=== PATIENT | male | born 1960 | race American Indian/Alaskan Native ===

== ENCOUNTER 2021-10-09 00:29 | Emergency (ER) | payer OTHER ==
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
--- NOTE | 2021-10-09 04:28 | XRay Report ---
C-Spine INDICATION / CLINICAL INFORMATION: TRECH PLACEMENT COMPARISON: None available. FINDINGS/IMPRESSION: Tracheostomy device tip projects over the trachea. Visualized lung apices are clear. Advanced multile florentin cervical spondylosis partially imaged. No acute osseous findings. Signer Name: Magdi Manning MD Signed: 10/09/2021 2:18 AM Workstation Name: [id number]
[2021-10-09 05:15] VITALS: BP 131/95
== END 2021-10-09 05:10 | disposition home or self-care (01) ==
LOC: ED 00:29
DX: Z43.0 Encounter for attention to tracheostomy (principal)
CPT/HCPCS: 72040; 99283

== ENCOUNTER 2021-10-31 01:56 | Inpatient (IN) | payer OTHER ==
[2021-10-31] MEDS ORDERED: SUCCINYLCHOLINE CHLORIDE 200 MG/10 ML INJ MDV ONE (02:22)
[2021-10-31] MEDS ORDERED: KETAMINE 500 MG/5 ML VIAL MDV ONE (02:23)
[2021-10-31] MEDS ORDERED: KETAMINE 500 MG/5 ML VIAL MDV IV ONE (02:30)
[2021-10-31] MEDS ORDERED: SODIUM CHLORIDE 0.9% 1000 ML 1,000 ML IV ONE ×3 (02:35→04:00)
[2021-10-31 03:00] LABS: Basophils % (Auto) 0.4 % (0.0-1.8); Eosinophils % (Auto) 0.1 % (0.0-4.3); Lymphocytes # (Auto) 1.9 K/mm3 (1.2-5.4); Lymphocytes % (Auto) 16.6 % (13.4-35.0); Mean Corpuscular HGB Conc 29 % (32-34); Mean Corpuscular Volume 90 fl (84-94); Monocytes # (Auto) 0.2 K/mm3 (0.0-0.8); Monocytes % (Auto) 1.4 % (0.0-7.3); Platelet Count 338 K/mm3 (140-440); Red Blood Count 4.71 M/mm3 (3.65-5.03); Red Cell Distribution Width 15.3 % (13.2-15.2)
--- NOTE | 2021-10-31 03:11 | XRay Report ---
CHEST 1 VIEW INDICATION / CLINICAL INFORMATION: SOB. COMPARISON: None available. FINDINGS: SUPPORT DEVICES: Tracheostomy tube is present and appears to be in satisfactory position. HEART / MEDIASTINUM: No significant abnormality. LUNGS / PLEURA: The lungs are hyperinflated suggesting COPD. The lungs are grossly clear. No definiti ve acute superimposed disease is noted. Central pulmonary artery appears prominent, probably indicati ve of pulmonary arterial hypertension. No pleural effusions. No pneumothorax. ADDITIONAL FINDINGS: No significant additional findings. IMPRESSION: 1. Hyperinflation of the lungs consistent with COPD. 2. No definite acute superimposed pulmonary disease noted. Signer Name: Jacquelin Mccord MD Signed: 10/31/2021 3:07 AM Workstation Name: [id number]
[2021-10-31 03:17] LABS: Hematocrit 42.2 % (35.5-45.6); Hemoglobin 12.4 gm/dl (11.8-15.2)
[2021-10-31 03:19] LABS: INR 1.12 (0.87-1.13)
[2021-10-31 03:20] LABS: Partial Thromboplastin Time 43.1 Sec. (24.2-36.6)
[2021-10-31 03:23] LABS: Calcium 9.1 mg/dL (8.4-10.2)
[2021-10-31 03:28] LABS: C-Reactive Protein 7.8 mg/dL (0.00-1.30)
[2021-10-31] MEDS ORDERED: dexAMETHasone 4 MG/ML VIAL IV ONE (03:41)
[2021-10-31] MEDS ORDERED: cefTRIAXone/NS 1 GM/50 ML 1 GM/50 ML BAG IV ONE (03:41)
[2021-10-31 04:12] LABS: ABG Base Excess -7.8 mmol/L (-2.0-3.0); ABG HCO3 17.4 mmol/L (20.0-26.0); ABG Methemoglobin 0.5 % (0.0-1.5); ABG Oxygen Saturation 99.3 % (95.0-99.0); ABG PCO2 34.8 mm Hg; ABG PH 7.318 pH Units (7.350-7.450); ABG PO2 229.1 mm Hg (80.0-90.0)
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
[2021-10-31] MEDS ORDERED: MORPHINE 4 MG/1 ML INJ IV PRN (11:10)
[2021-10-31] MEDS ORDERED: SIMPLE SYRUP 15 ML FEEDTUBE PRN ×2 (12:00)
[2021-10-31] MEDS ORDERED: ACETAMINOPHEN 325 MG/10.15 ML ORAL LIQD UNIT DOSE FEEDTUBE PRN (12:00)
[2021-10-31] MEDS ORDERED: metroNIDAZOLE/NS 500 MG/100 ML 500 MG/100 ML BAG IV SCH (12:00)
[2021-10-31] MEDS ORDERED: HYDROcodone/ACETAMINOPHEN 5-325 MG TAB PO PRN (12:00)
[2021-10-31] MEDS ORDERED: SODIUM BICARBONATE 325 MG TAB FEEDTUBE PRN (12:00)
[2021-10-31] MEDS ORDERED: LIPASE 10,500/PROTEASE 25,000/AMYLASE 43,750 (UNITS) DR CAP FEEDTUBE PRN (12:00)
[2021-10-31] MEDS ORDERED: ENOXAPARIN 30 MG/0.3 ML INJ SUB-Q SCH (13:00)
[2021-10-31] MEDS: AZITHROMYCIN/NS 500 MG/250 ML 500 MG/250 ML BAG IV SCH (13:26)
--- NOTE | 2021-10-31 14:02 | Consultation ---
History of Present Illness Consult date: 10/31/21 Requesting physician: CODI TURK Reason for consult: other (AHRF; Aspiration Pneumonia; Sepsis) History of present illness: PULMONARY/CCM CONSULT NOTE (Full dictation # [id number]) Please see dictated notes for full details Past History Past Medical History: stroke, other ( L TIBIA FRACTURE, RESP FAILURE) Past Surgical History: Other (Tracheostomy, gastrostomy tube placement) Social history: no significant social history Family history: no significant family history Medications and Allergies Allergies Allergy/AdvReac Type Severity Reaction Status Date / Time Unable to Assess Allergy Unverified 10/31/21 02:38 Active Meds: Active Medications Acetaminophen (Acetaminophen 325 Mg/10.15 Ml Oral Liqd Unit Dose) 650 mg FEEDTUBE Q6H PRN PRN Reason: Pain MILD(1-3)/Fever >100.5/MARIANO Hydrocodone Bitart/Acetaminophen (Hydrocodone/Acetaminophen 5-325 Mg Tab) 2 each PO Q6H PRN PRN Reason: Pain, Moderate (4-6) Lipase/Protease/Amylase (Lipase 10,500/Protease 25,000/Amylase 43,750 (Units) Dr Adames) 1 each FEEDTUBE PRN PRN PRN Reason: For Clogged Feeding Tube Enoxaparin Sodium (Enoxaparin 30 Mg/0.3 Ml Inj) 30 mg SUB-Q QDAY TRAVIS Last Admin: 10/31/21 13:26 Dose: 30 mg Ceftriaxone Sodium (Rocephin/Ns 2 Gm/100 Ml) 2 gm in 100 mls @ 200 mls/hr IV Q24H TRAVIS; Protocol Azithromycin (Zithromax/Ns) 500 mg in 250 mls @ 250 mls/hr IV Q24H TRAVIS; Protocol Last Admin: 10/31/21 13:26 Dose: 250 mls/hr Morphine Sulfate (Morphine 2 Mg/1 Ml Inj) 2 mg IV Q4H PRN PRN Reason: Pain , Severe (7-10) Simple Syrup (Simple Syrup 15 Ml) 15 ml FEEDTUBE PRN PRN PRN Reason: Hypoglycemia Simple Syrup (Simple Syrup 15 Ml) 30 ml FEEDTUBE PRN PRN PRN Reason: Hypoglycemia Sodium Bicarbonate (Sodium Bicarbonate 325 Mg Tab) 325 mg FEEDTUBE PRN PRN PRN Reason: For Clogged Feeding Tube Sodium Chloride (Sodium Chloride 0.9% 10 Ml Flush Syringe) 10 ml IV BID TRAVIS Last Admin: 10/31/21 13:26 Dose: Not Given Sodium Chloride (Sodium Chloride 0.9% 10 Ml Flush Syringe) 10 ml IV PRN PRN PRN Reason: LINE FLUSH Physical Examination Vital signs: Vital Signs Resp Pulse Ox 48 H 67 L 10/31/21 02:15 10/31/21 02:15 Results - Laboratory Findings CBC and BMP: 10/31/21 02:36 10/31/21 02:36 ABG ABG pH 7.318 pH Units (7.350-7.450) L 10/31/21 04:01 ABG pCO2 34.8 mm Hg 10/31/21 04:01 ABG pO2 229.1 mm Hg (80.0-90.0) H 10/31/21 04:01 ABG O2 Saturation 99.3 % (95.0-99.0) H 10/31/21 04:01 PT/INR, D-dimer PT 15.6 Sec. (12.2-14.9) H 10/31/21 02:36 INR 1.12 (0.87-1.13) 10/31/21 02:36 D-Dimer 1951.30 ng/mlDDU (0-234) H 10/31/21 02:36 Abnormal lab findings: Abnormal Labs 10/31/21 10/31/21 10/31/21 02:36 02:36 02:36 WBC 11.4 H MCH 26 L MCHC 29 L RDW 15.3 H Seg Neutrophils % 81.5 H Seg Neutrophils # 9.3 H PT 15.6 H APTT 43.1 H D-Dimer 1951.30 H ABG pH ABG pO2 ABG HCO3 ABG O2 Saturation ABG Base Excess ABG Hemoglobin Sodium 155 H Chloride 110.3 H Carbon Dioxide 15 L BUN 46 H Creatinine 2.7 H Glucose 120 H Lactic Acid Ferritin AST 492 H ALT 319 H Alkaline Phosphatase 153 H Ammonia Lactate Dehydrogenase Troponin T 0.065 H C-Reactive Protein NT-Pro-B Natriuret Pep 2381 H Albumin 3.0 L LDL Cholesterol Direct 20 L HDL Cholesterol 13 L 10/31/21 10/31/21 10/31/21 02:36 02:36 02:36 WBC MCH MCHC RDW Seg Neutrophils % Seg Neutrophils # PT APTT D-Dimer ABG pH ABG pO2 ABG HCO3 ABG O2 Saturation ABG Base Excess ABG Hemoglobin Sodium Chloride Carbon Dioxide BUN Creatinine Glucose Lactic Acid 11.80 H* Ferritin 74423.0 H AST ALT Alkaline Phosphatase Ammonia Lactate Dehydrogenase 923 H Troponin T C-Reactive Protein 7.80 H NT-Pro-B Natriuret Pep Albumin LDL Cholesterol Direct HDL Cholesterol 10/31/21 10/31/21 10/31/21 04:01 04:54 06:04 WBC MCH MCHC RDW Seg Neutrophils % Seg Neutrophils # PT APTT D-Dimer ABG pH 7.318 L ABG pO2 229.1 H ABG HCO3 17.4 L ABG O2 Saturation 99.3 H ABG Base Excess -7.8 L ABG Hemoglobin 13.2 L Sodium Chloride Carbon Dioxide BUN Creatinine Glucose Lactic Acid 5.50 H* Ferritin AST ALT Alkaline Phosphatase Ammonia 21.0 L Lactate Dehydrogenase Troponin T C-Reactive Protein NT-Pro-B Natriuret Pep Albumin LDL Cholesterol Direct HDL Cholesterol 10/31/21 10:44 WBC MCH MCHC RDW Seg Neutrophils % Seg Neutrophils # PT APTT D-Dimer ABG pH ABG pO2 ABG HCO3 ABG O2 Saturation ABG Base Excess ABG Hemoglobin Sodium Chloride Carbon Dioxide BUN Creatinine Glucose Lactic Acid 3.40 H* Ferritin AST ALT Alkaline Phosphatase Ammonia Lactate Dehydrogenase Troponin T C-Reactive Protein NT-Pro-B Natriuret Pep Albumin LDL Cholesterol Direct HDL Cholesterol
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
--- NOTE | 2021-10-31 15:13 | Consultation ---
History of Present Illness - Reason for Consult Consult date: 10/31/21 - History of Present Illness 61-year-old male with medical history of stroke, chronic tracheostomy, PEG tube. Transferred to the hospital from residential due to shortness of breath and respiratory distress. Unclear how long prior to admission these symptoms began. USP was concerned that patient may have aspirated. His tracheostomy tube was replaced on 10/09/2021. History obtained from the chart. Afebrile since admission with a white count 11.4. COVID PCR pending. Elevated lactic acid. Currently on ceftriaxone, azithromycin. Currently on the vent. Imaging personally reviewed: Chest x-ray: Hyperinflation of the lungs, no acute pneumonia. Review of systems: Deferred to reduce to the risk of transmission of COVID-19 Past History Past Medical History: stroke, other ( L TIBIA FRACTURE, RESP FAILURE) Past Surgical History: Other (Tracheostomy, gastrostomy tube placement) Social history: no significant social history Family history: no significant family history Medications and Allergies Allergies Allergy/AdvReac Type Severity Reaction Status Date / Time Unable to Assess Allergy Unverified 10/31/21 02:38 Active Meds: Active Medications Acetaminophen (Acetaminophen 325 Mg/10.15 Ml Oral Liqd Unit Dose) 650 mg FEEDTUBE Q6H PRN PRN Reason: Pain MILD(1-3)/Fever >100.5/MARIANO Hydrocodone Bitart/Acetaminophen (Hydrocodone/Acetaminophen 5-325 Mg Tab) 2 each PO Q6H PRN PRN Reason: Pain, Moderate (4-6) Lipase/Protease/Amylase (Lipase 10,500/Protease 25,000/Amylase 43,750 (Units) Dr Adames) 1 each FEEDTUBE PRN PRN PRN Reason: For Clogged Feeding Tube Enoxaparin Sodium (Enoxaparin 30 Mg/0.3 Ml Inj) 30 mg SUB-Q QDAY TRAVIS Last Admin: 10/31/21 13:26 Dose: 30 mg Ceftriaxone Sodium (Rocephin/Ns 2 Gm/100 Ml) 2 gm in 100 mls @ 200 mls/hr IV Q24H TRAVIS; Protocol Azithromycin (Zithromax/Ns) 500 mg in 250 mls @ 250 mls/hr IV Q24H TRAVIS; Protocol Last Admin: 10/31/21 13:26 Dose: 250 mls/hr Morphine Sulfate (Morphine 2 Mg/1 Ml Inj) 2 mg IV Q4H PRN PRN Reason: Pain , Severe (7-10) Simple Syrup (Simple Syrup 15 Ml) 15 ml FEEDTUBE PRN PRN PRN Reason: Hypoglycemia Simple Syrup (Simple Syrup 15 Ml) 30 ml FEEDTUBE PRN PRN PRN Reason: Hypoglycemia Sodium Bicarbonate (Sodium Bicarbonate 325 Mg Tab) 325 mg FEEDTUBE PRN PRN PRN Reason: For Clogged Feeding Tube Sodium Chloride (Sodium Chloride 0.9% 10 Ml Flush Syringe) 10 ml IV BID TRAVIS Last Admin: 10/31/21 13:26 Dose: Not Given Sodium Chloride (Sodium Chloride 0.9% 10 Ml Flush Syringe) 10 ml IV PRN PRN PRN Reason: LINE FLUSH Physical Examination - Physical Exam Narrative exam: Physical exam deferred to reduce risk of transmission of COVID-19. Please refer to primary team's note. - Constitutional Vitals: Vital Signs Temp Pulse Resp BP Pulse Ox 98.2 F 101 H 43 H 114/78 93 10/31/21 03:00 10/31/21 12:25 10/31/21 08:46 10/31/21 12:25 10/31/21 12:25 Temperature -Last 24 Hours Temperature 98.2 F Results - Labs CBC & Chem 7: 10/31/21 02:36 10/31/21 02:36 Labs: Abnormal lab results 10/31/21 10/31/21 10/31/21 Range/Units 02:36 02:36 02:36 WBC 11.4 H (4.5-11.0) K/mm3 MCH 26 L (28-32) pg MCHC 29 L (32-34) % RDW 15.3 H (13.2-15.2) % Seg Neutrophils % 81.5 H (40.0-70.0) % Seg Neutrophils # 9.3 H (1.8-7.7) K/mm3 PT 15.6 H (12.2-14.9) Sec. APTT 43.1 H (24.2-36.6) Sec. D-Dimer 1951.30 H (0-234) ng/mlDDU ABG pH (7.350-7.450) pH Units ABG pO2 (80.0-90.0) mm Hg ABG HCO3 (20.0-26.0) mmol/L ABG O2 Saturation (95.0-99.0) % ABG Base Excess (-2.0-3.0) mmol/L ABG Hemoglobin (14.0-18.0) gm/dl Sodium 155 H (137-145) mmol/L Chloride 110.3 H (98-107) mmol/L Carbon Dioxide 15 L (22-30) mmol/L BUN 46 H (9-20) mg/dL Creatinine 2.7 H (0.8-1.3) mg/dL Glucose 120 H (75-100) mg/dL Lactic Acid (0.7-2.0) mmol/L Ferritin (30.0-300.0) ng/mL AST 492 H (5-40) units/L ALT 319 H (7-56) units/L Alkaline Phosphatase 153 H (35-129) units/L Ammonia (25-60) umol/L Lactate Dehydrogenase (91-180) units/L Troponin T 0.065 H (0.00-0.029) ng/mL C-Reactive Protein (0.00-1.30) mg/dL NT-Pro-B Natriuret Pep 2381 H (0-900) pg/mL Albumin 3.0 L (3.9-5) g/dL LDL Cholesterol Direct 20 L (50-130) mg/dL HDL Cholesterol 13 L (40-59) mg/dL 10/31/21 10/31/21 10/31/21 Range/Units 02:36 02:36 02:36 WBC (4.5-11.0) K/mm3 MCH (28-32) pg MCHC (32-34) % RDW (13.2-15.2) % Seg Neutrophils % (40.0-70.0) % Seg Neutrophils # (1.8-7.7) K/mm3 PT (12.2-14.9) Sec. APTT (24.2-36.6) Sec. D-Dimer (0-234) ng/mlDDU ABG pH (7.350-7.450) pH Units ABG pO2 (80.0-90.0) mm Hg ABG HCO3 (20.0-26.0) mmol/L ABG O2 Saturation (95.0-99.0) % ABG Base Excess (-2.0-3.0) mmol/L ABG Hemoglobin (14.0-18.0) gm/dl Sodium (137-145) mmol/L Chloride (98-107) mmol/L Carbon Dioxide (22-30) mmol/L BUN (9-20) mg/dL Creatinine (0.8-1.3) mg/dL Glucose (75-100) mg/dL Lactic Acid 11.80 H* (0.7-2.0) mmol/L Ferritin 77125.0 H (30.0-300.0) ng/mL AST (5-40) units/L ALT (7-56) units/L Alkaline Phosphatase (35-129) units/L Ammonia (25-60) umol/L Lactate Dehydrogenase 923 H (91-180) units/L Troponin T (0.00-0.029) ng/mL C-Reactive Protein 7.80 H (0.00-1.30) mg/dL NT-Pro-B Natriuret Pep (0-900) pg/mL Albumin (3.9-5) g/dL LDL Cholesterol Direct (50-130) mg/dL HDL Cholesterol (40-59) mg/dL 10/31/21 10/31/21 10/31/21 Range/Units 04:01 04:54 06:04 WBC (4.5-11.0) K/mm3 MCH (28-32) pg MCHC (32-34) % RDW (13.2-15.2) % Seg Neutrophils % (40.0-70.0) % Seg Neutrophils # (1.8-7.7) K/mm3 PT (12.2-14.9) Sec. APTT (24.2-36.6) Sec. D-Dimer (0-234) ng/mlDDU ABG pH 7.318 L (7.350-7.450) pH Units ABG pO2 229.1 H (80.0-90.0) mm Hg ABG HCO3 17.4 L (20.0-26.0) mmol/L ABG O2 Saturation 99.3 H (95.0-99.0) % ABG Base Excess -7.8 L (-2.0-3.0) mmol/L ABG Hemoglobin 13.2 L (14.0-18.0) gm/dl Sodium (137-145) mmol/L Chloride (98-107) mmol/L Carbon Dioxide (22-30) mmol/L BUN (9-20) mg/dL Creatinine (0.8-1.3) mg/dL Glucose (75-100) mg/dL Lactic Acid 5.50 H* (0.7-2.0) mmol/L Ferritin (30.0-300.0) ng/mL AST (5-40) units/L ALT (7-56) units/L Alkaline Phosphatase (35-129) units/L Ammonia 21.0 L (25-60) umol/L Lactate Dehydrogenase (91-180) units/L Troponin T (0.00-0.029) ng/mL C-Reactive Protein (0.00-1.30) mg/dL NT-Pro-B Natriuret Pep (0-900) pg/mL Albumin (3.9-5) g/dL LDL Cholesterol Direct (50-130) mg/dL HDL Cholesterol (40-59) mg/dL 10/31/21 Range/Units 10:44 WBC (4.5-11.0) K/mm3 MCH (28-32) pg MCHC (32-34) % RDW (13.2-15.2) % Seg Neutrophils % (40.0-70.0) % Seg Neutrophils # (1.8-7.7) K/mm3 PT (12.2-14.9) Sec. APTT (24.2-36.6) Sec. D-Dimer (0-234) ng/mlDDU ABG pH (7.350-7.450) pH Units ABG pO2 (80.0-90.0) mm Hg ABG HCO3 (20.0-26.0) mmol/L ABG O2 Saturation (95.0-99.0) % ABG Base Excess (-2.0-3.0) mmol/L ABG Hemoglobin (14.0-18.0) gm/dl Sodium (137-145) mmol/L Chloride (98-107) mmol/L Carbon Dioxide (22-30) mmol/L BUN (9-20) mg/dL Creatinine (0.8-1.3) mg/dL Glucose (75-100) mg/dL Lactic Acid 3.40 H* (0.7-2.0) mmol/L Ferritin (30.0-300.0) ng/mL AST (5-40) units/L ALT (7-56) units/L Alkaline Phosphatase (35-129) units/L Ammonia (25-60) umol/L Lactate Dehydrogenase (91-180) units/L Troponin T (0.00-0.029) ng/mL C-Reactive Protein (0.00-1.30) mg/dL NT-Pro-B Natriuret Pep (0-900) pg/mL Albumin (3.9-5) g/dL LDL Cholesterol Direct (50-130) mg/dL HDL Cholesterol (40-59) mg/dL Assessment and Plan Cultures: Blood culture no growth so far COVID-19 PCR pending A/P: 61-year-old male with medical history of stroke, chronic tracheostomy, PEG tube now with: #COVID PUI: Pending PCR result. #Acute on chronic respiratory failure: Chronic trach in place, requiring ventilation on top of normal requirements #History of CVA #MARCELINO vs CKD Recs: -Pending COVID PCR -Continue empiric antibiotics for now to complete 5 days. -At present not a candidate for Remdesivir given renal function; will monitor for improvement. -Anticoagulation per hospital protocol. Thank you for the consult, we will continue to follow. MD Rudy [facility] O: [phone] F: [phone]
--- NOTE | 2021-10-31 15:23 | Consultation ---
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 History taken from chart due to patient being nonverbal. Per documentation patient was found by EMS to be hypoxic with an O2 sat in the 70s. Staff at [facility] was unable to provide any information to EMS about when patient symptoms started. EMS reported patient may have aspirated. Of note Hospital work-up showed patient to have MARCELINO, elevated LFTs, lactic acidosis, elevated BNP and minimally elevated troponins. Patient is previously known to our practice. Cardiology is consulted for elevated troponin Past History Past Medical History: stroke, other ( L TIBIA FRACTURE, RESP FAILURE) Past Surgical History: Other (Tracheostomy, gastrostomy tube placement) Social history: no significant social history Family history: no significant family history Medications and Allergies Allergies Allergy/AdvReac Type Severity Reaction Status Date / Time Unable to Assess Allergy Unverified 10/31/21 02:38 Active Meds: Active Medications Acetaminophen (Acetaminophen 325 Mg/10.15 Ml Oral Liqd Unit Dose) 650 mg FEEDTUBE Q6H PRN PRN Reason: Pain MILD(1-3)/Fever >100.5/MARIANO Hydrocodone Bitart/Acetaminophen (Hydrocodone/Acetaminophen 5-325 Mg Tab) 2 each PO Q6H PRN PRN Reason: Pain, Moderate (4-6) Lipase/Protease/Amylase (Lipase 10,500/Protease 25,000/Amylase 43,750 (Units) Dr Adames) 1 each FEEDTUBE PRN PRN PRN Reason: For Clogged Feeding Tube Enoxaparin Sodium (Enoxaparin 30 Mg/0.3 Ml Inj) 30 mg SUB-Q QDAY TRAVIS Last Admin: 10/31/21 13:26 Dose: 30 mg Ceftriaxone Sodium (Rocephin/Ns 2 Gm/100 Ml) 2 gm in 100 mls @ 200 mls/hr IV Q24H TRAVIS; Protocol Azithromycin (Zithromax/Ns) 500 mg in 250 mls @ 250 mls/hr IV Q24H TRAVIS; Protocol Last Admin: 10/31/21 13:26 Dose: 250 mls/hr Morphine Sulfate (Morphine 2 Mg/1 Ml Inj) 2 mg IV Q4H PRN PRN Reason: Pain , Severe (7-10) Simple Syrup (Simple Syrup 15 Ml) 15 ml FEEDTUBE PRN PRN PRN Reason: Hypoglycemia Simple Syrup (Simple Syrup 15 Ml) 30 ml FEEDTUBE PRN PRN PRN Reason: Hypoglycemia Sodium Bicarbonate (Sodium Bicarbonate 325 Mg Tab) 325 mg FEEDTUBE PRN PRN PRN Reason: For Clogged Feeding Tube Sodium Chloride (Sodium Chloride 0.9% 10 Ml Flush Syringe) 10 ml IV BID [facility] Last Admin: 10/31/21 13:26 Dose: Not Given Sodium Chloride (Sodium Chloride 0.9% 10 Ml Flush Syringe) 10 ml IV PRN PRN PRN Reason: LINE FLUSH Review of Systems ROS unobtainable: due to endotracheal tube, due to mental status Physical Examination Vital Signs Resp Pulse Ox 48 H 67 L 10/31/21 02:15 10/31/21 02:15 General appearance: no acute distress HEENT: Positive: Normocephaly, Mucus Membranes Dry Neck: Positive: trachea midline Cardiac: Positive: Regular Rhythm, Tachycardia Lungs: Positive: Rales Neuro: Positive: Grossly Intact Abdomen: Positive: Soft Skin: Negative: Rash, Suspicious Lesions, Ulceration Extremities: Present: upper extr. pulses, Cool. Absent: edema Results 10/31/21 02:36 10/31/21 02:36 Cardiac Enzymes 10/31/21 10/31/21 10/31/21 Range/Units 02:36 02:36 02:36 WBC 11.4 H (4.5-11.0) K/mm3 RBC 4.71 (3.65-5.03) M/mm3 Hgb 12.4 (11.8-15.2) gm/dl Hct 42.2 (35.5-45.6) % MCV 90 (84-94) fl MCH 26 L (28-32) pg MCHC 29 L (32-34) % RDW 15.3 H (13.2-15.2) % Plt Count 338 (140-440) K/mm3 Lymph % (Auto) 16.6 (13.4-35.0) % Stone % (Auto) 1.4 (0.0-7.3) % Eos % (Auto) 0.1 (0.0-4.3) % Baso % (Auto) 0.4 (0.0-1.8) % Lymph # (Auto) 1.9 (1.2-5.4) K/mm3 Stone # (Auto) 0.2 (0.0-0.8) K/mm3 Eos # (Auto) 0.0 (0.0-0.4) K/mm3 Baso # (Auto) 0.0 (0.0-0.1) K/mm3 Seg Neutrophils % 81.5 H (40.0-70.0) % Seg Neutrophils # 9.3 H (1.8-7.7) K/mm3 PT 15.6 H (12.2-14.9) Sec. INR 1.12 (0.87-1.13) APTT 43.1 H (24.2-36.6) Sec. D-Dimer 1951.30 H (0-234) ng/mlDDU ABG pH (7.350-7.450) pH Units ABG pCO2 mm Hg ABG pO2 (80.0-90.0) mm Hg ABG HCO3 (20.0-26.0) mmol/L ABG O2 Saturation (95.0-99.0) % ABG O2 Content (0.0-44) ABG Base Excess (-2.0-3.0) mmol/L ABG Hemoglobin (14.0-18.0) gm/dl ABG Carboxyhemoglobin (0.0-5.0) % ABG Methemoglobin (0.0-1.5) % Oxyhemoglobin (95.0-99.0) % FiO2 % Sodium 155 H (137-145) mmol/L Potassium 4.7 (3.6-5.0) mmol/L Chloride 110.3 H (98-107) mmol/L Carbon Dioxide 15 L (22-30) mmol/L Anion Gap 34 mmol/L BUN 46 H (9-20) mg/dL Creatinine 2.7 H (0.8-1.3) mg/dL Estimated GFR 29 ml/min BUN/Creatinine Ratio 17 % Glucose 120 H (75-100) mg/dL Lactic Acid (0.7-2.0) mmol/L Calcium 9.1 (8.4-10.2) mg/dL Ferritin (30.0-300.0) ng/mL Total Bilirubin 0.50 (0.1-1.2) mg/dL AST 492 H (5-40) units/L ALT 319 H (7-56) units/L Alkaline Phosphatase 153 H (35-129) units/L Ammonia (25-60) umol/L Lactate Dehydrogenase (91-180) units/L Troponin T 0.065 H (0.00-0.029) ng/mL C-Reactive Protein (0.00-1.30) mg/dL NT-Pro-B Natriuret Pep 2381 H (0-900) pg/mL Total Protein 8.2 (6.3-8.2) g/dL Albumin 3.0 L (3.9-5) g/dL Albumin/Globulin Ratio 0.6 % Triglycerides 116 (2-149) mg/dL Cholesterol 52 (50-199) mg/dL LDL Cholesterol Direct 20 L (50-130) mg/dL HDL Cholesterol 13 L (40-59) mg/dL Cholesterol/HDL Ratio 4.00 % 10/31/21 10/31/21 10/31/21 Range/Units 02:36 02:36 02:36 WBC (4.5-11.0) K/mm3 RBC (3.65-5.03) M/mm3 Hgb (11.8-15.2) gm/dl Hct (35.5-45.6) % MCV (84-94) fl MCH (28-32) pg MCHC (32-34) % RDW (13.2-15.2) % Plt Count (140-440) K/mm3 Lymph % (Auto) (13.4-35.0) % Stone % (Auto) (0.0-7.3) % Eos % (Auto) (0.0-4.3) % Baso % (Auto) (0.0-1.8) % Lymph # (Auto) (1.2-5.4) K/mm3 Stone # (Auto) (0.0-0.8) K/mm3 Eos # (Auto) (0.0-0.4) K/mm3 Baso # (Auto) (0.0-0.1) K/mm3 Seg Neutrophils % (40.0-70.0) % Seg Neutrophils # (1.8-7.7) K/mm3 PT (12.2-14.9) Sec. INR (0.87-1.13) APTT (24.2-36.6) Sec. D-Dimer (0-234) ng/mlDDU ABG pH (7.350-7.450) pH Units ABG pCO2 mm Hg ABG pO2 (80.0-90.0) mm Hg ABG HCO3 (20.0-26.0) mmol/L ABG O2 Saturation (95.0-99.0) % ABG O2 Content (0.0-44) ABG Base Excess (-2.0-3.0) mmol/L ABG Hemoglobin (14.0-18.0) gm/dl ABG Carboxyhemoglobin (0.0-5.0) % ABG Methemoglobin (0.0-1.5) % Oxyhemoglobin (95.0-99.0) % FiO2 % Sodium (137-145) mmol/L Potassium (3.6-5.0) mmol/L Chloride (98-107) mmol/L Carbon Dioxide (22-30) mmol/L Anion Gap mmol/L BUN (9-20) mg/dL Creatinine (0.8-1.3) mg/dL Estimated GFR ml/min BUN/Creatinine Ratio % Glucose (75-100) mg/dL Lactic Acid 11.80 H* (0.7-2.0) mmol/L Calcium (8.4-10.2) mg/dL Ferritin 16863.0 H (30.0-300.0) ng/mL Total Bilirubin (0.1-1.2) mg/dL AST (5-40) units/L ALT (7-56) units/L Alkaline Phosphatase (35-129) units/L Ammonia (25-60) umol/L Lactate Dehydrogenase 923 H (91-180) units/L Troponin T (0.00-0.029) ng/mL C-Reactive Protein 7.80 H (0.00-1.30) mg/dL NT-Pro-B Natriuret Pep (0-900) pg/mL Total Protein (6.3-8.2) g/dL Albumin (3.9-5) g/dL Albumin/Globulin Ratio % Triglycerides (2-149) mg/dL Cholesterol (50-199) mg/dL LDL Cholesterol Direct (50-130) mg/dL HDL Cholesterol (40-59) mg/dL Cholesterol/HDL Ratio % 10/31/21 10/31/21 10/31/21 Range/Units 04:01 04:54 06:04 WBC (4.5-11.0) K/mm3 RBC (3.65-5.03) M/mm3 Hgb (11.8-15.2) gm/dl Hct (35.5-45.6) % MCV (84-94) fl MCH (28-32) pg MCHC (32-34) % RDW (13.2-15.2) % Plt Count (140-440) K/mm3 Lymph % (Auto) (13.4-35.0) % Stone % (Auto) (0.0-7.3) % Eos % (Auto) (0.0-4.3) % Baso % (Auto) (0.0-1.8) % Lymph # (Auto) (1.2-5.4) K/mm3 Stone # (Auto) (0.0-0.8) K/mm3 Eos # (Auto) (0.0-0.4) K/mm3 Baso # (Auto) (0.0-0.1) K/mm3 Seg Neutrophils % (40.0-70.0) % Seg Neutrophils # (1.8-7.7) K/mm3 PT (12.2-14.9) Sec. INR (0.87-1.13) APTT (24.2-36.6) Sec. D-Dimer (0-234) ng/mlDDU ABG pH 7.318 L (7.350-7.450) pH Units ABG pCO2 34.8 mm Hg ABG pO2 229.1 H (80.0-90.0) mm Hg ABG HCO3 17.4 L (20.0-26.0) mmol/L ABG O2 Saturation 99.3 H (95.0-99.0) % ABG O2 Content 18.7 (0.0-44) ABG Base Excess -7.8 L (-2.0-3.0) mmol/L ABG Hemoglobin 13.2 L (14.0-18.0) gm/dl ABG Carboxyhemoglobin 1.0 (0.0-5.0) % ABG Methemoglobin 0.5 (0.0-1.5) % Oxyhemoglobin 97.9 (95.0-99.0) % FiO2 100 % Sodium (137-145) mmol/L Potassium (3.6-5.0) mmol/L Chloride (98-107) mmol/L Carbon Dioxide (22-30) mmol/L Anion Gap mmol/L BUN (9-20) mg/dL Creatinine (0.8-1.3) mg/dL Estimated GFR ml/min BUN/Creatinine Ratio % Glucose (75-100) mg/dL Lactic Acid 5.50 H* (0.7-2.0) mmol/L Calcium (8.4-10.2) mg/dL Ferritin (30.0-300.0) ng/mL Total Bilirubin (0.1-1.2) mg/dL AST (5-40) units/L ALT (7-56) units/L Alkaline Phosphatase (35-129) units/L Ammonia 21.0 L (25-60) umol/L Lactate Dehydrogenase (91-180) units/L Troponin T (0.00-0.029) ng/mL C-Reactive Protein (0.00-1.30) mg/dL NT-Pro-B Natriuret Pep (0-900) pg/mL Total Protein (6.3-8.2) g/dL Albumin (3.9-5) g/dL Albumin/Globulin Ratio % Triglycerides (2-149) mg/dL Cholesterol (50-199) mg/dL LDL Cholesterol Direct (50-130) mg/dL HDL Cholesterol (40-59) mg/dL Cholesterol/HDL Ratio % 10/31/21 Range/Units 10:44 WBC (4.5-11.0) K/mm3 RBC (3.65-5.03) M/mm3 Hgb (11.8-15.2) gm/dl Hct (35.5-45.6) % MCV (84-94) fl MCH (28-32) pg MCHC (32-34) % RDW (13.2-15.2) % Plt Count (140-440) K/mm3 Lymph % (Auto) (13.4-35.0) % Stone % (Auto) (0.0-7.3) % Eos % (Auto) (0.0-4.3) % Baso % (Auto) (0.0-1.8) % Lymph # (Auto) (1.2-5.4) K/mm3 Stone # (Auto) (0.0-0.8) K/mm3 Eos # (Auto) (0.0-0.4) K/mm3 Baso # (Auto) (0.0-0.1) K/mm3 Seg Neutrophils % (40.0-70.0) % Seg Neutrophils # (1.8-7.7) K/mm3 PT (12.2-14.9) Sec. INR (0.87-1.13) APTT (24.2-36.6) Sec. D-Dimer (0-234) ng/mlDDU ABG pH (7.350-7.450) pH Units ABG pCO2 mm Hg ABG pO2 (80.0-90.0) mm Hg ABG HCO3 (20.0-26.0) mmol/L ABG O2 Saturation (95.0-99.0) % ABG O2 Content (0.0-44) ABG Base Excess (-2.0-3.0) mmol/L ABG Hemoglobin (14.0-18.0) gm/dl ABG Carboxyhemoglobin (0.0-5.0) % ABG Methemoglobin (0.0-1.5) % Oxyhemoglobin (95.0-99.0) % FiO2 % Sodium (137-145) mmol/L Potassium (3.6-5.0) mmol/L Chloride (98-107) mmol/L Carbon Dioxide (22-30) mmol/L Anion Gap mmol/L BUN (9-20) mg/dL Creatinine (0.8-1.3) mg/dL Estimated GFR ml/min BUN/Creatinine Ratio % Glucose (75-100) mg/dL Lactic Acid 3.40 H* (0.7-2.0) mmol/L Calcium (8.4-10.2) mg/dL Ferritin (30.0-300.0) ng/mL Total Bilirubin (0.1-1.2) mg/dL AST (5-40) units/L ALT (7-56) units/L Alkaline Phosphatase (35-129) units/L Ammonia (25-60) umol/L Lactate Dehydrogenase (91-180) units/L Troponin T (0.00-0.029) ng/mL C-Reactive Protein (0.00-1.30) mg/dL NT-Pro-B Natriuret Pep (0-900) pg/mL Total Protein (6.3-8.2) g/dL Albumin (3.9-5) g/dL Albumin/Globulin Ratio % Triglycerides (2-149) mg/dL Cholesterol (50-199) mg/dL LDL Cholesterol Direct (50-130) mg/dL HDL Cholesterol (40-59) mg/dL Cholesterol/HDL Ratio % Coagulation 10/31/21 Range/Units 02:36 PT 15.6 H (12.2-14.9) Sec. INR 1.12 (0.87-1.13) APTT 43.1 H (24.2-36.6) Sec. Lipids 10/31/21 Range/Units 02:36 Triglycerides 116 (2-149) mg/dL Cholesterol 52 (50-199) mg/dL HDL Cholesterol 13 L (40-59) mg/dL Cholesterol/HDL Ratio 4.00 % CBC 10/31/21 Range/Units 02:36 WBC 11.4 H (4.5-11.0) K/mm3 RBC 4.71 (3.65-5.03) M/mm3 Hgb 12.4 (11.8-15.2) gm/dl Hct 42.2 (35.5-45.6) % Plt Count 338 (140-440) K/mm3 Lymph # (Auto) 1.9 (1.2-5.4) K/mm3 Stone # (Auto) 0.2 (0.0-0.8) K/mm3 Eos # (Auto) 0.0 (0.0-0.4) K/mm3 Baso # (Auto) 0.0 (0.0-0.1) K/mm3 Comprehensive Metabolic Panel 10/31/21 Range/Units 02:36 Sodium 155 H (137-145) mmol/L Potassium 4.7 (3.6-5.0) mmol/L Chloride 110.3 H (98-107) mmol/L Carbon Dioxide 15 L (22-30) mmol/L BUN 46 H (9-20) mg/dL Creatinine 2.7 H (0.8-1.3) mg/dL Glucose 120 H (75-100) mg/dL Calcium 9.1 (8.4-10.2) mg/dL AST 492 H (5-40) units/L ALT 319 H (7-56) units/L Alkaline Phosphatase 153 H (35-129) units/L Total Protein 8.2 (6.3-8.2) g/dL Albumin 3.0 L (3.9-5) g/dL - Imaging and Cardiology Echo: pending EKG interpretations - Telemetry EKG Rhythm: Sinus Tachycardia - EKG Sinus rhythms and dysrhythmias: sinus tachycardia Ventricular dysrhythmias: ventricular escape comple Assessment and Plan Patient is a 61-year-old male with a past medical history of a 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 Acute hypoxic respiratory failure-pulmonology consulted Lactic acidosis Aspiration PNA?-on ABXs MARCELINO Hypernatremia-nephrology consulted PUI Elevated troponins Elevated d-dimer Elevated LFTs Plan: EKG shows sinus tach 104 with PVCs and prolonged QT. No acute ischemic changes. Patient denies chest pain. Troponins minimally elevated 0.065. Repeat cardiac enzymes pending Troponin likely elevated due to pneumonia and renal insufficiency BNP noted to be elevated. Echo pending Due to soft blood pressures we will hold antihypertensive medications Due to elevated creatinine no KRISTIE/ARB and will hold diuretics COVID PCR pending Patient seen in conjunction with Dr. Katz who agrees with this plan of care - Patient Problems (1) Elevated d-dimer Current Visit: Yes Status: Acute (2) Elevated troponin Current Visit: Yes Status: Acute (3) MARCELINO (acute kidney injury) Current Visit: Yes Status: Acute (4) Acute respiratory failure Current Visit: Yes Status: Acute (5) Elevated liver enzymes Current Visit: Yes Status: Acute (6) Lactic acidosis Current Visit: Yes Status: Acute (7) Suspected 2019 novel coronavirus infection Current Visit: Yes Status: Acute
[2021-10-31] MEDS ORDERED: fentaNYL 100 MCG/2 ML INJ IV PRN (15:40)
[2021-10-31] MEDS ORDERED: MINERAL OIL/PETROLATUM, WHITE OPHTH OINT 3.5 GM OU PRN (15:40)
[2021-10-31] MEDS ORDERED: LIP THERAPY VASELINE TP PRN (15:40)
[2021-10-31] MEDS: FREE WATER PO SCH (17:57)
--- NOTE | 2021-10-31 21:22 | Consultation ---
DATE OF CONSULTATION: 10/31/2021 PULMONARY CRITICAL CARE CONSULTATION NOTE CONSULTING PHYSICIAN: Dr. Alexander Gilbert. REASON FOR CONSULTATION: Acute hypoxemic respiratory failure, now on mechanical ventilatory support. CHIEF COMPLAINT AND HISTORY OF PRESENT ILLNESS: The patient is a 61-year-old -[place] male brought into the Emergency Room from a half-way in the area with a complaint of shortness of breath and respiratory distress. He has an indwelling trach, so he probably has chronic respiratory failure, unclear if he was on oxygen. When EMS got to the half-way, he was hypoxemic, O2 sats in the 70s. There was concern that the patient could have aspirated at the half-way. The trach is secondary to a level 1 trauma that occurred on 10/04, I believe ____ and had been in the Emergency Room on 10/09 for replacement of his tracheostomy tube. He was placed on mechanical ventilator and we were asked to assist with management. When I stopped by to see him, he was resting in bed. A 2D echocardiogram was being done at that time. He nodded his head no when I asked about any pain. He was breathing over the set rate of 20 on the mechanical ventilator. He was breathing up to 40 times per minute. With regards to tobacco use or abuse history, he is not a smoker at this point in time. He is really unable to give me much more history. PAST MEDICAL HISTORY: History of cerebrovascular accident, traumatic; history of a left tibia fracture, history of chronic respiratory failure, status post tracheostomy and history of oropharyngeal dysphagia. PAST SURGICAL HISTORY: He is status post tracheostomy and status post gastrostomy tube placement. MEDICATIONS: He was on at the time I stopped by to see him, according to the medication administration record included the following: Tylenol 650 mg p.o. q. 6 hours p.r.n. mild pain or fevers, all p.o. medications via the feeding tube, hydrocodone 5/325 mg 2 tablets p.o. q. 6 hours p.r.n. moderate pain, azithromycin 500 mg IV daily, Rocephin 2 grams IV daily, Lovenox 30 mg subcutaneous daily, morphine sulfate 2 mg IV q. 4 hours p.r.n. severe pain. ALLERGIES: Unknown. DIET: Thin, chronically ill-looking gentleman, acute weight loss or gain history is unknown. SOCIAL HISTORY: Lives in a half-way. No current alcohol, tobacco or illicit drug use or abuse. Remote history is unknown. FAMILY HISTORY: Unknown. REVIEW OF SYSTEMS: Difficult to obtain secondary to the patient's medical and mental condition. Since he has been here, no gross hematochezia or melena, no gross hematuria, no hematemesis, no bloody tracheal secretions and no witnessed seizures have been reported. Review of systems otherwise unobtainable or as in body of the history above. PHYSICAL EXAMINATION: VITAL SIGNS: At presentation, initial temperature 98.2 degrees Fahrenheit, his pulse was 107, respiratory rate 48, blood pressure 138/116, O2 sats were 67%, inspired oxygen concentration at that time was not recorded. When I stopped by to see him, O2 sats were around 96%, that was on the assist control mode of ventilation, tidal volume 450, rate of 20 and PEEP of 8, 50% FiO2. GENERAL: Middle-aged, chronically ill-looking male. Normocephalic, atraumatic. Resting in bed with moderately to severely increased respiratory effort at rest. HEAD, EYES, EARS, NOSE AND THROAT: Anicteric. No conjunctival erythema. Oropharynx was moist. No gross jugular venous distention, no thyromegaly. Tracheostomy tube was in the midline of his neck. Grossly, there were no palpable lymph nodes in the supraclavicular or submandibular lymph node chains. LUNGS: Auscultation of lung hatch unremarkable. Lungs are clear bilaterally with good bilateral air movement. No wheezing. HEART: Sounds 1 and 2 are heard at the time of my evaluation, regular rate and rhythm without overt rubs or murmurs. He was tachycardic. ABDOMEN: Soft, flat, bowel sounds are positive, nontender. No palpable hepatosplenomegaly. He has a PEG tube in place. EXTREMITIES: Without overt digital clubbing or cyanosis. No pedal edema. Pedal pulses are 2+ bilaterally. NEUROLOGIC: Pupils were equal, round, about 4 mm, reactive to light. He had spontaneous movements to all his extremities except the left upper extremity. I could not get him to squeeze my hands. He was able to move his feet. Power was reduced in lower extremities. SKIN: Poor turgor in the areas I examined; however, without overt cellulitis or rash. Please see the wound care nurses' notes for full description of his skin. PSYCHIATRIC: Mood and affect appeared anxious. He did not seem to have intact judgment and insight. LABORATORY DATA: From my review are as follows: White cell count 11,400, hemoglobin 12.4, hematocrit 42.2, platelet count 338. No manual differential. INR was 1.12. D-dimer elevated at 1951. Arterial blood gas showed a pH of 7.32, pCO2 of 35, pO2 of 229, that was on 100% FiO2. Serum sodium 155, potassium 4.7, chloride 110, bicarbonate 15, BUN 46, creatinine 2.7, glucose was 120. Lactic acid level was 11.8, down to 3.4. Ferritin was elevated at 10,670. AST 492, ALT 319. Ammonia level was within normal limits. LDH was elevated at 923. Troponin elevated at 0.065. CRP 7.8. Albumin was low at 3.0. Two sets of blood cultures are no growth to date. Chest x-ray shows endotracheal tube in place. The film is poorly rotated. I do feel like soft tissue shadows accentuate the left mid lung field zones. I am not convinced that we have a pneumonia here, but with aspiration history that may be a possibility. No gross pneumothorax. No gross bony fracture that I can see. ASSESSMENT: 1. Acute on chronic hypoxemic respiratory failure. 2. Possible aspiration pneumonia. 3. Acute kidney injury. 4. Leukocytosis. 5. Mild metabolic acidosis. 6. Lactic acidosis. 7. Hyponatremia. 8. Adult failure to thrive. 9. Elevated serum transaminases. 10. Elevated serum inflammatory markers to include ferritin, LDH and D-dimers. 11. Patient under investigation for coronavirus-19 infection. 12. Oropharyngeal dysphagia. PLAN: I will keep him on full mechanical ventilatory support in the short time. I have increased the set rate of 30 per minute to try and reduce his work of breathing. Arterial blood gas will be repeated at about 9:00 p.m. jason. Otherwise, ventilator-associated pneumonia bundle has been introduced. Oxygen will be weaned to keep sats greater than or equal to about 90%. Enteral nutrition will be the feeding modality of choice. We will continue with empiric community-acquired pneumonia therapy. Free water supplementation will be ordered at 250 mL q. 4 hours via his feeding tube in light of the hypernatremia. I will send the coronavirus-19 test and Infectious Disease consultation will be at the behest of the attending physician. Procalcitonin level will also be ordered. I will continue to trend lactic acid level and repeat it in the morning. Volume resuscitation will be continued to see if this is an acute prerenal kidney injury. Nephrology evaluation will be of benefit. He is appropriately on DVT prophylaxis. He will be placed on GI prophylaxis. Flu and pneumonia vaccination will be addressed per protocol. Thank you very much for the consult. We will follow along and make further recommendations as picture progresses/becomes clearer. He is critically ill, on life-sustaining interventions including mechanical ventilatory support, at very high risk of from cardiopulmonary system and renal system decompensation at this time. I spent about 35-40 minutes of critical care time without overlap and excluding any procedural time that may be necessary. TID: [id number] RECEIPT: [id number] ARYAN/KALA
[2021-11-01] MEDS: SENNOSIDES/DOCUSATE SODIUM 8.6/50 MG TAB FEEDTUBE SCH ×2 (01:08→11:13)
[2021-11-01] MEDS: FREE WATER PO SCH ×6 (01:08→15:56)
[2021-11-01] MEDS: MORPHINE 2 MG/1 ML INJ IV PRN (01:11)
--- NOTE | 2021-11-01 03:45 | XRay Report ---
CHEST 1 VIEW INDICATION / CLINICAL INFORMATION: follow up respiratory failure. COMPARISON: 10/31/2021 FINDINGS: SUPPORT DEVICES: Tracheostomy tube is stable in position. HEART / MEDIASTINUM: No significant abnormality. LUNGS / PLEURA: Nodular interstitial opacities have developed in both mid and lower lung zones, sligh tly more prevalent on the left. No pneumothorax. ADDITIONAL FINDINGS: No significant additional findings. IMPRESSION: 1. Developing bilateral interstitial opacities. I would favor infection over pulmonary edema. Signer Name: Jacquelin Mccord MD Signed: 11/01/2021 3:41 AM Workstation Name: [id number]
[2021-11-01 04:04] LABS: Mean Corpuscular HGB Conc 31 % (32-34); Mean Corpuscular Volume 90 fl (84-94); Platelet Count 298 K/mm3 (140-440); Red Cell Distribution Width 15.3 % (13.2-15.2)
[2021-11-01 04:05] LABS: Hemoglobin 11.3 gm/dl (11.8-15.2)
[2021-11-01 04:10] LABS: ABG Base Excess -1.6 mmol/L (-2.0-3.0); ABG HCO3 21.2 mmol/L (20.0-26.0); ABG Methemoglobin 0.5 % (0.0-1.5); ABG Oxygen Saturation 97.1 % (95.0-99.0); ABG PCO2 29.9 mm Hg; ABG PH 7.468 pH Units (7.350-7.450); ABG PO2 82.5 mm Hg (80.0-90.0)
[2021-11-01 04:23] LABS: BUN/Creatinine Ratio 33; Blood Urea Nitrogen 40 mg/dL (9-20); Calcium 8.6 mg/dL (8.4-10.2); Hemolysis Index 5
[2021-11-01 04:51] LABS: Band Neutrophils # (Manual) 2.3 K/mm3; Basophils % (Manual) 0 % (0.0-1.8); Eosinophils % (Manual) 0 % (0.0-4.3); Total Cells Counted 100
[2021-11-01 04:52] LABS: Dohle Bodies Few; Platelet Estimate Consistent w Auto; RBC Morphology Normal
[2021-11-01] MEDS: cefTRIAXone/NS 2 GM/100 ML 2 GM/100 ML BAG IV SCH (06:38)
--- NOTE | 2021-11-01 08:14 | Progress Note ---
Assessment and Plan 1. Acute kidney injury: Vasomotor MARCELINO in the setting of hypotension / volume depletion. Renal US negative. Urine studies ordered. IV fluids, yet to be started. Monitor renal function. Creatinine level is better. Avoid nephrotoxic agents. Meds dosage based on GFR. 2. FEN: Hypernatremia, started on IV D5W, monitor. Metabolic acidosis, 2/2 Lactic acidosis, improved, monitor. Monitor lytes and volume status. 3. Acute on chronic hypoxic Resp failure, POA: Abx for CAP. Covid test positive. Followed by Pulmonary. 4. Sepsis, POA: Likely 2/2 PNA. Monitor. 5. Elevated D-dimer. 6. Elevated troponin. 7. Encephalopathy: Baseline MS? Subjective: Patient was seen and examined at the bedside. Examination: General appearance: well-developed, appears stated age, no distress, Trached on vent HEENT: atraumatic Neck: trached Respiratory: ctab, diminished breath sounds Heart: S1S2, regular, no murmur Abdomen: soft, bowel sounds heard, NT, PEG tube noted Integumentary: no obvious rash noted Neurologic: lethargic, not following any command Ext: no edema noted Subjective Date of service: 11/01/21 Objective - Vital Signs Vital signs: Vital Signs - 12hr 10/31/21 10/31/21 10/31/21 20:16 20:25 20:30 Pulse Rate 92 H 80 94 H Respiratory 30 H 8 L 39 H Rate Blood Pressure 128/92 128/21 128/85 O2 Sat by Pulse 97 94 97 Oximetry 10/31/21 10/31/21 10/31/21 20:46 21:00 21:16 Pulse Rate 95 H 107 H 90 Respiratory 38 H 31 H 28 H Rate Blood Pressure 119/86 124/91 126/90 O2 Sat by Pulse 100 98 99 Oximetry 10/31/21 10/31/21 10/31/21 21:30 21:46 22:00 Pulse Rate 94 H 93 H 93 H Respiratory 36 H 35 H 32 H Rate Blood Pressure 122/93 120/82 115/87 O2 Sat by Pulse 97 97 100 Oximetry 10/31/21 10/31/21 10/31/21 22:16 22:30 22:46 Pulse Rate 94 H 92 H 95 H Respiratory 26 H 33 H 26 H Rate Blood Pressure 128/101 124/87 113/92 O2 Sat by Pulse 99 98 100 Oximetry 10/31/21 10/31/21 10/31/21 23:00 23:16 23:30 Pulse Rate 86 85 91 H Respiratory 34 H 30 H 36 H Rate Blood Pressure 123/93 113/81 107/85 O2 Sat by Pulse 97 99 99 Oximetry 10/31/21 11/01/21 11/01/21 23:46 00:00 00:15 Pulse Rate 89 89 95 H Respiratory 34 H 32 H 35 H Rate Blood Pressure 108/77 108/77 122/89 O2 Sat by Pulse 99 98 98 Oximetry 11/01/21 11/01/21 11/01/21 00:31 00:45 01:01 Pulse Rate 90 99 H 102 H Respiratory 35 H 36 H 19 Rate Blood Pressure 121/81 130/97 110/80 O2 Sat by Pulse 100 100 97 Oximetry 11/01/21 11/01/21 11/01/21 01:15 01:31 01:45 Pulse Rate 96 H 94 H 89 Respiratory 31 H 32 H 31 H Rate Blood Pressure 114/81 111/80 110/87 O2 Sat by Pulse 97 97 97 Oximetry 11/01/21 11/01/21 11/01/21 02:01 02:15 02:31 Pulse Rate 86 99 H 89 Respiratory 29 H 36 H 29 H Rate Blood Pressure 112/88 128/75 122/87 O2 Sat by Pulse 100 98 98 Oximetry 11/01/21 11/01/21 11/01/21 02:45 03:01 03:15 Pulse Rate 89 83 85 Respiratory 30 H 24 22 Rate Blood Pressure 120/91 120/94 145/100 O2 Sat by Pulse 97 100 100 Oximetry 11/01/21 11/01/21 11/01/21 03:31 03:45 04:00 Pulse Rate 93 H 82 82 Respiratory 30 H 30 H 2 L Rate Blood Pressure 133/97 112/86 117/85 O2 Sat by Pulse 98 97 98 Oximetry 11/01/21 11/01/21 11/01/21 04:01 04:15 04:31 Pulse Rate 85 82 79 Respiratory 24 24 20 Rate Blood Pressure 119/92 117/85 124/97 O2 Sat by Pulse 97 100 100 Oximetry 11/01/21 11/01/21 11/01/21 04:45 05:01 05:15 Pulse Rate 86 85 87 Respiratory 20 21 29 H Rate Blood Pressure 135/102 128/99 120/96 O2 Sat by Pulse 100 100 98 Oximetry 11/01/21 11/01/21 11/01/21 05:31 05:45 06:01 Pulse Rate 86 86 96 H Respiratory 23 27 H 31 H Rate Blood Pressure 145/124 115/88 125/98 O2 Sat by Pulse 100 97 98 Oximetry 11/01/21 11/01/21 06:15 07:00 Pulse Rate 84 Respiratory 25 H Rate Blood Pressure 122/92 O2 Sat by Pulse 100 99 Oximetry - Lab 11/01/21 03:38 11/01/21 03:38 Most recent lab results ABG pH 7.468 pH Units (7.350-7.450) H 11/01/21 04:00 ABG pCO2 29.9 mm Hg 11/01/21 04:00 ABG pO2 82.5 mm Hg (80.0-90.0) 11/01/21 04:00 ABG HCO3 21.2 mmol/L (20.0-26.0) 11/01/21 04:00 ABG O2 Saturation 97.1 % (95.0-99.0) 11/01/21 04:00 Calcium 8.6 mg/dL (8.4-10.2) 11/01/21 03:38 Phosphorus 3.20 mg/dL (2.5-4.5) 10/31/21 16:42 Magnesium 2.40 mg/dL (1.7-2.3) H 10/31/21 16:42 Medications & Allergies - Medications Allergies/Adverse Reactions: Allergies Unable to Assess Allergy (Unverified 10/31/21 02:38) pt unable to answer Active Medications: Generic Name Dose Route Start Last Admin Trade Name Freq PRN Reason Stop Dose Admin Acetaminophen 650 mg 10/31/21 12:00 Acetaminophen 325 Mg/10.15 Ml Oral Liqd Unit Dose FEEDTUBE Q6H PRN Pain MILD(1-3)/Fever >100.5/MARIANO Hydrocodone Bitart/Acetaminophen 2 each 10/31/21 12:00 Hydrocodone/Acetaminophen 5-325 Mg Tab PO Q6H PRN Pain, Moderate (4-6) Lipase/Protease/Amylase 1 each 10/31/21 12:00 Lipase 10,500/Protease 25,000/Amylase 43,750 (Units) Dr Cap FEEDTUBE PRN PRN For Clogged Feeding Tube Dexamethasone 6 mg 11/01/21 10:00 Dexamethasone 4 Mg/Ml Vial IV 11/10/21 10:01 Q24HR [facility] Enoxaparin Sodium 40 mg 11/01/21 10:00 Enoxaparin 40 Mg/0.4 Ml Inj SUB-Q QDAY@1000 TRAVIS Famotidine 20 mg 11/01/21 10:00 Famotidine 20 Mg/2 Ml Inj IV BID TRAVIS Fentanyl 50 mcg 10/31/21 15:40 Fentanyl 100 Mcg/2 Ml Inj IV Q10MIN PRN ANALGESIA Hydrophilic Ointment 1 applic 10/31/21 15:40 Lip Therapy Vaseline TP Q2HR PRN Dry Lips Ceftriaxone Sodium 2 gm in 100 mls @ 200 mls/hr 11/01/21 06:00 11/01/21 06:38 Rocephin/Ns 2 Gm/100 Ml IV 11/05/21 06:29 200 mls/hr Q24H [facility] Administration Protocol Azithromycin 500 mg in 250 mls @ 250 mls/hr 10/31/21 13:00 10/31/21 13:26 Zithromax/Ns IV 11/04/21 13:59 250 mls/hr Q24H [facility] Administration Protocol Fentanyl Citrate 2,000 mcg in 100 mls @ 3.515 mls/hr 10/31/21 16:00 Fentanyl Drip Premix IV TITR TRAVIS Protocol 1 MCG/KG/HR Dextrose 1,000 mls @ 50 mls/hr 10/31/21 23:45 D5w IV DIRECT TRAVIS Morphine Sulfate 2 mg 10/31/21 12:00 11/01/21 01:11 Morphine 2 Mg/1 Ml Inj IV 2 mg Q4H PRN Administration Pain , Severe (7-10) Multi-Ingred Cream/Lotion/Oil/Oint 1 applic 10/31/21 15:40 Mineral Oil/Petrolatum, White Ophth Oint 3.5 Gm OU Q4HR PRN Dry Eye(s) Senna/Docusate Sodium 1 tab 10/31/21 22:00 11/01/21 01:08 Sennosides/Docusate Sodium 8.6/50 Mg Tab FEEDTUBE Not Given BID TRAVIS Simple Syrup 15 ml 10/31/21 12:00 Simple Syrup 15 Ml FEEDTUBE PRN PRN Hypoglycemia Simple Syrup 30 ml 10/31/21 12:00 Simple Syrup 15 Ml FEEDTUBE PRN PRN Hypoglycemia Sodium Bicarbonate 325 mg 10/31/21 12:00 Sodium Bicarbonate 325 Mg Tab FEEDTUBE PRN PRN For Clogged Feeding Tube Sodium Chloride 10 ml 10/31/21 12:00 11/01/21 01:08 Sodium Chloride 0.9% 10 Ml Flush Syringe IV 10 ml BID TRAVIS Administration Sodium Chloride 10 ml 10/31/21 12:00 Sodium Chloride 0.9% 10 Ml Flush Syringe IV PRN PRN LINE FLUSH
[2021-11-01] MEDS: dexAMETHasone 4 MG/ML VIAL IV SCH (10:00)
[2021-11-01] MEDS: FAMOTIDINE 20 MG/2 ML INJ IV SCH (10:00)
[2021-11-01] MEDS ORDERED: ENOXAPARIN 40 MG/0.4 ML INJ SUB-Q SCH (10:00)
[2021-11-01] MEDS: ENOXAPARIN 40 MG/0.4 ML INJ SUB-Q SCH (10:00)
--- NOTE | 2021-11-01 11:42 | Progress Note ---
Assessment and Plan Assessment and plan: Acute on chronic hypoxic respiratory failure Sepsis. Patient meets criteria given the tachycardia, tachypnea and diagnosis of pneumonia Aspiration pneumonia COVID-19 pneumonia Acute kidney injury. Acute COPD exacerbation Elevated D-dimer Elevated troponin Lactic acidosis. Hypernatremia 10/31/2021. Patient will be admitted to the ICU and continued on mechanical ventilation. We will consult critical care for further evaluation. I suspect patient may have aspiration pneumonia given the history outlined by EMS and chest x-ray may have some lag time with illustrating the pneumonia. We will start IV antibiotics. Patient may also have COVID 19 pneumonia given the elevated inflammatory markers of D-dimer, ferritin, LDH and CRP. Await COVID PCR testing. We will consult ID for further evaluation. Check CTA of chest to rule out PE. Patient also has elevated creatinine of 2.7 and we do not have a baseline creatinine to compare. Etiology likely secondary to sepsis/ATN. Check urinalysis and renal ultrasound. Patient also with hypernatremia. Nephrology consultation. Elevated troponin likely secondary to type II IA from sepsis and renal insufficiency. Check echocardiogram and consult cardiology for further evaluation. 11/01/2021. Patient's COVID PCR was noted to be positive on 10/31/2021. Continue empiric antibiotics per ID recommendations. Lactic acid levels have improved. Patient initially not a candidate for remdesivir given renal function. However, renal function has improved to 1.2. Await ID recommendations. Patient currently on AC mode ventilation rate of 24, tidal volume 450, PEEP of 8 and FiO2 50%. Await CTA of chest. Echocardiogram reveals left ventricular size and function normal with EF of 55-60%. Mild diastolic dysfunction. The high probability of a clinically significant, sudden or life threatening deterioration of the [cardiac, respiratory] system(s) required my full and direct attention, intervention and personal management. The aggregate critical care time was [78] minutes. This time is in addition to time spent performing reported procedures but includes the following: [x] Data Review and interpretation [x] Patient assessment and monitoring of vital signs [x] Documentation [x] Medication orders and management History Interval history: No new issues overnight Hospitalist Physical - Constitutional Vitals: Temp Pulse Resp BP Pulse Ox 98.2 F 91 H 25 H 126/90 97 10/31/21 03:00 11/01/21 08:55 11/01/21 06:15 11/01/21 08:55 11/01/21 08:55 General appearance: Present: no acute distress - EENT Eyes: Present: PERRL, EOM intact ENT: hearing intact, clear oral mucosa, dentition normal - Neck Neck: Present: supple, normal ROM - Respiratory Respiratory effort: normal Respiratory: bilateral: CTA - Cardiovascular Rhythm: regular Heart Sounds: Present: S1 & S2. Absent: gallop, rub - Extremities Extremities: no ischemia, No edema, Full ROM - Abdominal General gastrointestinal: soft, non-tender, non-distended, normal bowel sounds - Integumentary Integumentary: Present: clear, warm, dry - Neurologic Neurologic: CNII-XII intact, moves all extremities HEART Score - HEART Score Troponin: Troponin T < 0.010 ng/mL (0.00-0.029) 10/31/21 16:42 Results - Labs CBC & Chem 7: 11/01/21 03:38 11/01/21 03:38 Labs: Laboratory Last Values WBC 15.6 K/mm3 (4.5-11.0) H 11/01/21 03:38 RBC 4.10 M/mm3 (3.65-5.03) 11/01/21 03:38 Hgb 11.3 gm/dl (11.8-15.2) L 11/01/21 03:38 Hct 37.0 % (35.5-45.6) 11/01/21 03:38 MCV 90 fl (84-94) 11/01/21 03:38 MCH 28 pg (28-32) 11/01/21 03:38 MCHC 31 % (32-34) L 11/01/21 03:38 RDW 15.3 % (13.2-15.2) H 11/01/21 03:38 Plt Count 298 K/mm3 (140-440) 11/01/21 03:38 Lymph % (Auto) 16.6 % (13.4-35.0) 10/31/21 02:36 [place] % (Auto) 1.4 % (0.0-7.3) 10/31/21 02:36 Eos % (Auto) 0.1 % (0.0-4.3) 10/31/21 02:36 Baso % (Auto) 0.4 % (0.0-1.8) 10/31/21 02:36 Lymph # (Auto) 1.9 K/mm3 (1.2-5.4) 10/31/21 02:36 [place] # (Auto) 0.2 K/mm3 (0.0-0.8) 10/31/21 02:36 Eos # (Auto) 0.0 K/mm3 (0.0-0.4) 10/31/21 02:36 Baso # (Auto) 0.0 K/mm3 (0.0-0.1) 10/31/21 02:36 Add Manual Diff Complete 11/01/21 03:38 Total Counted 100 11/01/21 03:38 Seg Neutrophils % 81.5 % (40.0-70.0) H 10/31/21 02:36 Seg Neuts % (Manual) 73.0 % (40.0-70.0) H 11/01/21 03:38 Band Neutrophils % 15.0 % 11/01/21 03:38 Lymphocytes % (Manual) 9.0 % (13.4-35.0) L 11/01/21 03:38 Reactive Lymphs % (Man) 0 % 11/01/21 03:38 Monocytes % (Manual) 3.0 % (0.0-7.3) 11/01/21 03:38 Eosinophils % (Manual) 0 % (0.0-4.3) 11/01/21 03:38 Basophils % (Manual) 0 % (0.0-1.8) 11/01/21 03:38 Metamyelocytes % 0 % 11/01/21 03:38 Myelocytes % 0 % 11/01/21 03:38 Promyelocytes % 0 % 11/01/21 03:38 Blast Cells % 0 % 11/01/21 03:38 Nucleated RBC % 1.0 % (0.0-0.9) H 11/01/21 03:38 Seg Neutrophils # 9.3 K/mm3 (1.8-7.7) H 10/31/21 02:36 Seg Neutrophils # Man 11.4 K/mm3 (1.8-7.7) H 11/01/21 03:38 Band Neutrophils # 2.3 K/mm3 11/01/21 03:38 Lymphocytes # (Manual) 1.4 K/mm3 (1.2-5.4) 11/01/21 03:38 Abs React Lymphs (Man) 0.0 K/mm3 11/01/21 03:38 Monocytes # (Manual) 0.5 K/mm3 (0.0-0.8) 11/01/21 03:38 Eosinophils # (Manual) 0.0 K/mm3 (0.0-0.4) 11/01/21 03:38 Basophils # (Manual) 0.0 K/mm3 (0.0-0.1) 11/01/21 03:38 Metamyelocytes # 0.0 K/mm3 11/01/21 03:38 Myelocytes # 0.0 K/mm3 11/01/21 03:38 Promyelocytes # 0.0 K/mm3 11/01/21 03:38 Blast Cells # 0.0 K/mm3 11/01/21 03:38 WBC Morphology Not Reportable 11/01/21 03:38 Hypersegmented Neuts Not Reportable 11/01/21 03:38 Hyposegmented Neuts Not Reportable 11/01/21 03:38 Hypogranular Neuts Not Reportable 11/01/21 03:38 Smudge Cells Not Reportable 11/01/21 03:38 Toxic Granulation Not Reportable 11/01/21 03:38 Toxic Vacuolation Not Reportable 11/01/21 03:38 Dohle Bodies Few 11/01/21 03:38 Pelger-Huet Anomaly Not Reportable 11/01/21 03:38 Sisi Rods Not Reportable 11/01/21 03:38 Platelet Estimate Consistent w auto 11/01/21 03:38 Clumped Platelets Not Reportable 11/01/21 03:38 Plt Clumps, EDTA Not Reportable 11/01/21 03:38 Large Platelets Not Reportable 11/01/21 03:38 Giant Platelets Not Reportable 11/01/21 03:38 Platelet Satelliting Not Reportable 11/01/21 03:38 Plt Morphology Comment Not Reportable 11/01/21 03:38 RBC Morphology Normal 11/01/21 03:38 Dimorphic RBCs Not Reportable 11/01/21 03:38 Polychromasia Not Reportable 11/01/21 03:38 Hypochromasia Not Reportable 11/01/21 03:38 Poikilocytosis Not Reportable 11/01/21 03:38 Anisocytosis Not Reportable 11/01/21 03:38 Microcytosis Not Reportable 11/01/21 03:38 Macrocytosis Not Reportable 11/01/21 03:38 Spherocytes Not Reportable 11/01/21 03:38 Pappenheimer Bodies Not Reportable 11/01/21 03:38 Sickle Cells Not Reportable 11/01/21 03:38 Target Cells Not Reportable 11/01/21 03:38 Tear Drop Cells Not Reportable 11/01/21 03:38 Ovalocytes Not Reportable 11/01/21 03:38 Helmet Cells Not Reportable 11/01/21 03:38 [place] Bodies Not Reportable 11/01/21 03:38 Cooter Rings Not Reportable 11/01/21 03:38 Thanh Cells Not Reportable 11/01/21 03:38 Bite Cells Not Reportable 11/01/21 03:38 Crenated Cell Not Reportable 11/01/21 03:38 Elliptocytes Not Reportable 11/01/21 03:38 Acanthocytes (Spur) Not Reportable 11/01/21 03:38 Rouleaux Not Reportable 11/01/21 03:38 Hemoglobin C Crystals Not Reportable 11/01/21 03:38 Schistocytes Not Reportable 11/01/21 03:38 Malaria parasites Not Reportable 11/01/21 03:38 Hany Bodies Not Reportable 11/01/21 03:38 Hem Pathologist Commnt No 11/01/21 03:38 PT 15.6 Sec. (12.2-14.9) H 10/31/21 02:36 INR 1.12 (0.87-1.13) 10/31/21 02:36 APTT 43.1 Sec. (24.2-36.6) H 10/31/21 02:36 D-Dimer 1951.30 ng/mlDDU (0-234) H 10/31/21 02:36 ABG pH 7.468 pH Units (7.350-7.450) H 11/01/21 04:00 ABG pCO2 29.9 mm Hg 11/01/21 04:00 ABG pO2 82.5 mm Hg (80.0-90.0) 11/01/21 04:00 ABG HCO3 21.2 mmol/L (20.0-26.0) 11/01/21 04:00 ABG O2 Saturation 97.1 % (95.0-99.0) 11/01/21 04:00 ABG O2 Content 15.3 (0.0-44) 11/01/21 04:00 ABG Base Excess -1.6 mmol/L (-2.0-3.0) 11/01/21 04:00 ABG Hemoglobin 11.3 gm/dl (14.0-18.0) L 11/01/21 04:00 ABG Carboxyhemoglobin 1.1 % (0.0-5.0) 11/01/21 04:00 ABG Methemoglobin 0.5 % (0.0-1.5) 11/01/21 04:00 Oxyhemoglobin 95.6 % (95.0-99.0) 11/01/21 04:00 FiO2 50 % 11/01/21 04:00 Sodium 158 mmol/L (137-145) H 11/01/21 03:38 Potassium 4.7 mmol/L (3.6-5.0) 11/01/21 03:38 Chloride 122.1 mmol/L (98-107) H 11/01/21 03:38 Carbon Dioxide 23 mmol/L (22-30) D 11/01/21 03:38 Anion Gap 18 mmol/L 11/01/21 03:38 BUN 40 mg/dL (9-20) H 11/01/21 03:38 Creatinine 1.2 mg/dL (0.8-1.3) D 11/01/21 03:38 Estimated GFR > 60 ml/min 11/01/21 03:38 BUN/Creatinine Ratio 33 % 11/01/21 03:38 Glucose 101 mg/dL (75-100) H 11/01/21 03:38 Lactic Acid 1.80 mmol/L (0.7-2.0) 10/31/21 23:23 Calcium 8.6 mg/dL (8.4-10.2) 11/01/21 03:38 Phosphorus 3.20 mg/dL (2.5-4.5) 10/31/21 16:42 Magnesium 2.40 mg/dL (1.7-2.3) H 10/31/21 16:42 Ferritin 03954.0 ng/mL (30.0-300.0) H 10/31/21 02:36 Total Bilirubin 0.50 mg/dL (0.1-1.2) 10/31/21 02:36 AST 492 units/L (5-40) H 10/31/21 02:36 ALT 319 units/L (7-56) H 10/31/21 02:36 Alkaline Phosphatase 153 units/L (35-129) H 10/31/21 02:36 Ammonia 21.0 umol/L (25-60) L 10/31/21 06:04 Lactate Dehydrogenase 923 units/L (91-180) H 10/31/21 02:36 Troponin T < 0.010 ng/mL (0.00-0.029) 10/31/21 16:42 C-Reactive Protein 7.80 mg/dL (0.00-1.30) H 10/31/21 02:36 NT-Pro-B Natriuret Pep 2381 pg/mL (0-900) H 10/31/21 02:36 Total Protein 8.2 g/dL (6.3-8.2) 10/31/21 02:36 Albumin 3.0 g/dL (3.9-5) L 10/31/21 02:36 Albumin/Globulin Ratio 0.6 % 10/31/21 02:36 Triglycerides 116 mg/dL (2-149) 10/31/21 02:36 Cholesterol 52 mg/dL (50-199) 10/31/21 02:36 LDL Cholesterol Direct 20 mg/dL (50-130) L 10/31/21 02:36 HDL Cholesterol 13 mg/dL (40-59) L 10/31/21 02:36 Cholesterol/HDL Ratio 4.00 % 10/31/21 02:36 Coronavirus (PCR) Positive (Negative) A 10/31/21 09:30 Microbiology: Microbiology 10/31/21 04:54 Peripheral/Venous Blood Culture - Preliminary NO GROWTH AFTER 24 HOURS 10/31/21 04:46 Peripheral/Venous Blood Culture - Preliminary NO GROWTH AFTER 24 HOURS Active Medications - Current Medications Current Medications: Generic Name Dose Route Start Last Admin Trade Name Freq PRN Reason Stop Dose Admin Acetaminophen 650 mg 10/31/21 12:00 Acetaminophen 325 Mg/10.15 Ml Oral Liqd Unit Dose FEEDTUBE Q6H PRN Pain MILD(1-3)/Fever >100.5/MARIANO Hydrocodone Bitart/Acetaminophen 2 each 10/31/21 12:00 Hydrocodone/Acetaminophen 5-325 Mg Tab PO Q6H PRN Pain, Moderate (4-6) Lipase/Protease/Amylase 1 each 10/31/21 12:00 Lipase 10,500/Protease 25,000/Amylase 43,750 (Units) Dr Cap FEEDTUBE PRN PRN For Clogged Feeding Tube Dexamethasone 6 mg 11/01/21 10:00 11/01/21 10:00 Dexamethasone 4 Mg/Ml Vial IV 11/10/21 10:01 6 mg Q24HR TRAVIS Administration Enoxaparin Sodium 40 mg 11/01/21 10:00 11/01/21 10:00 Enoxaparin 40 Mg/0.4 Ml Inj SUB-Q 40 mg QDAY@1000 TRAVIS Administration Famotidine 20 mg 11/01/21 10:00 11/01/21 10:00 Famotidine 20 Mg/2 Ml Inj IV 20 mg BID TRAVIS Administration Fentanyl 50 mcg 10/31/21 15:40 Fentanyl 100 Mcg/2 Ml Inj IV Q10MIN PRN ANALGESIA Hydrophilic Ointment 1 applic 10/31/21 15:40 Lip Therapy Vaseline TP Q2HR PRN Dry Lips Ceftriaxone Sodium 2 gm in 100 mls @ 200 mls/hr 11/01/21 06:00 11/01/21 06:38 Rocephin/Ns 2 Gm/100 Ml IV 11/05/21 06:29 200 mls/hr Q24H TRAVIS Administration Protocol Azithromycin 500 mg in 250 mls @ 250 mls/hr 10/31/21 13:00 10/31/21 13:26 Zithromax/Ns IV 11/04/21 13:59 250 mls/hr Q24H TRAVIS Administration Protocol Fentanyl Citrate 2,000 mcg in 100 mls @ 3.515 mls/hr 10/31/21 16:00 Fentanyl Drip Premix IV TITR TRAVIS Protocol 1 MCG/KG/HR Dextrose 1,000 mls @ 50 mls/hr 10/31/21 23:45 D5w IV DIRECT TRAVIS Morphine Sulfate 2 mg 10/31/21 12:00 11/01/21 01:11 Morphine 2 Mg/1 Ml Inj IV 2 mg Q4H PRN Administration Pain , Severe (7-10) Multi-Ingred Cream/Lotion/Oil/Oint 1 applic 10/31/21 15:40 Mineral Oil/Petrolatum, White Ophth Oint 3.5 Gm OU Q4HR PRN Dry Eye(s) Senna/Docusate Sodium 1 tab 10/31/21 22:00 11/01/21 11:13 Sennosides/Docusate Sodium 8.6/50 Mg Tab FEEDTUBE Not Given BID TRAVIS Simple Syrup 15 ml 10/31/21 12:00 Simple Syrup 15 Ml FEEDTUBE PRN PRN Hypoglycemia Simple Syrup 30 ml 10/31/21 12:00 Simple Syrup 15 Ml FEEDTUBE PRN PRN Hypoglycemia Sodium Bicarbonate 325 mg 10/31/21 12:00 Sodium Bicarbonate 325 Mg Tab FEEDTUBE PRN PRN For Clogged Feeding Tube Sodium Chloride 10 ml 10/31/21 12:00 11/01/21 11:13 Sodium Chloride 0.9% 10 Ml Flush Syringe IV 10 ml BID TRAVIS Administration Sodium Chloride 10 ml 10/31/21 12:00 Sodium Chloride 0.9% 10 Ml Flush Syringe IV PRN PRN LINE FLUSH Nutrition/Malnutrition Assess - Dietary Evaluation Nutrition/Malnutrition Findings: Nutrition Notes Start: 10/31/21 12:11 Freq: Status: Active Protocol: Document 10/31/21 12:11 ARTURO (Rec: 10/31/21 13:05 ARTURO [id number]) Nutrition Notes Need for Assessment generated from: MD Order Initial or Follow up Assessment Current Diagnosis Acute Kidney Injury,COPD, Sepsis,Respiratory Failure, Stroke Other Pertinent Diagnosis Pneumonia, Elev D-dimers, Elev Troponin, COVID pui, Lac Acidosis, Hypernatr Current Diet NPO (until L 10/31). TF-Vital AF 1.2 Stan @ 46 ml/hr (since L 10/31). Labs/Tests 10/31: Na 155, Cl 110.3, CO2 15, BUN 46, Crea 2.7, Glu 170, Las ac 3.4, Ferritin 73617, AST 492, ALT 319, AlkPhos 153, Troponin 0.065, LacDH 923, NTproB Cook Fruit 2381, Alb 3.0, LDL 20, HDL 13. Pertinent Medications 10/31: Nutritionally unremarkable. Height 6 ft 1 in Weight 70.307 kg [place] Body Weight (kg) 83.63 BMI 20.4 Weight change and time frame None reported at admission. Weight Status Appropriate Subjective/Other Information RD consult for evaluate nutritional intake and request to write/manage TF. Pt is on Mechanical Ventilation. Pt lives on SNF. TF ordered. F/U to check for TF tolerance. Percent of energy/protein needs met: Pt currently on NPO. Prescribed Vital AF 1.2 Stan @ 46 ml/hr provides for energy/ protein needs (1,320 Kcal/83 g ) during LOS, 85% Kcal; 85% AA . Burn Absent Trauma Absent GI Symptoms None Skin Integrity/Comment Clear, warm, dry. Current % PO Other Minimum of two criteria No #1 Nutrition Diagnosis Inadequate oral intake Etiology Ongoing and concomitant chronic metabolic conditions. As Evidenced by Signs and Symptoms Pt sedated and on mechanical ventilation, MD request for write/manage TF. Is patient on ventilator? Yes Is Patient Ambulatory and/or Out of Bed No REE-([place]-confined to bed) 1891.152 Kcal/Kg value to use for calculation 22 Approximate Energy Requirements Using 1547 kcal/Kg Calculation Used for Recommendations Kcal/kg Additional Notes Protein: 1.2-2 g/Kg; 84-140 g/ day. Fluids: 1 ml/Kcal, or as per MD. Nutrition Intervention Nutrition Support: Start Vital AF 1.2 Stan @ 46 ml /hr. Flush: 110 ml water Q 4 hr. Kcal 1,320 Protein (gm) 83 Carbohydrates (gm) 122 Fat (gm) 59 Fluid (mL) 892 Fiber (gm) 6 % RDI: 85% Kcal; 85% AA. Goal #1 Provide at least 75% of energy /protein needs through Enteral Feeding during LOS. Follow-Up By: 11/01/21 Additional Comments Continue monitoring TF tolerance and BM.
[2021-11-01] MEDS: AZITHROMYCIN/NS 500 MG/250 ML 500 MG/250 ML BAG IV SCH (12:52)
--- NOTE | 2021-11-01 13:03 | Electrocardiograph Report ---
[facility] Test Date: 2021-10-31 Test Time: 03:13:06 Pat Name: JA PARTIDA Department: Room: [place] [address] Gender: M Newspaper Copy Editor: ELLIOT : 1960 Requested By: CODI TURK Order Number: [id number] Reading MD: Carleen Mason Measurements Intervals [place] Rate: 104 P: 94 AL: 137 QRS: -18 QRSD: 90 T: -18 QT: 416 QTc: 548 Interpretive Statements Very poor quality ECG SINUS TACHYCARDIA Probable anteroseptal infarct, old Prolonged QT interval No previous ECG available for comparison Electronically Signed On 11-01-2021 13:02:15 EST by Carleen Mason
--- NOTE | 2021-11-01 13:16 | Ultrasound Report ---
ULTRASOUND RENAL INDICATION / CLINICAL INFORMATION: Acute renal failure.. COMPARISON: None available. FINDINGS: RIGHT KIDNEY: Length = 13.7 cm. - Echogenicity: Normal. - Cortical Thickness: Normal. - Hydronephrosis: None. - Cyst / Mass: None. - Stones: None seen. LEFT KIDNEY: Length = 11.6 cm. - Echogenicity: Normal. - Cortical Thickness: Normal. - Hydronephrosis: None. - Cyst / Mass: None. - Stones: None seen. URINARY BLADDER: No significant abnormality. FREE FLUID: None. ADDITIONAL FINDINGS: None. IMPRESSION: 1. No acute sonographic abnormality. Scribed by: Leticia Winston RDMS, RVT Scribed: 11/01/2021 11:45 AM I have reviewed the images, agree with this report, and edited this report as needed. Signer Name: Gordon Porter MD Signed: 11/01/2021 1:11 PM Workstation Name: [id number]
--- NOTE | 2021-11-01 13:55 | Progress Note ---
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 Acute hypoxic respiratory failure-pulmonology consulted COVID-19 Lactic acidosis Aspiration PNA?-on ABXs MARCELINO Hypernatremia-nephrology following Elevated troponins Elevated d-dimer Elevated LFTs Echo 10/31/2021-EF 55 to 60%. Right ventricle systolic function is normal. Aortic valve leaflets are mildly thickened no aortic regurgitation. Mild tricuspid regurgitation Plan: EKG shows sinus tach 104 with PVCs and prolonged QT. No acute ischemic changes. Patient denies chest pain. Troponins minimally elevated 0.065. Repeat cardiac enzymes negative. AMI rule out Troponin likely elevated due to COVID pneumonia and renal insufficiency Due to elevated creatinine no KRISTIE/ARB and will hold diuretics COVID PCR positive Patient had normal echo Cardiac status is stable. Will sign off Patient should follow-up with her primary care provider 1 to 2 weeks after discharge Patient seen in conjunction with Dr. Katz who agrees with this plan of care - Patient Problems (1) Elevated d-dimer Current Visit: Yes Status: Acute (2) Elevated troponin Current Visit: Yes Status: Acute (3) MARCELINO (acute kidney injury) Current Visit: Yes Status: Acute (4) Acute respiratory failure Current Visit: Yes Status: Acute (5) Elevated liver enzymes Current Visit: Yes Status: Acute (6) Lactic acidosis Current Visit: Yes Status: Acute (7) Suspected 2019 novel coronavirus infection Current Visit: Yes Status: Acute Subjective Date of service: 11/01/21 Principal diagnosis: Sepsis, Covid-19 PNA Interval history: Patient in bed in no acute distress Not on monitor Objective Vital Signs Pulse Resp BP Pulse Ox Pulse Ox 11/01/21 08:55 91 H 126/90 97 97 11/01/21 07:00 99 11/01/21 06:15 84 25 H 122/92 100 11/01/21 06:01 96 H 31 H 125/98 98 11/01/21 05:45 86 27 H 115/88 97 11/01/21 05:31 86 23 145/124 100 11/01/21 05:15 87 29 H 120/96 98 11/01/21 05:01 85 21 128/99 100 11/01/21 04:45 86 20 135/102 100 11/01/21 04:31 79 20 124/97 100 11/01/21 04:15 82 24 117/85 100 11/01/21 04:01 85 24 119/92 97 11/01/21 04:00 82 2 L 117/85 98 11/01/21 03:45 82 30 H 112/86 97 11/01/21 03:31 93 H 30 H 133/97 98 11/01/21 03:15 85 22 145/100 100 11/01/21 03:01 83 24 120/94 100 11/01/21 02:45 89 30 H 120/91 97 11/01/21 02:31 89 29 H 122/87 98 11/01/21 02:15 99 H 36 H 128/75 98 11/01/21 02:01 86 29 H 112/88 100 11/01/21 01:45 89 31 H 110/87 97 11/01/21 01:31 94 H 32 H 111/80 97 11/01/21 01:15 96 H 31 H 114/81 97 11/01/21 01:01 102 H 19 110/80 97 11/01/21 00:45 99 H 36 H 130/97 100 11/01/21 00:31 90 35 H 121/81 100 11/01/21 00:15 95 H 35 H 122/89 98 11/01/21 00:00 89 32 H 108/77 98 10/31/21 23:46 89 34 H 108/77 99 10/31/21 23:30 91 H 36 H 107/85 99 10/31/21 23:16 85 30 H 113/81 99 10/31/21 23:00 86 34 H 123/93 97 10/31/21 22:46 95 H 26 H 113/92 100 10/31/21 22:30 92 H 33 H 124/87 98 10/31/21 22:16 94 H 26 H 128/101 99 10/31/21 22:00 93 H 32 H 115/87 100 10/31/21 21:46 93 H 35 H 120/82 97 10/31/21 21:30 94 H 36 H 122/93 97 10/31/21 21:16 90 28 H 126/90 99 10/31/21 21:00 107 H 31 H 124/91 98 10/31/21 20:46 95 H 38 H 119/86 100 10/31/21 20:30 94 H 39 H 128/85 97 10/31/21 20:25 80 8 L 128/21 94 10/31/21 20:16 92 H 30 H 128/92 97 10/31/21 20:02 95 H 39 H 96 10/31/21 20:00 95 H 40 H 124/82 95 10/31/21 19:46 96 H 41 H 124/82 97 10/31/21 19:30 96 H 39 H 123/88 88 10/31/21 19:16 96 H 39 H 128/91 55 L 10/31/21 19:00 96 H 40 H 128/82 88 10/31/21 18:46 96 H 41 H 118/88 61 L 10/31/21 18:30 91 H 22 123/91 68 L 10/31/21 18:16 132 H 40 H 115/82 10/31/21 18:00 93 H 37 H 113/79 10/31/21 17:46 94 H 37 H 112/82 79 L 10/31/21 17:30 95 H 37 H 111/82 43 L 10/31/21 17:16 96 H 38 H 119/85 10/31/21 17:00 99 H 44 H 120/86 10/31/21 16:46 96 H 40 H 120/82 14 L 10/31/21 16:30 96 H 41 H 116/80 71 L 10/31/21 16:16 95 H 40 H 114/80 32 L 10/31/21 16:00 88 38 H 92/60 94 10/31/21 15:46 96 H 41 H 101/75 16 L 10/31/21 15:30 99 H 42 H 109/63 52 L 10/31/21 15:16 95 H 43 H 104/72 64 L 10/31/21 15:00 97 H 33 H 114/68 69 L 10/31/21 14:46 97 H 49 H 109/77 67 L 10/31/21 14:30 98 H 43 H 94/61 75 L 10/31/21 14:16 99 H 29 H 111/78 75 L 10/31/21 14:00 100 H 41 H 128/88 68 L - Physical Examination General: No Apparent Distress HEENT: Positive: Normocephaly, Mucus Membranes Dry Neck: Positive: trachea midline Cardiac: Positive: Reg Rate and Rhythm Lungs: Positive: Ventilated Respirations Neuro: Positive: Grossly Intact Abdomen: Positive: Soft Skin: Negative: Rash, Suspicious Lesions, Ulceration Extremities: Present: upper extr. pulses, Cool. Absent: edema - Labs and Meds CBC 11/01/21 Range/Units 03:38 WBC 15.6 H (4.5-11.0) K/mm3 RBC 4.10 (3.65-5.03) M/mm3 Hgb 11.3 L (11.8-15.2) gm/dl Hct 37.0 (35.5-45.6) % Plt Count 298 (140-440) K/mm3 Comprehensive Metabolic Panel 11/01/21 Range/Units 03:38 Sodium 158 H (137-145) mmol/L Potassium 4.7 (3.6-5.0) mmol/L Chloride 122.1 H (98-107) mmol/L Carbon Dioxide 23 D (22-30) mmol/L BUN 40 H (9-20) mg/dL Creatinine 1.2 D (0.8-1.3) mg/dL Glucose 101 H (75-100) mg/dL Calcium 8.6 (8.4-10.2) mg/dL - Imaging and Cardiology Echo: report reviewed - Telemetry EKG Rhythm: Sinus Tachycardia - EKG Sinus rhythms and dysrhythmias: sinus tachycardia Ventricular dysrhythmias: ventricular escape comple
--- NOTE | 2021-11-01 14:02 | Progress Note ---
Assessment and Plan Acute on chronic hypoxemic respiratory failure Possible aspiration pneumonia COVID-19 infection Acute kidney injury Leukocytosis Mild metabolic acidosis Lactic acidosis Hypernatremia Adult FTT Elevated serum transaminases Elevated serum inflammatory markers to include ferritin, LDH and D-dimers Oropharyngeal dysphagia - daily SAT and SBT assessment as tolerated - continue accuchecks with glycemic control per SSI (While critically ill target blood glucose of 140-180 mg/dL; avoid hypoglycemia) - sedation prn for target RASS 0 to -1 - continue to wean supplemental oxygen for target O2 sat's > 90% acutely - VAP bundle addressed - continue lung protective strategies - continue bronchodilators with pulmonary hygiene per RT - wean per pulmonary driven protocols otherwise - avoid nephrotoxins, renally dose all medications - continue to avoid benzodiazepine's, reduce the possibility of delirium - continue Rocephin and Zithromax, de-escalate per ID rec's - prn analgesia per CPOT score - Maintenance of sleep-wake cycle, avoid delirium - enteral nutritional support at goal rate as tolerated - G.I. & VTE prophylaxis - PT/OT/ROM exercises - mobility protocols for pressure ulcer prophylaxis - Monitor hemodynamics closely - continue other care per attending / other consultants - discharge planning ongoing concurrently COVID SPECIFIC INTERVENTIONS - Remdesivir as per ID/Pulmonary developed protocols (Receiving) - continue systemic steroids for severe COVID-19 infection empirically (Decad yousif) - follow repeat COVID tests results - zinc and vitamin C supplementation - Monitor inflammatory markers per facility protocol - ferritin, Ddimer, CRP - therapeutic anticoagulation per system Protocol based on d-dimer and clinical considerations (VTE prophylaxis) - Continue contact and airborne isolation .... Re-evaluate in am & prn CONDITION: CRITICAL PROGNOSIS: GUARDED CODE STATUS: FULL CODE The high probability of a clinically significant, sudden or life-threatening deterioration of the [respiratory, cardiovascular & neurologic] system(s) required my full and direct attention, intervention and personal management. The aggregate critical care time was [34] minutes without overlap. Time includes spent on; [x] Data Review and interpretation [x] Patient assessment and monitoring of vital signs [x] Documentation [x] Medication orders and management Subjective Date of service: 11/01/21 Principal diagnosis: Sepsis, Covid-19 PNA Interval history: Patient is seen today for: AHRF; Aspiration Pneumonia; COVID-19; MARCELINO; Leukocytosis; Lactic acidosis; Elevated serum LFT's Seen and examined at bedside; 24hour events reviewed; nursing and respiratory care staff consulted; no adverse overnight events reported to me; resting in bed; remains on MVS; no emesis or overt aspiration; appears to nod head "no" to pain question; afebrtile Objective Vital Signs - 12hr 11/01/21 11/01/21 11/01/21 02:01 02:15 02:31 Pulse Rate 86 99 H 89 Respiratory 29 H 36 H 29 H Rate Blood Pressure 112/88 128/75 122/87 O2 Sat by Pulse 100 98 98 Oximetry O2 Sat by Pulse Oximetry [ Assessment] 11/01/21 11/01/21 11/01/21 02:45 03:01 03:15 Pulse Rate 89 83 85 Respiratory 30 H 24 22 Rate Blood Pressure 120/91 120/94 145/100 O2 Sat by Pulse 97 100 100 Oximetry O2 Sat by Pulse Oximetry [ Assessment] 11/01/21 11/01/21 11/01/21 03:31 03:45 04:00 Pulse Rate 93 H 82 82 Respiratory 30 H 30 H 2 L Rate Blood Pressure 133/97 112/86 117/85 O2 Sat by Pulse 98 97 98 Oximetry O2 Sat by Pulse Oximetry [ Assessment] 11/01/21 11/01/21 11/01/21 04:01 04:15 04:31 Pulse Rate 85 82 79 Respiratory 24 24 20 Rate Blood Pressure 119/92 117/85 124/97 O2 Sat by Pulse 97 100 100 Oximetry O2 Sat by Pulse Oximetry [ Assessment] 11/01/21 11/01/21 11/01/21 04:45 05:01 05:15 Pulse Rate 86 85 87 Respiratory 20 21 29 H Rate Blood Pressure 135/102 128/99 120/96 O2 Sat by Pulse 100 100 98 Oximetry O2 Sat by Pulse Oximetry [ Assessment] 11/01/21 11/01/21 11/01/21 05:31 05:45 06:01 Pulse Rate 86 86 96 H Respiratory 23 27 H 31 H Rate Blood Pressure 145/124 115/88 125/98 O2 Sat by Pulse 100 97 98 Oximetry O2 Sat by Pulse Oximetry [ Assessment] 11/01/21 11/01/21 11/01/21 06:15 07:00 08:55 Pulse Rate 84 91 H Respiratory 25 H Rate Blood Pressure 122/92 126/90 O2 Sat by Pulse 100 99 97 Oximetry O2 Sat by Pulse 97 Oximetry [ Assessment] Constitutional: appears uncomfortable, other (middle aged male with mildly increased respiratory effort at rest) Eyes: non-icteric ENT: oropharynx moist, other (midline tracheostomy) Neck: supple, no lymphadenopathy, no JVD Effort: mildly labored Ascultation: Bilateral: rhonchi Percussion: Bilateral: not dull Cardiovascular: regular rate and rhythm Gastrointestinal: normoactive bowel sounds, soft, non-tender, non-distended Integumentary: rash Extremities: no cyanosis, no ischemia or petechiae Neurologic: pupils equal and round, unable to assess Psychiatric: other (unable to assess re: AMS) CBC and BMP: 11/02/21 03:22 11/02/21 03:22 ABG, PT/INR, D-dimer: ABG ABG pH 7.468 pH Units (7.350-7.450) H 11/01/21 04:00 ABG pCO2 29.9 mm Hg 11/01/21 04:00 ABG pO2 82.5 mm Hg (80.0-90.0) 11/01/21 04:00 ABG O2 Saturation 97.1 % (95.0-99.0) 11/01/21 04:00 PT/INR, D-dimer PT 15.6 Sec. (12.2-14.9) H 10/31/21 02:36 INR 1.12 (0.87-1.13) 10/31/21 02:36 D-Dimer 1951.30 ng/mlDDU (0-234) H 10/31/21 02:36 Abnormal lab findings: Abnormal Labs 10/31/21 10/31/21 10/31/21 02:36 02:36 02:36 WBC 11.4 H Hgb MCH 26 L MCHC 29 L RDW 15.3 H Seg Neutrophils % 81.5 H Seg Neuts % (Manual) Lymphocytes % (Manual) Nucleated RBC % Seg Neutrophils # 9.3 H Seg Neutrophils # Man PT 15.6 H APTT 43.1 H D-Dimer 1951.30 H ABG pH ABG pO2 ABG HCO3 ABG O2 Saturation ABG Base Excess ABG Hemoglobin Sodium 155 H Chloride 110.3 H Carbon Dioxide 15 L BUN 46 H Creatinine 2.7 H Glucose 120 H Lactic Acid Magnesium Ferritin AST 492 H ALT 319 H Alkaline Phosphatase 153 H Ammonia Lactate Dehydrogenase Troponin T 0.065 H C-Reactive Protein NT-Pro-B Natriuret Pep 2381 H Albumin 3.0 L LDL Cholesterol Direct 20 L HDL Cholesterol 13 L Coronavirus (PCR) 10/31/21 10/31/21 10/31/21 02:36 02:36 02:36 WBC Hgb MCH MCHC RDW Seg Neutrophils % Seg Neuts % (Manual) Lymphocytes % (Manual) Nucleated RBC % Seg Neutrophils # Seg Neutrophils # Man PT APTT D-Dimer ABG pH ABG pO2 ABG HCO3 ABG O2 Saturation ABG Base Excess ABG Hemoglobin Sodium Chloride Carbon Dioxide BUN Creatinine Glucose Lactic Acid 11.80 H* Magnesium Ferritin 43180.0 H AST ALT Alkaline Phosphatase Ammonia Lactate Dehydrogenase 923 H Troponin T C-Reactive Protein 7.80 H NT-Pro-B Natriuret Pep Albumin LDL Cholesterol Direct HDL Cholesterol Coronavirus (PCR) 10/31/21 10/31/21 10/31/21 04:01 04:54 06:04 WBC Hgb MCH MCHC RDW Seg Neutrophils % Seg Neuts % (Manual) Lymphocytes % (Manual) Nucleated RBC % Seg Neutrophils # Seg Neutrophils # Man PT APTT D-Dimer ABG pH 7.318 L ABG pO2 229.1 H ABG HCO3 17.4 L ABG O2 Saturation 99.3 H ABG Base Excess -7.8 L ABG Hemoglobin 13.2 L Sodium Chloride Carbon Dioxide BUN Creatinine Glucose Lactic Acid 5.50 H* Magnesium Ferritin AST ALT Alkaline Phosphatase Ammonia 21.0 L Lactate Dehydrogenase Troponin T C-Reactive Protein NT-Pro-B Natriuret Pep Albumin LDL Cholesterol Direct HDL Cholesterol Coronavirus (PCR) 10/31/21 10/31/21 10/31/21 09:30 10:44 16:42 WBC Hgb MCH MCHC RDW Seg Neutrophils % Seg Neuts % (Manual) Lymphocytes % (Manual) Nucleated RBC % Seg Neutrophils # Seg Neutrophils # Man PT APTT D-Dimer ABG pH ABG pO2 ABG HCO3 ABG O2 Saturation ABG Base Excess ABG Hemoglobin Sodium Chloride Carbon Dioxide BUN Creatinine Glucose Lactic Acid 3.40 H* 2.80 H* Magnesium Ferritin AST ALT Alkaline Phosphatase Ammonia Lactate Dehydrogenase Troponin T C-Reactive Protein NT-Pro-B Natriuret Pep Albumin LDL Cholesterol Direct HDL Cholesterol Coronavirus (PCR) Positive A 10/31/21 11/01/21 11/01/21 16:42 03:38 03:38 WBC 15.6 H Hgb 11.3 L MCH MCHC 31 L RDW 15.3 H Seg Neutrophils % Seg Neuts % (Manual) 73.0 H Lymphocytes % (Manual) 9.0 L Nucleated RBC % 1.0 H Seg Neutrophils # Seg Neutrophils # Man 11.4 H PT APTT D-Dimer ABG pH ABG pO2 ABG HCO3 ABG O2 Saturation ABG Base Excess ABG Hemoglobin Sodium 158 H Chloride 122.1 H Carbon Dioxide BUN 40 H Creatinine Glucose 101 H Lactic Acid Magnesium 2.40 H Ferritin AST ALT Alkaline Phosphatase Ammonia Lactate Dehydrogenase Troponin T C-Reactive Protein NT-Pro-B Natriuret Pep Albumin LDL Cholesterol Direct HDL Cholesterol Coronavirus (PCR) 11/01/21 04:00 WBC Hgb MCH MCHC RDW Seg Neutrophils % Seg Neuts % (Manual) Lymphocytes % (Manual) Nucleated RBC % Seg Neutrophils # Seg Neutrophils # Man PT APTT D-Dimer ABG pH 7.468 H ABG pO2 ABG HCO3 ABG O2 Saturation ABG Base Excess ABG Hemoglobin 11.3 L Sodium Chloride Carbon Dioxide BUN Creatinine Glucose Lactic Acid Magnesium Ferritin AST ALT Alkaline Phosphatase Ammonia Lactate Dehydrogenase Troponin T C-Reactive Protein NT-Pro-B Natriuret Pep Albumin LDL Cholesterol Direct HDL Cholesterol Coronavirus (PCR) Chest x-ray: image reviewed (LLL > RLL infiltarte) Allied health notes reviewed: nursing
--- NOTE | 2021-11-01 16:14 | Progress Note ---
Assessment and Plan Cultures: Blood culture no growth so far COVID-19 PCR positive Sputum culture 10/31/2021 GNR A/P: 61-year-old male with medical history of stroke, chronic tracheostomy, PEG tube now with: #COVID pneumonia: with possible superimposed bacterial PNA #Acute on chronic respiratory failure: Chronic trach in place, requiring ventilation on top of normal requirements #History of CVA #MARCELINO: improving. Recs: -Continue empiric antibiotics for now to complete 5 days. -Follow up sputum cultures, adjust antibiotics based on results. -Renal function significantly improved, started remdesivir. -Anticoagulation per hospital protocol. Thank you for the consult, we will continue to follow. Christina Xiong MD [facility] O: [phone] F: [phone] Subjective Date of service: 11/01/21 Principal diagnosis: Sepsis, Covid-19 PNA Interval history: No new temperatures available for review. White count 15.6. Sputum culture with gram-negative rods. Imaging perspective: Chest x-ray: Developing bilateral interstitial opacities. Objective - Exam Narrative Exam: Physical exam deferred to reduce risk of transmission of COVID-19. Please refer to primary team's note. - Constitutional Vitals: Vital Signs Temp Pulse Resp BP Pulse Ox 98.2 F 89 30 H 140/99 98 10/31/21 03:00 11/01/21 14:01 11/01/21 14:01 11/01/21 14:01 11/01/21 14:01 - Labs CBC & Chem 7: 11/01/21 03:38 11/01/21 03:38 Labs: Abnormal lab results 10/31/21 10/31/21 10/31/21 Range/Units 09:30 16:42 16:42 WBC (4.5-11.0) K/mm3 Hgb (11.8-15.2) gm/dl MCHC (32-34) % RDW (13.2-15.2) % Seg Neuts % (Manual) (40.0-70.0) % Lymphocytes % (Manual) (13.4-35.0) % Nucleated RBC % (0.0-0.9) % Seg Neutrophils # Man (1.8-7.7) K/mm3 ABG pH (7.350-7.450) pH Units ABG Hemoglobin (14.0-18.0) gm/dl Sodium (137-145) mmol/L Chloride (98-107) mmol/L BUN (9-20) mg/dL Glucose (75-100) mg/dL Lactic Acid 2.80 H* (0.7-2.0) mmol/L Magnesium 2.40 H (1.7-2.3) mg/dL Coronavirus (PCR) Positive A (Negative) 11/01/21 11/01/21 11/01/21 Range/Units 03:38 03:38 04:00 WBC 15.6 H (4.5-11.0) K/mm3 Hgb 11.3 L (11.8-15.2) gm/dl MCHC 31 L (32-34) % RDW 15.3 H (13.2-15.2) % Seg Neuts % (Manual) 73.0 H (40.0-70.0) % Lymphocytes % (Manual) 9.0 L (13.4-35.0) % Nucleated RBC % 1.0 H (0.0-0.9) % Seg Neutrophils # Man 11.4 H (1.8-7.7) K/mm3 ABG pH 7.468 H (7.350-7.450) pH Units ABG Hemoglobin 11.3 L (14.0-18.0) gm/dl Sodium 158 H (137-145) mmol/L Chloride 122.1 H (98-107) mmol/L BUN 40 H (9-20) mg/dL Glucose 101 H (75-100) mg/dL Lactic Acid (0.7-2.0) mmol/L Magnesium (1.7-2.3) mg/dL Coronavirus (PCR) (Negative)
[2021-11-01] MEDS: REMDESIVIR 200 MG in SODIUM CHLORIDE 0.9% 250ML 250 ML IV ONE ×2 (17:04→17:08)
--- NOTE | 2021-11-01 18:51 | Event Note ---
Date: 11/01/21 Spoke to the nurse to start IV D5W.
[2021-11-02 04:39] LABS: Hematocrit 37.6 % (35.5-45.6); Hemoglobin 11.6 gm/dl (11.8-15.2); Mean Corpuscular HGB Conc 31 % (32-34); Mean Corpuscular Volume 89 fl (84-94); Platelet Count 302 K/mm3 (140-440); Red Blood Count 4.24 M/mm3 (3.65-5.03); Red Cell Distribution Width 15.3 % (13.2-15.2)
[2021-11-02 04:58] LABS: Alanine Aminotransferase 282 units/L (7-56); Albumin 2.9 g/dL (3.9-5); BUN/Creatinine Ratio 39; Blood Urea Nitrogen 35 mg/dL (9-20); Calcium 8.8 mg/dL (8.4-10.2); Hemolysis Index 1
[2021-11-02 05:01] LABS: BUN/Creatinine Ratio 40; Blood Urea Nitrogen 36 mg/dL (9-20); Calcium 8.5 mg/dL (8.4-10.2); Hemolysis Index 0
[2021-11-02] MEDS: FREE WATER PO SCH ×4 (08:19→20:39)
[2021-11-02] MEDS: SODIUM CHLORIDE 0.9% 50 ML IVPB IV SCH (08:20)
[2021-11-02] MEDS: SENNOSIDES/DOCUSATE SODIUM 8.6/50 MG TAB FEEDTUBE SCH ×2 (08:20→11:14)
[2021-11-02] MEDS: FAMOTIDINE 20 MG/2 ML INJ IV SCH ×3 (08:20→22:58)
[2021-11-02] MEDS: cefTRIAXone/NS 2 GM/100 ML 2 GM/100 ML BAG IV SCH (08:21)
--- NOTE | 2021-11-02 08:38 | XRay Report ---
CHEST 1 VIEW 11/02/2021 7:21 AM INDICATION / CLINICAL INFORMATION: follow up respiratory failure. COMPARISON: 11/01/2021 FINDINGS: SUPPORT DEVICES: Tracheostomy tube again noted HEART / MEDIASTINUM: No significant abnormality. LUNGS / PLEURA: Bilateral pulmonary opacities, left greater than right have improved slightly. No pne umothorax. ADDITIONAL FINDINGS: No significant additional findings. IMPRESSION: 1. Resolving bilateral pneumonia Signer Name: Carlos Jones MD Signed: 11/02/2021 8:33 AM Workstation Name: [id number]
--- NOTE | 2021-11-02 11:08 | Progress Note ---
Assessment and Plan MARCELINO - IVF & f/u Prerenal Azotemia HyperNa - Hypotonic IVF, Free water flushes, D/c NaHCO3 tabs. F/u labs HTN - Review meds & adjust for better BP control Covid-19 Pneumonia/Resp Failure - F/u Mx per Pulm/ID Subjective Date of service: 11/02/21 Principal diagnosis: Sepsis, Covid-19 PNA Interval history: No new complaint Objective - Vital Signs Vital signs: Vital Signs - 12hr 11/02/21 11/02/21 11/02/21 00:25 04:33 08:00 Pulse Rate 95 H 89 161 H Blood Pressure 146/101 146/101 O2 Sat by Pulse 96 97 94 Oximetry - General Appearance General appearance: other (On vent via trach) EENT: PERRL Neck: no JVD Respiratory: Present: Other (Good air entry per vent) Cardiology: regular, S1S2 Gastrointestinal: other (Soft) Integumentary: warm and dry Neurologic: other (Sedated, on vent) - Lab 11/02/21 03:22 11/02/21 03:22 Most recent lab results ABG pH 7.523 (7.320-7.450) H 11/02/21 03:58 ABG pCO2 29.9 mm Hg 11/01/21 04:00 ABG pO2 82.5 mm Hg (80.0-90.0) 11/01/21 04:00 ABG HCO3 21.2 mmol/L (20.0-26.0) 11/01/21 04:00 ABG O2 Saturation 94.1 (0-100) 11/02/21 03:58 Calcium 8.5 mg/dL (8.4-10.2) 11/02/21 03:22 Calcium 8.8 mg/dL (8.4-10.2) 11/02/21 03:22 Phosphorus 2.50 mg/dL (2.5-4.5) D 11/02/21 03:22 Magnesium 3.00 mg/dL (1.7-2.3) H 11/02/21 03:22 Medications & Allergies - Medications Allergies/Adverse Reactions: Allergies Unable to Assess Allergy (Unverified 10/31/21 02:38) pt unable to answer Active Medications: Generic Name Dose Route Start Last Admin Trade Name Freq PRN Reason Stop Dose Admin Acetaminophen 650 mg 10/31/21 12:00 Acetaminophen 325 Mg/10.15 Ml Oral Liqd Unit Dose FEEDTUBE Q6H PRN Pain MILD(1-3)/Fever >100.5/MARIANO Hydrocodone Bitart/Acetaminophen 2 each 10/31/21 12:00 Hydrocodone/Acetaminophen 5-325 Mg Tab PO Q6H PRN Pain, Moderate (4-6) Lipase/Protease/Amylase 1 each 10/31/21 12:00 Lipase 10,500/Protease 25,000/Amylase 43,750 (Units) Dr Cap FEEDTUBE PRN PRN For Clogged Feeding Tube Dexamethasone 6 mg 11/01/21 10:00 11/01/21 10:00 Dexamethasone 4 Mg/Ml Vial IV 11/10/21 10:01 6 mg Q24HR TRAVIS Administration Enoxaparin Sodium 40 mg 11/01/21 10:00 11/01/21 10:00 Enoxaparin 40 Mg/0.4 Ml Inj SUB-Q 40 mg QDAY@1000 TRAVIS Administration Famotidine 20 mg 11/01/21 10:00 11/02/21 08:20 Famotidine 20 Mg/2 Ml Inj IV Not Given BID TRAVIS Fentanyl 50 mcg 10/31/21 15:40 Fentanyl 100 Mcg/2 Ml Inj IV Q10MIN PRN ANALGESIA Hydrophilic Ointment 1 applic 10/31/21 15:40 Lip Therapy Vaseline TP Q2HR PRN Dry Lips Ceftriaxone Sodium 2 gm in 100 mls @ 200 mls/hr 11/01/21 06:00 11/02/21 08:21 Rocephin/Ns 2 Gm/100 Ml IV 11/05/21 06:29 200 mls/hr Q24H TRAVIS Administration Protocol Azithromycin 500 mg in 250 mls @ 250 mls/hr 10/31/21 13:00 11/01/21 12:52 Zithromax/Ns IV 11/04/21 13:59 250 mls/hr Q24H TRAVIS Administration Protocol Fentanyl Citrate 2,000 mcg in 100 mls @ 3.515 mls/hr 10/31/21 16:00 Fentanyl Drip Premix IV TITR TRAVIS Protocol 1 MCG/KG/HR Dextrose 1,000 mls @ 50 mls/hr 10/31/21 23:45 D5w IV DIRECT TRAVIS REMDESIVIR 100 mg/ Sodium 250 mls @ 500 mls/hr 11/02/21 21:00 Chloride IV 11/05/21 21:29 Q24HR@2100 [facility] Morphine Sulfate 2 mg 10/31/21 12:00 11/01/21 01:11 Morphine 2 Mg/1 Ml Inj IV 2 mg Q4H PRN Administration Pain , Severe (7-10) Multi-Ingred Cream/Lotion/Oil/Oint 1 applic 10/31/21 15:40 Mineral Oil/Petrolatum, White Ophth Oint 3.5 Gm OU Q4HR PRN Dry Eye(s) Senna/Docusate Sodium 1 tab 10/31/21 22:00 11/02/21 08:20 Sennosides/Docusate Sodium 8.6/50 Mg Tab FEEDTUBE Not Given BID TRAVIS Simple Syrup 15 ml 10/31/21 12:00 Simple Syrup 15 Ml FEEDTUBE PRN PRN Hypoglycemia Simple Syrup 30 ml 10/31/21 12:00 Simple Syrup 15 Ml FEEDTUBE PRN PRN Hypoglycemia Sodium Bicarbonate 325 mg 10/31/21 12:00 Sodium Bicarbonate 325 Mg Tab FEEDTUBE PRN PRN For Clogged Feeding Tube Sodium Chloride 10 ml 10/31/21 12:00 11/02/21 08:20 Sodium Chloride 0.9% 10 Ml Flush Syringe IV Not Given BID TRAVIS Sodium Chloride 10 ml 10/31/21 12:00 Sodium Chloride 0.9% 10 Ml Flush Syringe IV PRN PRN LINE FLUSH Sodium Chloride 50 ml 11/01/21 21:00 11/02/21 08:20 Sodium Chloride 0.9% 50 Ml Ivpb IV 11/05/21 21:01 Not Given Q24HR@2100 [facility]
[2021-11-02] MEDS: ENOXAPARIN 40 MG/0.4 ML INJ SUB-Q SCH (11:14)
[2021-11-02] MEDS: dexAMETHasone 4 MG/ML VIAL IV SCH (11:14)
[2021-11-02] MEDS: MORPHINE 2 MG/1 ML INJ IV PRN (11:48)
[2021-11-02] MEDS ORDERED: FREE WATER PO SCH (12:00)
--- NOTE | 2021-11-02 12:03 | Progress Note ---
Assessment and Plan Assessment and plan: Acute on chronic hypoxic respiratory failure Sepsis. Patient meets criteria given the tachycardia, tachypnea and diagnosis of pneumonia Aspiration pneumonia COVID-19 pneumonia Acute kidney injury. Acute COPD exacerbation Elevated D-dimer Elevated troponin Lactic acidosis. Hypernatremia 10/31/2021. Patient will be admitted to the ICU and continued on mechanical ventilation. We will consult critical care for further evaluation. I suspect patient may have aspiration pneumonia given the history outlined by EMS and chest x-ray may have some lag time with illustrating the pneumonia. We will start IV antibiotics. Patient may also have COVID 19 pneumonia given the elevated inflammatory markers of D-dimer, ferritin, LDH and CRP. Await COVID PCR testing. We will consult ID for further evaluation. Check CTA of chest to rule out PE. Patient also has elevated creatinine of 2.7 and we do not have a baseline creatinine to compare. Etiology likely secondary to sepsis/ATN. Check urinalysis and renal ultrasound. Patient also with hypernatremia. Nephrology consultation. Elevated troponin likely secondary to type II DC from sepsis and renal insufficiency. Check echocardiogram and consult cardiology for further evaluation. 11/01/2021. Patient's COVID PCR was noted to be positive on 10/31/2021. Continue empiric antibiotics per ID recommendations. Lactic acid levels have improved. Patient initially not a candidate for remdesivir given renal function. However, renal function has improved to 1.2. Await ID recommendations. Patient currently on AC mode ventilation rate of 24, tidal volume 450, PEEP of 8 and FiO2 50%. Await CTA of chest. Echocardiogram reveals left ventricular size and function normal with EF of 55-60%. Mild diastolic dysfunction. 11/02/2021. Patient with COVID-19 pneumonia with possible superimposed bacterial pneumonia. Continue empiric antibiotics per ID recommendations. We will follow-up sputum cultures. Renal function has improved significantly. Therefore, we will start remdesivir per ID recommendations. Continue anticoagulation. Patient remains on mechanical ventilation with AC mode ventilation rate of 20, tidal volume 450, FiO2 45% and PEEP of 8 The high probability of a clinically significant, sudden or life threatening deterioration of the [cardiac, respiratory] system(s) required my full and direct attention, intervention and personal management. The aggregate critical care time was [33] minutes. This time is in addition to time spent performing reported procedures but includes the following: [x] Data Review and interpretation [x] Patient assessment and monitoring of vital signs [x] Documentation [x] Medication orders and management History Interval history: No new issues overnight Hospitalist Physical - Constitutional Vitals: Temp Pulse Resp BP Pulse Ox 98.2 F 161 H 22 146/101 94 10/31/21 03:00 11/02/21 08:00 11/02/21 11:48 11/02/21 08:00 11/02/21 08:00 General appearance: Present: severe distress, other (On mechanical ventilation via tracheostomy) - EENT Eyes: Present: PERRL, EOM intact ENT: hearing intact, clear oral mucosa, dentition normal - Neck Neck: Present: supple, normal ROM - Respiratory Respiratory effort: normal Respiratory: bilateral: CTA - Cardiovascular Rhythm: regular Heart Sounds: Present: S1 & S2. Absent: gallop, rub - Extremities Extremities: no ischemia, No edema, Full ROM - Abdominal General gastrointestinal: soft, non-tender, non-distended, normal bowel sounds - Integumentary Integumentary: Present: clear, warm, dry - Neurologic Neurologic: CNII-XII intact, moves all extremities HEART Score - HEART Score Troponin: Troponin T < 0.010 ng/mL (0.00-0.029) 10/31/21 16:42 Results - Labs CBC & Chem 7: 11/02/21 03:22 11/02/21 03:22 Labs: Laboratory Last Values WBC 11.9 K/mm3 (4.5-11.0) H 11/02/21 03:22 RBC 4.24 M/mm3 (3.65-5.03) 11/02/21 03:22 Hgb 11.6 gm/dl (11.8-15.2) L 11/02/21 03:22 Hct 37.6 % (35.5-45.6) 11/02/21 03:22 MCV 89 fl (84-94) 11/02/21 03:22 MCH 27 pg (28-32) L 11/02/21 03:22 MCHC 31 % (32-34) L 11/02/21 03:22 RDW 15.3 % (13.2-15.2) H 11/02/21 03:22 Plt Count 302 K/mm3 (140-440) 11/02/21 03:22 Lymph % (Auto) 16.6 % (13.4-35.0) 10/31/21 02:36 [place] % (Auto) 1.4 % (0.0-7.3) 10/31/21 02:36 Eos % (Auto) 0.1 % (0.0-4.3) 10/31/21 02:36 Baso % (Auto) 0.4 % (0.0-1.8) 10/31/21 02:36 Lymph # (Auto) 1.9 K/mm3 (1.2-5.4) 10/31/21 02:36 [place] # (Auto) 0.2 K/mm3 (0.0-0.8) 10/31/21 02:36 Eos # (Auto) 0.0 K/mm3 (0.0-0.4) 10/31/21 02:36 Baso # (Auto) 0.0 K/mm3 (0.0-0.1) 10/31/21 02:36 Add Manual Diff Complete 11/01/21 03:38 Total Counted 100 11/01/21 03:38 Seg Neutrophils % 81.5 % (40.0-70.0) H 10/31/21 02:36 Seg Neuts % (Manual) 73.0 % (40.0-70.0) H 11/01/21 03:38 Band Neutrophils % 15.0 % 11/01/21 03:38 Lymphocytes % (Manual) 9.0 % (13.4-35.0) L 11/01/21 03:38 Reactive Lymphs % (Man) 0 % 11/01/21 03:38 Monocytes % (Manual) 3.0 % (0.0-7.3) 11/01/21 03:38 Eosinophils % (Manual) 0 % (0.0-4.3) 11/01/21 03:38 Basophils % (Manual) 0 % (0.0-1.8) 11/01/21 03:38 Metamyelocytes % 0 % 11/01/21 03:38 Myelocytes % 0 % 11/01/21 03:38 Promyelocytes % 0 % 11/01/21 03:38 Blast Cells % 0 % 11/01/21 03:38 Nucleated RBC % 1.0 % (0.0-0.9) H 11/01/21 03:38 Seg Neutrophils # 9.3 K/mm3 (1.8-7.7) H 10/31/21 02:36 Seg Neutrophils # Man 11.4 K/mm3 (1.8-7.7) H 11/01/21 03:38 Band Neutrophils # 2.3 K/mm3 11/01/21 03:38 Lymphocytes # (Manual) 1.4 K/mm3 (1.2-5.4) 11/01/21 03:38 Abs React Lymphs (Man) 0.0 K/mm3 11/01/21 03:38 Monocytes # (Manual) 0.5 K/mm3 (0.0-0.8) 11/01/21 03:38 Eosinophils # (Manual) 0.0 K/mm3 (0.0-0.4) 11/01/21 03:38 Basophils # (Manual) 0.0 K/mm3 (0.0-0.1) 11/01/21 03:38 Metamyelocytes # 0.0 K/mm3 11/01/21 03:38 Myelocytes # 0.0 K/mm3 11/01/21 03:38 Promyelocytes # 0.0 K/mm3 11/01/21 03:38 Blast Cells # 0.0 K/mm3 11/01/21 03:38 WBC Morphology Not Reportable 11/01/21 03:38 Hypersegmented Neuts Not Reportable 11/01/21 03:38 Hyposegmented Neuts Not Reportable 11/01/21 03:38 Hypogranular Neuts Not Reportable 11/01/21 03:38 Smudge Cells Not Reportable 11/01/21 03:38 Toxic Granulation Not Reportable 11/01/21 03:38 Toxic Vacuolation Not Reportable 11/01/21 03:38 Dohle Bodies Few 11/01/21 03:38 Pelger-Huet Anomaly Not Reportable 11/01/21 03:38 Sisi Rods Not Reportable 11/01/21 03:38 Platelet Estimate Consistent w auto 11/01/21 03:38 Clumped Platelets Not Reportable 11/01/21 03:38 Plt Clumps, EDTA Not Reportable 11/01/21 03:38 Large Platelets Not Reportable 11/01/21 03:38 Giant Platelets Not Reportable 11/01/21 03:38 Platelet Satelliting Not Reportable 11/01/21 03:38 Plt Morphology Comment Not Reportable 11/01/21 03:38 RBC Morphology Normal 11/01/21 03:38 Dimorphic RBCs Not Reportable 11/01/21 03:38 Polychromasia Not Reportable 11/01/21 03:38 Hypochromasia Not Reportable 11/01/21 03:38 Poikilocytosis Not Reportable 11/01/21 03:38 Anisocytosis Not Reportable 11/01/21 03:38 Microcytosis Not Reportable 11/01/21 03:38 Macrocytosis Not Reportable 11/01/21 03:38 Spherocytes Not Reportable 11/01/21 03:38 Pappenheimer Bodies Not Reportable 11/01/21 03:38 Sickle Cells Not Reportable 11/01/21 03:38 Target Cells Not Reportable 11/01/21 03:38 Tear Drop Cells Not Reportable 11/01/21 03:38 Ovalocytes Not Reportable 11/01/21 03:38 Helmet Cells Not Reportable 11/01/21 03:38 [place] Bodies Not Reportable 11/01/21 03:38 [place] Rings Not Reportable 11/01/21 03:38 [place] Cells Not Reportable 11/01/21 03:38 Bite Cells Not Reportable 11/01/21 03:38 Crenated Cell Not Reportable 11/01/21 03:38 Elliptocytes Not Reportable 11/01/21 03:38 Acanthocytes (Spur) Not Reportable 11/01/21 03:38 Rouleaux Not Reportable 11/01/21 03:38 Hemoglobin C Crystals Not Reportable 11/01/21 03:38 Schistocytes Not Reportable 11/01/21 03:38 Malaria parasites Not Reportable 11/01/21 03:38 Hany Bodies Not Reportable 11/01/21 03:38 Hem Pathologist Commnt No 11/01/21 03:38 PT 15.6 Sec. (12.2-14.9) H 10/31/21 02:36 INR 1.12 (0.87-1.13) 10/31/21 02:36 APTT 43.1 Sec. (24.2-36.6) H 10/31/21 02:36 D-Dimer 1951.30 ng/mlDDU (0-234) H 10/31/21 02:36 ABG pH 7.523 (7.320-7.450) H 11/02/21 03:58 POC ABG pCO2 26.0 mmHg (32.0-48.0) L 11/02/21 03:58 ABG pCO2 29.9 mm Hg 11/01/21 04:00 POC ABG pO2 69.3 mmHg (83-108) L 11/02/21 03:58 ABG pO2 82.5 mm Hg (80.0-90.0) 11/01/21 04:00 POC ABG HCO3 20.9 11/02/21 03:58 ABG HCO3 21.2 mmol/L (20.0-26.0) 11/01/21 04:00 ABG O2 Saturation 94.1 (0-100) 11/02/21 03:58 ABG O2 Content 15.3 (0.0-44) 11/01/21 04:00 POC ABG Base Excess -0.7 11/02/21 03:58 ABG Base Excess -1.6 mmol/L (-2.0-3.0) 11/01/21 04:00 ABG Hemoglobin 11.7 (12.0-17.5) L 11/02/21 03:58 ABG Oxyhemoglobin 93.5 (94-98) L 11/02/21 03:58 ABG Carboxyhemoglobin 1.1 % (0.0-5.0) 11/01/21 04:00 ABG Methemoglobin 0.3 (0.0-1.5) 11/02/21 03:58 ABG Sodium 161.6 mmol/L (136.0-145.0) H 11/02/21 03:58 ABG Potassium 4.1 mmol/L (3.40-4.50) 11/02/21 03:58 ABG Chloride 123.0 mmol/L (98-107) H 11/02/21 03:58 ABG Glucose 100 mg/dL (65-95) H 11/02/21 03:58 Oxyhemoglobin 95.6 % (95.0-99.0) 11/01/21 04:00 Carboxyhemoglobin 0.3 (0.5-1.5) L 01/08/22 03:58 FiO2 50 % 11/01/21 04:00 FiO2 % 45.0 11/02/21 03:58 Sodium 159 mmol/L (137-145) H 11/02/21 03:22 Sodium 160 mmol/L (137-145) H 11/02/21 03:22 Potassium 4.4 mmol/L (3.6-5.0) 11/02/21 03:22 Potassium 4.7 mmol/L (3.6-5.0) 11/02/21 03:22 Chloride 123.3 mmol/L (98-107) H 11/02/21 03:22 Chloride 126.4 mmol/L (98-107) H 11/02/21 03:22 Carbon Dioxide 22 mmol/L (22-30) 11/02/21 03:22 Carbon Dioxide 22 mmol/L (22-30) 11/02/21 03:22 Anion Gap 16 mmol/L 11/02/21 03:22 Anion Gap 18 mmol/L 11/02/21 03:22 BUN 35 mg/dL (9-20) H 11/02/21 03:22 BUN 36 mg/dL (9-20) H 11/02/21 03:22 Creatinine 0.9 mg/dL (0.8-1.3) 11/02/21 03:22 Creatinine 0.9 mg/dL (0.8-1.3) 11/02/21 03:22 Estimated GFR > 60 ml/min 11/02/21 03:22 Estimated GFR > 60 ml/min 11/02/21 03:22 BUN/Creatinine Ratio 39 % 11/02/21 03:22 BUN/Creatinine Ratio 40 % 11/02/21 03:22 Glucose 89 mg/dL (75-100) 11/02/21 03:22 Glucose 91 mg/dL (75-100) 11/02/21 03:22 Lactic Acid 1.80 mmol/L (0.7-2.0) 10/31/21 23:23 Calcium 8.5 mg/dL (8.4-10.2) 11/02/21 03:22 Calcium 8.8 mg/dL (8.4-10.2) 11/02/21 03:22 Phosphorus 2.50 mg/dL (2.5-4.5) D 11/02/21 03:22 Magnesium 3.00 mg/dL (1.7-2.3) H 11/02/21 03:22 Ferritin 41712.0 ng/mL (30.0-300.0) H 10/31/21 02:36 Total Bilirubin 0.40 mg/dL (0.1-1.2) 11/02/21 03:22 AST 394 units/L (5-40) H 11/02/21 03:22 ALT 282 units/L (7-56) H 11/02/21 03:22 Alkaline Phosphatase 173 units/L (35-129) H 11/02/21 03:22 Ammonia 21.0 umol/L (25-60) L 10/31/21 06:04 Lactate Dehydrogenase 923 units/L (91-180) H 10/31/21 02:36 Troponin T < 0.010 ng/mL (0.00-0.029) 10/31/21 16:42 C-Reactive Protein 7.80 mg/dL (0.00-1.30) H 10/31/21 02:36 NT-Pro-B Natriuret Pep 2381 pg/mL (0-900) H 10/31/21 02:36 Total Protein 7.9 g/dL (6.3-8.2) 11/02/21 03:22 Albumin 2.9 g/dL (3.9-5) L 11/02/21 03:22 Albumin/Globulin Ratio 0.6 % 11/02/21 03:22 Triglycerides 116 mg/dL (2-149) 10/31/21 02:36 Cholesterol 52 mg/dL (50-199) 10/31/21 02:36 LDL Cholesterol Direct 20 mg/dL (50-130) L 10/31/21 02:36 HDL Cholesterol 13 mg/dL (40-59) L 10/31/21 02:36 Cholesterol/HDL Ratio 4.00 % 10/31/21 02:36 Arterial Blood Glucose 100 mg/dL (65-95) H 11/02/21 03:58 Coronavirus (PCR) Positive (Negative) A 10/31/21 09:30 Microbiology: Microbiology 10/31/21 04:54 Peripheral/Venous Blood Culture - Preliminary NO GROWTH AFTER 48 HOURS 10/31/21 04:46 Peripheral/Venous Blood Culture - Preliminary NO GROWTH AFTER 48 HOURS 10/31/21 18:30 Tracheal Aspirate Sputum Culture - Preliminary Gram Negative Jose De Jesus Active Medications - Current Medications Current Medications: Generic Name Dose Route Start Last Admin Trade Name Freq PRN Reason Stop Dose Admin Acetaminophen 650 mg 10/31/21 12:00 Acetaminophen 325 Mg/10.15 Ml Oral Liqd Unit Dose FEEDTUBE Q6H PRN Pain MILD(1-3)/Fever >100.5/MARIANO Hydrocodone Bitart/Acetaminophen 2 each 10/31/21 12:00 Hydrocodone/Acetaminophen 5-325 Mg Tab PO Q6H PRN Pain, Moderate (4-6) Lipase/Protease/Amylase 1 each 10/31/21 12:00 Lipase 10,500/Protease 25,000/Amylase 43,750 (Units) Dr Cap FEEDTUBE PRN PRN For Clogged Feeding Tube Dexamethasone 6 mg 11/01/21 10:00 11/02/21 11:14 Dexamethasone 4 Mg/Ml Vial IV 11/10/21 10:01 6 mg Q24HR TRAVIS Administration Enoxaparin Sodium 40 mg 11/01/21 10:00 11/02/21 11:14 Enoxaparin 40 Mg/0.4 Ml Inj SUB-Q 40 mg QDAY@1000 TRAVIS Administration Famotidine 20 mg 11/01/21 10:00 11/02/21 11:14 Famotidine 20 Mg/2 Ml Inj IV 20 mg BID TRAVIS Administration Fentanyl 50 mcg 10/31/21 15:40 Fentanyl 100 Mcg/2 Ml Inj IV Q10MIN PRN ANALGESIA Hydrophilic Ointment 1 applic 10/31/21 15:40 Lip Therapy Vaseline TP Q2HR PRN Dry Lips Ceftriaxone Sodium 2 gm in 100 mls @ 200 mls/hr 11/01/21 06:00 11/02/21 08:21 Rocephin/Ns 2 Gm/100 Ml IV 11/05/21 06:29 200 mls/hr Q24H TRAVIS Administration Protocol Azithromycin 500 mg in 250 mls @ 250 mls/hr 10/31/21 13:00 11/01/21 12:52 Zithromax/Ns IV 11/04/21 13:59 250 mls/hr Q24H TRAVIS Administration Protocol Fentanyl Citrate 2,000 mcg in 100 mls @ 3.515 mls/hr 10/31/21 16:00 Fentanyl Drip Premix IV TITR TRAVIS Protocol 1 MCG/KG/HR Dextrose 1,000 mls @ 100 mls/hr 10/31/21 23:45 D5w IV DIRECT TRAVIS REMDESIVIR 100 mg/ Sodium 250 mls @ 500 mls/hr 11/02/21 21:00 Chloride IV 11/05/21 21:29 Q24HR@2100 [facility] Morphine Sulfate 2 mg 10/31/21 12:00 11/02/21 11:48 Morphine 2 Mg/1 Ml Inj IV 2 mg Q4H PRN Administration Pain , Severe (7-10) Multi-Ingred Cream/Lotion/Oil/Oint 1 applic 10/31/21 15:40 Mineral Oil/Petrolatum, White Ophth Oint 3.5 Gm OU Q4HR PRN Dry Eye(s) Senna/Docusate Sodium 1 tab 10/31/21 22:00 11/02/21 11:14 Sennosides/Docusate Sodium 8.6/50 Mg Tab FEEDTUBE 1 tab BID TRAVIS Administration Simple Syrup 15 ml 10/31/21 12:00 Simple Syrup 15 Ml FEEDTUBE PRN PRN Hypoglycemia Simple Syrup 30 ml 10/31/21 12:00 Simple Syrup 15 Ml FEEDTUBE PRN PRN Hypoglycemia Sodium Chloride 10 ml 10/31/21 12:00 11/02/21 11:14 Sodium Chloride 0.9% 10 Ml Flush Syringe IV 10 ml BID TRAVIS Administration Sodium Chloride 10 ml 10/31/21 12:00 Sodium Chloride 0.9% 10 Ml Flush Syringe IV PRN PRN LINE FLUSH Sodium Chloride 50 ml 11/01/21 21:00 11/02/21 08:20 Sodium Chloride 0.9% 50 Ml Ivpb IV 11/05/21 21:01 Not Given Q24HR@2100 [facility] Nutrition/Malnutrition Assess - Dietary Evaluation Nutrition/Malnutrition Findings: Nutrition Notes Start: 10/31/21 12:11 Freq: Status: Active Protocol: Document 11/01/21 14:55 CELIA (Rec: 11/01/21 15:05 CELIA [id number]) Nutrition Notes Initial or Follow up Reassessment Current Diagnosis Respiratory Failure,Stroke Other Pertinent Diagnosis COVID-19 pneu, ARF Current Diet TF - Vital AF 1.2 at 46ml/hr Labs/Tests Na 158 BUN 40 Pertinent Medications Decadron, D5W at 50ml/hr Height 6 ft 1 in Weight 70.307 kg [place] Body Weight (kg) 83.63 BMI 20.4 Weight Status Appropriate Subjective/Other Information Pt remains in ED and on vent support. Burn Absent Trauma Absent #1 Nutrition Diagnosis Inadequate oral intake Diagnosis Progress(for reassessment Continues documentation) Is patient on ventilator? Yes Is Patient Ambulatory and/or Out of Bed No REE-([facility]-confined to bed) 1891.152 Calculation Used for Recommendations [facility] Additional Notes Pro needs 1.2-2g/k-141g/ day Fluid needs 1ml/kcal Nutrition Intervention Nutrition Support: Change TF formula to Promote at 75ml/hr with 300ml water flush q4h until hypernatremia resolved. Once hyponatremia resolved, provide 50ml water flush q4h. Kcal 1,800 Protein (gm) 113 Carbohydrates (gm) 234 Fat (gm) 47 Fluid (mL) 1,510 Fiber (gm) 0 Goal #1 TF tolerance Goal #2 TF to meet at least 75% energy and pro needs Follow-Up By: 11/05/21 Additional Comments F/U: TF formula change/ tolerance, vent status, transfer to medical floor, Na lab/water flushes
--- NOTE | 2021-11-02 13:01 | Progress Note ---
Assessment and Plan Acute on chronic hypoxemic respiratory failure Possible aspiration pneumonia COVID-19 infection Acute kidney injury Sepsis Leukocytosis Mild metabolic acidosis Lactic acidosis Hypernatremia Adult FTT Elevated serum transaminases Elevated serum inflammatory markers to include ferritin, LDH and D-dimers Oropharyngeal dysphagia - free water 250 mls q4h X 3 days - RN asked to begin D5W drip as prior ordered - RN asked to hang fentanyl drip as prior ordered - keep peep at 8 - repeat ABG in am - continue care as below otherwise; - daily SAT and SBT assessment as tolerated - continue to wean supplemental oxygen for target O2 sat's > 90% acutely - VAP bundle addressed - continue lung protective strategies - continue bronchodilators with pulmonary hygiene per RT - wean per pulmonary driven protocols otherwise - avoid nephrotoxins, renally dose all medications - continue accuchecks with glycemic control per SSI (While critically ill target blood glucose of 140-180 mg/dL; avoid hypoglycemia) - sedation prn for target RASS 0 to -1 - continue Rocephin and Zithromax, de-escalate per ID rec's - prn analgesia per CPOT score - Maintenance of sleep-wake cycle, avoid delirium - enteral nutritional support at goal rate as tolerated - G.I. & VTE prophylaxis - PT/OT/ROM exercises - mobility protocols for pressure ulcer prophylaxis - Monitor hemodynamics closely - continue other care per attending / other consultants - discharge planning ongoing concurrently COVID SPECIFIC INTERVENTIONS - Remdesivir as per ID/Pulmonary developed protocols (Receiving) - continue systemic steroids for severe COVID-19 infection empirically (Decadron) - follow repeat COVID tests results - zinc and vitamin C supplementation - Monitor inflammatory markers per facility protocol - ferritin, Ddimer, CRP - therapeutic anticoagulation per system Protocol based on d-dimer and clinical considerations (VTE prophylaxis) - Continue contact and airborne isolation .... Re-evaluate in am & prn CONDITION: CRITICAL PROGNOSIS: GUARDED CODE STATUS: FULL CODE The high probability of a clinically significant, sudden or life-threatening deterioration of the [respiratory, renal, cardiovascular & neurologic] system(s) required my full and direct attention, intervention and personal management. The aggregate critical care time was [34] minutes without overlap. Time includes spent on; [x] Data Review and interpretation [x] Patient assessment and monitoring of vital signs [x] Documentation [x] Medication orders and management Subjective Date of service: 11/02/21 Principal diagnosis: AHRF; Pneumonia; COVID-19; MARCELINO; Leukocytosis; Lactic acidosis; Sepsis Interval history: Patient is seen today for: AHRF; Aspiration Pneumonia; COVID-19; MARCELINO; Leukocytosis; Lactic acidosis; Elevated serum LFT's; Sepsis Seen and examined at bedside; 24hour events reviewed; nursing and respiratory care staff consulted; no adverse overnight events reported to me; resting in bed; remains on MVS; work of breathing is increased; no emesis or overt aspiration; oxygenation is improved Objective Vital Signs - 12hr 11/02/21 11/02/21 11/02/21 04:33 08:00 11:48 Pulse Rate 89 161 H Respiratory 22 Rate Blood Pressure 146/101 146/101 O2 Sat by Pulse 97 94 Oximetry 11/02/21 12:00 Pulse Rate 103 H Respiratory 22 Rate Blood Pressure 159/109 O2 Sat by Pulse 93 Oximetry Constitutional: appears uncomfortable, other (middle aged male with moderately increased respiratory effort at rest) Eyes: non-icteric ENT: oropharynx moist, other (midline tracheostomy) Neck: supple, no lymphadenopathy, no JVD Effort: mildly labored Ascultation: Bilateral: rhonchi Percussion: Bilateral: not dull Cardiovascular: regular rate and rhythm Gastrointestinal: normoactive bowel sounds, soft, non-tender, non-distended Integumentary: rash Extremities: no cyanosis, no ischemia or petechiae Neurologic: pupils equal and round, CN II-XII normal, unable to assess Psychiatric: other (unable to assess re: AMS / delirium) CBC and BMP: 11/02/21 03:22 11/02/21 03:22 ABG, PT/INR, D-dimer: ABG ABG pH 7.523 (7.320-7.450) H 11/02/21 03:58 POC ABG pCO2 26.0 mmHg (32.0-48.0) L 11/02/21 03:58 ABG pCO2 29.9 mm Hg 11/01/21 04:00 POC ABG pO2 69.3 mmHg (83-108) L 11/02/21 03:58 ABG pO2 82.5 mm Hg (80.0-90.0) 11/01/21 04:00 POC ABG HCO3 20.9 11/02/21 03:58 ABG O2 Saturation 94.1 (0-100) 11/02/21 03:58 PT/INR, D-dimer PT 15.6 Sec. (12.2-14.9) H 10/31/21 02:36 INR 1.12 (0.87-1.13) 10/31/21 02:36 D-Dimer 1951.30 ng/mlDDU (0-234) H 10/31/21 02:36 Abnormal lab findings: Abnormal Labs 10/31/21 10/31/21 10/31/21 02:36 02:36 02:36 WBC 11.4 H Hgb MCH 26 L MCHC 29 L RDW 15.3 H Seg Neutrophils % 81.5 H Seg Neuts % (Manual) Lymphocytes % (Manual) Nucleated RBC % Seg Neutrophils # 9.3 H Seg Neutrophils # Man PT 15.6 H APTT 43.1 H D-Dimer 1951.30 H ABG pH POC ABG pCO2 POC ABG pO2 ABG pO2 ABG HCO3 ABG O2 Saturation ABG Base Excess ABG Hemoglobin ABG Oxyhemoglobin ABG Sodium ABG Chloride ABG Glucose Carboxyhemoglobin Sodium 155 H Chloride 110.3 H Carbon Dioxide 15 L BUN 46 H Creatinine 2.7 H Glucose 120 H Lactic Acid Magnesium Ferritin AST 492 H ALT 319 H Alkaline Phosphatase 153 H Ammonia Lactate Dehydrogenase Troponin T 0.065 H C-Reactive Protein NT-Pro-B Natriuret Pep 2381 H Albumin 3.0 L LDL Cholesterol Direct 20 L HDL Cholesterol 13 L Arterial Blood Glucose Coronavirus (PCR) 10/31/21 10/31/21 10/31/21 02:36 02:36 02:36 WBC Hgb MCH MCHC RDW Seg Neutrophils % Seg Neuts % (Manual) Lymphocytes % (Manual) Nucleated RBC % Seg Neutrophils # Seg Neutrophils # Man PT APTT D-Dimer ABG pH POC ABG pCO2 POC ABG pO2 ABG pO2 ABG HCO3 ABG O2 Saturation ABG Base Excess ABG Hemoglobin ABG Oxyhemoglobin ABG Sodium ABG Chloride ABG Glucose Carboxyhemoglobin Sodium Chloride Carbon Dioxide BUN Creatinine Glucose Lactic Acid 11.80 H* Magnesium Ferritin 19177.0 H AST ALT Alkaline Phosphatase Ammonia Lactate Dehydrogenase 923 H Troponin T C-Reactive Protein 7.80 H NT-Pro-B Natriuret Pep Albumin LDL Cholesterol Direct HDL Cholesterol Arterial Blood Glucose Coronavirus (PCR) 10/31/21 10/31/21 10/31/21 04:01 04:54 06:04 WBC Hgb MCH MCHC RDW Seg Neutrophils % Seg Neuts % (Manual) Lymphocytes % (Manual) Nucleated RBC % Seg Neutrophils # Seg Neutrophils # Man PT APTT D-Dimer ABG pH 7.318 L POC ABG pCO2 POC ABG pO2 ABG pO2 229.1 H ABG HCO3 17.4 L ABG O2 Saturation 99.3 H ABG Base Excess -7.8 L ABG Hemoglobin 13.2 L ABG Oxyhemoglobin ABG Sodium ABG Chloride ABG Glucose Carboxyhemoglobin Sodium Chloride Carbon Dioxide BUN Creatinine Glucose Lactic Acid 5.50 H* Magnesium Ferritin AST ALT Alkaline Phosphatase Ammonia 21.0 L Lactate Dehydrogenase Troponin T C-Reactive Protein NT-Pro-B Natriuret Pep Albumin LDL Cholesterol Direct HDL Cholesterol Arterial Blood Glucose Coronavirus (PCR) 10/31/21 10/31/21 10/31/21 09:30 10:44 16:42 WBC Hgb MCH MCHC RDW Seg Neutrophils % Seg Neuts % (Manual) Lymphocytes % (Manual) Nucleated RBC % Seg Neutrophils # Seg Neutrophils # Man PT APTT D-Dimer ABG pH POC ABG pCO2 POC ABG pO2 ABG pO2 ABG HCO3 ABG O2 Saturation ABG Base Excess ABG Hemoglobin ABG Oxyhemoglobin ABG Sodium ABG Chloride ABG Glucose Carboxyhemoglobin Sodium Chloride Carbon Dioxide BUN Creatinine Glucose Lactic Acid 3.40 H* 2.80 H* Magnesium Ferritin AST ALT Alkaline Phosphatase Ammonia Lactate Dehydrogenase Troponin T C-Reactive Protein NT-Pro-B Natriuret Pep Albumin LDL Cholesterol Direct HDL Cholesterol Arterial Blood Glucose Coronavirus (PCR) Positive A 10/31/21 11/01/21 11/01/21 16:42 03:38 03:38 WBC 15.6 H Hgb 11.3 L MCH MCHC 31 L RDW 15.3 H Seg Neutrophils % Seg Neuts % (Manual) 73.0 H Lymphocytes % (Manual) 9.0 L Nucleated RBC % 1.0 H Seg Neutrophils # Seg Neutrophils # Man 11.4 H PT APTT D-Dimer ABG pH POC ABG pCO2 POC ABG pO2 ABG pO2 ABG HCO3 ABG O2 Saturation ABG Base Excess ABG Hemoglobin ABG Oxyhemoglobin ABG Sodium ABG Chloride ABG Glucose Carboxyhemoglobin Sodium 158 H Chloride 122.1 H Carbon Dioxide BUN 40 H Creatinine Glucose 101 H Lactic Acid Magnesium 2.40 H Ferritin AST ALT Alkaline Phosphatase Ammonia Lactate Dehydrogenase Troponin T C-Reactive Protein NT-Pro-B Natriuret Pep Albumin LDL Cholesterol Direct HDL Cholesterol Arterial Blood Glucose Coronavirus (PCR) 11/01/21 11/02/21 11/02/21 04:00 03:22 03:22 WBC 11.9 H Hgb 11.6 L MCH 27 L MCHC 31 L RDW 15.3 H Seg Neutrophils % Seg Neuts % (Manual) Lymphocytes % (Manual) Nucleated RBC % Seg Neutrophils # Seg Neutrophils # Man PT APTT D-Dimer ABG pH 7.468 H POC ABG pCO2 POC ABG pO2 ABG pO2 ABG HCO3 ABG O2 Saturation ABG Base Excess ABG Hemoglobin 11.3 L ABG Oxyhemoglobin ABG Sodium ABG Chloride ABG Glucose Carboxyhemoglobin Sodium 159 H Chloride 123.3 H Carbon Dioxide BUN 35 H Creatinine Glucose Lactic Acid Magnesium Ferritin AST 394 H ALT 282 H Alkaline Phosphatase 173 H Ammonia Lactate Dehydrogenase Troponin T C-Reactive Protein NT-Pro-B Natriuret Pep Albumin 2.9 L LDL Cholesterol Direct HDL Cholesterol Arterial Blood Glucose Coronavirus (PCR) 11/02/21 11/02/21 03:22 03:58 WBC Hgb MCH MCHC RDW Seg Neutrophils % Seg Neuts % (Manual) Lymphocytes % (Manual) Nucleated RBC % Seg Neutrophils # Seg Neutrophils # Man PT APTT D-Dimer ABG pH 7.523 H POC ABG pCO2 26.0 L POC ABG pO2 69.3 L ABG pO2 ABG HCO3 ABG O2 Saturation ABG Base Excess ABG Hemoglobin 11.7 L ABG Oxyhemoglobin 93.5 L ABG Sodium 161.6 H ABG Chloride 123.0 H ABG Glucose 100 H Carboxyhemoglobin 0.3 L Sodium 160 H Chloride 126.4 H Carbon Dioxide BUN 36 H Creatinine Glucose Lactic Acid Magnesium 3.00 H Ferritin AST ALT Alkaline Phosphatase Ammonia Lactate Dehydrogenase Troponin T C-Reactive Protein NT-Pro-B Natriuret Pep Albumin LDL Cholesterol Direct HDL Cholesterol Arterial Blood Glucose 100 H Coronavirus (PCR) Chest x-ray: image reviewed (faint LLL infiltrate) Allied health notes reviewed: nursing
[2021-11-02] MEDS: fentaNYL DRIP Premix 2,000 MCG/100 ML BAG IV SCH (13:05)
[2021-11-02] MEDS: DEXTROSE 5% IN WATER 1,000 ML IV SCH ×2 (13:05→22:57)
[2021-11-02] MEDS: AZITHROMYCIN/NS 500 MG/250 ML 500 MG/250 ML BAG IV SCH (13:23)
[2021-11-02] MEDS: REMDESIVIR 100 MG in SODIUM CHLORIDE 0.9% 250ML 250 ML IV SCH (22:57)
[2021-11-03] MEDS: REMDESIVIR 100 MG in SODIUM CHLORIDE 0.9% 250ML 250 ML IV SCH ×2 (01:00→22:07)
[2021-11-03] MEDS: SENNOSIDES/DOCUSATE SODIUM 8.6/50 MG TAB FEEDTUBE SCH ×3 (02:00→22:10)
[2021-11-03] MEDS: fentaNYL DRIP Premix 2,000 MCG/100 ML BAG IV SCH (03:09)
[2021-11-03] MEDS: DEXTROSE 5% IN WATER 1,000 ML IV SCH ×2 (03:10→15:34)
[2021-11-03] MEDS: FREE WATER PO SCH ×3 (03:13→22:18)
[2021-11-03] MEDS: SODIUM CHLORIDE 0.9% 50 ML IVPB IV SCH ×2 (03:14→22:10)
[2021-11-03] MEDS: cefTRIAXone/NS 2 GM/100 ML 2 GM/100 ML BAG IV SCH (05:39)
[2021-11-03 05:44] LABS: Hematocrit 36.2 % (35.5-45.6); Hemoglobin 11.2 gm/dl (11.8-15.2); Mean Corpuscular HGB Conc 31 % (32-34); Mean Corpuscular Volume 90 fl (84-94); Platelet Count 314 K/mm3 (140-440); Red Blood Count 4.04 M/mm3 (3.65-5.03); Red Cell Distribution Width 15.4 % (13.2-15.2)
[2021-11-03 06:09] LABS: Alanine Aminotransferase 241 units/L (7-56); Albumin 2.7 g/dL (3.9-5); BUN/Creatinine Ratio 38; Blood Urea Nitrogen 30 mg/dL (9-20); Calcium 8.5 mg/dL (8.4-10.2); Hemolysis Index 3
[2021-11-03 06:40] LABS: Basophils % (Manual) 0 % (0.0-1.8); Monocytes % (Manual) 0 % (0.0-7.3); Total Cells Counted 100
[2021-11-03 06:41] LABS: Eosinophils % (Manual) 0 % (0.0-4.3)
[2021-11-03 06:42] LABS: Platelet Estimate Consistent w Auto; RBC Morphology Normal
--- NOTE | 2021-11-03 10:14 | Progress Note ---
Assessment and Plan Assessment and plan: Acute on chronic hypoxic respiratory failure Sepsis. Patient meets criteria given the tachycardia, tachypnea and diagnosis of pneumonia Aspiration pneumonia COVID-19 pneumonia Acute kidney injury. Acute COPD exacerbation Elevated D-dimer Elevated troponin Lactic acidosis. Hypernatremia Transaminitis Oropharyngeal dysphagia 10/31/2021. Patient will be admitted to the ICU and continued on mechanical ventilation. We will consult critical care for further evaluation. I suspect patient may have aspiration pneumonia given the history outlined by EMS and chest x-ray may have some lag time with illustrating the pneumonia. We will start IV antibiotics. Patient may also have COVID 19 pneumonia given the elevated inflammatory markers of D-dimer, ferritin, LDH and CRP. Await COVID PCR testing. We will consult ID for further evaluation. Check CTA of chest to rule out PE. Patient also has elevated creatinine of 2.7 and we do not have a baseline creatinine to compare. Etiology likely secondary to sepsis/ATN. Check urinalysis and renal ultrasound. Patient also with hypernatremia. Nephrology consultation. Elevated troponin likely secondary to type II [place] from sepsis and renal insufficiency. Check echocardiogram and consult cardiology for further evaluation. 11/01/2021. Patient's COVID PCR was noted to be positive on 10/31/2021. Continue empiric antibiotics per ID recommendations. Lactic acid levels have improved. Patient initially not a candidate for remdesivir given renal function. However, renal function has improved to 1.2. Await ID recommendations. Patient curre ntly on AC mode ventilation rate of 24, tidal volume 450, PEEP of 8 and FiO2 50%. Await CTA of chest. Echocardiogram reveals left ventricular size and function normal with EF of 55-60%. Mild diastolic dysfunction. 11/02/2021. Patient with COVID-19 pneumonia with possible superimposed bacterial pneumonia. Continue empiric antibiotics per ID recommendations. We will follow-up sputum cultures. Renal function has improved significantly. Therefore, we will start remdesivir per ID recommendations. Continue anticoagulation. Patient remains on mechanical ventilation with AC mode ventilation rate of 20, tidal volume 450, FiO2 45% and PEEP of 8 11/03/2021. Patient with COVID-19 pneumonia with possible superimposed bacterial pneumonia. Continue empiric antibiotics per ID recommendations. We will follow-up sputum cultures. Continue dexamethasone and remdesivir. Continue to trend inflammatory markers. Continue mechanical ventilation with AC mode rate of 14, tidal volume 450, FiO2 45% and PEEP of 8. Continue tracheostomy care, secretion control and airway management. Continue TF per dietitian recommendations. Aspiration precautions. Mobility protocols. Continue free water and D5W for hypernatremia which is improving. Follow-up BMP in a.m. The high probability of a clinically significant, sudden or life threatening deterioration of the [cardiac, respiratory] system(s) required my full and direct attention, intervention and personal management. The aggregate critical care time was [32] minutes. This time is in addition to time spent performing reported procedures but includes the following: [x] Data Review and interpretation [x] Patient assessment and monitoring of vital signs [x] Documentation [x] Medication orders and management History Interval history: No new issues overnight Hospitalist Physical - Constitutional Vitals: Temp Pulse Resp BP Pulse Ox 98.2 F 98 H 19 161/120 99 10/31/21 03:00 11/03/21 08:06 11/03/21 04:00 11/03/21 08:06 11/03/21 08:06 General appearance: Present: severe distress, other (On mechanical ventilation via tracheostomy) - EENT Eyes: Present: PERRL, EOM intact ENT: hearing intact, clear oral mucosa, dentition normal - Neck Neck: Present: supple, normal ROM - Respiratory Respiratory effort: normal Respiratory: bilateral: CTA - Cardiovascular Rhythm: regular Heart Sounds: Present: S1 & S2. Absent: gallop, rub - Extremities Extremities: no ischemia, No edema, Full ROM - Abdominal General gastrointestinal: soft, non-tender, non-distended, normal bowel sounds - Integumentary Integumentary: Present: clear, warm, dry - Neurologic Neurologic: CNII-XII intact, moves all extremities HEART Score - HEART Score Troponin: Troponin T < 0.010 ng/mL (0.00-0.029) 10/31/21 16:42 Results - Labs CBC & Chem 7: 11/03/21 04:32 11/03/21 04:32 Labs: Laboratory Last Values WBC 13.6 K/mm3 (4.5-11.0) H 11/03/21 04:32 RBC 4.04 M/mm3 (3.65-5.03) 11/03/21 04:32 Hgb 11.2 gm/dl (11.8-15.2) L 11/03/21 04:32 Hct 36.2 % (35.5-45.6) 11/03/21 04:32 MCV 90 fl (84-94) 11/03/21 04:32 MCH 28 pg (28-32) 11/03/21 04:32 MCHC 31 % (32-34) L 11/03/21 04:32 RDW 15.4 % (13.2-15.2) H 11/03/21 04:32 Plt Count 314 K/mm3 (140-440) 11/03/21 04:32 Lymph % (Auto) 16.6 % (13.4-35.0) 10/31/21 02:36 Carter % (Auto) 1.4 % (0.0-7.3) 10/31/21 02:36 Eos % (Auto) 0.1 % (0.0-4.3) 10/31/21 02:36 Baso % (Auto) 0.4 % (0.0-1.8) 10/31/21 02:36 Lymph # (Auto) 1.9 K/mm3 (1.2-5.4) 10/31/21 02:36 Carter # (Auto) 0.2 K/mm3 (0.0-0.8) 10/31/21 02:36 Eos # (Auto) 0.0 K/mm3 (0.0-0.4) 10/31/21 02:36 Baso # (Auto) 0.0 K/mm3 (0.0-0.1) 10/31/21 02:36 Add Manual Diff Complete 11/03/21 04:32 Total Counted 100 11/03/21 04:32 Seg Neutrophils % Process Inspector 11/03/21 04:32 Seg Neuts % (Manual) 96.0 % (40.0-70.0) H 11/03/21 04:32 Band Neutrophils % 0 % 11/03/21 04:32 Lymphocytes % (Manual) 4.0 % (13.4-35.0) L 11/03/21 04:32 Reactive Lymphs % (Man) 0 % 11/03/21 04:32 Monocytes % (Manual) 0 % (0.0-7.3) 11/03/21 04:32 Eosinophils % (Manual) 0 % (0.0-4.3) 11/03/21 04:32 Basophils % (Manual) 0 % (0.0-1.8) 11/03/21 04:32 Metamyelocytes % 0 % 11/03/21 04:32 Myelocytes % 0 % 11/03/21 04:32 Promyelocytes % 0 % 11/03/21 04:32 Blast Cells % 0 % 11/03/21 04:32 Nucleated RBC % Not Reportable 11/03/21 04:32 Seg Neutrophils # 9.3 K/mm3 (1.8-7.7) H 10/31/21 02:36 Seg Neutrophils # Man 13.1 K/mm3 (1.8-7.7) H 11/03/21 04:32 Band Neutrophils # 0.0 K/mm3 11/03/21 04:32 Lymphocytes # (Manual) 0.5 K/mm3 (1.2-5.4) L 11/03/21 04:32 Abs React Lymphs (Man) 0.0 K/mm3 11/03/21 04:32 Monocytes # (Manual) 0.0 K/mm3 (0.0-0.8) 11/03/21 04:32 Eosinophils # (Manual) 0.0 K/mm3 (0.0-0.4) 11/03/21 04:32 Basophils # (Manual) 0.0 K/mm3 (0.0-0.1) 11/03/21 04:32 Metamyelocytes # 0.0 K/mm3 11/03/21 04:32 Myelocytes # 0.0 K/mm3 11/03/21 04:32 Promyelocytes # 0.0 K/mm3 11/03/21 04:32 Blast Cells # 0.0 K/mm3 11/03/21 04:32 WBC Morphology Not Reportable 11/03/21 04:32 Hypersegmented Neuts Not Reportable 11/03/21 04:32 Hyposegmented Neuts Not Reportable 11/03/21 04:32 Hypogranular Neuts Not Reportable 11/03/21 04:32 Smudge Cells Not Reportable 11/03/21 04:32 Toxic Granulation Not Reportable 11/03/21 04:32 Toxic Vacuolation Not Reportable 11/03/21 04:32 Dohle Bodies Not Reportable 11/03/21 04:32 Pelger-Huet Anomaly Not Reportable 11/03/21 04:32 Sisi Rods Not Reportable 11/03/21 04:32 Platelet Estimate Consistent w auto 11/03/21 04:32 Clumped Platelets Not Reportable 11/03/21 04:32 Plt Clumps, EDTA Not Reportable 11/03/21 04:32 Large Platelets Not Reportable 11/03/21 04:32 Giant Platelets Not Reportable 11/03/21 04:32 Platelet Satelliting Not Reportable 11/03/21 04:32 Plt Morphology Comment Not Reportable 11/03/21 04:32 RBC Morphology Normal 11/03/21 04:32 Dimorphic RBCs Not Reportable 11/03/21 04:32 Polychromasia Not Reportable 11/03/21 04:32 Hypochromasia Not Reportable 11/03/21 04:32 Poikilocytosis Not Reportable 11/03/21 04:32 Anisocytosis Not Reportable 11/03/21 04:32 Microcytosis Not Reportable 11/03/21 04:32 Macrocytosis Not Reportable 11/03/21 04:32 Spherocytes Not Reportable 11/03/21 04:32 Pappenheimer Bodies Not Reportable 11/03/21 04:32 Sickle Cells Not Reportable 11/03/21 04:32 Target Cells Not Reportable 11/03/21 04:32 Tear Drop Cells Not Reportable 11/03/21 04:32 Ovalocytes Not Reportable 11/03/21 04:32 Helmet Cells Not Reportable 11/03/21 04:32 Chicas-Cutler Bodies Not Reportable 11/03/21 04:32 Mckinnon Rings Not Reportable 11/03/21 04:32 Thanh Cells Not Reportable 11/03/21 04:32 Bite Cells Not Reportable 11/03/21 04:32 Crenated Cell Not Reportable 11/03/21 04:32 Elliptocytes Not Reportable 11/03/21 04:32 Acanthocytes (Spur) Not Reportable 11/03/21 04:32 Rouleaux Not Reportable 11/03/21 04:32 Hemoglobin C Crystals Not Reportable 11/03/21 04:32 Schistocytes Not Reportable 11/03/21 04:32 Malaria parasites Not Reportable 11/03/21 04:32 Hany Bodies Not Reportable 11/03/21 04:32 Hem Pathologist Commnt No 11/03/21 04:32 PT 15.6 Sec. (12.2-14.9) H 10/31/21 02:36 INR 1.12 (0.87-1.13) 10/31/21 02:36 APTT 43.1 Sec. (24.2-36.6) H 10/31/21 02:36 D-Dimer 1951.30 ng/mlDDU (0-234) H 10/31/21 02:36 ABG pH 7.467 (7.320-7.450) H 11/03/21 03:47 POC ABG pCO2 29.8 mmHg (32.0-48.0) L 11/03/21 03:47 ABG pCO2 29.9 mm Hg 11/01/21 04:00 POC ABG pO2 77.2 mmHg (83-108) L 11/03/21 03:47 ABG pO2 82.5 mm Hg (80.0-90.0) 11/01/21 04:00 POC ABG HCO3 21.1 11/03/21 03:47 ABG HCO3 21.2 mmol/L (20.0-26.0) 11/01/21 04:00 ABG O2 Saturation 95.5 (0-100) 11/03/21 03:47 ABG O2 Content 15.3 (0.0-44) 11/01/21 04:00 POC ABG Base Excess -1.8 11/03/21 03:47 ABG Base Excess -1.6 mmol/L (-2.0-3.0) 11/01/21 04:00 ABG Hemoglobin 11.4 (12.0-17.5) L 11/03/21 03:47 ABG Oxyhemoglobin 95.0 (94-98) 11/03/21 03:47 ABG Carboxyhemoglobin 1.1 % (0.0-5.0) 11/01/21 04:00 ABG Methemoglobin 0.3 (0.0-1.5) 11/03/21 03:47 ABG Sodium 158.6 mmol/L (136.0-145.0) H 11/03/21 03:47 ABG Potassium 4.0 mmol/L (3.40-4.50) 11/03/21 03:47 ABG Chloride 122.0 mmol/L (98-107) H 11/03/21 03:47 ABG Glucose 226 mg/dL (65-95) H 11/03/21 03:47 Oxyhemoglobin 95.6 % (95.0-99.0) 11/01/21 04:00 Carboxyhemoglobin 0.2 (0.5-1.5) L 11/03/21 03:47 FiO2 50 % 11/01/21 04:00 FiO2 % 45.0 11/03/21 03:47 Sodium 154 mmol/L (137-145) H 11/03/21 04:32 Potassium 4.3 mmol/L (3.6-5.0) 11/03/21 04:32 Chloride 120.7 mmol/L (98-107) H 11/03/21 04:32 Carbon Dioxide 21 mmol/L (22-30) L 11/03/21 04:32 Anion Gap 17 mmol/L 11/03/21 04:32 BUN 30 mg/dL (9-20) H 11/03/21 04:32 Creatinine 0.8 mg/dL (0.8-1.3) 11/03/21 04:32 Estimated GFR > 60 ml/min 11/03/21 04:32 BUN/Creatinine Ratio 38 % 11/03/21 04:32 Glucose 216 mg/dL (75-100) H 11/03/21 04:32 Lactic Acid 1.80 mmol/L (0.7-2.0) 10/31/21 23:23 Calcium 8.5 mg/dL (8.4-10.2) 11/03/21 04:32 Phosphorus 2.90 mg/dL (2.5-4.5) 11/03/21 04:32 Magnesium 2.70 mg/dL (1.7-2.3) H 11/03/21 04:32 Ferritin 63441.0 ng/mL (30.0-300.0) H 10/31/21 02:36 Total Bilirubin 0.40 mg/dL (0.1-1.2) 11/03/21 04:32 AST 258 units/L (5-40) H 11/03/21 04:32 ALT 241 units/L (7-56) H 11/03/21 04:32 Alkaline Phosphatase 178 units/L (35-129) H 11/03/21 04:32 Ammonia 21.0 umol/L (25-60) L 10/31/21 06:04 Lactate Dehydrogenase 923 units/L (91-180) H 10/31/21 02:36 Troponin T < 0.010 ng/mL (0.00-0.029) 10/31/21 16:42 C-Reactive Protein 7.80 mg/dL (0.00-1.30) H 10/31/21 02:36 NT-Pro-B Natriuret Pep 2381 pg/mL (0-900) H 10/31/21 02:36 Total Protein 7.8 g/dL (6.3-8.2) 11/03/21 04:32 Albumin 2.7 g/dL (3.9-5) L 11/03/21 04:32 Albumin/Globulin Ratio 0.5 % 11/03/21 04:32 Triglycerides 116 mg/dL (2-149) 10/31/21 02:36 Cholesterol 52 mg/dL (50-199) 10/31/21 02:36 LDL Cholesterol Direct 20 mg/dL (50-130) L 10/31/21 02:36 HDL Cholesterol 13 mg/dL (40-59) L 10/31/21 02:36 Cholesterol/HDL Ratio 4.00 % 10/31/21 02:36 Arterial Blood Glucose 226 mg/dL (65-95) H 11/03/21 03:47 Coronavirus (PCR) Positive (Negative) A 10/31/21 09:30 Microbiology: Microbiology 10/31/21 18:30 Tracheal Aspirate Sputum Culture - Final Klebsiella Pneumoniae 10/31/21 04:54 Peripheral/Venous Blood Culture - Preliminary NO GROWTH AFTER 48 HOURS 10/31/21 04:46 Peripheral/Venous Blood Culture - Preliminary NO GROWTH AFTER 48 HOURS Active Medications - Current Medications Current Medications: Generic Name Dose Route Start Last Admin Trade Name Freq PRN Reason Stop Dose Admin Acetaminophen 650 mg 10/31/21 12:00 Acetaminophen 325 Mg/10.15 Ml Oral Liqd Unit Dose FEEDTUBE Q6H PRN Pain MILD(1-3)/Fever >100.5/MARIANO Hydrocodone Bitart/Acetaminophen 2 each 10/31/21 12:00 Hydrocodone/Acetaminophen 5-325 Mg Tab PO Q6H PRN Pain, Moderate (4-6) Lipase/Protease/Amylase 1 each 10/31/21 12:00 Lipase 10,500/Protease 25,000/Amylase 43,750 (Units) Dr Cap FEEDTUBE PRN PRN For Clogged Feeding Tube Dexamethasone 6 mg 11/01/21 10:00 11/02/21 11:14 Dexamethasone 4 Mg/Ml Vial IV 11/10/21 10:01 6 mg Q24HR TRAVIS Administration Enoxaparin Sodium 40 mg 11/01/21 10:00 11/02/21 11:14 Enoxaparin 40 Mg/0.4 Ml Inj SUB-Q 40 mg QDAY@1000 TRAVIS Administration Famotidine 20 mg 11/01/21 10:00 11/02/21 22:58 Famotidine 20 Mg/2 Ml Inj IV 20 mg BID TRAVIS Administration Fentanyl 50 mcg 10/31/21 15:40 Fentanyl 100 Mcg/2 Ml Inj IV Q10MIN PRN ANALGESIA Hydrophilic Ointment 1 applic 10/31/21 15:40 Lip Therapy Vaseline TP Q2HR PRN Dry Lips Ceftriaxone Sodium 2 gm in 100 mls @ 200 mls/hr 11/01/21 06:00 11/03/21 05:39 Rocephin/Ns 2 Gm/100 Ml IV 11/05/21 06:29 200 mls/hr Q24H TRAVIS Administration Protocol Azithromycin 500 mg in 250 mls @ 250 mls/hr 10/31/21 13:00 11/02/21 13:23 Zithromax/Ns IV 11/04/21 13:59 250 mls/hr Q24H TRAVIS Administration Protocol Fentanyl Citrate 2,000 mcg in 100 mls @ 3.515 mls/hr 10/31/21 16:00 11/03/21 03:09 Fentanyl Drip Premix IV 1 mcg/kg/hr TITR TRAVIS 3.515 mls/hr Administration Protocol 1 MCG/KG/HR Dextrose 1,000 mls @ 100 mls/hr 10/31/21 23:45 11/03/21 03:10 D5w IV 11/04/21 09:44 100 mls/hr DIRECT TRAVIS Administration REMDESIVIR 100 mg/ Sodium 250 mls @ 500 mls/hr 11/02/21 21:00 11/03/21 01:00 Chloride IV 11/05/21 21:29 500 mls/hr Q24HR@2100 TRAVIS Administration Morphine Sulfate 2 mg 10/31/21 12:00 11/02/21 11:48 Morphine 2 Mg/1 Ml Inj IV 2 mg Q4H PRN Administration Pain , Severe (7-10) Multi-Ingred Cream/Lotion/Oil/Oint 1 applic 10/31/21 15:40 Mineral Oil/Petrolatum, White Ophth Oint 3.5 Gm OU Q4HR PRN Dry Eye(s) Senna/Docusate Sodium 1 tab 10/31/21 22:00 11/03/21 02:00 Sennosides/Docusate Sodium 8.6/50 Mg Tab FEEDTUBE 1 tab BID TRAVIS Administration Simple Syrup 15 ml 10/31/21 12:00 Simple Syrup 15 Ml FEEDTUBE PRN PRN Hypoglycemia Simple Syrup 30 ml 10/31/21 12:00 Simple Syrup 15 Ml FEEDTUBE PRN PRN Hypoglycemia Sodium Chloride 10 ml 10/31/21 12:00 11/02/21 22:58 Sodium Chloride 0.9% 10 Ml Flush Syringe IV 10 ml BID TRAVIS Administration Sodium Chloride 10 ml 10/31/21 12:00 Sodium Chloride 0.9% 10 Ml Flush Syringe IV PRN PRN LINE FLUSH Sodium Chloride 50 ml 11/01/21 21:00 11/03/21 03:14 Sodium Chloride 0.9% 50 Ml Ivpb IV 11/05/21 21:01 50 ml Q24HR@2100 TRAVIS Administration Nutrition/Malnutrition Assess - Dietary Evaluation Nutrition/Malnutrition Findings: Nutrition Notes Start: 10/31/21 12:11 Freq: Status: Active Protocol: Document 11/01/21 14:55 CELIA (Rec: 11/01/21 15:05 CELIA [id number]) Nutrition Notes Initial or Follow up Reassessment Current Diagnosis Respiratory Failure,Stroke Other Pertinent Diagnosis COVID-19 pneu, ARF Current Diet TF - Vital AF 1.2 at 46ml/hr Labs/Tests Na 158 BUN 40 Pertinent Medications Decadron, D5W at 50ml/hr Height 6 ft 1 in Weight 70.307 kg [place] Body Weight (kg) 83.63 BMI 20.4 Weight Status Appropriate Subjective/Other Information Pt remains in ED and on vent support. Burn Absent Trauma Absent #1 Nutrition Diagnosis Inadequate oral intake Diagnosis Progress(for reassessment Continues documentation) Is patient on ventilator? Yes Is Patient Ambulatory and/or Out of Bed No REE-([facility]-confined to bed) 1891.152 Calculation Used for Recommendations [facility] Additional Notes Pro needs 1.2-2g/k-141g/ day Fluid needs 1ml/kcal Nutrition Intervention Nutrition Support: Change TF formula to Promote at 75ml/hr with 300ml water flush q4h until hypernatremia resolved. Once hyponatremia resolved, provide 50ml water flush q4h. Kcal 1,800 Protein (gm) 113 Carbohydrates (gm) 234 Fat (gm) 47 Fluid (mL) 1,510 Fiber (gm) 0 Goal #1 TF tolerance Goal #2 TF to meet at least 75% energy and pro needs Follow-Up By: 11/05/21 Additional Comments F/U: TF formula change/ tolerance, vent status, transfer to medical floor, Na lab/water flushes
--- NOTE | 2021-11-03 10:22 | Progress Note ---
Assessment and Plan MARCELINO - Continue IVF & f/u resolving Prerenal Azotemia HyperNa - Resolving HyperNa on Hypotonic IVF, F/u labs HTN - F/u off BP meds Covid-19 Pneumonia/Resp Failure - F/u Mx per Pulm/ID Subjective Principal diagnosis: AHRF; Pneumonia; COVID-19; MARCELINO; Leukocytosis; Lactic acidosis; Sepsis Interval history: No new complaint Objective - Vital Signs Vital signs: Vital Signs - 12hr 11/02/21 11/02/21 11/02/21 22:30 22:46 23:00 Pulse Rate 71 72 72 Respiratory 10 L 10 L 9 L Rate Blood Pressure 146/97 149/110 148/106 O2 Sat by Pulse 96 95 95 Oximetry O2 Sat by Pulse Oximetry [ Assessment] 11/02/21 11/02/21 11/02/21 23:16 23:30 23:46 Pulse Rate 72 65 72 Respiratory 11 L 11 L 10 L Rate Blood Pressure 155/102 147/108 155/109 O2 Sat by Pulse 94 95 Oximetry O2 Sat by Pulse Oximetry [ Assessment] 11/03/21 11/03/21 11/03/21 00:00 00:16 00:30 Pulse Rate 81 71 71 Respiratory 9 L 12 13 Rate Blood Pressure 145/109 156/107 153/115 O2 Sat by Pulse 49 L 86 95 Oximetry O2 Sat by Pulse Oximetry [ Assessment] 11/03/21 11/03/21 11/03/21 00:46 01:00 01:16 Pulse Rate 64 64 77 Respiratory 11 L 12 13 Rate Blood Pressure 149/98 148/103 161/120 O2 Sat by Pulse 97 97 99 Oximetry O2 Sat by Pulse Oximetry [ Assessment] 11/03/21 11/03/21 11/03/21 01:30 01:46 02:00 Pulse Rate 75 76 80 Respiratory 13 11 L 12 Rate Blood Pressure 131/101 144/105 144/99 O2 Sat by Pulse 97 99 97 Oximetry O2 Sat by Pulse Oximetry [ Assessment] 11/03/21 11/03/21 11/03/21 02:16 02:30 02:46 Pulse Rate 78 76 81 Respiratory 11 L 12 11 L Rate Blood Pressure 128/82 122/89 124/90 O2 Sat by Pulse 96 95 96 Oximetry O2 Sat by Pulse Oximetry [ Assessment] 11/03/21 11/03/21 11/03/21 02:50 03:00 04:00 Pulse Rate 75 78 Respiratory 11 L 19 Rate Blood Pressure 124/90 132/96 O2 Sat by Pulse 96 94 96 Oximetry O2 Sat by Pulse Oximetry [ Assessment] 11/03/21 11/03/21 11/03/21 04:50 06:48 08:06 Pulse Rate 92 H 98 H Respiratory Rate Blood Pressure 161/120 O2 Sat by Pulse 99 Oximetry O2 Sat by Pulse 96 Oximetry [ Assessment] - General Appearance General appearance: cachectic, other EENT: PERRL Neck: no JVD Respiratory: Present: Other (On vent via trach) Cardiology: regular, S1S2 Gastrointestinal: other (Soft) Integumentary: warm and dry - Lab 11/03/21 04:32 11/03/21 04:32 Most recent lab results ABG pH 7.467 (7.320-7.450) H 11/03/21 03:47 ABG pCO2 29.9 mm Hg 11/01/21 04:00 ABG pO2 82.5 mm Hg (80.0-90.0) 11/01/21 04:00 ABG HCO3 21.2 mmol/L (20.0-26.0) 11/01/21 04:00 ABG O2 Saturation 95.5 (0-100) 11/03/21 03:47 Calcium 8.5 mg/dL (8.4-10.2) 11/03/21 04:32 Phosphorus 2.90 mg/dL (2.5-4.5) 11/03/21 04:32 Magnesium 2.70 mg/dL (1.7-2.3) H 11/03/21 04:32 Medications & Allergies - Medications Allergies/Adverse Reactions: Allergies Unable to Assess Allergy (Unverified 10/31/21 02:38) pt unable to answer Active Medications: Generic Name Dose Route Start Last Admin Trade Name Freq PRN Reason Stop Dose Admin Acetaminophen 650 mg 10/31/21 12:00 Acetaminophen 325 Mg/10.15 Ml Oral Liqd Unit Dose FEEDTUBE Q6H PRN Pain MILD(1-3)/Fever >100.5/MARIANO Hydrocodone Bitart/Acetaminophen 2 each 10/31/21 12:00 Hydrocodone/Acetaminophen 5-325 Mg Tab PO Q6H PRN Pain, Moderate (4-6) Lipase/Protease/Amylase 1 each 10/31/21 12:00 Lipase 10,500/Protease 25,000/Amylase 43,750 (Units) Dr Cap FEEDTUBE PRN PRN For Clogged Feeding Tube Dexamethasone 6 mg 11/01/21 10:00 11/02/21 11:14 Dexamethasone 4 Mg/Ml Vial IV 11/10/21 10:01 6 mg Q24HR TRAVIS Administration Enoxaparin Sodium 40 mg 11/01/21 10:00 11/02/21 11:14 Enoxaparin 40 Mg/0.4 Ml Inj SUB-Q 40 mg QDAY@1000 TRAVIS Administration Famotidine 20 mg 11/01/21 10:00 11/02/21 22:58 Famotidine 20 Mg/2 Ml Inj IV 20 mg BID TRAVIS Administration Fentanyl 50 mcg 10/31/21 15:40 Fentanyl 100 Mcg/2 Ml Inj IV Q10MIN PRN ANALGESIA Hydrophilic Ointment 1 applic 10/31/21 15:40 Lip Therapy Vaseline TP Q2HR PRN Dry Lips Ceftriaxone Sodium 2 gm in 100 mls @ 200 mls/hr 11/01/21 06:00 11/03/21 05:39 Rocephin/Ns 2 Gm/100 Ml IV 11/05/21 06:29 200 mls/hr Q24H TRAVIS Administration Protocol Azithromycin 500 mg in 250 mls @ 250 mls/hr 10/31/21 13:00 11/02/21 13:23 Zithromax/Ns IV 11/04/21 13:59 250 mls/hr Q24H TRAVIS Administration Protocol Fentanyl Citrate 2,000 mcg in 100 mls @ 3.515 mls/hr 10/31/21 16:00 11/03/21 03:09 Fentanyl Drip Premix IV 1 mcg/kg/hr TITR TRAVIS 3.515 mls/hr Administration Protocol 1 MCG/KG/HR Dextrose 1,000 mls @ 100 mls/hr 10/31/21 23:45 11/03/21 03:10 D5w IV 11/04/21 09:44 100 mls/hr DIRECT TRAVIS Administration REMDESIVIR 100 mg/ Sodium 250 mls @ 500 mls/hr 11/02/21 21:00 11/03/21 01:00 Chloride IV 11/05/21 21:29 500 mls/hr Q24HR@2100 TRAVIS Administration Morphine Sulfate 2 mg 10/31/21 12:00 11/02/21 11:48 Morphine 2 Mg/1 Ml Inj IV 2 mg Q4H PRN Administration Pain , Severe (7-10) Multi-Ingred Cream/Lotion/Oil/Oint 1 applic 10/31/21 15:40 Mineral Oil/Petrolatum, White Ophth Oint 3.5 Gm OU Q4HR PRN Dry Eye(s) Senna/Docusate Sodium 1 tab 10/31/21 22:00 11/03/21 02:00 Sennosides/Docusate Sodium 8.6/50 Mg Tab FEEDTUBE 1 tab BID TRAVIS Administration Simple Syrup 15 ml 10/31/21 12:00 Simple Syrup 15 Ml FEEDTUBE PRN PRN Hypoglycemia Simple Syrup 30 ml 10/31/21 12:00 Simple Syrup 15 Ml FEEDTUBE PRN PRN Hypoglycemia Sodium Chloride 10 ml 10/31/21 12:00 11/02/21 22:58 Sodium Chloride 0.9% 10 Ml Flush Syringe IV 10 ml BID TRAVIS Administration Sodium Chloride 10 ml 10/31/21 12:00 Sodium Chloride 0.9% 10 Ml Flush Syringe IV PRN PRN LINE FLUSH Sodium Chloride 50 ml 11/01/21 21:00 11/03/21 03:14 Sodium Chloride 0.9% 50 Ml Ivpb IV 11/05/21 21:01 50 ml Q24HR@2100 TRAVIS Administration
--- NOTE | 2021-11-03 10:34 | XRay Report ---
CHEST 1 VIEW 11/03/2021 9:25 AM INDICATION / CLINICAL INFORMATION: Follow-up respiratory failure. COMPARISON: Yesterday. FINDINGS: SUPPORT DEVICES: The position of the tracheostomy tube has not changed. HEART / MEDIASTINUM: Unchanged. LUNGS / PLEURA: There are mild patchy parenchymal opacities in both mid to lower lung zones, left gre ater than right, probably unchanged. No new abnormality. No pleural effusion. No pneumothorax. ADDITIONAL FINDINGS: No significant additional findings. IMPRESSION: No significant change since yesterday. Signer Name: Juanito Price MD Signed: 11/03/2021 10:29 AM Workstation Name: [id number]
[2021-11-03] MEDS: dexAMETHasone 4 MG/ML VIAL IV SCH (11:08)
[2021-11-03] MEDS: ENOXAPARIN 40 MG/0.4 ML INJ SUB-Q SCH (11:09)
[2021-11-03] MEDS: FAMOTIDINE 20 MG/2 ML INJ IV SCH ×2 (11:09→22:10)
--- NOTE | 2021-11-03 14:59 | Progress Note ---
Assessment and Plan Acute on chronic hypoxemic respiratory failure Possible aspiration pneumonia COVID-19 infection Acute kidney injury Sepsis Leukocytosis Mild metabolic acidosis Lactic acidosis Hypernatremia Adult FTT Elevated serum transaminases Elevated serum inflammatory markers to include ferritin, LDH and D-dimers Oropharyngeal dysphagia - continue free water 250 mls q4h X 3 days - complete D5W drip as prior ordered - keep peep at 8 - repeat ABG in am - continue care as below otherwise; - daily SAT and SBT assessment as tolerated - continue to wean supplemental oxygen for target O2 sat's > 90% acutely - VAP bundle addressed - continue lung protective strategies - continue bronchodilators with pulmonary hygiene per RT - wean per pulmonary driven protocols otherwise - avoid nephrotoxins, renally dose all medications - continue accuchecks with glycemic control per SSI (While critically ill target blood glucose of 140-180 mg/dL; avoid hypoglycemia) - sedation prn for target RASS 0 to -1 - continue Rocephin and Zithromax, de-escalate per ID rec's - prn analgesia per CPOT score - Maintenance of sleep-wake cycle, avoid delirium - enteral nutritional support at goal rate as tolerated - G.I. & VTE prophylaxis - PT/OT/ROM exercises - mobility protocols for pressure ulcer prophylaxis - Monitor hemodynamics closely - continue other care per attending / other consultants - discharge planning ongoing concurrently COVID SPECIFIC INTERVENTIONS - Remdesivir as per ID/Pulmonary developed protocols (Receiving) - continue systemic steroids for severe COVID-19 infection empirically ([place]adr on) - follow repeat COVID tests results - zinc and vitamin C supplementation - Monitor inflammatory markers per facility protocol - ferritin, Ddimer, CRP - therapeutic anticoagulation per system Protocol based on d-dimer and clinical considerations (VTE prophylaxis) - Continue contact and airborne isolation .... Re-evaluate in am & prn CONDITION: CRITICAL PROGNOSIS: GUARDED CODE STATUS: FULL CODE The high probability of a clinically significant, sudden or life-threatening deterioration of the [respiratory, renal, cardiovascular & neurologic] system(s) required my full and direct attention, intervention and personal management. The aggregate critical care time was [32] minutes without overlap. Time includes spent on; [x] Data Review and interpretation [x] Patient assessment and monitoring of vital signs [x] Documentation [x] Medication orders and management Subjective Date of service: 11/03/21 Principal diagnosis: AHRF; Pneumonia; COVID-19; MARCELINO; Leukocytosis; Lactic acidosis; Sepsis Interval history: Patient is seen today for: AHRF; Aspiration Pneumonia; COVID-19; MARCELINO; Leukocytosis; Lactic acidosis; Elevated serum LFT's; Sepsis Seen and examined at bedside; 24hour events reviewed; nursing and respiratory care staff consulted; no adverse overnight events reported to me; resting in bed; remains on MVS; AMS is persistent; work of breathing a little better; No N/V/F/C Objective Vital Signs - 12hr 11/03/21 11/03/21 11/03/21 03:00 04:00 04:50 Pulse Rate 78 Respiratory 11 L 19 Rate Blood Pressure 132/96 O2 Sat by Pulse 94 96 Oximetry O2 Sat by Pulse 96 Oximetry [ Assessment] 11/03/21 11/03/21 11/03/21 06:48 08:06 09:38 Pulse Rate 92 H 98 H 95 H Respiratory Rate Blood Pressure 161/120 161/117 O2 Sat by Pulse 99 100 Oximetry O2 Sat by Pulse Oximetry [ Assessment] 11/03/21 12:05 Pulse Rate 66 Respiratory Rate Blood Pressure 142/103 O2 Sat by Pulse 97 Oximetry O2 Sat by Pulse Oximetry [ Assessment] Constitutional: appears uncomfortable, other (middle aged male with moderately increased respiratory effort at rest) Eyes: non-icteric ENT: oropharynx moist, other (midline tracheostomy) Neck: supple, no lymphadenopathy, no JVD Effort: mildly labored Ascultation: Bilateral: rhonchi Percussion: Bilateral: not dull Cardiovascular: regular rate and rhythm Gastrointestinal: normoactive bowel sounds, soft, non-tender, non-distended Integumentary: rash Extremities: no cyanosis, no ischemia or petechiae Neurologic: pupils equal and round, CN II-XII normal, unable to assess Psychiatric: other (unable to assess re: AMS / delirium) CBC and BMP: 11/04/21 04:48 11/04/21 04:48 ABG, PT/INR, D-dimer: ABG ABG pH 7.467 (7.320-7.450) H 11/03/21 03:47 POC ABG pCO2 29.8 mmHg (32.0-48.0) L 11/03/21 03:47 ABG pCO2 29.9 mm Hg 11/01/21 04:00 POC ABG pO2 77.2 mmHg (83-108) L 11/03/21 03:47 ABG pO2 82.5 mm Hg (80.0-90.0) 11/01/21 04:00 POC ABG HCO3 21.1 11/03/21 03:47 ABG O2 Saturation 95.5 (0-100) 11/03/21 03:47 PT/INR, D-dimer PT 15.6 Sec. (12.2-14.9) H 10/31/21 02:36 INR 1.12 (0.87-1.13) 10/31/21 02:36 D-Dimer 1951.30 ng/mlDDU (0-234) H 10/31/21 02:36 Abnormal lab findings: Abnormal Labs 10/31/21 10/31/21 10/31/21 02:36 02:36 02:36 WBC 11.4 H Hgb MCH 26 L MCHC 29 L RDW 15.3 H Seg Neutrophils % 81.5 H Seg Neuts % (Manual) Lymphocytes % (Manual) Nucleated RBC % Seg Neutrophils # 9.3 H Seg Neutrophils # Man Lymphocytes # (Manual) PT 15.6 H APTT 43.1 H D-Dimer 1951.30 H ABG pH POC ABG pCO2 POC ABG pO2 ABG pO2 ABG HCO3 ABG O2 Saturation ABG Base Excess ABG Hemoglobin ABG Oxyhemoglobin ABG Sodium ABG Chloride ABG Glucose Carboxyhemoglobin Sodium 155 H Chloride 110.3 H Carbon Dioxide 15 L BUN 46 H Creatinine 2.7 H Glucose 120 H Lactic Acid Magnesium Ferritin AST 492 H ALT 319 H Alkaline Phosphatase 153 H Ammonia Lactate Dehydrogenase Troponin T 0.065 H C-Reactive Protein NT-Pro-B Natriuret Pep 2381 H Albumin 3.0 L LDL Cholesterol Direct 20 L HDL Cholesterol 13 L Arterial Blood Glucose Coronavirus (PCR) 10/31/21 10/31/21 10/31/21 02:36 02:36 02:36 WBC Hgb MCH MCHC RDW Seg Neutrophils % Seg Neuts % (Manual) Lymphocytes % (Manual) Nucleated RBC % Seg Neutrophils # Seg Neutrophils # Man Lymphocytes # (Manual) PT APTT D-Dimer ABG pH POC ABG pCO2 POC ABG pO2 ABG pO2 ABG HCO3 ABG O2 Saturation ABG Base Excess ABG Hemoglobin ABG Oxyhemoglobin ABG Sodium ABG Chloride ABG Glucose Carboxyhemoglobin Sodium Chloride Carbon Dioxide BUN Creatinine Glucose Lactic Acid 11.80 H* Magnesium Ferritin 51177.0 H AST ALT Alkaline Phosphatase Ammonia Lactate Dehydrogenase 923 H Troponin T C-Reactive Protein 7.80 H NT-Pro-B Natriuret Pep Albumin LDL Cholesterol Direct HDL Cholesterol Arterial Blood Glucose Coronavirus (PCR) 10/31/21 10/31/21 10/31/21 04:01 04:54 06:04 WBC Hgb MCH MCHC RDW Seg Neutrophils % Seg Neuts % (Manual) Lymphocytes % (Manual) Nucleated RBC % Seg Neutrophils # Seg Neutrophils # Man Lymphocytes # (Manual) PT APTT D-Dimer ABG pH 7.318 L POC ABG pCO2 POC ABG pO2 ABG pO2 229.1 H ABG HCO3 17.4 L ABG O2 Saturation 99.3 H ABG Base Excess -7.8 L ABG Hemoglobin 13.2 L ABG Oxyhemoglobin ABG Sodium ABG Chloride ABG Glucose Carboxyhemoglobin Sodium Chloride Carbon Dioxide BUN Creatinine Glucose Lactic Acid 5.50 H* Magnesium Ferritin AST ALT Alkaline Phosphatase Ammonia 21.0 L Lactate Dehydrogenase Troponin T C-Reactive Protein NT-Pro-B Natriuret Pep Albumin LDL Cholesterol Direct HDL Cholesterol Arterial Blood Glucose Coronavirus (PCR) 10/31/21 10/31/21 10/31/21 09:30 10:44 16:42 WBC Hgb MCH MCHC RDW Seg Neutrophils % Seg Neuts % (Manual) Lymphocytes % (Manual) Nucleated RBC % Seg Neutrophils # Seg Neutrophils # Man Lymphocytes # (Manual) PT APTT D-Dimer ABG pH POC ABG pCO2 POC ABG pO2 ABG pO2 ABG HCO3 ABG O2 Saturation ABG Base Excess ABG Hemoglobin ABG Oxyhemoglobin ABG Sodium ABG Chloride ABG Glucose Carboxyhemoglobin Sodium Chloride Carbon Dioxide BUN Creatinine Glucose Lactic Acid 3.40 H* 2.80 H* Magnesium Ferritin AST ALT Alkaline Phosphatase Ammonia Lactate Dehydrogenase Troponin T C-Reactive Protein NT-Pro-B Natriuret Pep Albumin LDL Cholesterol Direct HDL Cholesterol Arterial Blood Glucose Coronavirus (PCR) Positive A 10/31/21 11/01/21 11/01/21 16:42 03:38 03:38 WBC 15.6 H Hgb 11.3 L MCH MCHC 31 L RDW 15.3 H Seg Neutrophils % Seg Neuts % (Manual) 73.0 H Lymphocytes % (Manual) 9.0 L Nucleated RBC % 1.0 H Seg Neutrophils # Seg Neutrophils # Man 11.4 H Lymphocytes # (Manual) PT APTT D-Dimer ABG pH POC ABG pCO2 POC ABG pO2 ABG pO2 ABG HCO3 ABG O2 Saturation ABG Base Excess ABG Hemoglobin ABG Oxyhemoglobin ABG Sodium ABG Chloride ABG Glucose Carboxyhemoglobin Sodium 158 H Chloride 122.1 H Carbon Dioxide BUN 40 H Creatinine Glucose 101 H Lactic Acid Magnesium 2.40 H Ferritin AST ALT Alkaline Phosphatase Ammonia Lactate Dehydrogenase Troponin T C-Reactive Protein NT-Pro-B Natriuret Pep Albumin LDL Cholesterol Direct HDL Cholesterol Arterial Blood Glucose Coronavirus (PCR) 11/01/21 11/02/21 11/02/21 04:00 03:22 03:22 WBC 11.9 H Hgb 11.6 L MCH 27 L MCHC 31 L RDW 15.3 H Seg Neutrophils % Seg Neuts % (Manual) Lymphocytes % (Manual) Nucleated RBC % Seg Neutrophils # Seg Neutrophils # Man Lymphocytes # (Manual) PT APTT D-Dimer ABG pH 7.468 H POC ABG pCO2 POC ABG pO2 ABG pO2 ABG HCO3 ABG O2 Saturation ABG Base Excess ABG Hemoglobin 11.3 L ABG Oxyhemoglobin ABG Sodium ABG Chloride ABG Glucose Carboxyhemoglobin Sodium 159 H Chloride 123.3 H Carbon Dioxide BUN 35 H Creatinine Glucose Lactic Acid Magnesium Ferritin AST 394 H ALT 282 H Alkaline Phosphatase 173 H Ammonia Lactate Dehydrogenase Troponin T C-Reactive Protein NT-Pro-B Natriuret Pep Albumin 2.9 L LDL Cholesterol Direct HDL Cholesterol Arterial Blood Glucose Coronavirus (PCR) 11/02/21 11/02/21 11/03/21 03:22 03:58 03:47 WBC Hgb MCH MCHC RDW Seg Neutrophils % Seg Neuts % (Manual) Lymphocytes % (Manual) Nucleated RBC % Seg Neutrophils # Seg Neutrophils # Man Lymphocytes # (Manual) PT APTT D-Dimer ABG pH 7.523 H 7.467 H POC ABG pCO2 26.0 L 29.8 L POC ABG pO2 69.3 L 77.2 L ABG pO2 ABG HCO3 ABG O2 Saturation ABG Base Excess ABG Hemoglobin 11.7 L 11.4 L ABG Oxyhemoglobin 93.5 L ABG Sodium 161.6 H 158.6 H ABG Chloride 123.0 H 122.0 H ABG Glucose 100 H 226 H Carboxyhemoglobin 0.3 L 0.2 L Sodium 160 H Chloride 126.4 H Carbon Dioxide BUN 36 H Creatinine Glucose Lactic Acid Magnesium 3.00 H Ferritin AST ALT Alkaline Phosphatase Ammonia Lactate Dehydrogenase Troponin T C-Reactive Protein NT-Pro-B Natriuret Pep Albumin LDL Cholesterol Direct HDL Cholesterol Arterial Blood Glucose 100 H 226 H Coronavirus (PCR) 11/03/21 11/03/21 11/03/21 04:32 04:32 04:32 WBC 13.6 H Hgb 11.2 L MCH MCHC 31 L RDW 15.4 H Seg Neutrophils % Seg Neuts % (Manual) 96.0 H Lymphocytes % (Manual) 4.0 L Nucleated RBC % Seg Neutrophils # Seg Neutrophils # Man 13.1 H Lymphocytes # (Manual) 0.5 L PT APTT D-Dimer ABG pH POC ABG pCO2 POC ABG pO2 ABG pO2 ABG HCO3 ABG O2 Saturation ABG Base Excess ABG Hemoglobin ABG Oxyhemoglobin ABG Sodium ABG Chloride ABG Glucose Carboxyhemoglobin Sodium 154 H Chloride 120.7 H Carbon Dioxide 21 L BUN 30 H Creatinine Glucose 216 H Lactic Acid Magnesium 2.70 H Ferritin AST 258 H ALT 241 H Alkaline Phosphatase 178 H Ammonia Lactate Dehydrogenase Troponin T C-Reactive Protein NT-Pro-B Natriuret Pep Albumin 2.7 L LDL Cholesterol Direct HDL Cholesterol Arterial Blood Glucose Coronavirus (PCR) Chest x-ray: image reviewed (no new infiltrate) Allied health notes reviewed: nursing
[2021-11-04] MEDS: cefTRIAXone/NS 2 GM/100 ML 2 GM/100 ML BAG IV SCH (05:03)
[2021-11-04 05:41] LABS: Basophils % (Auto) 0.1 % (0.0-1.8); Hematocrit 33.1 % (35.5-45.6); Hemoglobin 10.5 gm/dl (11.8-15.2); Lymphocytes % (Auto) 9.7 % (13.4-35.0); Mean Corpuscular HGB Conc 32 % (32-34); Mean Corpuscular Volume 88 fl (84-94); Monocytes # (Auto) 0.3 K/mm3 (0.0-0.8); Monocytes % (Auto) 3.1 % (0.0-7.3); Platelet Count 341 K/mm3 (140-440); Red Blood Count 3.77 M/mm3 (3.65-5.03); Red Cell Distribution Width 15.2 % (13.2-15.2)
[2021-11-04 06:00] LABS: Alanine Aminotransferase 268 units/L (7-56); Albumin 2.7 g/dL (3.9-5); Blood Urea Nitrogen 21 mg/dL (9-20); Calcium 8.5 mg/dL (8.4-10.2); Hemolysis Index 0
[2021-11-04 06:08] LABS: BUN/Creatinine Ratio 30
--- NOTE | 2021-11-04 09:11 | Progress Note ---
Assessment and Plan 1. Acute kidney injury: Vasomotor MARCELINO in the setting of hypotension / volume depletion. Renal US negative. IV fluids. Monitor renal function. Creatinine level is better. Avoid nephrotoxic agents. Meds dosage based on GFR. 2. FEN: Hypernatremia, continue IV D5W, monitor. Hyperchloremic Metabolic acidosis, IV D5W, monitor. Monitor lytes and volume status. 3. Acute on chronic hypoxic Resp failure, POA: Abx for CAP. Covid test positive. Followed by Pulmonary. 4. Sepsis, POA: Likely 2/2 PNA. Monitor. 5. Elevated D-dimer. 6. Elevated troponin. 7. Encephalopathy: Baseline MS? Subjective: Patient was seen and examined at the bedside. Examination: General appearance: well-developed, appears stated age, no distress, Trached on vent HEENT: atraumatic Neck: trached Respiratory: ctab, diminished breath sounds Heart: S1S2, regular, no murmur Abdomen: soft, bowel sounds heard, NT, PEG tube noted Integumentary: no obvious rash noted Neurologic: lethargic, not following any command Ext: no edema noted Subjective Date of service: 11/04/21 Principal diagnosis: AHRF; Pneumonia; COVID-19; MARCELINO; Leukocytosis; Lactic acidosis; Sepsis Objective - Vital Signs Vital signs: Vital Signs - 12hr 11/03/21 11/03/21 11/03/21 21:21 21:31 21:39 Temperature Pulse Rate 125 H 86 Pulse Rate [ From Monitor] Respiratory 32 H 24 Rate Blood Pressure 123/98 123/98 132/96 O2 Sat by Pulse 98 97 94 Oximetry 11/03/21 11/03/21 11/03/21 21:41 21:51 22:00 Temperature Pulse Rate 116 H 97 H Pulse Rate [ From Monitor] Respiratory 11 L Rate Blood Pressure 148/98 148/98 O2 Sat by Pulse 95 93 Oximetry 11/03/21 11/03/21 11/03/21 22:01 22:11 22:21 Temperature Pulse Rate 111 H 115 H 117 H Pulse Rate [ From Monitor] Respiratory 30 H 21 43 H Rate Blood Pressure 148/98 148/98 148/98 O2 Sat by Pulse 100 100 99 Oximetry 11/03/21 11/03/21 11/03/21 22:31 22:41 22:51 Temperature Pulse Rate 106 H 89 107 H Pulse Rate [ From Monitor] Respiratory 33 H 28 H 28 H Rate Blood Pressure 148/98 99/80 99/80 O2 Sat by Pulse 99 99 89 Oximetry 11/03/21 11/03/21 11/03/21 23:01 23:11 23:21 Temperature Pulse Rate 105 H 114 H 102 H Pulse Rate [ From Monitor] Respiratory 41 H 34 H 38 H Rate Blood Pressure 99/80 99/80 99/80 O2 Sat by Pulse 99 97 99 Oximetry 11/03/21 11/03/21 11/03/21 23:31 23:41 23:51 Temperature Pulse Rate Pulse Rate [ From Monitor] Respiratory 38 H 24 39 H Rate Blood Pressure 99/80 102/79 102/79 O2 Sat by Pulse 94 96 97 Oximetry 11/04/21 11/04/21 11/04/21 00:00 00:01 00:11 Temperature 98.2 F Pulse Rate Pulse Rate [ 78 From Monitor] Respiratory 18 25 H 29 H Rate Blood Pressure 102/79 102/79 O2 Sat by Pulse 96 98 98 Oximetry 11/04/21 11/04/21 11/04/21 00:21 00:31 00:41 Temperature Pulse Rate Pulse Rate [ From Monitor] Respiratory 28 H 34 H 31 H Rate Blood Pressure 102/79 102/79 112/85 O2 Sat by Pulse 94 98 97 Oximetry 11/04/21 11/04/21 11/04/21 00:46 00:51 01:01 Temperature Pulse Rate 87 Pulse Rate [ From Monitor] Respiratory 35 H 21 Rate Blood Pressure 131/89 112/85 112/85 O2 Sat by Pulse 98 96 95 Oximetry 11/04/21 11/04/21 11/04/21 01:11 01:21 01:31 Temperature Pulse Rate Pulse Rate [ From Monitor] Respiratory 26 H 20 34 H Rate Blood Pressure 112/85 112/85 112/85 O2 Sat by Pulse 94 98 Oximetry 11/04/21 11/04/21 11/04/21 01:41 01:51 02:01 Temperature Pulse Rate Pulse Rate [ From Monitor] Respiratory 28 H 13 10 L Rate Blood Pressure 117/82 117/82 117/82 O2 Sat by Pulse 98 94 90 Oximetry 11/04/21 11/04/21 11/04/21 02:11 02:21 02:31 Temperature Pulse Rate Pulse Rate [ From Monitor] Respiratory 32 H 38 H 29 H Rate Blood Pressure 117/82 117/82 117/82 O2 Sat by Pulse 100 Oximetry 11/04/21 11/04/21 11/04/21 02:41 02:51 03:01 Temperature Pulse Rate 92 H Pulse Rate [ From Monitor] Respiratory 24 34 H 9 L Rate Blood Pressure 121/81 121/81 121/81 O2 Sat by Pulse 98 Oximetry 11/04/21 11/04/21 11/04/21 03:11 03:21 03:31 Temperature Pulse Rate 106 H 103 H 111 H Pulse Rate [ From Monitor] Respiratory 32 H 34 H 24 Rate Blood Pressure 121/81 121/81 121/81 O2 Sat by Pulse 98 98 95 Oximetry 11/04/21 11/04/21 11/04/21 03:41 03:51 04:00 Temperature 97.8 F Pulse Rate 116 H 115 H Pulse Rate [ 78 From Monitor] Respiratory 29 H 32 H 18 Rate Blood Pressure 121/81 121/81 O2 Sat by Pulse 100 97 96 Oximetry 11/04/21 11/04/21 11/04/21 04:01 04:11 04:21 Temperature Pulse Rate 117 H 114 H 118 H Pulse Rate [ From Monitor] Respiratory 33 H 27 H 38 H Rate Blood Pressure 128/95 128/95 128/95 O2 Sat by Pulse 97 97 100 Oximetry 11/04/21 11/04/21 11/04/21 04:31 04:41 04:51 Temperature Pulse Rate 116 H Pulse Rate [ From Monitor] Respiratory 22 25 H 19 Rate Blood Pressure 128/95 127/89 127/89 O2 Sat by Pulse 100 99 100 Oximetry 11/04/21 11/04/21 11/04/21 04:59 05:01 05:11 Temperature Pulse Rate 91 H 108 H 102 H Pulse Rate [ From Monitor] Respiratory 17 26 H Rate Blood Pressure 127/89 127/89 O2 Sat by Pulse 97 91 99 Oximetry 11/04/21 11/04/21 11/04/21 05:21 05:31 05:41 Temperature Pulse Rate 108 H 107 H Pulse Rate [ From Monitor] Respiratory 15 17 22 Rate Blood Pressure 127/89 127/89 127/89 O2 Sat by Pulse 99 100 79 L Oximetry 11/04/21 11/04/21 11/04/21 05:51 06:01 06:11 Temperature Pulse Rate 106 H 112 H 105 H Pulse Rate [ From Monitor] Respiratory 27 H 41 H 22 Rate Blood Pressure 123/80 123/80 123/80 O2 Sat by Pulse 94 100 100 Oximetry 11/04/21 11/04/21 11/04/21 06:21 06:31 06:41 Temperature Pulse Rate 109 H 106 H 105 H Pulse Rate [ From Monitor] Respiratory 25 H 17 27 H Rate Blood Pressure 123/80 123/80 123/93 O2 Sat by Pulse 100 100 100 Oximetry 11/04/21 11/04/21 11/04/21 06:51 07:01 07:11 Temperature Pulse Rate 92 H 104 H 107 H Pulse Rate [ From Monitor] Respiratory 30 H 24 18 Rate Blood Pressure 123/93 123/93 123/93 O2 Sat by Pulse 100 100 100 Oximetry 11/04/21 11/04/21 11/04/21 07:21 07:31 07:41 Temperature Pulse Rate 113 H Pulse Rate [ From Monitor] Respiratory 25 H 29 H 24 Rate Blood Pressure 123/93 123/93 64/12 O2 Sat by Pulse 100 100 100 Oximetry 11/04/21 11/04/21 11/04/21 07:51 08:01 08:11 Temperature Pulse Rate 106 H 100 H Pulse Rate [ From Monitor] Respiratory 26 H 26 H 29 H Rate Blood Pressure 64/12 124/100 124/100 O2 Sat by Pulse 100 100 100 Oximetry 11/04/21 11/04/21 11/04/21 08:21 08:31 08:41 Temperature Pulse Rate 83 83 76 Pulse Rate [ From Monitor] Respiratory 17 20 24 Rate Blood Pressure 124/100 O2 Sat by Pulse 100 97 97 Oximetry - Lab 11/04/21 04:48 11/04/21 04:48 Most recent lab results ABG pH 7.531 (7.320-7.450) H 11/04/21 05:04 ABG pCO2 29.9 mm Hg 11/01/21 04:00 ABG pO2 82.5 mm Hg (80.0-90.0) 11/01/21 04:00 ABG HCO3 21.2 mmol/L (20.0-26.0) 11/01/21 04:00 ABG O2 Saturation 91.9 (0-100) 11/04/21 05:04 Calcium 8.5 mg/dL (8.4-10.2) 11/04/21 04:48 Phosphorus 2.90 mg/dL (2.5-4.5) 11/03/21 04:32 Magnesium 2.70 mg/dL (1.7-2.3) H 11/03/21 04:32 Medications & Allergies - Medications Allergies/Adverse Reactions: Allergies No Known Allergies Allergy (Verified 11/04/21 09:47) Home Medications: Home Medications Medication Instructions Recorded Confirmed Last Taken Type Unobtainable 11/04/21 11/04/21 Unknown History Active Medications: Generic Name Dose Route Start Last Admin Trade Name Freq PRN Reason Stop Dose Admin Acetaminophen 650 mg 10/31/21 12:00 Acetaminophen 325 Mg/10.15 Ml Oral Liqd Unit Dose FEEDTUBE Q6H PRN Pain MILD(1-3)/Fever >100.5/MARIANO Hydrocodone Bitart/Acetaminophen 2 each 10/31/21 12:00 Hydrocodone/Acetaminophen 5-325 Mg Tab PO Q6H PRN Pain, Moderate (4-6) Lipase/Protease/Amylase 1 each 10/31/21 12:00 Lipase 10,500/Protease 25,000/Amylase 43,750 (Units) Dr Adames FEEDTUBE PRN PRN For Clogged Feeding Tube Dexamethasone 6 mg 11/01/21 10:00 11/03/21 11:08 Dexamethasone 4 Mg/Ml Vial IV 11/10/21 10:01 6 mg Q24HR TRAVIS Administration Enoxaparin Sodium 40 mg 11/01/21 10:00 11/03/21 11:09 Enoxaparin 40 Mg/0.4 Ml Inj SUB-Q 40 mg QDAY@1000 TRAVIS Administration Famotidine 20 mg 11/04/21 10:00 Famotidine 20 Mg Tab FEEDTUBE BID TRAVIS Fentanyl 50 mcg 10/31/21 15:40 Fentanyl 100 Mcg/2 Ml Inj IV Q10MIN PRN ANALGESIA Hydrophilic Ointment 1 applic 10/31/21 15:40 Lip Therapy Vaseline TP Q2HR PRN Dry Lips Ceftriaxone Sodium 2 gm in 100 mls @ 200 mls/hr 11/01/21 06:00 11/04/21 05:03 Rocephin/Ns 2 Gm/100 Ml IV 11/05/21 06:29 200 mls/hr Q24H TRAVIS Administration Protocol Azithromycin 500 mg in 250 mls @ 250 mls/hr 10/31/21 13:00 11/02/21 13:23 Zithromax/Ns IV 11/04/21 13:59 250 mls/hr Q24H TRAVIS Administration Protocol Fentanyl Citrate 2,000 mcg in 100 mls @ 3.515 mls/hr 10/31/21 16:00 11/03/21 03:09 Fentanyl Drip Premix IV 1 mcg/kg/hr TITR TRAVIS 3.515 mls/hr Administration Protocol 1 MCG/KG/HR Dextrose 1,000 mls @ 100 mls/hr 10/31/21 23:45 11/03/21 22:01 D5w IV 11/04/21 09:44 0 mls/hr DIRECT TRAVIS Infusion REMDESIVIR 100 mg/ Sodium 250 mls @ 500 mls/hr 11/02/21 21:00 11/03/21 22:07 Chloride IV 11/05/21 21:29 500 mls/hr Q24HR@2100 TRAVIS Administration Morphine Sulfate 2 mg 10/31/21 12:00 11/02/21 11:48 Morphine 2 Mg/1 Ml Inj IV 2 mg Q4H PRN Administration Pain , Severe (7-10) Multi-Ingred Cream/Lotion/Oil/Oint 1 applic 10/31/21 15:40 Mineral Oil/Petrolatum, White Ophth Oint 3.5 Gm OU Q4HR PRN Dry Eye(s) Senna/Docusate Sodium 1 tab 10/31/21 22:00 11/03/21 22:10 Sennosides/Docusate Sodium 8.6/50 Mg Tab FEEDTUBE 1 tab BID TRAVIS Administration Simple Syrup 15 ml 10/31/21 12:00 Simple Syrup 15 Ml FEEDTUBE PRN PRN Hypoglycemia Simple Syrup 30 ml 10/31/21 12:00 Simple Syrup 15 Ml FEEDTUBE PRN PRN Hypoglycemia Sodium Chloride 10 ml 10/31/21 12:00 11/03/21 22:11 Sodium Chloride 0.9% 10 Ml Flush Syringe IV 10 ml BID TRAVIS Administration Sodium Chloride 10 ml 10/31/21 12:00 Sodium Chloride 0.9% 10 Ml Flush Syringe IV PRN PRN LINE FLUSH Sodium Chloride 50 ml 11/01/21 21:00 11/03/21 22:10 Sodium Chloride 0.9% 50 Ml Ivpb IV 11/05/21 21:01 50 ml Q24HR@2100 TRAVIS Administration
[2021-11-04] MEDS: FAMOTIDINE 20 MG TAB FEEDTUBE SCH ×2 (09:43→21:18)
[2021-11-04] MEDS: dexAMETHasone 4 MG/ML VIAL IV SCH (09:43)
[2021-11-04] MEDS: SENNOSIDES/DOCUSATE SODIUM 8.6/50 MG TAB FEEDTUBE SCH ×2 (09:43→21:19)
[2021-11-04] MEDS ORDERED: metOLazone 5 MG TAB FEEDTUBE ONE (10:00)
[2021-11-04] MEDS: ENOXAPARIN 40 MG/0.4 ML INJ SUB-Q SCH (10:14)
--- NOTE | 2021-11-04 12:06 | Progress Note ---
Assessment and Plan Cultures: Blood culture no growth so far COVID-19 PCR positive Sputum culture 10/31/2021 Klebsiella pneumoniae A/P: 61-year-old male with medical history of stroke, chronic tracheostomy, PEG tube now with: #COVID pneumonia: with possible superimposed bacterial PNA #Acute on chronic respiratory failure: Chronic trach in place, required ventilation on top of normal requirements #History of CVA #MARCELINO: Resolved. #Elevated LFTs: unknown etiology. Recs: -Azithromycin discontinued -Complete 5 days of ceftriaxone -Complete 5 days of Remdesivir -Continue Decadron, complete 10 days -Anticoagulation per hospital protocol -RUQ US ordered due to elevated LFTs Adela Siddiqi MD, FACAngela, KARTHIK [facility] ([facility] O: [phone] F: [phone] Subjective Date of service: 11/04/21 Principal diagnosis: AHRF; Pneumonia; COVID-19; MARCELINO; Leukocytosis; Lactic acidosis; Sepsis Interval history: Afebrile. Remains on the vent, via trach. Objective - Exam Narrative Exam: Physical Exam: Constitutional: Awake, on the vent Head, Ears, Nose: Normocephalic, atraumatic. External ears, nose normal Eyes: Conjunctivae/corneas clear. No icterus. No ptosis. Neck: Trach + Cardiovascular: S1, S2 + Respiratory: Good air entry, clear to auscultation bilaterally GI: Soft, non-tender; bowel sounds normal. No peritoneal signs Musculoskeletal: No pedal edema, no cyanosis. Skin: No rash or abscess Hem/Lymphatic: No palpable cervical or supraclavicular nodes. No lymphangitis Psych: No agitation Neurological: Awake, on the ventilator - Constitutional Vitals: Vital Signs Temp Pulse Resp BP Pulse Ox 98.1 F 76 24 124/100 99 11/04/21 08:00 11/04/21 09:35 11/04/21 08:41 11/04/21 09:35 11/04/21 11:26 Temperature -Last 24 Hours Temperature 98.1 F Temperature 97.8 F Temperature 98.2 F Temperature 97.4 F - Labs CBC & Chem 7: 11/04/21 04:48 11/04/21 04:48 Labs: Abnormal lab results 01/10/22 01/10/22 01/10/22 Range/Units 04:48 04:48 05:04 Hgb 10.5 L (11.8-15.2) gm/dl Hct 33.1 L (35.5-45.6) % Lymph % (Auto) 9.7 L (13.4-35.0) % Lymph # (Auto) 1.0 L (1.2-5.4) K/mm3 Seg Neutrophils % 87.1 H (40.0-70.0) % Seg Neutrophils # 9.1 H (1.8-7.7) K/mm3 ABG pH 7.531 H (7.320-7.450) POC ABG pCO2 24.8 L (32.0-48.0) mmHg POC ABG pO2 60.5 L (83-108) mmHg ABG Hemoglobin 11.5 L (12.0-17.5) ABG Oxyhemoglobin 91.3 L (94-98) ABG Sodium 154.1 H (136.0-145.0) mmol/L ABG Chloride 118.0 H (98-107) mmol/L ABG Glucose 117 H (65-95) mg/dL Carboxyhemoglobin 0.3 L (0.5-1.5) Sodium 157 H (137-145) mmol/L Chloride 122.0 H (98-107) mmol/L Carbon Dioxide 19 L (22-30) mmol/L BUN 21 H (9-20) mg/dL Creatinine 0.7 L (0.8-1.3) mg/dL Glucose 114 H (75-100) mg/dL AST 366 H (5-40) units/L ALT 268 H (7-56) units/L Alkaline Phosphatase 177 H (35-129) units/L Albumin 2.7 L (3.9-5) g/dL Arterial Blood Glucose 117 H (65-95) mg/dL
[2021-11-04] MEDS: DEXTROSE 5% IN WATER 1,000 ML IV SCH (12:20)
[2021-11-04] MEDS: AZITHROMYCIN/NS 500 MG/250 ML 500 MG/250 ML BAG IV SCH (13:37)
--- NOTE | 2021-11-04 14:41 | Progress Note ---
Assessment and Plan Acute on chronic hypoxemic respiratory failure Possible aspiration pneumonia COVID-19 infection Acute kidney injury Sepsis Leukocytosis Mild metabolic acidosis Lactic acidosis Hypernatremia Adult FTT Elevated serum transaminases Elevated serum inflammatory markers to include ferritin, LDH and D-dimers Oropharyngeal dysphagia - begin mucomyst for thick secretions - reduced TV to 400 ml's - placed on SBT via PSV with p-supp at 10 cm H2O - ABG in 2 hours - complete Rocephin and Zithromax empirically; de-escalate per ID recommendations - complete free water 250 mls q4h X 3 days - RN again asked to resume Fentanyl drip - continue care as below otherwise; - daily SAT and SBT assessment as tolerated - continue to wean supplemental oxygen for target O2 sat's > 90% acutely - VAP bundle addressed - continue lung protective strategies - continue bronchodilators with pulmonary hygiene per RT - wean per pulmonary driven protocols otherwise - avoid nephrotoxins, renally dose all medications - continue accuchecks with glycemic control per SSI (While critically ill target blood glucose of 140-180 mg/dL; avoid hypoglycemia) - sedation prn for target RASS 0 to -1 - continue Rocephin and Zithromax, de-escalate per ID rec's - prn analgesia per CPOT score - Maintenance of sleep-wake cycle, avoid delirium - enteral nutritional support at goal rate as tolerated - G.I. & VTE prophylaxis - PT/OT/ROM exercises - mobility protocols for pressure ulcer prophylaxis - Monitor hemodynamics closely - continue other care per attending / other consultants - discharge planning ongoing concurrently COVID SPECIFIC INTERVENTIONS - Remdesivir as per ID/Pulmonary developed protocols (Receiving) - continue systemic steroids for severe COVID-19 infection empirically (Decadron) - follow repeat COVID tests results - zinc and vitamin C supplementation - Monitor inflammatory markers per facility protocol - ferritin, Ddimer, CRP - therapeutic anticoagulation per system Protocol based on d-dimer and clinical considerations (VTE prophylaxis) - Continue contact and airborne isolation .... Re-evaluate in am & prn CONDITION: CRITICAL PROGNOSIS: GUARDED CODE STATUS: FULL CODE The high probability of a clinically significant, sudden or life-threatening deterioration of the [respiratory, renal, cardiovascular & neurologic] system(s) required my full and direct attention, intervention and personal management. The aggregate critical care time was [33] minutes without overlap. Time includes s pent on; [x] Data Review and interpretation [x] Patient assessment and monitoring of vital signs [x] Documentation [x] Medication orders and management Subjective Date of service: 11/04/21 Principal diagnosis: AHRF; Pneumonia; COVID-19; MARCELINO; Leukocytosis; Lactic acidosis; Sepsis Interval history: Patient is seen today for: AHRF; Aspiration Pneumonia; COVID-19; MARCELINO; Leukocytosis; Lactic acidosis; Elevated serum LFT's; Sepsis Seen and examined at bedside; 24hour events reviewed; nursing and respiratory care staff consulted; no adverse overnight events reported to me; resting in bed; remains on MVS; alert and responds appropriately; complains of pain; No N/V/F/C Objective Vital Signs - 12hr 11/04/21 11/04/21 11/04/21 02:51 03:01 03:11 Temperature Pulse Rate 92 H 106 H Pulse Rate [ From Monitor] Respiratory 34 H 9 L 32 H Rate Blood Pressure 121/81 121/81 121/81 O2 Sat by Pulse 98 Oximetry O2 Sat by Pulse Oximetry [ Assessment] 11/04/21 11/04/21 11/04/21 03:21 03:31 03:41 Temperature Pulse Rate 103 H 111 H 116 H Pulse Rate [ From Monitor] Respiratory 34 H 24 29 H Rate Blood Pressure 121/81 121/81 121/81 O2 Sat by Pulse 98 95 100 Oximetry O2 Sat by Pulse Oximetry [ Assessment] 11/04/21 11/04/21 11/04/21 03:51 04:00 04:01 Temperature 97.8 F Pulse Rate 115 H 117 H Pulse Rate [ 78 From Monitor] Respiratory 32 H 18 33 H Rate Blood Pressure 121/81 128/95 O2 Sat by Pulse 97 96 97 Oximetry O2 Sat by Pulse Oximetry [ Assessment] 11/04/21 11/04/21 11/04/21 04:11 04:21 04:31 Temperature Pulse Rate 114 H 118 H Pulse Rate [ From Monitor] Respiratory 27 H 38 H 22 Rate Blood Pressure 128/95 128/95 128/95 O2 Sat by Pulse 97 100 100 Oximetry O2 Sat by Pulse Oximetry [ Assessment] 11/04/21 11/04/21 11/04/21 04:41 04:51 04:59 Temperature Pulse Rate 116 H 91 H Pulse Rate [ From Monitor] Respiratory 25 H 19 Rate Blood Pressure 127/89 127/89 O2 Sat by Pulse 99 100 97 Oximetry O2 Sat by Pulse Oximetry [ Assessment] 11/04/21 11/04/21 11/04/21 05:01 05:11 05:21 Temperature Pulse Rate 108 H 102 H 108 H Pulse Rate [ From Monitor] Respiratory 17 26 H 15 Rate Blood Pressure 127/89 127/89 127/89 O2 Sat by Pulse 91 99 99 Oximetry O2 Sat by Pulse Oximetry [ Assessment] 11/04/21 11/04/21 11/04/21 05:31 05:41 05:51 Temperature Pulse Rate 107 H 106 H Pulse Rate [ From Monitor] Respiratory 17 22 27 H Rate Blood Pressure 127/89 127/89 123/80 O2 Sat by Pulse 100 79 L 94 Oximetry O2 Sat by Pulse Oximetry [ Assessment] 11/04/21 11/04/21 11/04/21 06:01 06:11 06:21 Temperature Pulse Rate 112 H 105 H 109 H Pulse Rate [ From Monitor] Respiratory 41 H 22 25 H Rate Blood Pressure 123/80 123/80 123/80 O2 Sat by Pulse 100 100 100 Oximetry O2 Sat by Pulse Oximetry [ Assessment] 11/04/21 11/04/21 11/04/21 06:31 06:41 06:51 Temperature Pulse Rate 106 H 105 H 92 H Pulse Rate [ From Monitor] Respiratory 17 27 H 30 H Rate Blood Pressure 123/80 123/93 123/93 O2 Sat by Pulse 100 100 100 Oximetry O2 Sat by Pulse Oximetry [ Assessment] 11/04/21 11/04/21 11/04/21 07:01 07:11 07:21 Temperature Pulse Rate 104 H 107 H 113 H Pulse Rate [ From Monitor] Respiratory 24 18 25 H Rate Blood Pressure 123/93 123/93 123/93 O2 Sat by Pulse 100 100 100 Oximetry O2 Sat by Pulse Oximetry [ Assessment] 11/04/21 11/04/21 11/04/21 07:31 07:41 07:51 Temperature Pulse Rate Pulse Rate [ From Monitor] Respiratory 29 H 24 26 H Rate Blood Pressure 123/93 64/12 64/12 O2 Sat by Pulse 100 100 100 Oximetry O2 Sat by Pulse Oximetry [ Assessment] 11/04/21 11/04/21 11/04/21 08:00 08:01 08:11 Temperature 98.1 F Pulse Rate 106 H 100 H Pulse Rate [ From Monitor] Respiratory 26 H 29 H Rate Blood Pressure 124/100 124/100 O2 Sat by Pulse 100 100 Oximetry O2 Sat by Pulse Oximetry [ Assessment] 11/04/21 11/04/21 11/04/21 08:21 08:31 08:41 Temperature Pulse Rate 83 83 76 Pulse Rate [ From Monitor] Respiratory 17 20 24 Rate Blood Pressure 124/100 O2 Sat by Pulse 100 97 97 Oximetry O2 Sat by Pulse Oximetry [ Assessment] 11/04/21 11/04/21 11/04/21 08:51 09:00 09:11 Temperature Pulse Rate 79 72 73 Pulse Rate [ From Monitor] Respiratory 15 21 19 Rate Blood Pressure 161/92 161/92 O2 Sat by Pulse 95 98 99 Oximetry O2 Sat by Pulse Oximetry [ Assessment] 11/04/21 11/04/21 11/04/21 09:21 09:31 09:35 Temperature Pulse Rate 72 76 76 Pulse Rate [ From Monitor] Respiratory 18 21 Rate Blood Pressure 161/92 161/92 124/100 O2 Sat by Pulse 98 100 99 Oximetry O2 Sat by Pulse Oximetry [ Assessment] 11/04/21 11/04/21 11/04/21 09:41 09:51 10:00 Temperature Pulse Rate 82 87 84 Pulse Rate [ From Monitor] Respiratory 19 18 18 Rate Blood Pressure 161/92 161/92 149/110 O2 Sat by Pulse 100 93 99 Oximetry O2 Sat by Pulse Oximetry [ Assessment] 11/04/21 11/04/21 11/04/21 10:11 10:21 10:31 Temperature Pulse Rate 95 H 98 H 97 H Pulse Rate [ From Monitor] Respiratory 14 18 18 Rate Blood Pressure 149/110 149/110 149/110 O2 Sat by Pulse 93 97 97 Oximetry O2 Sat by Pulse Oximetry [ Assessment] 11/04/21 11/04/21 11/04/21 10:41 10:51 11:00 Temperature Pulse Rate 100 H 99 H 93 H Pulse Rate [ From Monitor] Respiratory 14 18 16 Rate Blood Pressure 149/110 149/110 142/104 O2 Sat by Pulse 96 94 96 Oximetry O2 Sat by Pulse Oximetry [ Assessment] 11/04/21 11/04/21 11/04/21 11:11 11:21 11:26 Temperature Pulse Rate 93 H 96 H Pulse Rate [ From Monitor] Respiratory 12 18 Rate Blood Pressure 142/104 142/104 O2 Sat by Pulse 95 100 Oximetry O2 Sat by Pulse 99 Oximetry [ Assessment] 11/04/21 11/04/21 11/04/21 11:31 11:41 11:51 Temperature Pulse Rate 101 H 94 H 90 Pulse Rate [ From Monitor] Respiratory 20 13 17 Rate Blood Pressure 142/104 142/104 142/104 O2 Sat by Pulse 97 100 97 Oximetry O2 Sat by Pulse Oximetry [ Assessment] 11/04/21 11/04/21 11/04/21 12:00 12:11 12:21 Temperature Pulse Rate 89 94 H 82 Pulse Rate [ From Monitor] Respiratory 12 14 22 Rate Blood Pressure 136/98 136/98 136/98 O2 Sat by Pulse 96 96 97 Oximetry O2 Sat by Pulse Oximetry [ Assessment] 11/04/21 11/04/21 11/04/21 12:31 12:41 12:51 Temperature Pulse Rate 85 92 H 83 Pulse Rate [ From Monitor] Respiratory 20 16 21 Rate Blood Pressure 136/98 136/98 136/98 O2 Sat by Pulse 97 92 97 Oximetry O2 Sat by Pulse Oximetry [ Assessment] 11/04/21 11/04/21 11/04/21 13:01 13:11 13:21 Temperature Pulse Rate 88 95 H 95 H Pulse Rate [ From Monitor] Respiratory 22 18 19 Rate Blood Pressure 155/101 155/101 155/101 O2 Sat by Pulse 100 87 Oximetry O2 Sat by Pulse Oximetry [ Assessment] 11/04/21 13:50 Temperature Pulse Rate Pulse Rate [ From Monitor] Respiratory Rate Blood Pressure 155/101 O2 Sat by Pulse 97 Oximetry O2 Sat by Pulse Oximetry [ Assessment] Constitutional: appears uncomfortable, other (middle aged male with mildly increased respiratory effort at rest) Eyes: non-icteric ENT: oropharynx moist, other (midline tracheostomy) Neck: supple, no lymphadenopathy, no JVD Effort: mildly labored Ascultation: Bilateral: rhonchi Percussion: Bilateral: not dull Cardiovascular: regular rate and rhythm Gastrointestinal: normoactive bowel sounds, soft, non-tender, non-distended Integumentary: rash Extremities: no cyanosis, no ischemia or petechiae Neurologic: pupils equal and round, CN II-XII normal, other (weak lower extremities) Psychiatric: mood appropriate, anxious, other (mild cognitive impairment) CBC and BMP: 11/04/21 04:48 11/04/21 04:48 ABG, PT/INR, D-dimer: ABG ABG pH 7.531 (7.320-7.450) H 11/04/21 05:04 POC ABG pCO2 24.8 mmHg (32.0-48.0) L 11/04/21 05:04 ABG pCO2 29.9 mm Hg 11/01/21 04:00 POC ABG pO2 60.5 mmHg (83-108) L 11/04/21 05:04 ABG pO2 82.5 mm Hg (80.0-90.0) 11/01/21 04:00 POC ABG HCO3 20.3 11/04/21 05:04 ABG O2 Saturation 91.9 (0-100) 11/04/21 05:04 PT/INR, D-dimer PT 15.6 Sec. (12.2-14.9) H 10/31/21 02:36 INR 1.12 (0.87-1.13) 10/31/21 02:36 D-Dimer 1951.30 ng/mlDDU (0-234) H 10/31/21 02:36 Abnormal lab findings: Abnormal Labs 10/31/21 10/31/21 10/31/21 02:36 02:36 02:36 WBC 11.4 H Hgb Hct MCH 26 L MCHC 29 L RDW 15.3 H Lymph % (Auto) Lymph # (Auto) Seg Neutrophils % 81.5 H Seg Neuts % (Manual) Lymphocytes % (Manual) Nucleated RBC % Seg Neutrophils # 9.3 H Seg Neutrophils # Man Lymphocytes # (Manual) PT 15.6 H APTT 43.1 H D-Dimer 1951.30 H ABG pH POC ABG pCO2 POC ABG pO2 ABG pO2 ABG HCO3 ABG O2 Saturation ABG Base Excess ABG Hemoglobin ABG Oxyhemoglobin ABG Sodium ABG Chloride ABG Glucose Carboxyhemoglobin Sodium 155 H Chloride 110.3 H Carbon Dioxide 15 L BUN 46 H Creatinine 2.7 H Glucose 120 H POC Glucose Lactic Acid Magnesium Ferritin AST 492 H ALT 319 H Alkaline Phosphatase 153 H Ammonia Lactate Dehydrogenase Troponin T 0.065 H C-Reactive Protein NT-Pro-B Natriuret Pep 2381 H Albumin 3.0 L LDL Cholesterol Direct 20 L HDL Cholesterol 13 L Arterial Blood Glucose Coronavirus (PCR) 10/31/21 10/31/2122 02:36 02:36 02:36 WBC Hgb Hct MCH MCHC RDW Lymph % (Auto) Lymph # (Auto) Seg Neutrophils % Seg Neuts % (Manual) Lymphocytes % (Manual) Nucleated RBC % Seg Neutrophils # Seg Neutrophils # Man Lymphocytes # (Manual) PT APTT D-Dimer ABG pH POC ABG pCO2 POC ABG pO2 ABG pO2 ABG HCO3 ABG O2 Saturation ABG Base Excess ABG Hemoglobin ABG Oxyhemoglobin ABG Sodium ABG Chloride ABG Glucose Carboxyhemoglobin Sodium Chloride Carbon Dioxide BUN Creatinine Glucose POC Glucose Lactic Acid 11.80 H* Magnesium Ferritin 78089.0 H AST ALT Alkaline Phosphatase Ammonia Lactate Dehydrogenase 923 H Troponin T C-Reactive Protein 7.80 H NT-Pro-B Natriuret Pep Albumin LDL Cholesterol Direct HDL Cholesterol Arterial Blood Glucose Coronavirus (PCR) 10/31/21 10/31/21 10/31/21 04:01 04:54 06:04 WBC Hgb Hct MCH MCHC RDW Lymph % (Auto) Lymph # (Auto) Seg Neutrophils % Seg Neuts % (Manual) Lymphocytes % (Manual) Nucleated RBC % Seg Neutrophils # Seg Neutrophils # Man Lymphocytes # (Manual) PT APTT D-Dimer ABG pH 7.318 L POC ABG pCO2 POC ABG pO2 ABG pO2 229.1 H ABG HCO3 17.4 L ABG O2 Saturation 99.3 H ABG Base Excess -7.8 L ABG Hemoglobin 13.2 L ABG Oxyhemoglobin ABG Sodium ABG Chloride ABG Glucose Carboxyhemoglobin Sodium Chloride Carbon Dioxide BUN Creatinine Glucose POC Glucose Lactic Acid 5.50 H* Magnesium Ferritin AST ALT Alkaline Phosphatase Ammonia 21.0 L Lactate Dehydrogenase Troponin T C-Reactive Protein NT-Pro-B Natriuret Pep Albumin LDL Cholesterol Direct HDL Cholesterol Arterial Blood Glucose Coronavirus (PCR) 10/31/21 10/31/21 10/31/21 09:30 10:44 16:42 WBC Hgb Hct MCH MCHC RDW Lymph % (Auto) Lymph # (Auto) Seg Neutrophils % Seg Neuts % (Manual) Lymphocytes % (Manual) Nucleated RBC % Seg Neutrophils # Seg Neutrophils # Man Lymphocytes # (Manual) PT APTT D-Dimer ABG pH POC ABG pCO2 POC ABG pO2 ABG pO2 ABG HCO3 ABG O2 Saturation ABG Base Excess ABG Hemoglobin ABG Oxyhemoglobin ABG Sodium ABG Chloride ABG Glucose Carboxyhemoglobin Sodium Chloride Carbon Dioxide BUN Creatinine Glucose POC Glucose Lactic Acid 3.40 H* 2.80 H* Magnesium Ferritin AST ALT Alkaline Phosphatase Ammonia Lactate Dehydrogenase Troponin T C-Reactive Protein NT-Pro-B Natriuret Pep Albumin LDL Cholesterol Direct HDL Cholesterol Arterial Blood Glucose Coronavirus (PCR) Positive A 10/31/21 11/01/21 11/01/21 16:42 03:38 03:38 WBC 15.6 H Hgb 11.3 L Hct MCH MCHC 31 L RDW 15.3 H Lymph % (Auto) Lymph # (Auto) Seg Neutrophils % Seg Neuts % (Manual) 73.0 H Lymphocytes % (Manual) 9.0 L Nucleated RBC % 1.0 H Seg Neutrophils # Seg Neutrophils # Man 11.4 H Lymphocytes # (Manual) PT APTT D-Dimer ABG pH POC ABG pCO2 POC ABG pO2 ABG pO2 ABG HCO3 ABG O2 Saturation ABG Base Excess ABG Hemoglobin ABG Oxyhemoglobin ABG Sodium ABG Chloride ABG Glucose Carboxyhemoglobin Sodium 158 H Chloride 122.1 H Carbon Dioxide BUN 40 H Creatinine Glucose 101 H POC Glucose Lactic Acid Magnesium 2.40 H Ferritin AST ALT Alkaline Phosphatase Ammonia Lactate Dehydrogenase Troponin T C-Reactive Protein NT-Pro-B Natriuret Pep Albumin LDL Cholesterol Direct HDL Cholesterol Arterial Blood Glucose Coronavirus (PCR) 11/01/21 11/02/21 11/02/21 04:00 03:22 03:22 WBC 11.9 H Hgb 11.6 L Hct MCH 27 L MCHC 31 L RDW 15.3 H Lymph % (Auto) Lymph # (Auto) Seg Neutrophils % Seg Neuts % (Manual) Lymphocytes % (Manual) Nucleated RBC % Seg Neutrophils # Seg Neutrophils # Man Lymphocytes # (Manual) PT APTT D-Dimer ABG pH 7.468 H POC ABG pCO2 POC ABG pO2 ABG pO2 ABG HCO3 ABG O2 Saturation ABG Base Excess ABG Hemoglobin 11.3 L ABG Oxyhemoglobin ABG Sodium ABG Chloride ABG Glucose Carboxyhemoglobin Sodium 159 H Chloride 123.3 H Carbon Dioxide BUN 35 H Creatinine Glucose POC Glucose Lactic Acid Magnesium Ferritin AST 394 H ALT 282 H Alkaline Phosphatase 173 H Ammonia Lactate Dehydrogenase Troponin T C-Reactive Protein NT-Pro-B Natriuret Pep Albumin 2.9 L LDL Cholesterol Direct HDL Cholesterol Arterial Blood Glucose Coronavirus (PCR) 11/02/21 11/02/21 11/03/21 03:22 03:58 03:47 WBC Hgb Hct MCH MCHC RDW Lymph % (Auto) Lymph # (Auto) Seg Neutrophils % Seg Neuts % (Manual) Lymphocytes % (Manual) Nucleated RBC % Seg Neutrophils # Seg Neutrophils # Man Lymphocytes # (Manual) PT APTT D-Dimer ABG pH 7.523 H 7.467 H POC ABG pCO2 26.0 L 29.8 L POC ABG pO2 69.3 L 77.2 L ABG pO2 ABG HCO3 ABG O2 Saturation ABG Base Excess ABG Hemoglobin 11.7 L 11.4 L ABG Oxyhemoglobin 93.5 L ABG Sodium 161.6 H 158.6 H ABG Chloride 123.0 H 122.0 H ABG Glucose 100 H 226 H Carboxyhemoglobin 0.3 L 0.2 L Sodium 160 H Chloride 126.4 H Carbon Dioxide BUN 36 H Creatinine Glucose POC Glucose Lactic Acid Magnesium 3.00 H Ferritin AST ALT Alkaline Phosphatase Ammonia Lactate Dehydrogenase Troponin T C-Reactive Protein NT-Pro-B Natriuret Pep Albumin LDL Cholesterol Direct HDL Cholesterol Arterial Blood Glucose 100 H 226 H Coronavirus (PCR) 11/03/21 11/03/21 11/03/21 04:32 04:32 04:32 WBC 13.6 H Hgb 11.2 L Hct MCH MCHC 31 L RDW 15.4 H Lymph % (Auto) Lymph # (Auto) Seg Neutrophils % Seg Neuts % (Manual) 96.0 H Lymphocytes % (Manual) 4.0 L Nucleated RBC % Seg Neutrophils # Seg Neutrophils # Man 13.1 H Lymphocytes # (Manual) 0.5 L PT APTT D-Dimer ABG pH POC ABG pCO2 POC ABG pO2 ABG pO2 ABG HCO3 ABG O2 Saturation ABG Base Excess ABG Hemoglobin ABG Oxyhemoglobin ABG Sodium ABG Chloride ABG Glucose Carboxyhemoglobin Sodium 154 H Chloride 120.7 H Carbon Dioxide 21 L BUN 30 H Creatinine Glucose 216 H POC Glucose Lactic Acid Magnesium 2.70 H Ferritin AST 258 H ALT 241 H Alkaline Phosphatase 178 H Ammonia Lactate Dehydrogenase Troponin T C-Reactive Protein NT-Pro-B Natriuret Pep Albumin 2.7 L LDL Cholesterol Direct HDL Cholesterol Arterial Blood Glucose Coronavirus (PCR) 11/04/21 11/04/21 11/04/21 04:48 04:48 05:04 WBC Hgb 10.5 L Hct 33.1 L MCH MCHC RDW Lymph % (Auto) 9.7 L Lymph # (Auto) 1.0 L Seg Neutrophils % 87.1 H Seg Neuts % (Manual) Lymphocytes % (Manual) Nucleated RBC % Seg Neutrophils # 9.1 H Seg Neutrophils # Man Lymphocytes # (Manual) PT APTT D-Dimer ABG pH 7.531 H POC ABG pCO2 24.8 L POC ABG pO2 60.5 L ABG pO2 ABG HCO3 ABG O2 Saturation ABG Base Excess ABG Hemoglobin 11.5 L ABG Oxyhemoglobin 91.3 L ABG Sodium 154.1 H ABG Chloride 118.0 H ABG Glucose 117 H Carboxyhemoglobin 0.3 L Sodium 157 H Chloride 122.0 H Carbon Dioxide 19 L BUN 21 H Creatinine 0.7 L Glucose 114 H POC Glucose Lactic Acid Magnesium Ferritin AST 366 H ALT 268 H Alkaline Phosphatase 177 H Ammonia Lactate Dehydrogenase Troponin T C-Reactive Protein NT-Pro-B Natriuret Pep Albumin 2.7 L LDL Cholesterol Direct HDL Cholesterol Arterial Blood Glucose 117 H Coronavirus (PCR) 11/04/21 11:59 WBC Hgb Hct MCH MCHC RDW Lymph % (Auto) Lymph # (Auto) Seg Neutrophils % Seg Neuts % (Manual) Lymphocytes % (Manual) Nucleated RBC % Seg Neutrophils # Seg Neutrophils # Man Lymphocytes # (Manual) PT APTT D-Dimer ABG pH POC ABG pCO2 POC ABG pO2 ABG pO2 ABG HCO3 ABG O2 Saturation ABG Base Excess ABG Hemoglobin ABG Oxyhemoglobin ABG Sodium ABG Chloride ABG Glucose Carboxyhemoglobin Sodium Chloride Carbon Dioxide BUN Creatinine Glucose POC Glucose 108 H Lactic Acid Magnesium Ferritin AST ALT Alkaline Phosphatase Ammonia Lactate Dehydrogenase Troponin T C-Reactive Protein NT-Pro-B Natriuret Pep Albumin LDL Cholesterol Direct HDL Cholesterol Arterial Blood Glucose Coronavirus (PCR) Chest x-ray: other (none today) Allied health notes reviewed: nursing
[2021-11-04] MEDS: fentaNYL DRIP Premix 2,000 MCG/100 ML BAG IV SCH (15:02)
[2021-11-04] MEDS: FREE WATER PO SCH ×3 (16:04→21:16)
--- NOTE | 2021-11-04 18:02 | Vascular Lab Report ---
DUPLEX DOPPLER LOWER EXTREMITY VEINS, BILATERAL INDICATION / CLINICAL INFORMATION: r/o dvt. Bilateral leg swelling, sepsis TECHNIQUE: Duplex doppler imaging was performed through the veins of both lower extremities using venous laura ben and other maneuvers. COMPARISON: None available. FINDINGS: RIGHT COMMON FEMORAL VEIN: Negative. RIGHT FEMORAL VEIN: Negative. RIGHT POPLITEAL VEIN: Negative. RIGHT CALF VEINS: Negative. LEFT COMMON FEMORAL VEIN: Negative. LEFT FEMORAL VEIN: Negative. LEFT POPLITEAL VEIN: Negative. LEFT CALF VEINS: Negative. ADDITIONAL FINDINGS: None. IMPRESSION: 1. No sonographic evidence for DVT in either lower extremity. Signer Name: Carlso Jones MD Signed: 11/04/2021 5:57 PM Workstation Name: [id number]
[2021-11-04] MEDS: ACETYLCYSTEINE 20% 200 MG/1 ML *FOR INHALATION USE INHALATION SCH ×2 (18:40→22:25)
[2021-11-04] MEDS: ALBUTEROL 2.5 MG/3 ML NEBU IH PRN ×2 (18:41→22:24)
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
[2021-11-04] MEDS: REMDESIVIR 100 MG in SODIUM CHLORIDE 0.9% 250ML 250 ML IV SCH (21:35)
[2021-11-04] MEDS: SODIUM CHLORIDE 0.9% 50 ML IVPB IV SCH (21:35)
[2021-11-05] MEDS: FREE WATER PO SCH ×3 (02:46→10:33)
[2021-11-05] MEDS: ACETYLCYSTEINE 20% 200 MG/1 ML *FOR INHALATION USE INHALATION SCH ×3 (03:20→13:47)
[2021-11-05] MEDS: fentaNYL DRIP Premix 2,000 MCG/100 ML BAG IV SCH ×2 (03:28→18:13)
[2021-11-05] MEDS: cefTRIAXone/NS 2 GM/100 ML 2 GM/100 ML BAG IV SCH (05:15)
[2021-11-05 06:29] LABS: Hematocrit 35.9 % (35.5-45.6); Hemoglobin 11.2 gm/dl (11.8-15.2); Mean Corpuscular HGB Conc 31 % (32-34); Mean Corpuscular Volume 89 fl (84-94); Platelet Count 362 K/mm3 (140-440); Red Blood Count 4.05 M/mm3 (3.65-5.03); Red Cell Distribution Width 15.4 % (13.2-15.2)
[2021-11-05 06:52] LABS: Alanine Aminotransferase 233 units/L (7-56); Albumin 2.7 g/dL (3.9-5); BUN/Creatinine Ratio 30; Blood Urea Nitrogen 18 mg/dL (9-20); Calcium 9.2 mg/dL (8.4-10.2); Hemolysis Index 7
--- NOTE | 2021-11-05 08:15 | Progress Note ---
Assessment and Plan 1. Acute kidney injury: Vasomotor MARCELINO in the setting of hypotension / volume depletion. Renal US negative. IV fluids. Monitor renal function. Creatinine level is better. Avoid nephrotoxic agents. Meds dosage based on GFR. 2. FEN: Hypernatremia, improving on IV D5W, monitor. Hyperchloremic Metabolic acidosis, IV D5W, monitor. Monitor lytes and volume status. 3. Acute on chronic hypoxic Resp failure, POA: s/p Abx. Covid test positive. Followed by Pulmonary. 4. Sepsis, POA: Likely 2/2 PNA. Monitor. 5. Elevated D-dimer. 6. Elevated troponin. 7. Encephalopathy: Baseline MS?. D/w ICU YE[employer]. Subjective: Patient was seen and examined at the bedside. Examination: General appearance: well-developed, appears stated age, no distress, Trached on T-piece HEENT: atraumatic Neck: trached Respiratory: ctab, diminished breath sounds Heart: S1S2, regular, no murmur Abdomen: soft, bowel sounds heard, NT, PEG tube noted Integumentary: no obvious rash noted Neurologic: stuporous, not following any command Ext: no edema noted Subjective Date of service: 11/05/21 Principal diagnosis: AHRF; Pneumonia; COVID-19; MARCELINO; Leukocytosis; Lactic acidosis; Sepsis Objective - Vital Signs Vital signs: Vital Signs - 12hr 11/04/21 11/04/21 11/04/21 20:21 20:31 20:41 Temperature Pulse Rate 75 78 94 H Pulse Rate [ Anterior Bilateral Throughout] Pulse Rate [ From Monitor] Respiratory 13 15 15 Rate Respiratory Rate [Anterior Bilateral Throughout] Blood Pressure 122/89 122/89 122/89 O2 Sat by Pulse 99 100 99 Oximetry O2 Sat by Pulse Oximetry [ Assessment] 11/04/21 11/04/21 11/04/21 20:51 21:01 21:11 Temperature Pulse Rate 76 84 78 Pulse Rate [ Anterior Bilateral Throughout] Pulse Rate [ From Monitor] Respiratory 11 L 13 10 L Rate Respiratory Rate [Anterior Bilateral Throughout] Blood Pressure 122/89 132/93 132/93 O2 Sat by Pulse 98 96 100 Oximetry O2 Sat by Pulse Oximetry [ Assessment] 11/04/21 11/04/21 11/04/21 21:21 21:31 21:41 Temperature Pulse Rate 75 76 77 Pulse Rate [ Anterior Bilateral Throughout] Pulse Rate [ From Monitor] Respiratory 12 13 12 Rate Respiratory Rate [Anterior Bilateral Throughout] Blood Pressure 132/93 132/93 132/93 O2 Sat by Pulse 99 97 96 Oximetry O2 Sat by Pulse Oximetry [ Assessment] 11/04/21 11/04/21 11/04/21 21:51 22:00 22:11 Temperature Pulse Rate 75 74 74 Pulse Rate [ Anterior Bilateral Throughout] Pulse Rate [ From Monitor] Respiratory 12 8 L 10 L Rate Respiratory Rate [Anterior Bilateral Throughout] Blood Pressure 132/93 127/92 127/92 O2 Sat by Pulse 96 98 99 Oximetry O2 Sat by Pulse Oximetry [ Assessment] 11/04/21 11/04/21 11/04/21 22:21 22:26 22:31 Temperature Pulse Rate 75 75 74 Pulse Rate [ Anterior Bilateral Throughout] Pulse Rate [ From Monitor] Respiratory 11 L 13 Rate Respiratory Rate [Anterior Bilateral Throughout] Blood Pressure 127/92 127/92 127/92 O2 Sat by Pulse 97 97 96 Oximetry O2 Sat by Pulse Oximetry [ Assessment] 11/04/21 11/04/21 11/04/21 22:33 22:41 22:51 Temperature Pulse Rate 76 72 Pulse Rate [ 73 Anterior Bilateral Throughout] Pulse Rate [ From Monitor] Respiratory 11 L 11 L Rate Respiratory 16 Rate [Anterior Bilateral Throughout] Blood Pressure 127/92 127/92 O2 Sat by Pulse 97 97 Oximetry O2 Sat by Pulse Oximetry [ Assessment] 11/04/21 11/04/21 11/04/21 23:00 23:11 23:21 Temperature Pulse Rate 75 74 76 Pulse Rate [ Anterior Bilateral Throughout] Pulse Rate [ From Monitor] Respiratory 13 10 L 12 Rate Respiratory Rate [Anterior Bilateral Throughout] Blood Pressure 107/85 107/85 107/85 O2 Sat by Pulse 96 96 97 Oximetry O2 Sat by Pulse Oximetry [ Assessment] 11/04/21 11/04/21 11/04/21 23:31 23:37 23:41 Temperature Pulse Rate 77 78 78 Pulse Rate [ Anterior Bilateral Throughout] Pulse Rate [ From Monitor] Respiratory 10 L 9 L 11 L Rate Respiratory Rate [Anterior Bilateral Throughout] Blood Pressure 107/85 107/85 107/85 O2 Sat by Pulse 99 98 97 Oximetry O2 Sat by Pulse Oximetry [ Assessment] 11/04/21 11/05/21 11/05/21 23:51 00:00 00:11 Temperature 97.2 F L Pulse Rate 77 68 73 Pulse Rate [ Anterior Bilateral Throughout] Pulse Rate [ 71 From Monitor] Respiratory 17 10 L 8 L Rate Respiratory Rate [Anterior Bilateral Throughout] Blood Pressure 107/85 109/84 109/84 O2 Sat by Pulse 95 97 96 Oximetry O2 Sat by Pulse Oximetry [ Assessment] 11/05/21 11/05/21 11/05/21 00:21 00:31 00:41 Temperature Pulse Rate 69 75 77 Pulse Rate [ Anterior Bilateral Throughout] Pulse Rate [ From Monitor] Respiratory 7 L 8 L 8 L Rate Respiratory Rate [Anterior Bilateral Throughout] Blood Pressure 109/84 109/84 109/84 O2 Sat by Pulse 97 96 99 Oximetry O2 Sat by Pulse Oximetry [ Assessment] 11/05/21 11/05/21 11/05/21 00:51 01:00 01:11 Temperature Pulse Rate 75 76 78 Pulse Rate [ Anterior Bilateral Throughout] Pulse Rate [ From Monitor] Respiratory 13 10 L 12 Rate Respiratory Rate [Anterior Bilateral Throughout] Blood Pressure 109/84 107/74 107/74 O2 Sat by Pulse 97 95 95 Oximetry O2 Sat by Pulse Oximetry [ Assessment] 11/05/21 11/05/21 11/05/21 01:21 01:31 01:41 Temperature Pulse Rate 74 73 67 Pulse Rate [ Anterior Bilateral Throughout] Pulse Rate [ From Monitor] Respiratory 12 7 L 8 L Rate Respiratory Rate [Anterior Bilateral Throughout] Blood Pressure 107/74 107/74 107/74 O2 Sat by Pulse 95 97 98 Oximetry O2 Sat by Pulse Oximetry [ Assessment] 11/05/21 11/05/21 11/05/21 01:51 02:00 02:11 Temperature Pulse Rate 78 75 78 Pulse Rate [ Anterior Bilateral Throughout] Pulse Rate [ From Monitor] Respiratory 12 12 12 Rate Respiratory Rate [Anterior Bilateral Throughout] Blood Pressure 107/74 126/86 126/86 O2 Sat by Pulse 98 97 94 Oximetry O2 Sat by Pulse Oximetry [ Assessment] 11/05/21 11/05/21 11/05/21 02:20 02:21 02:31 Temperature Pulse Rate 79 79 Pulse Rate [ Anterior Bilateral Throughout] Pulse Rate [ From Monitor] Respiratory 12 12 Rate Respiratory Rate [Anterior Bilateral Throughout] Blood Pressure 126/86 126/86 O2 Sat by Pulse 95 96 Oximetry O2 Sat by Pulse 99 Oximetry [ Assessment] 11/05/21 11/05/21 11/05/21 02:41 02:51 03:00 Temperature Pulse Rate 77 74 72 Pulse Rate [ Anterior Bilateral Throughout] Pulse Rate [ From Monitor] Respiratory 9 L 9 L 8 L Rate Respiratory Rate [Anterior Bilateral Throughout] Blood Pressure 126/86 126/86 112/88 O2 Sat by Pulse 95 96 96 Oximetry O2 Sat by Pulse Oximetry [ Assessment] 11/05/21 11/05/21 11/05/21 03:11 03:20 03:21 Temperature Pulse Rate 73 77 Pulse Rate [ 82 Anterior Bilateral Throughout] Pulse Rate [ From Monitor] Respiratory 10 L 9 L Rate Respiratory 22 Rate [Anterior Bilateral Throughout] Blood Pressure 112/88 112/88 O2 Sat by Pulse 95 96 Oximetry O2 Sat by Pulse Oximetry [ Assessment] 11/05/21 11/05/21 11/05/21 03:31 03:41 03:51 Temperature Pulse Rate 80 76 78 Pulse Rate [ Anterior Bilateral Throughout] Pulse Rate [ From Monitor] Respiratory 12 12 12 Rate Respiratory Rate [Anterior Bilateral Throughout] Blood Pressure 112/88 112/88 112/88 O2 Sat by Pulse 95 94 97 Oximetry O2 Sat by Pulse Oximetry [ Assessment] 11/05/21 11/05/21 11/05/21 03:54 04:00 04:02 Temperature 97.6 F Pulse Rate 78 78 Pulse Rate [ Anterior Bilateral Throughout] Pulse Rate [ 71 From Monitor] Respiratory 11 L Rate Respiratory Rate [Anterior Bilateral Throughout] Blood Pressure 112/88 115/85 O2 Sat by Pulse 95 97 Oximetry O2 Sat by Pulse Oximetry [ Assessment] 11/05/21 11/05/21 11/05/21 04:11 04:21 04:31 Temperature Pulse Rate 80 78 78 Pulse Rate [ Anterior Bilateral Throughout] Pulse Rate [ From Monitor] Respiratory 12 12 16 Rate Respiratory Rate [Anterior Bilateral Throughout] Blood Pressure 115/85 115/85 115/85 O2 Sat by Pulse 94 95 95 Oximetry O2 Sat by Pulse Oximetry [ Assessment] 11/05/21 11/05/21 11/05/21 04:41 04:51 05:00 Temperature Pulse Rate 79 80 80 Pulse Rate [ Anterior Bilateral Throughout] Pulse Rate [ From Monitor] Respiratory 12 11 L 12 Rate Respiratory Rate [Anterior Bilateral Throughout] Blood Pressure 115/85 115/85 110/75 O2 Sat by Pulse 95 96 96 Oximetry O2 Sat by Pulse Oximetry [ Assessment] 11/05/21 11/05/21 11/05/21 05:11 05:21 05:31 Temperature Pulse Rate 81 78 71 Pulse Rate [ Anterior Bilateral Throughout] Pulse Rate [ From Monitor] Respiratory 11 L 8 L 8 L Rate Respiratory Rate [Anterior Bilateral Throughout] Blood Pressure 110/75 110/75 110/75 O2 Sat by Pulse 96 96 98 Oximetry O2 Sat by Pulse Oximetry [ Assessment] 11/05/21 11/05/21 11/05/21 05:41 05:51 06:00 Temperature Pulse Rate 75 71 83 Pulse Rate [ Anterior Bilateral Throughout] Pulse Rate [ From Monitor] Respiratory 11 L 11 L 11 L Rate Respiratory Rate [Anterior Bilateral Throughout] Blood Pressure 110/75 110/75 111/88 O2 Sat by Pulse 100 98 98 Oximetry O2 Sat by Pulse Oximetry [ Assessment] 11/05/21 11/05/21 11/05/21 06:11 06:21 06:31 Temperature Pulse Rate 74 76 74 Pulse Rate [ Anterior Bilateral Throughout] Pulse Rate [ From Monitor] Respiratory 10 L 15 14 Rate Respiratory Rate [Anterior Bilateral Throughout] Blood Pressure 111/88 111/88 111/88 O2 Sat by Pulse 96 95 95 Oximetry O2 Sat by Pulse Oximetry [ Assessment] 11/05/21 11/05/21 11/05/21 06:41 06:51 07:00 Temperature Pulse Rate 71 72 74 Pulse Rate [ Anterior Bilateral Throughout] Pulse Rate [ From Monitor] Respiratory 10 L 8 L 9 L Rate Respiratory Rate [Anterior Bilateral Throughout] Blood Pressure 111/88 111/88 121/86 O2 Sat by Pulse 95 96 97 Oximetry O2 Sat by Pulse Oximetry [ Assessment] 11/05/21 11/05/21 11/05/21 07:11 07:21 07:31 Temperature Pulse Rate 76 71 70 Pulse Rate [ Anterior Bilateral Throughout] Pulse Rate [ From Monitor] Respiratory 7 L 9 L 10 L Rate Respiratory Rate [Anterior Bilateral Throughout] Blood Pressure 121/86 121/86 121/86 O2 Sat by Pulse 96 98 96 Oximetry O2 Sat by Pulse Oximetry [ Assessment] 11/05/21 11/05/21 07:41 07:51 Temperature Pulse Rate 67 95 H Pulse Rate [ Anterior Bilateral Throughout] Pulse Rate [ From Monitor] Respiratory 7 L 16 Rate Respiratory Rate [Anterior Bilateral Throughout] Blood Pressure 121/86 121/86 O2 Sat by Pulse 98 98 Oximetry O2 Sat by Pulse Oximetry [ Assessment] - Lab 11/05/21 06:03 11/05/21 06:03 Most recent lab results ABG pH 7.508 (7.320-7.450) H 11/04/21 18:30 ABG pCO2 29.9 mm Hg 11/01/21 04:00 ABG pO2 82.5 mm Hg (80.0-90.0) 11/01/21 04:00 ABG HCO3 21.2 mmol/L (20.0-26.0) 11/01/21 04:00 ABG O2 Saturation 93.8 (0-100) 11/04/21 18:30 Calcium 9.2 mg/dL (8.4-10.2) 11/05/21 06:03 Phosphorus 2.90 mg/dL (2.5-4.5) 11/03/21 04:32 Magnesium 2.70 mg/dL (1.7-2.3) H 11/03/21 04:32 Medications & Allergies - Medications Allergies/Adverse Reactions: Allergies No Known Allergies Allergy (Verified 11/04/21 09:47) Home Medications: Home Medications Medication Instructions Recorded Confirmed Last Taken Type Unobtainable 11/04/21 11/04/21 Unknown History Active Medications: Generic Name Dose Route Start Last Admin Trade Name Freq PRN Reason Stop Dose Admin Acetaminophen 650 mg 10/31/21 12:00 Acetaminophen 325 Mg/10.15 Ml Oral Liqd Unit Dose FEEDTUBE Q6H PRN Pain MILD(1-3)/Fever >100.5/MARIANO Hydrocodone Bitart/Acetaminophen 2 each 10/31/21 12:00 Hydrocodone/Acetaminophen 5-325 Mg Tab PO Q6H PRN Pain, Moderate (4-6) Acetylcysteine 200 mg 11/04/21 14:00 11/05/21 03:20 Acetylcysteine 20% 200 Mg/1 Ml *For Inhalation Use* INHALATION 200 mg Q6HRT TRAVIS Administration Albuterol 2.5 mg 11/04/21 12:52 11/04/21 22:24 Albuterol 2.5 Mg/3 Ml Nebu IH 2.5 mg Q6HRT PRN Administration Shortness Of Breath Lipase/Protease/Amylase 1 each 10/31/21 12:00 Lipase 10,500/Protease 25,000/Amylase 43,750 (Units) Dr Cap FEEDTUBE PRN PRN For Clogged Feeding Tube Dexamethasone 6 mg 11/01/21 10:00 11/04/21 09:43 Dexamethasone 4 Mg/Ml Vial IV 11/10/21 10:01 6 mg Q24HR TRAVIS Administration Enoxaparin Sodium 40 mg 11/01/21 10:00 11/04/21 10:14 Enoxaparin 40 Mg/0.4 Ml Inj SUB-Q 40 mg QDAY@1000 TRAVIS Administration Famotidine 20 mg 11/04/21 10:00 11/04/21 21:18 Famotidine 20 Mg Tab FEEDTUBE 20 mg BID TRAVIS Administration Fentanyl 50 mcg 10/31/21 15:40 Fentanyl 100 Mcg/2 Ml Inj IV Q10MIN PRN ANALGESIA Hydrophilic Ointment 1 applic 10/31/21 15:40 Lip Therapy Vaseline TP Q2HR PRN Dry Lips Fentanyl Citrate 2,000 mcg in 100 mls @ 3.515 mls/hr 10/31/21 16:00 11/05/21 03:28 Fentanyl Drip Premix IV 2 mcg/kg/hr TITR TRAVIS 7.031 mls/hr Administration Protocol 1 MCG/KG/HR REMDESIVIR 100 mg/ Sodium 250 mls @ 500 mls/hr 11/02/21 21:00 11/04/21 21:35 Chloride IV 11/05/21 21:29 500 mls/hr Q24HR@2100 TRAVIS Administration Dextrose 1,000 mls @ 75 mls/hr 11/04/21 10:00 11/04/21 12:20 D5w IV 75 mls/hr DIRECT TRAVIS Administration Morphine Sulfate 2 mg 10/31/21 12:00 11/02/21 11:48 Morphine 2 Mg/1 Ml Inj IV 2 mg Q4H PRN Administration Pain , Severe (7-10) Multi-Ingred Cream/Lotion/Oil/Oint 1 applic 10/31/21 15:40 Mineral Oil/Petrolatum, White Ophth Oint 3.5 Gm OU Q4HR PRN Dry Eye(s) Senna/Docusate Sodium 1 tab 10/31/21 22:00 11/04/21 21:19 Sennosides/Docusate Sodium 8.6/50 Mg Tab FEEDTUBE 1 tab BID TRAVIS Administration Simple Syrup 15 ml 10/31/21 12:00 Simple Syrup 15 Ml FEEDTUBE PRN PRN Hypoglycemia Simple Syrup 30 ml 10/31/21 12:00 Simple Syrup 15 Ml FEEDTUBE PRN PRN Hypoglycemia Sodium Chloride 10 ml 10/31/21 12:00 11/04/21 21:16 Sodium Chloride 0.9% 10 Ml Flush Syringe IV 10 ml BID TRAVIS Administration Sodium Chloride 10 ml 10/31/21 12:00 Sodium Chloride 0.9% 10 Ml Flush Syringe IV PRN PRN LINE FLUSH Sodium Chloride 50 ml 11/01/21 21:00 11/04/21 21:35 Sodium Chloride 0.9% 50 Ml Ivpb IV 11/05/21 21:01 50 ml Q24HR@2100 TRAVIS Administration
[2021-11-05] MEDS: ALBUTEROL 2.5 MG/3 ML NEBU IH PRN ×2 (08:52→13:47)
[2021-11-05] MEDS: FAMOTIDINE 20 MG TAB FEEDTUBE SCH ×2 (10:31→22:02)
[2021-11-05] MEDS: dexAMETHasone 4 MG/ML VIAL IV SCH (10:31)
[2021-11-05] MEDS: SENNOSIDES/DOCUSATE SODIUM 8.6/50 MG TAB FEEDTUBE SCH ×2 (10:31→22:03)
[2021-11-05] MEDS: ENOXAPARIN 40 MG/0.4 ML INJ SUB-Q SCH (10:32)
[2021-11-05] MEDS: DEXTROSE 5% IN WATER 1,000 ML IV SCH (10:43)
--- NOTE | 2021-11-05 13:25 | Progress Note ---
Assessment and Plan Cultures: Blood culture no growth so far COVID-19 PCR positive Sputum culture 10/31/2021 Klebsiella pneumoniae A/P: 61-year-old male with medical history of stroke, chronic tracheostomy, PEG tube now with: #COVID pneumonia: with possible superimposed bacterial PNA #Acute on chronic respiratory failure: Chronic trach in place, required ventilation on top of normal requirements #History of CVA #MARCELINO: Resolved. #Elevated LFTs: unknown etiology. ?COVID related. Downtrending, while on remdesivir, so OK to continue remdesivir. Recs: -Completed 5 days of ceftriaxone -Complete 5 days of Remdesivir, LFTs downtrending, while on remdesivir, so OK to continue -Continue Decadron, complete 10 days -Anticoagulation per hospital protocol -RUQ US pending, ordered due to elevated LFTs Adela Siddiqi MD, FACP, [facility] ([facility] O: [phone] F: [phone] Subjective Date of service: 11/05/21 Principal diagnosis: AHRF; Pneumonia; COVID-19; MARCELINO; Leukocytosis; Lactic acidosis; Sepsis Interval history: Afebrile. On the vent via trach. Objective - Exam Narrative Exam: Physical Exam: Constitutional: Awake, on the vent Head, Ears, Nose: Normocephalic, atraumatic. External ears, nose normal Eyes: Conjunctivae/corneas clear. No icterus. No ptosis. Neck: Trach + Cardiovascular: S1, S2 + Respiratory: Good air entry, clear to auscultation bilaterally GI: Soft, non-tender; bowel sounds normal. No peritoneal signs Musculoskeletal: No pedal edema, no cyanosis. Skin: No rash or abscess Hem/Lymphatic: No palpable cervical or supraclavicular nodes. No lymphangitis Psych: No agitation Neurological: Awake, on the ventilator - Constitutional Vitals: Vital Signs Temp Pulse Resp BP Pulse Ox 97.6 F 65 9 L 109/80 98 11/05/21 04:02 11/05/21 13:00 11/05/21 13:00 11/05/21 13:00 11/05/21 13:00 Temperature -Last 24 Hours Temperature 97.6 F Temperature 97.2 F Temperature 97.7 F - Labs CBC & Chem 7: 11/05/21 06:03 11/05/21 06:03 Labs: Abnormal lab results 11/04/21 11/04/21 11/04/21 Range/Units 17:53 18:30 21:24 WBC (4.5-11.0) K/mm3 Hgb (11.8-15.2) gm/dl MCHC (32-34) % RDW (13.2-15.2) % D-Dimer (0-234) ng/mlDDU ABG pH 7.508 H (7.320-7.450) POC ABG pCO2 27.1 L (32.0-48.0) mmHg POC ABG pO2 67.1 L (83-108) mmHg ABG Hemoglobin 11.9 L (12.0-17.5) ABG Oxyhemoglobin 93.3 L (94-98) ABG Sodium 147.4 H (136.0-145.0) mmol/L ABG Chloride 113.0 H (98-107) mmol/L ABG Glucose 183 H (65-95) mg/dL Carboxyhemoglobin 0.2 L (0.5-1.5) Chloride (98-107) mmol/L Creatinine (0.8-1.3) mg/dL Glucose (75-100) mg/dL POC Glucose 123 H 190 H (70-105) mg/dL Ferritin (30.0-300.0) ng/mL AST (5-40) units/L ALT (7-56) units/L Alkaline Phosphatase (35-129) units/L Lactate Dehydrogenase (91-180) units/L C-Reactive Protein (0.00-1.30) mg/dL Albumin (3.9-5) g/dL Arterial Blood Glucose 183 H (65-95) mg/dL 11/05/21 11/05/21 11/05/21 Range/Units 06:03 06:03 06:03 WBC (4.5-11.0) K/mm3 Hgb (11.8-15.2) gm/dl MCHC (32-34) % RDW (13.2-15.2) % D-Dimer 824.75 H (0-234) ng/mlDDU ABG pH (7.320-7.450) POC ABG pCO2 (32.0-48.0) mmHg POC ABG pO2 (83-108) mmHg ABG Hemoglobin (12.0-17.5) ABG Oxyhemoglobin (94-98) ABG Sodium (136.0-145.0) mmol/L ABG Chloride (98-107) mmol/L ABG Glucose (65-95) mg/dL Carboxyhemoglobin (0.5-1.5) Chloride 107.3 H (98-107) mmol/L Creatinine 0.6 L (0.8-1.3) mg/dL Glucose 192 H (75-100) mg/dL POC Glucose (70-105) mg/dL Ferritin 2000.0 H (30.0-300.0) ng/mL AST 158 H (5-40) units/L ALT 233 H (7-56) units/L Alkaline Phosphatase 179 H (35-129) units/L Lactate Dehydrogenase 401 H (91-180) units/L C-Reactive Protein 6.50 H (0.00-1.30) mg/dL Albumin 2.7 L (3.9-5) g/dL Arterial Blood Glucose (65-95) mg/dL 11/05/21 11/05/21 11/05/21 Range/Units 06:03 08:15 11:36 WBC 11.3 H (4.5-11.0) K/mm3 Hgb 11.2 L (11.8-15.2) gm/dl MCHC 31 L (32-34) % RDW 15.4 H (13.2-15.2) % D-Dimer (0-234) ng/mlDDU ABG pH (7.320-7.450) POC ABG pCO2 (32.0-48.0) mmHg POC ABG pO2 80.4 L (83-108) mmHg ABG Hemoglobin 11.0 L (12.0-17.5) ABG Oxyhemoglobin (94-98) ABG Sodium (136.0-145.0) mmol/L ABG Chloride (98-107) mmol/L ABG Glucose 165 H (65-95) mg/dL Carboxyhemoglobin 0.3 L (0.5-1.5) Chloride (98-107) mmol/L Creatinine (0.8-1.3) mg/dL Glucose (75-100) mg/dL POC Glucose 171 H (70-105) mg/dL Ferritin (30.0-300.0) ng/mL AST (5-40) units/L ALT (7-56) units/L Alkaline Phosphatase (35-129) units/L Lactate Dehydrogenase (91-180) units/L C-Reactive Protein (0.00-1.30) mg/dL Albumin (3.9-5) g/dL Arterial Blood Glucose 165 H (65-95) mg/dL 11/05/21 Range/Units 12:10 WBC (4.5-11.0) K/mm3 Hgb (11.8-15.2) gm/dl MCHC (32-34) % RDW (13.2-15.2) % D-Dimer (0-234) ng/mlDDU ABG pH (7.320-7.450) POC ABG pCO2 (32.0-48.0) mmHg POC ABG pO2 (83-108) mmHg ABG Hemoglobin (12.0-17.5) ABG Oxyhemoglobin (94-98) ABG Sodium (136.0-145.0) mmol/L ABG Chloride (98-107) mmol/L ABG Glucose (65-95) mg/dL Carboxyhemoglobin (0.5-1.5) Chloride (98-107) mmol/L Creatinine (0.8-1.3) mg/dL Glucose (75-100) mg/dL POC Glucose 162 H (70-105) mg/dL Ferritin (30.0-300.0) ng/mL AST (5-40) units/L ALT (7-56) units/L Alkaline Phosphatase (35-129) units/L Lactate Dehydrogenase (91-180) units/L C-Reactive Protein (0.00-1.30) mg/dL Albumin (3.9-5) g/dL Arterial Blood Glucose (65-95) mg/dL
--- NOTE | 2021-11-05 14:41 | Progress Note ---
Assessment and Plan Acute on chronic hypoxemic respiratory failure Possible aspiration pneumonia COVID-19 infection Acute kidney injury Sepsis Leukocytosis Mild metabolic acidosis Lactic acidosis Hypernatremia Adult FTT Elevated serum transaminases Elevated serum inflammatory markers to include ferritin, LDH and D-dimers Oropharyngeal dysphagia - add Scopolamine and Robinul - continue mucomyst for thick secretions - RT to place on AT-piece as tolerated - ABG after 2 hours - continue care as below otherwise; - on Rocephin and Zithromax; de-escalate per ID recommendations - daily SAT and SBT assessment as tolerated - continue to wean supplemental oxygen for target O2 sat's > 90% acutely - VAP bundle addressed - continue lung protective strategies - continue bronchodilators with pulmonary hygiene per RT - wean per pulmonary driven protocols otherwise - avoid nephrotoxins, renally dose all medications - continue accuchecks with glycemic control per SSI (While critically ill target blood glucose of 140-180 mg/dL; avoid hypoglycemia) - sedation prn for target RASS 0 to -1 - continue Rocephin and Zithromax, de-escalate per ID rec's - prn analgesia per CPOT score - Maintenance of sleep-wake cycle, avoid delirium - enteral nutritional support at goal rate as tolerated - G.I. & VTE prophylaxis - PT/OT/ROM exercises - mobility protocols for pressure ulcer prophylaxis - Monitor hemodynamics closely - continue other care per attending / other consultants - discharge planning ongoing concurrently COVID SPECIFIC INTERVENTIONS - Remdesivir as per ID/Pulmonary developed protocols (Receiving) - continue systemic steroids for severe COVID-19 infection empirically (Decadron) - follow repeat COVID tests results - zinc and vitamin C supplementation - Monitor inflammatory markers per facility protocol - ferritin, Ddimer, CRP - therapeutic anticoagulation per system Protocol based on d-dimer and clinical considerations (VTE prophylaxis) - Continue contact and airborne isolation .... Re-evaluate in am & prn CONDITION: CRITICAL PROGNOSIS: GUARDED CODE STATUS: FULL CODE The high probability of a clinically significant, sudden or life-threatening deterioration of the [respiratory, renal, cardiovascular & neurologic] system(s) required my full and direct attention, intervention and personal management. The aggregate critical care time was [35] minutes without overlap. Time includes sp ent on; [x] Data Review and interpretation [x] Patient assessment and monitoring of vital signs [x] Documentation [x] Medication orders and management Subjective Date of service: 11/05/21 Principal diagnosis: AHRF; Pneumonia; COVID-19; MARCELINO; Leukocytosis; Lactic acidosis; Sepsis Interval history: Patient is seen today for: AHRF; Aspiration Pneumonia; COVID-19; MARCELINO; Leukocytosis; Lactic acidosis; Elevated serum LFT's; Sepsis Seen and examined at bedside; 24hour events reviewed; nursing and respiratory care staff consulted; no adverse overnight events reported to me; resting in bed; remains on MVS; tolerated SBT very well yesterday; secretions copious; No N/V/F/C Objective Vital Signs - 12hr 11/05/21 11/05/21 11/05/21 02:41 02:51 03:00 Temperature Pulse Rate 77 74 72 Pulse Rate [ Anterior Bilateral Throughout] Pulse Rate [ From Monitor] Respiratory 9 L 9 L 8 L Rate Respiratory Rate [Anterior Bilateral Throughout] Blood Pressure 126/86 126/86 112/88 O2 Sat by Pulse 95 96 96 Oximetry O2 Sat by Pulse Oximetry [ Assessment] 11/05/21 11/05/21 11/05/21 03:11 03:20 03:21 Temperature Pulse Rate 73 77 Pulse Rate [ 82 Anterior Bilateral Throughout] Pulse Rate [ From Monitor] Respiratory 10 L 9 L Rate Respiratory 22 Rate [Anterior Bilateral Throughout] Blood Pressure 112/88 112/88 O2 Sat by Pulse 95 96 Oximetry O2 Sat by Pulse Oximetry [ Assessment] 11/05/21 11/05/21 11/05/21 03:31 03:41 03:51 Temperature Pulse Rate 80 76 78 Pulse Rate [ Anterior Bilateral Throughout] Pulse Rate [ From Monitor] Respiratory 12 12 12 Rate Respiratory Rate [Anterior Bilateral Throughout] Blood Pressure 112/88 112/88 112/88 O2 Sat by Pulse 95 94 97 Oximetry O2 Sat by Pulse Oximetry [ Assessment] 11/05/21 11/05/21 11/05/21 03:54 04:00 04:02 Temperature 97.6 F Pulse Rate 78 78 Pulse Rate [ Anterior Bilateral Throughout] Pulse Rate [ 71 From Monitor] Respiratory 11 L Rate Respiratory Rate [Anterior Bilateral Throughout] Blood Pressure 112/88 115/85 O2 Sat by Pulse 95 97 Oximetry O2 Sat by Pulse Oximetry [ Assessment] 11/05/21 11/05/21 11/05/21 04:11 04:21 04:31 Temperature Pulse Rate 80 78 78 Pulse Rate [ Anterior Bilateral Throughout] Pulse Rate [ From Monitor] Respiratory 12 12 16 Rate Respiratory Rate [Anterior Bilateral Throughout] Blood Pressure 115/85 115/85 115/85 O2 Sat by Pulse 94 95 95 Oximetry O2 Sat by Pulse Oximetry [ Assessment] 11/05/21 11/05/21 11/05/21 04:41 04:51 05:00 Temperature Pulse Rate 79 80 80 Pulse Rate [ Anterior Bilateral Throughout] Pulse Rate [ From Monitor] Respiratory 12 11 L 12 Rate Respiratory Rate [Anterior Bilateral Throughout] Blood Pressure 115/85 115/85 110/75 O2 Sat by Pulse 95 96 96 Oximetry O2 Sat by Pulse Oximetry [ Assessment] 11/05/21 11/05/21 11/05/21 05:11 05:21 05:31 Temperature Pulse Rate 81 78 71 Pulse Rate [ Anterior Bilateral Throughout] Pulse Rate [ From Monitor] Respiratory 11 L 8 L 8 L Rate Respiratory Rate [Anterior Bilateral Throughout] Blood Pressure 110/75 110/75 110/75 O2 Sat by Pulse 96 96 98 Oximetry O2 Sat by Pulse Oximetry [ Assessment] 11/05/21 11/05/21 11/05/21 05:41 05:51 06:00 Temperature Pulse Rate 75 71 83 Pulse Rate [ Anterior Bilateral Throughout] Pulse Rate [ From Monitor] Respiratory 11 L 11 L 11 L Rate Respiratory Rate [Anterior Bilateral Throughout] Blood Pressure 110/75 110/75 111/88 O2 Sat by Pulse 100 98 98 Oximetry O2 Sat by Pulse Oximetry [ Assessment] 11/05/21 11/05/21 11/05/21 06:11 06:21 06:31 Temperature Pulse Rate 74 76 74 Pulse Rate [ Anterior Bilateral Throughout] Pulse Rate [ From Monitor] Respiratory 10 L 15 14 Rate Respiratory Rate [Anterior Bilateral Throughout] Blood Pressure 111/88 111/88 111/88 O2 Sat by Pulse 96 95 95 Oximetry O2 Sat by Pulse Oximetry [ Assessment] 11/05/21 11/05/21 11/05/21 06:41 06:51 07:00 Temperature Pulse Rate 71 72 74 Pulse Rate [ Anterior Bilateral Throughout] Pulse Rate [ From Monitor] Respiratory 10 L 8 L 9 L Rate Respiratory Rate [Anterior Bilateral Throughout] Blood Pressure 111/88 111/88 121/86 O2 Sat by Pulse 95 96 97 Oximetry O2 Sat by Pulse Oximetry [ Assessment] 11/05/21 11/05/21 11/05/21 07:11 07:21 07:31 Temperature Pulse Rate 76 71 70 Pulse Rate [ Anterior Bilateral Throughout] Pulse Rate [ From Monitor] Respiratory 7 L 9 L 10 L Rate Respiratory Rate [Anterior Bilateral Throughout] Blood Pressure 121/86 121/86 121/86 O2 Sat by Pulse 96 98 96 Oximetry O2 Sat by Pulse Oximetry [ Assessment] 11/05/21 11/05/21 11/05/21 07:41 07:51 08:00 Temperature Pulse Rate 67 95 H Pulse Rate [ Anterior Bilateral Throughout] Pulse Rate [ 71 From Monitor] Respiratory 7 L 16 16 Rate Respiratory Rate [Anterior Bilateral Throughout] Blood Pressure 121/86 121/86 O2 Sat by Pulse 98 98 99 Oximetry O2 Sat by Pulse Oximetry [ Assessment] 11/05/21 11/05/21 11/05/21 08:01 08:11 08:19 Temperature Pulse Rate 79 77 84 Pulse Rate [ Anterior Bilateral Throughout] Pulse Rate [ From Monitor] Respiratory 11 L 12 Rate Respiratory Rate [Anterior Bilateral Throughout] Blood Pressure 122/92 122/92 122/92 O2 Sat by Pulse 98 98 98 Oximetry O2 Sat by Pulse Oximetry [ Assessment] 11/05/21 11/05/21 11/05/21 08:21 08:31 08:41 Temperature Pulse Rate 82 80 83 Pulse Rate [ Anterior Bilateral Throughout] Pulse Rate [ From Monitor] Respiratory 9 L 11 L 12 Rate Respiratory Rate [Anterior Bilateral Throughout] Blood Pressure 122/92 122/92 122/92 O2 Sat by Pulse 98 100 97 Oximetry O2 Sat by Pulse Oximetry [ Assessment] 11/05/21 11/05/21 11/05/21 08:51 08:52 09:00 Temperature Pulse Rate 77 87 Pulse Rate [ 81 Anterior Bilateral Throughout] Pulse Rate [ From Monitor] Respiratory 8 L 14 Rate Respiratory 15 Rate [Anterior Bilateral Throughout] Blood Pressure 122/92 123/93 O2 Sat by Pulse 96 98 Oximetry O2 Sat by Pulse Oximetry [ Assessment] 11/05/21 11/05/21 11/05/21 09:11 09:21 09:31 Temperature Pulse Rate 74 74 68 Pulse Rate [ Anterior Bilateral Throughout] Pulse Rate [ From Monitor] Respiratory 12 12 8 L Rate Respiratory Rate [Anterior Bilateral Throughout] Blood Pressure 123/93 123/93 123/93 O2 Sat by Pulse 98 99 97 Oximetry O2 Sat by Pulse Oximetry [ Assessment] 11/05/21 11/05/21 11/05/21 09:41 09:51 10:00 Temperature Pulse Rate 69 84 68 Pulse Rate [ Anterior Bilateral Throughout] Pulse Rate [ From Monitor] Respiratory 7 L 13 8 L Rate Respiratory Rate [Anterior Bilateral Throughout] Blood Pressure 123/93 123/93 120/90 O2 Sat by Pulse 96 97 97 Oximetry O2 Sat by Pulse Oximetry [ Assessment] 11/05/21 11/05/21 11/05/21 10:11 10:21 10:31 Temperature Pulse Rate 75 75 75 Pulse Rate [ Anterior Bilateral Throughout] Pulse Rate [ From Monitor] Respiratory 8 L 12 7 L Rate Respiratory Rate [Anterior Bilateral Throughout] Blood Pressure 120/90 120/90 120/90 O2 Sat by Pulse 97 98 98 Oximetry O2 Sat by Pulse Oximetry [ Assessment] 11/05/21 11/05/21 11/05/21 10:41 10:51 11:02 Temperature Pulse Rate 70 70 70 Pulse Rate [ Anterior Bilateral Throughout] Pulse Rate [ From Monitor] Respiratory 11 L 9 L 8 L Rate Respiratory Rate [Anterior Bilateral Throughout] Blood Pressure 120/90 120/90 121/86 O2 Sat by Pulse 100 100 98 Oximetry O2 Sat by Pulse Oximetry [ Assessment] 11/05/21 11/05/21 11/05/21 11:11 11:21 11:31 Temperature Pulse Rate 73 77 71 Pulse Rate [ Anterior Bilateral Throughout] Pulse Rate [ From Monitor] Respiratory 13 10 L 14 Rate Respiratory Rate [Anterior Bilateral Throughout] Blood Pressure 120/90 110/79 110/79 O2 Sat by Pulse 98 98 100 Oximetry O2 Sat by Pulse Oximetry [ Assessment] 11/05/21 11/05/21 11/05/21 11:33 11:41 11:51 Temperature Pulse Rate 69 76 70 Pulse Rate [ Anterior Bilateral Throughout] Pulse Rate [ From Monitor] Respiratory 10 L 10 L Rate Respiratory Rate [Anterior Bilateral Throughout] Blood Pressure 110/79 110/79 110/79 O2 Sat by Pulse 98 100 100 Oximetry O2 Sat by Pulse Oximetry [ Assessment] 11/05/21 11/05/21 11/05/21 12:00 12:11 12:21 Temperature Pulse Rate 68 66 64 Pulse Rate [ Anterior Bilateral Throughout] Pulse Rate [ 71 From Monitor] Respiratory 12 13 9 L Rate Respiratory Rate [Anterior Bilateral Throughout] Blood Pressure 122/94 122/94 122/94 O2 Sat by Pulse 100 99 98 Oximetry O2 Sat by Pulse Oximetry [ Assessment] 11/05/21 11/05/21 11/05/21 12:31 12:41 12:51 Temperature Pulse Rate 73 65 68 Pulse Rate [ Anterior Bilateral Throughout] Pulse Rate [ From Monitor] Respiratory 9 L 8 L 11 L Rate Respiratory Rate [Anterior Bilateral Throughout] Blood Pressure 122/94 122/94 122/94 O2 Sat by Pulse 98 97 100 Oximetry O2 Sat by Pulse Oximetry [ Assessment] 11/05/21 11/05/21 11/05/21 13:00 13:11 13:21 Temperature Pulse Rate 65 72 66 Pulse Rate [ Anterior Bilateral Throughout] Pulse Rate [ From Monitor] Respiratory 9 L 12 11 L Rate Respiratory Rate [Anterior Bilateral Throughout] Blood Pressure 109/80 109/80 109/80 O2 Sat by Pulse 98 98 100 Oximetry O2 Sat by Pulse Oximetry [ Assessment] 11/05/21 11/05/21 11/05/21 13:31 13:41 13:48 Temperature Pulse Rate 62 83 Pulse Rate [ 61 Anterior Bilateral Throughout] Pulse Rate [ From Monitor] Respiratory 12 13 Rate Respiratory 19 Rate [Anterior Bilateral Throughout] Blood Pressure 109/80 109/80 O2 Sat by Pulse 99 99 Oximetry O2 Sat by Pulse Oximetry [ Assessment] 11/05/21 11/05/21 11/05/21 13:51 14:00 14:02 Temperature Pulse Rate 60 65 Pulse Rate [ Anterior Bilateral Throughout] Pulse Rate [ From Monitor] Respiratory 13 13 Rate Respiratory Rate [Anterior Bilateral Throughout] Blood Pressure 109/80 125/82 O2 Sat by Pulse 100 97 97 Oximetry O2 Sat by Pulse 97 Oximetry [ Assessment] 11/05/21 11/05/21 11/05/21 14:03 14:11 14:21 Temperature Pulse Rate 61 62 62 Pulse Rate [ Anterior Bilateral Throughout] Pulse Rate [ From Monitor] Respiratory 12 7 L 10 L Rate Respiratory Rate [Anterior Bilateral Throughout] Blood Pressure 125/82 125/82 125/82 O2 Sat by Pulse 96 93 92 Oximetry O2 Sat by Pulse Oximetry [ Assessment] 11/05/21 14:31 Temperature Pulse Rate 61 Pulse Rate [ Anterior Bilateral Throughout] Pulse Rate [ From Monitor] Respiratory 9 L Rate Respiratory Rate [Anterior Bilateral Throughout] Blood Pressure 125/82 O2 Sat by Pulse 93 Oximetry O2 Sat by Pulse Oximetry [ Assessment] Constitutional: no acute distress, other (middle aged male with mildly increased respiratory effort at rest) Eyes: non-icteric ENT: oropharynx moist, other (midline tracheostomy) Neck: supple, no lymphadenopathy, no JVD Effort: mildly labored Ascultation: Bilateral: rhonchi (and referred upper airway sounds) Percussion: Bilateral: not dull Cardiovascular: regular rate and rhythm Gastrointestinal: normoactive bowel sounds, soft, non-tender, non-distended Integumentary: rash Extremities: no cyanosis, no ischemia or petechiae Neurologic: pupils equal and round, CN II-XII normal, other (weak lower extremities) Psychiatric: mood appropriate, affect normal, other (mild cognitive impairment) CBC and BMP: 11/05/21 06:03 11/05/21 06:03 ABG, PT/INR, D-dimer: ABG ABG pH 7.410 (7.320-7.450) 11/05/21 11:36 POC ABG pCO2 40.6 mmHg (32.0-48.0) 11/05/21 11:36 ABG pCO2 29.9 mm Hg 11/01/21 04:00 POC ABG pO2 80.4 mmHg (83-108) L 11/05/21 11:36 ABG pO2 82.5 mm Hg (80.0-90.0) 11/01/21 04:00 POC ABG HCO3 25.2 11/05/21 11:36 ABG O2 Saturation 95.1 (0-100) 11/05/21 11:36 PT/INR, D-dimer PT 15.6 Sec. (12.2-14.9) H 10/31/21 02:36 INR 1.12 (0.87-1.13) 10/31/21 02:36 D-Dimer 824.75 ng/mlDDU (0-234) H 11/05/21 06:03 Abnormal lab findings: Abnormal Labs 10/31/21 10/31/21 10/31/21 02:36 02:36 02:36 WBC 11.4 H Hgb Hct MCH 26 L MCHC 29 L RDW 15.3 H Lymph % (Auto) Lymph # (Auto) Seg Neutrophils % 81.5 H Seg Neuts % (Manual) Lymphocytes % (Manual) Nucleated RBC % Seg Neutrophils # 9.3 H Seg Neutrophils # Man Lymphocytes # (Manual) PT 15.6 H APTT 43.1 H D-Dimer 1951.30 H ABG pH POC ABG pCO2 POC ABG pO2 ABG pO2 ABG HCO3 ABG O2 Saturation ABG Base Excess ABG Hemoglobin ABG Oxyhemoglobin ABG Sodium ABG Chloride ABG Glucose Carboxyhemoglobin Sodium 155 H Chloride 110.3 H Carbon Dioxide 15 L BUN 46 H Creatinine 2.7 H Glucose 120 H POC Glucose Lactic Acid Magnesium Ferritin AST 492 H ALT 319 H Alkaline Phosphatase 153 H Ammonia Lactate Dehydrogenase Troponin T 0.065 H C-Reactive Protein NT-Pro-B Natriuret Pep 2381 H Albumin 3.0 L LDL Cholesterol Direct 20 L HDL Cholesterol 13 L Arterial Blood Glucose Coronavirus (PCR) 10/31/21 10/31/21 10/31/21 02:36 02:36 02:36 WBC Hgb Hct MCH MCHC RDW Lymph % (Auto) Lymph # (Auto) Seg Neutrophils % Seg Neuts % (Manual) Lymphocytes % (Manual) Nucleated RBC % Seg Neutrophils # Seg Neutrophils # Man Lymphocytes # (Manual) PT APTT D-Dimer ABG pH POC ABG pCO2 POC ABG pO2 ABG pO2 ABG HCO3 ABG O2 Saturation ABG Base Excess ABG Hemoglobin ABG Oxyhemoglobin ABG Sodium ABG Chloride ABG Glucose Carboxyhemoglobin Sodium Chloride Carbon Dioxide BUN Creatinine Glucose POC Glucose Lactic Acid 11.80 H* Magnesium Ferritin 10070.0 H AST ALT Alkaline Phosphatase Ammonia Lactate Dehydrogenase 923 H Troponin T C-Reactive Protein 7.80 H NT-Pro-B Natriuret Pep Albumin LDL Cholesterol Direct HDL Cholesterol Arterial Blood Glucose Coronavirus (PCR) 10/31/21 10/31/21 10/31/21 04:01 04:54 06:04 WBC Hgb Hct MCH MCHC RDW Lymph % (Auto) Lymph # (Auto) Seg Neutrophils % Seg Neuts % (Manual) Lymphocytes % (Manual) Nucleated RBC % Seg Neutrophils # Seg Neutrophils # Man Lymphocytes # (Manual) PT APTT D-Dimer ABG pH 7.318 L POC ABG pCO2 POC ABG pO2 ABG pO2 229.1 H ABG HCO3 17.4 L ABG O2 Saturation 99.3 H ABG Base Excess -7.8 L ABG Hemoglobin 13.2 L ABG Oxyhemoglobin ABG Sodium ABG Chloride ABG Glucose Carboxyhemoglobin Sodium Chloride Carbon Dioxide BUN Creatinine Glucose POC Glucose Lactic Acid 5.50 H* Magnesium Ferritin AST ALT Alkaline Phosphatase Ammonia 21.0 L Lactate Dehydrogenase Troponin T C-Reactive Protein NT-Pro-B Natriuret Pep Albumin LDL Cholesterol Direct HDL Cholesterol Arterial Blood Glucose Coronavirus (PCR) 10/31/21 10/31/21 10/31/21 09:30 10:44 16:42 WBC Hgb Hct MCH MCHC RDW Lymph % (Auto) Lymph # (Auto) Seg Neutrophils % Seg Neuts % (Manual) Lymphocytes % (Manual) Nucleated RBC % Seg Neutrophils # Seg Neutrophils # Man Lymphocytes # (Manual) PT APTT D-Dimer ABG pH POC ABG pCO2 POC ABG pO2 ABG pO2 ABG HCO3 ABG O2 Saturation ABG Base Excess ABG Hemoglobin ABG Oxyhemoglobin ABG Sodium ABG Chloride ABG Glucose Carboxyhemoglobin Sodium Chloride Carbon Dioxide BUN Creatinine Glucose POC Glucose Lactic Acid 3.40 H* 2.80 H* Magnesium Ferritin AST ALT Alkaline Phosphatase Ammonia Lactate Dehydrogenase Troponin T C-Reactive Protein NT-Pro-B Natriuret Pep Albumin LDL Cholesterol Direct HDL Cholesterol Arterial Blood Glucose Coronavirus (PCR) Positive A 10/31/21 11/01/21 11/01/21 16:42 03:38 03:38 WBC 15.6 H Hgb 11.3 L Hct MCH MCHC 31 L RDW 15.3 H Lymph % (Auto) Lymph # (Auto) Seg Neutrophils % Seg Neuts % (Manual) 73.0 H Lymphocytes % (Manual) 9.0 L Nucleated RBC % 1.0 H Seg Neutrophils # Seg Neutrophils # Man 11.4 H Lymphocytes # (Manual) PT APTT D-Dimer ABG pH POC ABG pCO2 POC ABG pO2 ABG pO2 ABG HCO3 ABG O2 Saturation ABG Base Excess ABG Hemoglobin ABG Oxyhemoglobin ABG Sodium ABG Chloride ABG Glucose Carboxyhemoglobin Sodium 158 H Chloride 122.1 H Carbon Dioxide BUN 40 H Creatinine Glucose 101 H POC Glucose Lactic Acid Magnesium 2.40 H Ferritin AST ALT Alkaline Phosphatase Ammonia Lactate Dehydrogenase Troponin T C-Reactive Protein NT-Pro-B Natriuret Pep Albumin LDL Cholesterol Direct HDL Cholesterol Arterial Blood Glucose Coronavirus (PCR) 11/01/21 11/02/21 11/02/21 04:00 03:22 03:22 WBC 11.9 H Hgb 11.6 L Hct MCH 27 L MCHC 31 L RDW 15.3 H Lymph % (Auto) Lymph # (Auto) Seg Neutrophils % Seg Neuts % (Manual) Lymphocytes % (Manual) Nucleated RBC % Seg Neutrophils # Seg Neutrophils # Man Lymphocytes # (Manual) PT APTT D-Dimer ABG pH 7.468 H POC ABG pCO2 POC ABG pO2 ABG pO2 ABG HCO3 ABG O2 Saturation ABG Base Excess ABG Hemoglobin 11.3 L ABG Oxyhemoglobin ABG Sodium ABG Chloride ABG Glucose Carboxyhemoglobin Sodium 159 H Chloride 123.3 H Carbon Dioxide BUN 35 H Creatinine Glucose POC Glucose Lactic Acid Magnesium Ferritin AST 394 H ALT 282 H Alkaline Phosphatase 173 H Ammonia Lactate Dehydrogenase Troponin T C-Reactive Protein NT-Pro-B Natriuret Pep Albumin 2.9 L LDL Cholesterol Direct HDL Cholesterol Arterial Blood Glucose Coronavirus (PCR) 11/02/21 11/02/21 11/03/21 03:22 03:58 03:47 WBC Hgb Hct MCH MCHC RDW Lymph % (Auto) Lymph # (Auto) Seg Neutrophils % Seg Neuts % (Manual) Lymphocytes % (Manual) Nucleated RBC % Seg Neutrophils # Seg Neutrophils # Man Lymphocytes # (Manual) PT APTT D-Dimer ABG pH 7.523 H 7.467 H POC ABG pCO2 26.0 L 29.8 L POC ABG pO2 69.3 L 77.2 L ABG pO2 ABG HCO3 ABG O2 Saturation ABG Base Excess ABG Hemoglobin 11.7 L 11.4 L ABG Oxyhemoglobin 93.5 L ABG Sodium 161.6 H 158.6 H ABG Chloride 123.0 H 122.0 H ABG Glucose 100 H 226 H Carboxyhemoglobin 0.3 L 0.2 L Sodium 160 H Chloride 126.4 H Carbon Dioxide BUN 36 H Creatinine Glucose POC Glucose Lactic Acid Magnesium 3.00 H Ferritin AST ALT Alkaline Phosphatase Ammonia Lactate Dehydrogenase Troponin T C-Reactive Protein NT-Pro-B Natriuret Pep Albumin LDL Cholesterol Direct HDL Cholesterol Arterial Blood Glucose 100 H 226 H Coronavirus (PCR) 11/03/21 11/03/21 11/03/21 04:32 04:32 04:32 WBC 13.6 H Hgb 11.2 L Hct MCH MCHC 31 L RDW 15.4 H Lymph % (Auto) Lymph # (Auto) Seg Neutrophils % Seg Neuts % (Manual) 96.0 H Lymphocytes % (Manual) 4.0 L Nucleated RBC % Seg Neutrophils # Seg Neutrophils # Man 13.1 H Lymphocytes # (Manual) 0.5 L PT APTT D-Dimer ABG pH POC ABG pCO2 POC ABG pO2 ABG pO2 ABG HCO3 ABG O2 Saturation ABG Base Excess ABG Hemoglobin ABG Oxyhemoglobin ABG Sodium ABG Chloride ABG Glucose Carboxyhemoglobin Sodium 154 H Chloride 120.7 H Carbon Dioxide 21 L BUN 30 H Creatinine Glucose 216 H POC Glucose Lactic Acid Magnesium 2.70 H Ferritin AST 258 H ALT 241 H Alkaline Phosphatase 178 H Ammonia Lactate Dehydrogenase Troponin T C-Reactive Protein NT-Pro-B Natriuret Pep Albumin 2.7 L LDL Cholesterol Direct HDL Cholesterol Arterial Blood Glucose Coronavirus (PCR) 11/04/21 11/04/21 11/04/21 04:48 04:48 05:04 WBC Hgb 10.5 L Hct 33.1 L MCH MCHC RDW Lymph % (Auto) 9.7 L Lymph # (Auto) 1.0 L Seg Neutrophils % 87.1 H Seg Neuts % (Manual) Lymphocytes % (Manual) Nucleated RBC % Seg Neutrophils # 9.1 H Seg Neutrophils # Man Lymphocytes # (Manual) PT APTT D-Dimer ABG pH 7.531 H POC ABG pCO2 24.8 L POC ABG pO2 60.5 L ABG pO2 ABG HCO3 ABG O2 Saturation ABG Base Excess ABG Hemoglobin 11.5 L ABG Oxyhemoglobin 91.3 L ABG Sodium 154.1 H ABG Chloride 118.0 H ABG Glucose 117 H Carboxyhemoglobin 0.3 L Sodium 157 H Chloride 122.0 H Carbon Dioxide 19 L BUN 21 H Creatinine 0.7 L Glucose 114 H POC Glucose Lactic Acid Magnesium Ferritin AST 366 H ALT 268 H Alkaline Phosphatase 177 H Ammonia Lactate Dehydrogenase Troponin T C-Reactive Protein NT-Pro-B Natriuret Pep Albumin 2.7 L LDL Cholesterol Direct HDL Cholesterol Arterial Blood Glucose 117 H Coronavirus (PCR) 11/04/21 11/04/21 11/04/21 11:59 17:53 18:30 WBC Hgb Hct MCH MCHC RDW Lymph % (Auto) Lymph # (Auto) Seg Neutrophils % Seg Neuts % (Manual) Lymphocytes % (Manual) Nucleated RBC % Seg Neutrophils # Seg Neutrophils # Man Lymphocytes # (Manual) PT APTT D-Dimer ABG pH 7.508 H POC ABG pCO2 27.1 L POC ABG pO2 67.1 L ABG pO2 ABG HCO3 ABG O2 Saturation ABG Base Excess ABG Hemoglobin 11.9 L ABG Oxyhemoglobin 93.3 L ABG Sodium 147.4 H ABG Chloride 113.0 H ABG Glucose 183 H Carboxyhemoglobin 0.2 L Sodium Chloride Carbon Dioxide BUN Creatinine Glucose POC Glucose 108 H 123 H Lactic Acid Magnesium Ferritin AST ALT Alkaline Phosphatase Ammonia Lactate Dehydrogenase Troponin T C-Reactive Protein NT-Pro-B Natriuret Pep Albumin LDL Cholesterol Direct HDL Cholesterol Arterial Blood Glucose 183 H Coronavirus (PCR) 11/04/21 11/05/21 11/05/21 21:24 06:03 06:03 WBC Hgb Hct MCH MCHC RDW Lymph % (Auto) Lymph # (Auto) Seg Neutrophils % Seg Neuts % (Manual) Lymphocytes % (Manual) Nucleated RBC % Seg Neutrophils # Seg Neutrophils # Man Lymphocytes # (Manual) PT APTT D-Dimer 824.75 H ABG pH POC ABG pCO2 POC ABG pO2 ABG pO2 ABG HCO3 ABG O2 Saturation ABG Base Excess ABG Hemoglobin ABG Oxyhemoglobin ABG Sodium ABG Chloride ABG Glucose Carboxyhemoglobin Sodium Chloride Carbon Dioxide BUN Creatinine Glucose POC Glucose 190 H Lactic Acid Magnesium Ferritin 2000.0 H AST ALT Alkaline Phosphatase Ammonia Lactate Dehydrogenase Troponin T C-Reactive Protein NT-Pro-B Natriuret Pep Albumin LDL Cholesterol Direct HDL Cholesterol Arterial Blood Glucose Coronavirus (PCR) 11/05/21 11/05/21 11/05/21 06:03 06:03 08:15 WBC 11.3 H Hgb 11.2 L Hct MCH MCHC 31 L RDW 15.4 H Lymph % (Auto) Lymph # (Auto) Seg Neutrophils % Seg Neuts % (Manual) Lymphocytes % (Manual) Nucleated RBC % Seg Neutrophils # Seg Neutrophils # Man Lymphocytes # (Manual) PT APTT D-Dimer ABG pH POC ABG pCO2 POC ABG pO2 ABG pO2 ABG HCO3 ABG O2 Saturation ABG Base Excess ABG Hemoglobin ABG Oxyhemoglobin ABG Sodium ABG Chloride ABG Glucose Carboxyhemoglobin Sodium Chloride 107.3 H Carbon Dioxide BUN Creatinine 0.6 L Glucose 192 H POC Glucose 171 H Lactic Acid Magnesium Ferritin AST 158 H ALT 233 H Alkaline Phosphatase 179 H Ammonia Lactate Dehydrogenase 401 H Troponin T C-Reactive Protein 6.50 H NT-Pro-B Natriuret Pep Albumin 2.7 L LDL Cholesterol Direct HDL Cholesterol Arterial Blood Glucose Coronavirus (PCR) 11/05/21 11/05/21 11:36 12:10 WBC Hgb Hct MCH MCHC RDW Lymph % (Auto) Lymph # (Auto) Seg Neutrophils % Seg Neuts % (Manual) Lymphocytes % (Manual) Nucleated RBC % Seg Neutrophils # Seg Neutrophils # Man Lymphocytes # (Manual) PT APTT D-Dimer ABG pH POC ABG pCO2 POC ABG pO2 80.4 L ABG pO2 ABG HCO3 ABG O2 Saturation ABG Base Excess ABG Hemoglobin 11.0 L ABG Oxyhemoglobin ABG Sodium ABG Chloride ABG Glucose 165 H Carboxyhemoglobin 0.3 L Sodium Chloride Carbon Dioxide BUN Creatinine Glucose POC Glucose 162 H Lactic Acid Magnesium Ferritin AST ALT Alkaline Phosphatase Ammonia Lactate Dehydrogenase Troponin T C-Reactive Protein NT-Pro-B Natriuret Pep Albumin LDL Cholesterol Direct HDL Cholesterol Arterial Blood Glucose 165 H Coronavirus (PCR) Prior PFT's, U/S of legs: report reviewed (negtive DVT evaluation) Allied health notes reviewed: nursing
[2021-11-05] MEDS: GLYCOPYRROLATE 1 MG TAB PO SCH (15:12)
[2021-11-05] MEDS: SCOPOLAMINE TRANSDERMAL PATCH 72 HR TD SCH (15:13)
--- NOTE | 2021-11-05 17:14 | Progress Note ---
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 Not Reportable 11/03/21 04:32 Sisi Rods Not Reportable 11/03/21 04:32 Platelet Estimate Consistent w auto 11/03/21 04:32 Clumped Platelets Not Reportable 11/03/21 04:32 Plt Clumps, EDTA Not Reportable 11/03/21 04:32 Large Platelets Not Reportable 11/03/21 04:32 Giant Platelets Not Reportable 11/03/21 04:32 Platelet Satelliting Not Reportable 11/03/21 04:32 Plt Morphology Comment Not Reportable 11/03/21 04:32 RBC Morphology Normal 11/03/21 04:32 Dimorphic RBCs Not Reportable 11/03/21 04:32 Polychromasia Not Reportable 11/03/21 04:32 Hypochromasia Not Reportable 11/03/21 04:32 Poikilocytosis Not Reportable 11/03/21 04:32 Anisocytosis Not Reportable 11/03/21 04:32 Microcytosis Not Reportable 11/03/21 04:32 Macrocytosis Not Reportable 11/03/21 04:32 Spherocytes Not Reportable 11/03/21 04:32 Pappenheimer Bodies Not Reportable 11/03/21 04:32 Sickle Cells Not Reportable 11/03/21 04:32 Target Cells Not Reportable 11/03/21 04:32 Tear Drop Cells Not Reportable 11/03/21 04:32 Ovalocytes Not Reportable 11/03/21 04:32 Helmet Cells Not Reportable 11/03/21 04:32 [place] Bodies Not Reportable 11/03/21 04:32 [place] Rings Not Reportable 11/03/21 04:32 Thanh Cells Not Reportable 11/03/21 04:32 Bite Cells Not Reportable 11/03/21 04:32 Crenated Cell Not Reportable 11/03/21 04:32 Elliptocytes Not Reportable 11/03/21 04:32 Acanthocytes (Spur) Not Reportable 11/03/21 04:32 Rouleaux Not Reportable 11/03/21 04:32 Hemoglobin C Crystals Not Reportable 11/03/21 04:32 Schistocytes Not Reportable 11/03/21 04:32 Malaria parasites Not Reportable 11/03/21 04:32 Hany Bodies Not Reportable 11/03/21 04:32 Hem Pathologist Commnt No 11/03/21 04:32 PT 15.6 Sec. (12.2-14.9) H 10/31/21 02:36 INR 1.12 (0.87-1.13) 10/31/21 02:36 APTT 43.1 Sec. (24.2-36.6) H 10/31/21 02:36 D-Dimer 867.25 ng/mlDDU (0-234) H 11/07/21 04:57 ABG pH 7.572 (7.320-7.450) H 11/06/21 13:27 POC ABG pCO2 28.9 mmHg (32.0-48.0) L 11/06/21 13:27 ABG pCO2 29.9 mm Hg 11/01/21 04:00 POC ABG pO2 80.4 mmHg (83-108) L 11/06/21 13:27 ABG pO2 82.5 mm Hg (80.0-90.0) 11/01/21 04:00 POC ABG HCO3 26.0 11/06/21 13:27 ABG HCO3 21.2 mmol/L (20.0-26.0) 11/01/21 04:00 ABG O2 Saturation 96.8 (0-100) 11/06/21 13:27 ABG O2 Content 15.3 (0.0-44) 11/01/21 04:00 POC ABG Base Excess 4.6 11/06/21 13:27 ABG Base Excess -1.6 mmol/L (-2.0-3.0) 11/01/21 04:00 ABG Hemoglobin 12.3 (12.0-17.5) 11/06/21 13:27 ABG Oxyhemoglobin 96.4 (94-98) 11/06/21 13:27 ABG Carboxyhemoglobin 1.1 % (0.0-5.0) 11/01/21 04:00 ABG Methemoglobin 0.3 (0.0-1.5) 11/06/21 13:27 ABG Sodium 139.2 mmol/L (136.0-145.0) 11/06/21 13:27 ABG Potassium 3.1 mmol/L (3.40-4.50) L 11/06/21 13:27 ABG Chloride 102.0 mmol/L (98-107) 11/06/21 13:27 ABG Glucose 181 mg/dL (65-95) H 11/06/21 13:27 Oxyhemoglobin 95.6 % (95.0-99.0) 11/01/21 04:00 Carboxyhemoglobin 0.1 (0.5-1.5) L 11/06/21 13:27 FiO2 50 % 11/01/21 04:00 FiO2 % 40 11/06/21 13:27 Sodium 139 mmol/L (137-145) 11/12/21 09:37 Potassium 3.4 mmol/L (3.6-5.0) L 11/12/21 09:37 Chloride 102.2 mmol/L (98-107) 11/12/21 09:37 Carbon Dioxide 24 mmol/L (22-30) 11/12/21 09:37 Anion Gap 16 mmol/L 11/12/21 09:37 BUN 19 mg/dL (9-20) 11/12/21 09:37 Creatinine 0.5 mg/dL (0.8-1.3) L 11/12/21 09:37 Estimated GFR > 60 ml/min 11/12/21 09:37 BUN/Creatinine Ratio 38 % 11/12/21 09:37 Glucose 127 mg/dL (75-100) H 11/12/21 09:37 POC Glucose 75 mg/dL (70-105) 11/14/21 23:34 Lactic Acid 1.80 mmol/L (0.7-2.0) 10/31/21 23:23 Calcium 9.0 mg/dL (8.4-10.2) 11/12/21 09:37 Phosphorus 3.00 mg/dL (2.5-4.5) 11/07/21 04:57 Magnesium 2.10 mg/dL (1.7-2.3) 11/12/21 09:37 Ferritin > 2000.0 ng/mL (30.0-300.0) H 11/07/21 04:57 Total Bilirubin 0.30 mg/dL (0.1-1.2) 11/12/21 09:37 AST 58 units/L (5-40) H 11/12/21 09:37 ALT 119 units/L (7-56) H 11/12/21 09:37 Alkaline Phosphatase 168 units/L (35-129) H 11/12/21 09:37 Ammonia 21.0 umol/L (25-60) L 10/31/21 06:04 Lactate Dehydrogenase 370 units/L (91-180) H 11/07/21 04:57 Troponin T < 0.010 ng/mL (0.00-0.029) 10/31/21 16:42 C-Reactive Protein 9.10 mg/dL (0.00-1.30) H 11/07/21 04:57 NT-Pro-B Natriuret Pep 2381 pg/mL (0-900) H 10/31/21 02:36 Total Protein 7.3 g/dL (6.3-8.2) 11/12/21 09:37 Albumin 2.5 g/dL (3.9-5) L 11/12/21 09:37 Albumin/Globulin Ratio 0.5 % 11/12/21 09:37 Triglycerides 116 mg/dL (2-149) 10/31/21 02:36 Cholesterol 52 mg/dL (50-199) 10/31/21 02:36 LDL Cholesterol Direct 20 mg/dL (50-130) L 10/31/21 02:36 HDL Cholesterol 13 mg/dL (40-59) L 10/31/21 02:36 Cholesterol/HDL Ratio 4.00 % 10/31/21 02:36 Procalcitonin 3.44 ng/mL (<0.15) 10/31/21 02:36 Arterial Blood Glucose 181 mg/dL (65-95) H 11/06/21 13:27 Arterial Blood Ionized Calcium 5.0 mg/dL (4.6-5.3) 11/06/21 13:27 Coronavirus (PCR) Positive (Negative) A 10/31/21 09:30 SARS-CoV-2 (PCR) Positive (Negative) A 11/14/21 13:57 [place]/IV: Voiding Method Condom Catheter Nutrition/Malnutrition Assess - Dietary Evaluation Nutrition/Malnutrition Findings: Nutrition Notes Start: 10/31/21 12:11 Freq: Status: Discharge Protocol: Document 11/14/21 09:46 ARTURO (Rec: 11/14/21 10:04 ARTURO [id number]) Nutrition Notes Initial or Follow up Reassessment Current Diagnosis Acute Kidney Injury,Sepsis, Respiratory Failure,Stroke Other Pertinent Diagnosis COVID-19, Pneumonia, Elevated D-dimer, Elevated Liver Enzimes. Current Diet TF-Nepro w/CARBSTEADY @ 45 ml/ hr (since D 11/06). Labs/Tests 11/14 N/A. Pertinent Medications 11/14: Nutritionally unremarkable. Height 6 ft 1 in Weight 70.3 kg [place] Body Weight (kg) 83.63 BMI 20.4 Weight change and time frame No body weight change reported . Weight Status Appropriate Subjective/Other Information RD consult for routine F/U on TF tolerance. TF well tolerated as per RN notes. Pt ready to be discharged. Percent of energy/protein needs met: Prescribed Nepro w/CARBSTEADY @ 45 ml/hr provides for energy /protein needs (1,891 Kcal/85 g) during LOS, 100% Kcal; 100% AA. Burn Absent Trauma Absent GI Symptoms None Food Allergy No Skin Integrity/Comment Clear, warm, dry. Current % PO Other Minimum of two criteria No #1 Nutrition Diagnosis Inadequate oral intake Diagnosis Progress(for reassessment Continues documentation) Is patient on ventilator? Yes Is Patient Ambulatory and/or Out of Bed No REE-([place]-St. Jeor-confined to bed) 1891.068 Calculation Used for Recommendations [facility] Additional Notes Protein: 1.2-2 g/kg; 84-141 g/ day. Fluids: 1 ml/kcal, or as per MD. Nutrition Intervention Nutrition Support: Continue Nepro w/CARBSTEADY @ 45 ml/hr. Flush: 230 ml water Q 4 hr, as per MD Kcal 1,891 Protein (gm) 85 Carbohydrates (gm) 169 Fat (gm) 101 Fluid (mL) 764 Fiber (gm) 13 % RDI: 100% Kcal; 100% AA. Goal #1 Provide at least 75% of energy /protein needs through Enteral Feeding during LOS. Follow-Up By: 11/21/21 Additional Comments Continue monitoring TF tolerance and BM.
--- NOTE | 2021-11-05 18:58 | Ultrasound Report ---
ULTRASOUND ABDOMEN, LIMITED (RIGHT UPPER QUADRANT) INDICATION: elevated LFTs. COMPARISON: None available. FINDINGS: Pancreas: Visualized portion shows no significant abnormality. Liver: Normal. Gallbladder: Partially contracted. No gallstones identified. Bile ducts: Normal. Common Bile Duct measures 4.5 mm. Free fluid: None. Additional Findings: Mild cortical scarring upper pole right kidney. IMPRESSION: Partially contracted gallbladder. No biliary dilatation. Signer Name: Otis Duff MD Signed: 11/05/2021 6:53 PM Workstation Name: [id number]
[2021-11-05] MEDS: SODIUM CHLORIDE 0.9% 50 ML IVPB IV SCH (22:19)
[2021-11-05] MEDS: REMDESIVIR 100 MG in SODIUM CHLORIDE 0.9% 250ML 250 ML IV SCH (22:19)
[2021-11-06] MEDS: ACETYLCYSTEINE 20% 200 MG/1 ML *FOR INHALATION USE INHALATION SCH ×4 (04:07→19:41)
[2021-11-06] MEDS: GLYCOPYRROLATE 1 MG TAB PO SCH ×4 (04:14→20:37)
[2021-11-06 05:42] LABS: Hematocrit 35.3 % (35.5-45.6); Hemoglobin 11.1 gm/dl (11.8-15.2); Mean Corpuscular HGB Conc 32 % (32-34); Mean Corpuscular Volume 88 fl (84-94); Platelet Count 416 K/mm3 (140-440); Red Blood Count 4.02 M/mm3 (3.65-5.03); Red Cell Distribution Width 15.2 % (13.2-15.2)
[2021-11-06 06:01] LABS: Blood Urea Nitrogen 14 mg/dL (9-20); Calcium 9.2 mg/dL (8.4-10.2); Hemolysis Index 9
[2021-11-06 06:07] LABS: BUN/Creatinine Ratio 28
[2021-11-06] MEDS: ALBUTEROL 2.5 MG/3 ML NEBU IH PRN ×2 (07:33→14:26)
[2021-11-06] MEDS ORDERED: POTASSIUM CHLORIDE 20 MEQ PACKET FEEDTUBE SCH (09:45)
[2021-11-06] MEDS: ENOXAPARIN 40 MG/0.4 ML INJ SUB-Q SCH (10:25)
[2021-11-06] MEDS: SENNOSIDES/DOCUSATE SODIUM 8.6/50 MG TAB FEEDTUBE SCH ×2 (10:25→21:12)
[2021-11-06] MEDS: FAMOTIDINE 20 MG TAB FEEDTUBE SCH ×2 (10:25→21:12)
[2021-11-06] MEDS: dexAMETHasone 4 MG/ML VIAL IV SCH (10:26)
--- NOTE | 2021-11-06 11:26 | Progress Note ---
Assessment and Plan 1. Acute kidney injury: Vasomotor MARCELINO in the setting of hypotension / volume depletion. Renal US negative. IV fluids. Monitor renal function. Creatinine level is better. Avoid nephrotoxic agents. Meds dosage based on GFR. 2. FEN: Hypernatremia, improved, monitor. Hyperchloremic Metabolic acidosis, improved, monitor. Replete K. Monitor lytes and volume status. 3. Acute on chronic hypoxic Resp failure, POA: S/p Abx. Covid test positive. T-collar. Followed by Pulmonary. 4. Sepsis, POA: Likely 2/2 PNA. Monitor. 5. Elevated D-dimer. 6. Elevated troponin. 7. Encephalopathy: Baseline MS? Will sign off. Subjective: Patient was seen and examined at the bedside. Examination: General appearance: well-developed, appears stated age, no distress, Trached on TC HEENT: atraumatic Neck: trached Respiratory: ctab, diminished breath sounds Heart: S1S2, regular, no murmur Abdomen: soft, bowel sounds heard, NT, PEG tube noted Integumentary: no obvious rash noted Neurologic: stuporous, not following any command Ext: no edema noted Subjective Date of service: 11/06/21 Principal diagnosis: AHRF; Pneumonia; COVID-19; MARCELINO; Leukocytosis; Lactic acidosis; Sepsis Objective - Vital Signs Vital signs: Vital Signs - 12hr 11/05/21 11/05/21 11/05/21 23:31 23:36 23:41 Temperature 99.9 F H Pulse Rate 92 H 77 Pulse Rate [ Anterior Bilateral Throughout] Pulse Rate [ From Monitor] Respiratory 11 L 12 Rate Respiratory Rate [Anterior Bilateral Throughout] Blood Pressure 140/100 140/100 O2 Sat by Pulse 87 94 Oximetry 11/05/21 11/06/21 11/06/21 23:51 00:00 00:11 Temperature Pulse Rate 77 84 89 Pulse Rate [ Anterior Bilateral Throughout] Pulse Rate [ 71 From Monitor] Respiratory 11 L 13 13 Rate Respiratory Rate [Anterior Bilateral Throughout] Blood Pressure 140/100 140/95 140/95 O2 Sat by Pulse 91 89 Oximetry 11/06/21 11/06/21 11/06/21 00:21 00:31 00:41 Temperature Pulse Rate 83 94 H 83 Pulse Rate [ Anterior Bilateral Throughout] Pulse Rate [ From Monitor] Respiratory 18 12 10 L Rate Respiratory Rate [Anterior Bilateral Throughout] Blood Pressure 140/95 140/95 140/95 O2 Sat by Pulse 97 100 97 Oximetry 11/06/21 11/06/21 11/06/21 00:51 01:00 01:11 Temperature Pulse Rate 81 92 H 89 Pulse Rate [ Anterior Bilateral Throughout] Pulse Rate [ From Monitor] Respiratory 19 11 L 18 Rate Respiratory Rate [Anterior Bilateral Throughout] Blood Pressure 140/95 137/100 137/100 O2 Sat by Pulse 86 98 97 Oximetry 11/06/21 11/06/21 11/06/21 01:21 01:31 01:41 Temperature Pulse Rate 85 84 79 Pulse Rate [ Anterior Bilateral Throughout] Pulse Rate [ From Monitor] Respiratory 19 14 21 Rate Respiratory Rate [Anterior Bilateral Throughout] Blood Pressure 137/100 137/100 137/100 O2 Sat by Pulse 97 99 98 Oximetry 11/06/21 11/06/21 11/06/21 01:51 02:00 02:11 Temperature Pulse Rate 87 80 74 Pulse Rate [ Anterior Bilateral Throughout] Pulse Rate [ From Monitor] Respiratory 15 15 18 Rate Respiratory Rate [Anterior Bilateral Throughout] Blood Pressure 137/100 134/89 134/89 O2 Sat by Pulse 100 95 93 Oximetry 11/06/21 11/06/21 11/06/21 02:21 02:31 02:41 Temperature Pulse Rate 90 88 83 Pulse Rate [ Anterior Bilateral Throughout] Pulse Rate [ From Monitor] Respiratory 18 17 13 Rate Respiratory Rate [Anterior Bilateral Throughout] Blood Pressure 134/89 134/89 134/89 O2 Sat by Pulse 94 96 95 Oximetry 11/06/21 11/06/21 11/06/21 02:51 03:00 03:11 Temperature Pulse Rate 81 91 H 99 H Pulse Rate [ Anterior Bilateral Throughout] Pulse Rate [ From Monitor] Respiratory 17 18 15 Rate Respiratory Rate [Anterior Bilateral Throughout] Blood Pressure 134/89 130/94 130/94 O2 Sat by Pulse 95 94 89 Oximetry 11/06/21 11/06/21 11/06/21 03:21 03:31 03:41 Temperature Pulse Rate 93 H 88 93 H Pulse Rate [ Anterior Bilateral Throughout] Pulse Rate [ From Monitor] Respiratory 14 19 11 L Rate Respiratory Rate [Anterior Bilateral Throughout] Blood Pressure 130/94 130/94 130/94 O2 Sat by Pulse 96 96 91 Oximetry 11/06/21 11/06/21 11/06/21 03:51 03:53 04:00 Temperature 99.2 F Pulse Rate 92 H 92 H Pulse Rate [ Anterior Bilateral Throughout] Pulse Rate [ 71 From Monitor] Respiratory 15 26 H Rate Respiratory Rate [Anterior Bilateral Throughout] Blood Pressure 130/94 118/86 O2 Sat by Pulse 92 94 Oximetry 11/06/21 11/06/21 11/06/21 04:11 04:21 04:31 Temperature Pulse Rate 73 79 72 Pulse Rate [ Anterior Bilateral Throughout] Pulse Rate [ From Monitor] Respiratory 20 16 22 Rate Respiratory Rate [Anterior Bilateral Throughout] Blood Pressure 118/86 118/86 118/86 O2 Sat by Pulse 95 96 95 Oximetry 11/06/21 11/06/21 11/06/21 04:41 04:51 05:00 Temperature Pulse Rate 72 71 92 H Pulse Rate [ Anterior Bilateral Throughout] Pulse Rate [ From Monitor] Respiratory 18 22 19 Rate Respiratory Rate [Anterior Bilateral Throughout] Blood Pressure 118/86 118/86 141/97 O2 Sat by Pulse 95 95 95 Oximetry 11/06/21 11/06/21 11/06/21 05:11 05:21 05:31 Temperature Pulse Rate 94 H 92 H 90 Pulse Rate [ Anterior Bilateral Throughout] Pulse Rate [ From Monitor] Respiratory 20 23 22 Rate Respiratory Rate [Anterior Bilateral Throughout] Blood Pressure 141/97 141/97 141/97 O2 Sat by Pulse 87 91 Oximetry 11/06/21 11/06/21 11/06/21 05:41 05:51 06:01 Temperature Pulse Rate 86 84 84 Pulse Rate [ Anterior Bilateral Throughout] Pulse Rate [ From Monitor] Respiratory 19 20 21 Rate Respiratory Rate [Anterior Bilateral Throughout] Blood Pressure 141/97 141/97 102/73 O2 Sat by Pulse 91 94 94 Oximetry 11/06/21 11/06/21 11/06/21 06:11 06:21 06:31 Temperature Pulse Rate 84 88 86 Pulse Rate [ Anterior Bilateral Throughout] Pulse Rate [ From Monitor] Respiratory 21 24 22 Rate Respiratory Rate [Anterior Bilateral Throughout] Blood Pressure 102/73 102/73 102/73 O2 Sat by Pulse 94 94 95 Oximetry 11/06/21 11/06/21 11/06/21 06:41 06:51 07:00 Temperature Pulse Rate 94 H 103 H 101 H Pulse Rate [ Anterior Bilateral Throughout] Pulse Rate [ From Monitor] Respiratory 15 16 22 Rate Respiratory Rate [Anterior Bilateral Throughout] Blood Pressure 102/73 102/73 106/79 O2 Sat by Pulse 95 91 92 Oximetry 11/06/21 11/06/21 11/06/21 07:11 07:21 07:31 Temperature Pulse Rate 100 H 96 H 97 H Pulse Rate [ Anterior Bilateral Throughout] Pulse Rate [ From Monitor] Respiratory 11 L 24 17 Rate Respiratory Rate [Anterior Bilateral Throughout] Blood Pressure 106/79 106/79 106/79 O2 Sat by Pulse 91 89 88 Oximetry 11/06/21 11/06/21 11/06/21 07:32 07:33 07:40 Temperature Pulse Rate 100 H Pulse Rate [ 100 H Anterior Bilateral Throughout] Pulse Rate [ From Monitor] Respiratory 14 Rate Respiratory 24 Rate [Anterior Bilateral Throughout] Blood Pressure 106/79 O2 Sat by Pulse 90 93 Oximetry 11/06/21 11/06/21 11/06/21 07:41 07:49 07:51 Temperature 100.7 F H Pulse Rate 101 H 99 H Pulse Rate [ Anterior Bilateral Throughout] Pulse Rate [ From Monitor] Respiratory 19 26 H Rate Respiratory Rate [Anterior Bilateral Throughout] Blood Pressure 106/79 106/79 O2 Sat by Pulse 93 92 Oximetry 11/06/21 11/06/21 11/06/21 08:00 08:11 08:21 Temperature Pulse Rate 99 H 107 H 105 H Pulse Rate [ Anterior Bilateral Throughout] Pulse Rate [ 71 From Monitor] Respiratory 16 15 20 Rate Respiratory Rate [Anterior Bilateral Throughout] Blood Pressure 100/69 100/69 100/69 O2 Sat by Pulse 99 91 90 Oximetry 11/06/21 11/06/21 11/06/21 08:31 08:41 08:51 Temperature Pulse Rate 104 H 106 H 106 H Pulse Rate [ Anterior Bilateral Throughout] Pulse Rate [ From Monitor] Respiratory 11 L 24 11 L Rate Respiratory Rate [Anterior Bilateral Throughout] Blood Pressure 100/69 100/69 100/69 O2 Sat by Pulse 89 90 89 Oximetry 11/06/21 11/06/21 11/06/21 09:00 09:11 09:21 Temperature Pulse Rate 112 H 105 H 103 H Pulse Rate [ Anterior Bilateral Throughout] Pulse Rate [ From Monitor] Respiratory 8 L 11 L 17 Rate Respiratory Rate [Anterior Bilateral Throughout] Blood Pressure 83/43 83/43 89/57 O2 Sat by Pulse 90 90 92 Oximetry 11/06/21 11/06/21 11/06/21 09:31 09:41 09:51 Temperature Pulse Rate 105 H 109 H 108 H Pulse Rate [ Anterior Bilateral Throughout] Pulse Rate [ From Monitor] Respiratory 23 13 15 Rate Respiratory Rate [Anterior Bilateral Throughout] Blood Pressure 89/57 89/57 89/57 O2 Sat by Pulse 90 90 89 Oximetry 11/06/21 11/06/21 11/06/21 10:00 10:11 10:21 Temperature Pulse Rate 106 H 108 H 100 H Pulse Rate [ Anterior Bilateral Throughout] Pulse Rate [ From Monitor] Respiratory 13 19 14 Rate Respiratory Rate [Anterior Bilateral Throughout] Blood Pressure 98/63 98/63 98/63 O2 Sat by Pulse 91 91 95 Oximetry - Lab 11/06/21 05:05 11/06/21 05:05 Most recent lab results ABG pH 7.456 (7.320-7.450) H 11/05/21 16:41 ABG pCO2 29.9 mm Hg 11/01/21 04:00 ABG pO2 82.5 mm Hg (80.0-90.0) 11/01/21 04:00 ABG HCO3 21.2 mmol/L (20.0-26.0) 11/01/21 04:00 ABG O2 Saturation 93.7 (0-100) 11/05/21 16:41 Calcium 9.2 mg/dL (8.4-10.2) 11/06/21 05:05 Phosphorus 2.90 mg/dL (2.5-4.5) 11/03/21 04:32 Magnesium 2.70 mg/dL (1.7-2.3) H 11/03/21 04:32 Medications & Allergies - Medications Allergies/Adverse Reactions: Allergies No Known Allergies Allergy (Verified 11/04/21 09:47) Home Medications: Home Medications Medication Instructions Recorded Confirmed Last Taken Type Unobtainable 11/04/21 11/04/21 Unknown History Active Medications: Generic Name Dose Route Start Last Admin Trade Name Freq PRN Reason Stop Dose Admin Acetaminophen 650 mg 10/31/21 12:00 Acetaminophen 325 Mg/10.15 Ml Oral Liqd Unit Dose FEEDTUBE Q6H PRN Pain MILD(1-3)/Fever >100.5/MARIANO Hydrocodone Bitart/Acetaminophen 2 each 10/31/21 12:00 Hydrocodone/Acetaminophen 5-325 Mg Tab PO Q6H PRN Pain, Moderate (4-6) Acetylcysteine 200 mg 11/04/21 14:00 11/06/21 07:33 Acetylcysteine 20% 200 Mg/1 Ml *For Inhalation Use* INHALATION 11/07/21 13:59 200 mg Q6HRT TRAVIS Administration Albuterol 2.5 mg 11/04/21 12:52 11/06/21 07:33 Albuterol 2.5 Mg/3 Ml Nebu IH 2.5 mg Q6HRT PRN Administration Shortness Of Breath Lipase/Protease/Amylase 1 each 10/31/21 12:00 Lipase 10,500/Protease 25,000/Amylase 43,750 (Units) Dr Cap FEEDTUBE PRN PRN For Clogged Feeding Tube Dexamethasone 6 mg 11/01/21 10:00 11/06/21 10:26 Dexamethasone 4 Mg/Ml Vial IV 11/10/21 10:01 6 mg Q24HR TRAVIS Administration Enoxaparin Sodium 40 mg 11/01/21 10:00 11/06/21 10:25 Enoxaparin 40 Mg/0.4 Ml Inj SUB-Q 40 mg QDAY@1000 TRAVIS Administration Famotidine 20 mg 11/04/21 10:00 11/06/21 10:25 Famotidine 20 Mg Tab FEEDTUBE 20 mg BID TRAVIS Administration Fentanyl 50 mcg 10/31/21 15:40 Fentanyl 100 Mcg/2 Ml Inj IV Q10MIN PRN ANALGESIA Glycopyrrolate 1 mg 11/05/21 14:00 11/06/21 10:25 Glycopyrrolate 1 Mg Tab PO 1 mg TID TRAVIS Administration Hydrophilic Ointment 1 applic 10/31/21 15:40 Lip Therapy Vaseline TP Q2HR PRN Dry Lips Fentanyl Citrate 2,000 mcg in 100 mls @ 3.515 mls/hr 10/31/21 16:00 11/06/21 05:00 Fentanyl Drip Premix IV 0 mcg/kg/hr TITR TRAVIS 0 mls/hr Titration Protocol 1 MCG/KG/HR Morphine Sulfate 2 mg 10/31/21 12:00 11/02/21 11:48 Morphine 2 Mg/1 Ml Inj IV 2 mg Q4H PRN Administration Pain , Severe (7-10) Multi-Ingred Cream/Lotion/Oil/Oint 1 applic 10/31/21 15:40 Mineral Oil/Petrolatum, White Ophth Oint 3.5 Gm OU Q4HR PRN Dry Eye(s) Potassium Chloride 40 meq 11/06/21 09:45 Potassium Chloride 20 Meq Packet FEEDTUBE 11/06/21 13:45 ONCE@0945 TRAVIS Scopolamine 1 each 11/05/21 14:00 11/05/21 15:13 Scopolamine Transdermal Patch 72 Hr TD 1 each Q3D TRAVIS Administration Senna/Docusate Sodium 1 tab 10/31/21 22:00 11/06/21 10:25 Sennosides/Docusate Sodium 8.6/50 Mg Tab FEEDTUBE 1 tab BID TRAVIS Administration Simple Syrup 15 ml 10/31/21 12:00 Simple Syrup 15 Ml FEEDTUBE PRN PRN Hypoglycemia Simple Syrup 30 ml 10/31/21 12:00 Simple Syrup 15 Ml FEEDTUBE PRN PRN Hypoglycemia Sodium Chloride 10 ml 10/31/21 12:00 11/06/21 10:40 Sodium Chloride 0.9% 10 Ml Flush Syringe IV 10 ml BID TRAVIS Administration Sodium Chloride 10 ml 10/31/21 12:00 Sodium Chloride 0.9% 10 Ml Flush Syringe IV PRN PRN LINE FLUSH
--- NOTE | 2021-11-06 12:05 | Progress Note ---
Assessment and Plan Cultures: Blood culture no growth so far COVID-19 PCR positive Sputum culture 10/31/2021 Klebsiella pneumoniae A/P: 61-year-old male with medical history of stroke, chronic tracheostomy, PEG tube now with: #COVID pneumonia: with possible superimposed bacterial PNA #Acute on chronic respiratory failure: Chronic trach in place, required ventilation on top of normal requirements #History of CVA #MARCELINO: Resolved. #Elevated LFTs: unknown etiology. ?COVID related. RUQ US showed contracted gall bladder Recs: -Completed 5 days of ceftriaxone -Completed Remdesivir -Continue Decadron, complete 10 days -Anticoagulation per hospital protocol Adela Siddiqi MD, FACP, [facility] ([facility] O: [phone] F: [phone] Subjective Date of service: 11/06/21 Principal diagnosis: AHRF; Pneumonia; COVID-19; MARCELINO; Leukocytosis; Lactic acidosis; Sepsis Interval history: Low-grade fever, T-max 100.7 F. On the vent via trach. Objective - Exam Narrative Exam: Physical Exam: Constitutional: Awake, on the vent Head, Ears, Nose: Normocephalic, atraumatic. External ears, nose normal Eyes: Conjunctivae/corneas clear. No icterus. No ptosis. Neck: Trach + Cardiovascular: S1, S2 + Respiratory: Good air entry, clear to auscultation bilaterally GI: Soft, non-tender; bowel sounds normal. No peritoneal signs Musculoskeletal: No pedal edema, no cyanosis. Skin: No rash or abscess Hem/Lymphatic: No palpable cervical or supraclavicular nodes. No lymphangitis Psych: No agitation Neurological: Awake, on the ventilator - Constitutional Vitals: Vital Signs Temp Pulse Resp BP Pulse Ox 100.7 F H 100 H 14 98/63 95 11/06/21 07:49 11/06/21 10:21 11/06/21 10:21 11/06/21 10:21 11/06/21 10:21 Temperature -Last 24 Hours Temperature 100.7 F Temperature 99.2 F Temperature 99.9 F Temperature 99.3 F - Labs CBC & Chem 7: 11/06/21 05:05 11/06/21 05:05 Labs: Abnormal lab results 11/05/21 11/05/21 11/05/21 Range/Units 12:10 16:41 16:53 WBC (4.5-11.0) K/mm3 Hgb (11.8-15.2) gm/dl Hct (35.5-45.6) % ABG pH 7.456 H (7.320-7.450) POC ABG pO2 69.1 L (83-108) mmHg ABG Hemoglobin 11.4 L (12.0-17.5) ABG Oxyhemoglobin 93.1 L (94-98) ABG Glucose 232 H (65-95) mg/dL Carboxyhemoglobin 0.3 L (0.5-1.5) Potassium (3.6-5.0) mmol/L Creatinine (0.8-1.3) mg/dL Glucose (75-100) mg/dL POC Glucose 162 H 190 H (70-105) mg/dL Arterial Blood Glucose 232 H (65-95) mg/dL 11/05/21 11/06/21 11/06/21 Range/Units 23:33 05:05 05:05 WBC 13.6 H (4.5-11.0) K/mm3 Hgb 11.1 L (11.8-15.2) gm/dl Hct 35.3 L (35.5-45.6) % ABG pH (7.320-7.450) POC ABG pO2 (83-108) mmHg ABG Hemoglobin (12.0-17.5) ABG Oxyhemoglobin (94-98) ABG Glucose (65-95) mg/dL Carboxyhemoglobin (0.5-1.5) Potassium 3.3 L (3.6-5.0) mmol/L Creatinine 0.5 L (0.8-1.3) mg/dL Glucose 125 H (75-100) mg/dL POC Glucose 144 H (70-105) mg/dL Arterial Blood Glucose (65-95) mg/dL 11/06/21 Range/Units 11:11 WBC (4.5-11.0) K/mm3 Hgb (11.8-15.2) gm/dl Hct (35.5-45.6) % ABG pH (7.320-7.450) POC ABG pO2 (83-108) mmHg ABG Hemoglobin (12.0-17.5) ABG Oxyhemoglobin (94-98) ABG Glucose (65-95) mg/dL Carboxyhemoglobin (0.5-1.5) Potassium (3.6-5.0) mmol/L Creatinine (0.8-1.3) mg/dL Glucose (75-100) mg/dL POC Glucose 166 H (70-105) mg/dL Arterial Blood Glucose (65-95) mg/dL
--- NOTE | 2021-11-06 12:41 | Progress Note ---
Assessment and Plan Acute on chronic hypoxemic respiratory failure Possible aspiration pneumonia COVID-19 infection Acute kidney injury Sepsis Leukocytosis Mild metabolic acidosis Lactic acidosis Hypernatremia Adult FTT Elevated serum transaminases Elevated serum inflammatory markers to include ferritin, LDH and D-dimers Oropharyngeal dysphagia - replaced Potassium - Increased Robinul to 2mg tid - continue mucomyst q6h - continue AT-piece RTC as tolerated - watch overnight in ICU re: tentative MVS needs - continue care as below otherwise; - de-escalate AB's per ID recommendations - continue daily SAT and SBT assessment as tolerated - continue to wean supplemental oxygen for target O2 sat's > 90% acutely - VAP bundle addressed - continue lung protective strategies - continue bronchodilators with pulmonary hygiene per RT - wean per pulmonary driven protocols otherwise - avoid nephrotoxins, renally dose all medications - continue accuchecks with glycemic control per SSI (While critically ill target blood glucose of 140-180 mg/dL; avoid hypoglycemia) - sedation prn for target RASS 0 to -1 - continue Rocephin and Zithromax, de-escalate per ID rec's - prn analgesia per CPOT score - Maintenance of sleep-wake cycle, avoid delirium - enteral nutritional support at goal rate as tolerated - G.I. & VTE prophylaxis - PT/OT/ROM exercises - mobility protocols for pressure ulcer prophylaxis - Monitor hemodynamics closely - continue other care per attending / other consultants - discharge planning ongoing concurrently COVID SPECIFIC INTERVENTIONS - Remdesivir as per ID/Pulmonary developed protocols (Receiving) - continue systemic steroids for severe COVID-19 infection empirically (Decadron) - follow repeat COVID tests results - zinc and vitamin C supplementation - Monitor inflammatory markers per facility protocol - ferritin, Ddimer, CRP - therapeutic anticoagulation per system Protocol based on d-dimer and clinical considerations (VTE prophylaxis) - Continue contact and airborne isolation .... Re-evaluate in am & prn CONDITION: CRITICAL PROGNOSIS: GUARDED CODE STATUS: FULL CODE The high probability of a clinically significant, sudden or life-threatening deterioration of the [respiratory, renal, cardiovascular & neurologic] system(s) required my full and direct attention, intervention and personal management. The aggregate critical care time was [32] minutes without overlap. Time includes spent on; [x] Data Review and interpretation [x] Patient assessment and monitoring of vital signs [x] Documentation [x] Medication orders and management Subjective Date of service: 11/06/21 Principal diagnosis: AHRF; Pneumonia; COVID-19; MARCELINO; Leukocytosis; Lactic acidosis; Sepsis Interval history: Patient is seen today for: AHRF; Aspiration Pneumonia; COVID-19; MARCELINO; Leukocytosis; Lactic acidosis; Elevated serum LFT's; Sepsis Seen and examined at bedside; 24hour events reviewed; nursing and respiratory care staff consulted; no adverse overnight events reported to me; resting in bed; secretions still thick and large and required short rest on MVS; no N/V/F/C Objective Vital Signs - 12hr 11/06/21 11/06/21 11/06/21 00:51 01:00 01:11 Temperature Pulse Rate 81 92 H 89 Pulse Rate [ Anterior Bilateral Throughout] Pulse Rate [ From Monitor] Respiratory 19 11 L 18 Rate Respiratory Rate [Anterior Bilateral Throughout] Blood Pressure 140/95 137/100 137/100 O2 Sat by Pulse 86 98 97 Oximetry 11/06/21 11/06/21 11/06/21 01:21 01:31 01:41 Temperature Pulse Rate 85 84 79 Pulse Rate [ Anterior Bilateral Throughout] Pulse Rate [ From Monitor] Respiratory 19 14 21 Rate Respiratory Rate [Anterior Bilateral Throughout] Blood Pressure 137/100 137/100 137/100 O2 Sat by Pulse 97 99 98 Oximetry 11/06/21 11/06/21 11/06/21 01:51 02:00 02:11 Temperature Pulse Rate 87 80 74 Pulse Rate [ Anterior Bilateral Throughout] Pulse Rate [ From Monitor] Respiratory 15 15 18 Rate Respiratory Rate [Anterior Bilateral Throughout] Blood Pressure 137/100 134/89 134/89 O2 Sat by Pulse 100 95 93 Oximetry 11/06/21 11/06/21 11/06/21 02:21 02:31 02:41 Temperature Pulse Rate 90 88 83 Pulse Rate [ Anterior Bilateral Throughout] Pulse Rate [ From Monitor] Respiratory 18 17 13 Rate Respiratory Rate [Anterior Bilateral Throughout] Blood Pressure 134/89 134/89 134/89 O2 Sat by Pulse 94 96 95 Oximetry 11/06/21 11/06/21 11/06/21 02:51 03:00 03:11 Temperature Pulse Rate 81 91 H 99 H Pulse Rate [ Anterior Bilateral Throughout] Pulse Rate [ From Monitor] Respiratory 17 18 15 Rate Respiratory Rate [Anterior Bilateral Throughout] Blood Pressure 134/89 130/94 130/94 O2 Sat by Pulse 95 94 89 Oximetry 11/06/21 11/06/21 11/06/21 03:21 03:31 03:41 Temperature Pulse Rate 93 H 88 93 H Pulse Rate [ Anterior Bilateral Throughout] Pulse Rate [ From Monitor] Respiratory 14 19 11 L Rate Respiratory Rate [Anterior Bilateral Throughout] Blood Pressure 130/94 130/94 130/94 O2 Sat by Pulse 96 96 91 Oximetry 11/06/21 11/06/21 11/06/21 03:51 03:53 04:00 Temperature 99.2 F Pulse Rate 92 H 92 H Pulse Rate [ Anterior Bilateral Throughout] Pulse Rate [ 71 From Monitor] Respiratory 15 26 H Rate Respiratory Rate [Anterior Bilateral Throughout] Blood Pressure 130/94 118/86 O2 Sat by Pulse 92 94 Oximetry 11/06/21 11/06/21 11/06/21 04:11 04:21 04:31 Temperature Pulse Rate 73 79 72 Pulse Rate [ Anterior Bilateral Throughout] Pulse Rate [ From Monitor] Respiratory 20 16 22 Rate Respiratory Rate [Anterior Bilateral Throughout] Blood Pressure 118/86 118/86 118/86 O2 Sat by Pulse 95 96 95 Oximetry 11/06/21 11/06/21 11/06/21 04:41 04:51 05:00 Temperature Pulse Rate 72 71 92 H Pulse Rate [ Anterior Bilateral Throughout] Pulse Rate [ From Monitor] Respiratory 18 22 19 Rate Respiratory Rate [Anterior Bilateral Throughout] Blood Pressure 118/86 118/86 141/97 O2 Sat by Pulse 95 95 95 Oximetry 11/06/21 11/06/21 11/06/21 05:11 05:21 05:31 Temperature Pulse Rate 94 H 92 H 90 Pulse Rate [ Anterior Bilateral Throughout] Pulse Rate [ From Monitor] Respiratory 20 23 22 Rate Respiratory Rate [Anterior Bilateral Throughout] Blood Pressure 141/97 141/97 141/97 O2 Sat by Pulse 87 91 Oximetry 11/06/21 11/06/21 11/06/21 05:41 05:51 06:01 Temperature Pulse Rate 86 84 84 Pulse Rate [ Anterior Bilateral Throughout] Pulse Rate [ From Monitor] Respiratory 19 20 21 Rate Respiratory Rate [Anterior Bilateral Throughout] Blood Pressure 141/97 141/97 102/73 O2 Sat by Pulse 91 94 94 Oximetry 11/06/21 11/06/21 11/06/21 06:11 06:21 06:31 Temperature Pulse Rate 84 88 86 Pulse Rate [ Anterior Bilateral Throughout] Pulse Rate [ From Monitor] Respiratory 21 24 22 Rate Respiratory Rate [Anterior Bilateral Throughout] Blood Pressure 102/73 102/73 102/73 O2 Sat by Pulse 94 94 95 Oximetry 11/06/21 11/06/21 11/06/21 06:41 06:51 07:00 Temperature Pulse Rate 94 H 103 H 101 H Pulse Rate [ Anterior Bilateral Throughout] Pulse Rate [ From Monitor] Respiratory 15 16 22 Rate Respiratory Rate [Anterior Bilateral Throughout] Blood Pressure 102/73 102/73 106/79 O2 Sat by Pulse 95 91 92 Oximetry 11/06/21 11/06/21 11/06/21 07:11 07:21 07:31 Temperature Pulse Rate 100 H 96 H 97 H Pulse Rate [ Anterior Bilateral Throughout] Pulse Rate [ From Monitor] Respiratory 11 L 24 17 Rate Respiratory Rate [Anterior Bilateral Throughout] Blood Pressure 106/79 106/79 106/79 O2 Sat by Pulse 91 89 88 Oximetry 11/06/21 11/06/21 11/06/21 07:32 07:33 07:40 Temperature Pulse Rate 100 H Pulse Rate [ 100 H Anterior Bilateral Throughout] Pulse Rate [ From Monitor] Respiratory 14 Rate Respiratory 24 Rate [Anterior Bilateral Throughout] Blood Pressure 106/79 O2 Sat by Pulse 90 93 Oximetry 11/06/21 11/06/21 11/06/21 07:41 07:49 07:51 Temperature 100.7 F H Pulse Rate 101 H 99 H Pulse Rate [ Anterior Bilateral Throughout] Pulse Rate [ From Monitor] Respiratory 19 26 H Rate Respiratory Rate [Anterior Bilateral Throughout] Blood Pressure 106/79 106/79 O2 Sat by Pulse 93 92 Oximetry 11/06/21 11/06/21 11/06/21 08:00 08:11 08:21 Temperature Pulse Rate 99 H 107 H 105 H Pulse Rate [ Anterior Bilateral Throughout] Pulse Rate [ 71 From Monitor] Respiratory 16 15 20 Rate Respiratory Rate [Anterior Bilateral Throughout] Blood Pressure 100/69 100/69 100/69 O2 Sat by Pulse 99 91 90 Oximetry 11/06/21 11/06/21 11/06/21 08:31 08:41 08:51 Temperature Pulse Rate 104 H 106 H 106 H Pulse Rate [ Anterior Bilateral Throughout] Pulse Rate [ From Monitor] Respiratory 11 L 24 11 L Rate Respiratory Rate [Anterior Bilateral Throughout] Blood Pressure 100/69 100/69 100/69 O2 Sat by Pulse 89 90 89 Oximetry 11/06/21 11/06/2111/06/22 09:00 09:11 09:21 Temperature Pulse Rate 112 H 105 H 103 H Pulse Rate [ Anterior Bilateral Throughout] Pulse Rate [ From Monitor] Respiratory 8 L 11 L 17 Rate Respiratory Rate [Anterior Bilateral Throughout] Blood Pressure 83/43 83/43 89/57 O2 Sat by Pulse 90 90 92 Oximetry 11/06/21 11/06/21 11/06/21 09:31 09:41 09:51 Temperature Pulse Rate 105 H 109 H 108 H Pulse Rate [ Anterior Bilateral Throughout] Pulse Rate [ From Monitor] Respiratory 23 13 15 Rate Respiratory Rate [Anterior Bilateral Throughout] Blood Pressure 89/57 89/57 89/57 O2 Sat by Pulse 90 90 89 Oximetry 11/06/21 11/06/21 11/06/21 10:00 10:11 10:21 Temperature Pulse Rate 106 H 108 H 100 H Pulse Rate [ Anterior Bilateral Throughout] Pulse Rate [ From Monitor] Respiratory 13 19 14 Rate Respiratory Rate [Anterior Bilateral Throughout] Blood Pressure 98/63 98/63 98/63 O2 Sat by Pulse 91 91 95 Oximetry 11/06/21 11/06/21 11/06/21 10:31 10:41 10:51 Temperature Pulse Rate 102 H 102 H 103 H Pulse Rate [ Anterior Bilateral Throughout] Pulse Rate [ From Monitor] Respiratory 16 24 23 Rate Respiratory Rate [Anterior Bilateral Throughout] Blood Pressure 98/63 98/63 98/63 O2 Sat by Pulse 95 95 96 Oximetry 11/06/21 11/06/21 11/06/21 11:00 11:11 11:21 Temperature Pulse Rate 108 H 100 H 101 H Pulse Rate [ Anterior Bilateral Throughout] Pulse Rate [ From Monitor] Respiratory 14 26 H 25 H Rate Respiratory Rate [Anterior Bilateral Throughout] Blood Pressure 96/66 96/66 96/66 O2 Sat by Pulse 97 95 96 Oximetry 11/06/21 11/06/21 11/06/21 11:31 11:41 11:51 Temperature Pulse Rate 99 H 95 H 95 H Pulse Rate [ Anterior Bilateral Throughout] Pulse Rate [ From Monitor] Respiratory 26 H 25 H 26 H Rate Respiratory Rate [Anterior Bilateral Throughout] Blood Pressure 96/66 96/66 96/66 O2 Sat by Pulse 95 98 98 Oximetry 11/06/21 11/06/21 11/06/21 12:00 12:04 12:11 Temperature 97.3 F L Pulse Rate 95 H 95 H Pulse Rate [ Anterior Bilateral Throughout] Pulse Rate [ From Monitor] Respiratory 27 H 30 H Rate Respiratory Rate [Anterior Bilateral Throughout] Blood Pressure 97/66 97/66 O2 Sat by Pulse 99 99 Oximetry 11/06/21 12:21 Temperature Pulse Rate 100 H Pulse Rate [ Anterior Bilateral Throughout] Pulse Rate [ From Monitor] Respiratory 26 H Rate Respiratory Rate [Anterior Bilateral Throughout] Blood Pressure 97/66 O2 Sat by Pulse 99 Oximetry Constitutional: appears uncomfortable, other (middle aged male with mildly increased respiratory effort at rest) Eyes: non-icteric ENT: oropharynx moist, oropharyngeal exudate pre (mild to moderate), other (midline tracheostomy) Neck: supple, no lymphadenopathy, no JVD Effort: mildly labored Ascultation: Bilateral: rhonchi (and referred upper airway sounds) Percussion: Bilateral: not dull Cardiovascular: regular rate and rhythm Gastrointestinal: normoactive bowel sounds, soft, non-tender, non-distended Integumentary: rash Extremities: no cyanosis, no ischemia or petechiae Neurologic: pupils equal and round, CN II-XII normal, other (weak lower extr emities) Psychiatric: mood appropriate, affect normal, other (mild cognitive impairment) CBC and BMP: 11/06/21 05:05 11/06/21 05:05 ABG, PT/INR, D-dimer: ABG ABG pH 7.456 (7.320-7.450) H 11/05/21 16:41 POC ABG pCO2 36.8 mmHg (32.0-48.0) 11/05/21 16:41 ABG pCO2 29.9 mm Hg 11/01/21 04:00 POC ABG pO2 69.1 mmHg (83-108) L 11/05/21 16:41 ABG pO2 82.5 mm Hg (80.0-90.0) 11/01/21 04:00 POC ABG HCO3 25.4 11/05/21 16:41 ABG O2 Saturation 93.7 (0-100) 11/05/21 16:41 PT/INR, D-dimer PT 15.6 Sec. (12.2-14.9) H 10/31/21 02:36 INR 1.12 (0.87-1.13) 10/31/21 02:36 D-Dimer 824.75 ng/mlDDU (0-234) H 11/05/21 06:03 Abnormal lab findings: Abnormal Labs 10/31/21 10/31/21 10/31/21 02:36 02:36 02:36 WBC 11.4 H Hgb Hct MCH 26 L MCHC 29 L RDW 15.3 H Lymph % (Auto) Lymph # (Auto) Seg Neutrophils % 81.5 H Seg Neuts % (Manual) Lymphocytes % (Manual) Nucleated RBC % Seg Neutrophils # 9.3 H Seg Neutrophils # Man Lymphocytes # (Manual) PT 15.6 H APTT 43.1 H D-Dimer 1951.30 H ABG pH POC ABG pCO2 POC ABG pO2 ABG pO2 ABG HCO3 ABG O2 Saturation ABG Base Excess ABG Hemoglobin ABG Oxyhemoglobin ABG Sodium ABG Chloride ABG Glucose Carboxyhemoglobin Sodium 155 H Potassium Chloride 110.3 H Carbon Dioxide 15 L BUN 46 H Creatinine 2.7 H Glucose 120 H POC Glucose Lactic Acid Magnesium Ferritin AST 492 H ALT 319 H Alkaline Phosphatase 153 H Ammonia Lactate Dehydrogenase Troponin T 0.065 H C-Reactive Protein NT-Pro-B Natriuret Pep 2381 H Albumin 3.0 L LDL Cholesterol Direct 20 L HDL Cholesterol 13 L Arterial Blood Glucose Coronavirus (PCR) 10/31/21 10/31/21 10/31/21 02:36 02:36 02:36 WBC Hgb Hct MCH MCHC RDW Lymph % (Auto) Lymph # (Auto) Seg Neutrophils % Seg Neuts % (Manual) Lymphocytes % (Manual) Nucleated RBC % Seg Neutrophils # Seg Neutrophils # Man Lymphocytes # (Manual) PT APTT D-Dimer ABG pH POC ABG pCO2 POC ABG pO2 ABG pO2 ABG HCO3 ABG O2 Saturation ABG Base Excess ABG Hemoglobin ABG Oxyhemoglobin ABG Sodium ABG Chloride ABG Glucose Carboxyhemoglobin Sodium Potassium Chloride Carbon Dioxide BUN Creatinine Glucose POC Glucose Lactic Acid 11.80 H* Magnesium Ferritin 92779.0 H AST ALT Alkaline Phosphatase Ammonia Lactate Dehydrogenase 923 H Troponin T C-Reactive Protein 7.80 H NT-Pro-B Natriuret Pep Albumin LDL Cholesterol Direct HDL Cholesterol Arterial Blood Glucose Coronavirus (PCR) 10/31/21 10/31/21 10/31/21 04:01 04:54 06:04 WBC Hgb Hct MCH MCHC RDW Lymph % (Auto) Lymph # (Auto) Seg Neutrophils % Seg Neuts % (Manual) Lymphocytes % (Manual) Nucleated RBC % Seg Neutrophils # Seg Neutrophils # Man Lymphocytes # (Manual) PT APTT D-Dimer ABG pH 7.318 L POC ABG pCO2 POC ABG pO2 ABG pO2 229.1 H ABG HCO3 17.4 L ABG O2 Saturation 99.3 H ABG Base Excess -7.8 L ABG Hemoglobin 13.2 L ABG Oxyhemoglobin ABG Sodium ABG Chloride ABG Glucose Carboxyhemoglobin Sodium Potassium Chloride Carbon Dioxide BUN Creatinine Glucose POC Glucose Lactic Acid 5.50 H* Magnesium Ferritin AST ALT Alkaline Phosphatase Ammonia 21.0 L Lactate Dehydrogenase Troponin T C-Reactive Protein NT-Pro-B Natriuret Pep Albumin LDL Cholesterol Direct HDL Cholesterol Arterial Blood Glucose Coronavirus (PCR) 10/31/21 10/31/21 10/31/21 09:30 10:44 16:42 WBC Hgb Hct MCH MCHC RDW Lymph % (Auto) Lymph # (Auto) Seg Neutrophils % Seg Neuts % (Manual) Lymphocytes % (Manual) Nucleated RBC % Seg Neutrophils # Seg Neutrophils # Man Lymphocytes # (Manual) PT APTT D-Dimer ABG pH POC ABG pCO2 POC ABG pO2 ABG pO2 ABG HCO3 ABG O2 Saturation ABG Base Excess ABG Hemoglobin ABG Oxyhemoglobin ABG Sodium ABG Chloride ABG Glucose Carboxyhemoglobin Sodium Potassium Chloride Carbon Dioxide BUN Creatinine Glucose POC Glucose Lactic Acid 3.40 H* 2.80 H* Magnesium Ferritin AST ALT Alkaline Phosphatase Ammonia Lactate Dehydrogenase Troponin T C-Reactive Protein NT-Pro-B Natriuret Pep Albumin LDL Cholesterol Direct HDL Cholesterol Arterial Blood Glucose Coronavirus (PCR) Positive A 10/31/21 11/01/21 11/01/21 16:42 03:38 03:38 WBC 15.6 H Hgb 11.3 L Hct MCH MCHC 31 L RDW 15.3 H Lymph % (Auto) Lymph # (Auto) Seg Neutrophils % Seg Neuts % (Manual) 73.0 H Lymphocytes % (Manual) 9.0 L Nucleated RBC % 1.0 H Seg Neutrophils # Seg Neutrophils # Man 11.4 H Lymphocytes # (Manual) PT APTT D-Dimer ABG pH POC ABG pCO2 POC ABG pO2 ABG pO2 ABG HCO3 ABG O2 Saturation ABG Base Excess ABG Hemoglobin ABG Oxyhemoglobin ABG Sodium ABG Chloride ABG Glucose Carboxyhemoglobin Sodium 158 H Potassium Chloride 122.1 H Carbon Dioxide BUN 40 H Creatinine Glucose 101 H POC Glucose Lactic Acid Magnesium 2.40 H Ferritin AST ALT Alkaline Phosphatase Ammonia Lactate Dehydrogenase Troponin T C-Reactive Protein NT-Pro-B Natriuret Pep Albumin LDL Cholesterol Direct HDL Cholesterol Arterial Blood Glucose Coronavirus (PCR) 11/01/21 11/02/21 11/02/21 04:00 03:22 03:22 WBC 11.9 H Hgb 11.6 L Hct MCH 27 L MCHC 31 L RDW 15.3 H Lymph % (Auto) Lymph # (Auto) Seg Neutrophils % Seg Neuts % (Manual) Lymphocytes % (Manual) Nucleated RBC % Seg Neutrophils # Seg Neutrophils # Man Lymphocytes # (Manual) PT APTT D-Dimer ABG pH 7.468 H POC ABG pCO2 POC ABG pO2 ABG pO2 ABG HCO3 ABG O2 Saturation ABG Base Excess ABG Hemoglobin 11.3 L ABG Oxyhemoglobin ABG Sodium ABG Chloride ABG Glucose Carboxyhemoglobin Sodium 159 H Potassium Chloride 123.3 H Carbon Dioxide BUN 35 H Creatinine Glucose POC Glucose Lactic Acid Magnesium Ferritin AST 394 H ALT 282 H Alkaline Phosphatase 173 H Ammonia Lactate Dehydrogenase Troponin T C-Reactive Protein NT-Pro-B Natriuret Pep Albumin 2.9 L LDL Cholesterol Direct HDL Cholesterol Arterial Blood Glucose Coronavirus (PCR) 11/02/21 11/02/21 11/03/21 03:22 03:58 03:47 WBC Hgb Hct MCH MCHC RDW Lymph % (Auto) Lymph # (Auto) Seg Neutrophils % Seg Neuts % (Manual) Lymphocytes % (Manual) Nucleated RBC % Seg Neutrophils # Seg Neutrophils # Man Lymphocytes # (Manual) PT APTT D-Dimer ABG pH 7.523 H 7.467 H POC ABG pCO2 26.0 L 29.8 L POC ABG pO2 69.3 L 77.2 L ABG pO2 ABG HCO3 ABG O2 Saturation ABG Base Excess ABG Hemoglobin 11.7 L 11.4 L ABG Oxyhemoglobin 93.5 L ABG Sodium 161.6 H 158.6 H ABG Chloride 123.0 H 122.0 H ABG Glucose 100 H 226 H Carboxyhemoglobin 0.3 L 0.2 L Sodium 160 H Potassium Chloride 126.4 H Carbon Dioxide BUN 36 H Creatinine Glucose POC Glucose Lactic Acid Magnesium 3.00 H Ferritin AST ALT Alkaline Phosphatase Ammonia Lactate Dehydrogenase Troponin T C-Reactive Protein NT-Pro-B Natriuret Pep Albumin LDL Cholesterol Direct HDL Cholesterol Arterial Blood Glucose 100 H 226 H Coronavirus (PCR) 11/03/21 11/03/21 11/03/21 04:32 04:32 04:32 WBC 13.6 H Hgb 11.2 L Hct MCH MCHC 31 L RDW 15.4 H Lymph % (Auto) Lymph # (Auto) Seg Neutrophils % Seg Neuts % (Manual) 96.0 H Lymphocytes % (Manual) 4.0 L Nucleated RBC % Seg Neutrophils # Seg Neutrophils # Man 13.1 H Lymphocytes # (Manual) 0.5 L PT APTT D-Dimer ABG pH POC ABG pCO2 POC ABG pO2 ABG pO2 ABG HCO3 ABG O2 Saturation ABG Base Excess ABG Hemoglobin ABG Oxyhemoglobin ABG Sodium ABG Chloride ABG Glucose Carboxyhemoglobin Sodium 154 H Potassium Chloride 120.7 H Carbon Dioxide 21 L BUN 30 H Creatinine Glucose 216 H POC Glucose Lactic Acid Magnesium 2.70 H Ferritin AST 258 H ALT 241 H Alkaline Phosphatase 178 H Ammonia Lactate Dehydrogenase Troponin T C-Reactive Protein NT-Pro-B Natriuret Pep Albumin 2.7 L LDL Cholesterol Direct HDL Cholesterol Arterial Blood Glucose Coronavirus (PCR) 11/04/21 11/04/21 11/04/21 04:48 04:48 05:04 WBC Hgb 10.5 L Hct 33.1 L MCH MCHC RDW Lymph % (Auto) 9.7 L Lymph # (Auto) 1.0 L Seg Neutrophils % 87.1 H Seg Neuts % (Manual) Lymphocytes % (Manual) Nucleated RBC % Seg Neutrophils # 9.1 H Seg Neutrophils # Man Lymphocytes # (Manual) PT APTT D-Dimer ABG pH 7.531 H POC ABG pCO2 24.8 L POC ABG pO2 60.5 L ABG pO2 ABG HCO3 ABG O2 Saturation ABG Base Excess ABG Hemoglobin 11.5 L ABG Oxyhemoglobin 91.3 L ABG Sodium 154.1 H ABG Chloride 118.0 H ABG Glucose 117 H Carboxyhemoglobin 0.3 L Sodium 157 H Potassium Chloride 122.0 H Carbon Dioxide 19 L BUN 21 H Creatinine 0.7 L Glucose 114 H POC Glucose Lactic Acid Magnesium Ferritin AST 366 H ALT 268 H Alkaline Phosphatase 177 H Ammonia Lactate Dehydrogenase Troponin T C-Reactive Protein NT-Pro-B Natriuret Pep Albumin 2.7 L LDL Cholesterol Direct HDL Cholesterol Arterial Blood Glucose 117 H Coronavirus (PCR) 11/04/21 11/04/21 11/04/21 11:59 17:53 18:30 WBC Hgb Hct MCH MCHC RDW Lymph % (Auto) Lymph # (Auto) Seg Neutrophils % Seg Neuts % (Manual) Lymphocytes % (Manual) Nucleated RBC % Seg Neutrophils # Seg Neutrophils # Man Lymphocytes # (Manual) PT APTT D-Dimer ABG pH 7.508 H POC ABG pCO2 27.1 L POC ABG pO2 67.1 L ABG pO2 ABG HCO3 ABG O2 Saturation ABG Base Excess ABG Hemoglobin 11.9 L ABG Oxyhemoglobin 93.3 L ABG Sodium 147.4 H ABG Chloride 113.0 H ABG Glucose 183 H Carboxyhemoglobin 0.2 L Sodium Potassium Chloride Carbon Dioxide BUN Creatinine Glucose POC Glucose 108 H 123 H Lactic Acid Magnesium Ferritin AST ALT Alkaline Phosphatase Ammonia Lactate Dehydrogenase Troponin T C-Reactive Protein NT-Pro-B Natriuret Pep Albumin LDL Cholesterol Direct HDL Cholesterol Arterial Blood Glucose 183 H Coronavirus (PCR) 11/04/21 11/05/21 11/05/21 21:24 06:03 06:03 WBC Hgb Hct MCH MCHC RDW Lymph % (Auto) Lymph # (Auto) Seg Neutrophils % Seg Neuts % (Manual) Lymphocytes % (Manual) Nucleated RBC % Seg Neutrophils # Seg Neutrophils # Man Lymphocytes # (Manual) PT APTT D-Dimer 824.75 H ABG pH POC ABG pCO2 POC ABG pO2 ABG pO2 ABG HCO3 ABG O2 Saturation ABG Base Excess ABG Hemoglobin ABG Oxyhemoglobin ABG Sodium ABG Chloride ABG Glucose Carboxyhemoglobin Sodium Potassium Chloride Carbon Dioxide BUN Creatinine Glucose POC Glucose 190 H Lactic Acid Magnesium Ferritin 2000.0 H AST ALT Alkaline Phosphatase Ammonia Lactate Dehydrogenase Troponin T C-Reactive Protein NT-Pro-B Natriuret Pep Albumin LDL Cholesterol Direct HDL Cholesterol Arterial Blood Glucose Coronavirus (PCR) 11/05/21 11/05/21 11/05/21 06:03 06:03 08:15 WBC 11.3 H Hgb 11.2 L Hct MCH MCHC 31 L RDW 15.4 H Lymph % (Auto) Lymph # (Auto) Seg Neutrophils % Seg Neuts % (Manual) Lymphocytes % (Manual) Nucleated RBC % Seg Neutrophils # Seg Neutrophils # Man Lymphocytes # (Manual) PT APTT D-Dimer ABG pH POC ABG pCO2 POC ABG pO2 ABG pO2 ABG HCO3 ABG O2 Saturation ABG Base Excess ABG Hemoglobin ABG Oxyhemoglobin ABG Sodium ABG Chloride ABG Glucose Carboxyhemoglobin Sodium Potassium Chloride 107.3 H Carbon Dioxide BUN Creatinine 0.6 L Glucose 192 H POC Glucose 171 H Lactic Acid Magnesium Ferritin AST 158 H ALT 233 H Alkaline Phosphatase 179 H Ammonia Lactate Dehydrogenase 401 H Troponin T C-Reactive Protein 6.50 H NT-Pro-B Natriuret Pep Albumin 2.7 L LDL Cholesterol Direct HDL Cholesterol Arterial Blood Glucose Coronavirus (PCR) 11/05/21 11/05/21 11/05/21 11:36 12:10 16:41 WBC Hgb Hct MCH MCHC RDW Lymph % (Auto) Lymph # (Auto) Seg Neutrophils % Seg Neuts % (Manual) Lymphocytes % (Manual) Nucleated RBC % Seg Neutrophils # Seg Neutrophils # Man Lymphocytes # (Manual) PT APTT D-Dimer ABG pH 7.456 H POC ABG pCO2 POC ABG pO2 80.4 L 69.1 L ABG pO2 ABG HCO3 ABG O2 Saturation ABG Base Excess ABG Hemoglobin 11.0 L 11.4 L ABG Oxyhemoglobin 93.1 L ABG Sodium ABG Chloride ABG Glucose 165 H 232 H Carboxyhemoglobin 0.3 L 0.3 L Sodium Potassium Chloride Carbon Dioxide BUN Creatinine Glucose POC Glucose 162 H Lactic Acid Magnesium Ferritin AST ALT Alkaline Phosphatase Ammonia Lactate Dehydrogenase Troponin T C-Reactive Protein NT-Pro-B Natriuret Pep Albumin LDL Cholesterol Direct HDL Cholesterol Arterial Blood Glucose 165 H 232 H Coronavirus (PCR) 11/05/21 11/05/21 11/06/21 16:53 23:33 05:05 WBC Hgb Hct MCH MCHC RDW Lymph % (Auto) Lymph # (Auto) Seg Neutrophils % Seg Neuts % (Manual) Lymphocytes % (Manual) Nucleated RBC % Seg Neutrophils # Seg Neutrophils # Man Lymphocytes # (Manual) PT APTT D-Dimer ABG pH POC ABG pCO2 POC ABG pO2 ABG pO2 ABG HCO3 ABG O2 Saturation ABG Base Excess ABG Hemoglobin ABG Oxyhemoglobin ABG Sodium ABG Chloride ABG Glucose Carboxyhemoglobin Sodium Potassium 3.3 L Chloride Carbon Dioxide BUN Creatinine 0.5 L Glucose 125 H POC Glucose 190 H 144 H Lactic Acid Magnesium Ferritin AST ALT Alkaline Phosphatase Ammonia Lactate Dehydrogenase Troponin T C-Reactive Protein NT-Pro-B Natriuret Pep Albumin LDL Cholesterol Direct HDL Cholesterol Arterial Blood Glucose Coronavirus (PCR) 11/06/21 11/06/21 05:05 11:11 WBC 13.6 H Hgb 11.1 L Hct 35.3 L MCH MCHC RDW Lymph % (Auto) Lymph # (Auto) Seg Neutrophils % Seg Neuts % (Manual) Lymphocytes % (Manual) Nucleated RBC % Seg Neutrophils # Seg Neutrophils # Man Lymphocytes # (Manual) PT APTT D-Dimer ABG pH POC ABG pCO2 POC ABG pO2 ABG pO2 ABG HCO3 ABG O2 Saturation ABG Base Excess ABG Hemoglobin ABG Oxyhemoglobin ABG Sodium ABG Chloride ABG Glucose Carboxyhemoglobin Sodium Potassium Chloride Carbon Dioxide BUN Creatinine Glucose POC Glucose 166 H Lactic Acid Magnesium Ferritin AST ALT Alkaline Phosphatase Ammonia Lactate Dehydrogenase Troponin T C-Reactive Protein NT-Pro-B Natriuret Pep Albumin LDL Cholesterol Direct HDL Cholesterol Arterial Blood Glucose Coronavirus (PCR) Chest x-ray: other (none today) Allied health notes reviewed: nursing
[2021-11-06] MEDS: SCOPOLAMINE TRANSDERMAL PATCH 72 HR TD SCH (13:20)
--- NOTE | 2021-11-06 19:40 | Progress Note ---
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 11/03/21 04:32 [place] Bodies Not Reportable 11/03/21 04:32 [place] Rings Not Reportable 11/03/21 04:32 [place] Cells Not Reportable 11/03/21 04:32 Bite Cells Not Reportable 11/03/21 04:32 Crenated Cell Not Reportable 11/03/21 04:32 Elliptocytes Not Reportable 11/03/21 04:32 Acanthocytes (Spur) Not Reportable 11/03/21 04:32 [place] Not Reportable 11/03/21 04:32 Hemoglobin C Crystals Not Reportable 11/03/21 04:32 Schistocytes Not Reportable 11/03/21 04:32 Malaria parasites Not Reportable 11/03/21 04:32 [place] Bodies Not Reportable 11/03/21 04:32 Hem Pathologist Commnt No 11/03/21 04:32 PT 15.6 Sec. (12.2-14.9) H 10/31/21 02:36 INR 1.12 (0.87-1.13) 10/31/21 02:36 APTT 43.1 Sec. (24.2-36.6) H 10/31/21 02:36 D-Dimer 867.25 ng/mlDDU (0-234) H 11/07/21 04:57 ABG pH 7.572 (7.320-7.450) H 11/06/21 13:27 POC ABG pCO2 28.9 mmHg (32.0-48.0) L 11/06/21 13:27 ABG pCO2 29.9 mm Hg 11/01/21 04:00 POC ABG pO2 80.4 mmHg (83-108) L 11/06/21 13:27 ABG pO2 82.5 mm Hg (80.0-90.0) 11/01/21 04:00 POC ABG HCO3 26.0 11/06/21 13: ABG HCO3 21.2 mmol/L (20.0-26.0) 11/01/21 04:00 ABG O2 Saturation 96.8 (0-100) 11/06/21 13: ABG O2 Content 15.3 (0.0-44) 11/01/21 04:00 POC ABG Base Excess 4.6 11/06/21 13: ABG Base Excess -1.6 mmol/L (-2.0-3.0) 11/01/21 04:00 ABG Hemoglobin 12.3 (12.0-17.5) 11/06/21 13:27 ABG Oxyhemoglobin 96.4 (94-98) 11/06/21 13:27 ABG Carboxyhemoglobin 1.1 % (0.0-5.0) 11/01/21 04:00 ABG Methemoglobin 0.3 (0.0-1.5) 11/06/21 13:27 ABG Sodium 139.2 mmol/L (136.0-145.0) 11/06/21 13:27 ABG Potassium 3.1 mmol/L (3.40-4.50) L 11/06/21 13:27 ABG Chloride 102.0 mmol/L (98-107) 11/06/21 13:27 ABG Glucose 181 mg/dL (65-95) H 11/06/21 13:27 Oxyhemoglobin 95.6 % (95.0-99.0) 11/01/21 04:00 Carboxyhemoglobin 0.1 (0.5-1.5) L 11/06/21 13:27 FiO2 50 % 11/01/21 04:00 FiO2 % 40 11/06/21 13:27 Sodium 139 mmol/L (137-145) 11/12/21 09:37 Potassium 3.4 mmol/L (3.6-5.0) L 11/12/21 09:37 Chloride 102.2 mmol/L (98-107) 11/12/21 09:37 Carbon Dioxide 24 mmol/L (22-30) 11/12/21 09:37 Anion Gap 16 mmol/L 11/12/21 09:37 BUN 19 mg/dL (9-20) 11/12/21 09:37 Creatinine 0.5 mg/dL (0.8-1.3) L 11/12/21 09:37 Estimated GFR > 60 ml/min 11/12/21 09:37 BUN/Creatinine Ratio 38 % 11/12/21 09:37 Glucose 127 mg/dL (75-100) H 11/12/21 09:37 POC Glucose 75 mg/dL (70-105) 11/14/21 23:34 Lactic Acid 1.80 mmol/L (0.7-2.0) 10/31/21 23:23 Calcium 9.0 mg/dL (8.4-10.2) 11/12/21 09:37 Phosphorus 3.00 mg/dL (2.5-4.5) 11/07/21 04:57 Magnesium 2.10 mg/dL (1.7-2.3) 11/12/21 09:37 Ferritin > 2000.0 ng/mL (30.0-300.0) H 11/07/21 04:57 Total Bilirubin 0.30 mg/dL (0.1-1.2) 11/12/21 09:37 AST 58 units/L (5-40) H 11/12/21 09:37 ALT 119 units/L (7-56) H 11/12/21 09:37 Alkaline Phosphatase 168 units/L (35-129) H 11/12/21 09:37 Ammonia 21.0 umol/L (25-60) L 10/31/21 06:04 Lactate Dehydrogenase 370 units/L (91-180) H 11/07/21 04:57 Troponin T < 0.010 ng/mL (0.00-0.029) 10/31/21 16:42 C-Reactive Protein 9.10 mg/dL (0.00-1.30) H 11/07/21 04:57 NT-Pro-B Natriuret Pep 2381 pg/mL (0-900) H 10/31/21 02:36 Total Protein 7.3 g/dL (6.3-8.2) 11/12/21 09:37 Albumin 2.5 g/dL (3.9-5) L 11/12/21 09:37 Albumin/Globulin Ratio 0.5 % 11/12/21 09:37 Triglycerides 116 mg/dL (2-149) 10/31/21 02:36 Cholesterol 52 mg/dL (50-199) 10/31/21 02:36 LDL Cholesterol Direct 20 mg/dL (50-130) L 10/31/21 02:36 HDL Cholesterol 13 mg/dL (40-59) L 10/31/21 02:36 Cholesterol/HDL Ratio 4.00 % 10/31/21 02:36 Procalcitonin 3.44 ng/mL (<0.15) 10/31/21 02:36 Arterial Blood Glucose 181 mg/dL (65-95) H 11/06/21 13:27 Arterial Blood Ionized Calcium 5.0 mg/dL (4.6-5.3) 11/06/21 13:27 Coronavirus (PCR) Positive (Negative) A 10/31/21 09:30 SARS-CoV-2 (PCR) Positive (Negative) A 11/14/21 13:57 [place]/IV: Voiding Method Condom Catheter Nutrition/Malnutrition Assess - Dietary Evaluation Nutrition/Malnutrition Findings: Nutrition Notes Start: 10/31/21 12:11 Freq: Status: Discharge Protocol: Document 11/14/21 09:46 ARTURO (Rec: 11/14/21 10:04 ARTURO [id number]) Nutrition Notes Initial or Follow up Reassessment Current Diagnosis Acute Kidney Injury,Sepsis, Respiratory Failure,Stroke Other Pertinent Diagnosis COVID-19, Pneumonia, Elevated D-dimer, Elevated Liver Enzimes. Current Diet TF-Nepro w/CARBSTEADY @ 45 ml/ hr (since D 11/06). Labs/Tests 11/14 N/A. Pertinent Medications 11/14: Nutritionally unremarkable. Height 6 ft 1 in Weight 70.3 kg [place] Body Weight (kg) 83.63 BMI 20.4 Weight change and time frame No body weight change reported . Weight Status Appropriate Subjective/Other Information RD consult for routine F/U on TF tolerance. TF well tolerated as per RN notes. Pt ready to be discharged. Percent of energy/protein needs met: Prescribed Nepro w/CARBSTEADY @ 45 ml/hr provides for energy /protein needs (1,891 Kcal/85 g) during LOS, 100% Kcal; 100% AA. Burn Absent Trauma Absent GI Symptoms None Food Allergy No Skin Integrity/Comment Clear, warm, dry. Current % PO Other Minimum of two criteria No #1 Nutrition Diagnosis Inadequate oral intake Diagnosis Progress(for reassessment Continues documentation) Is patient on ventilator? Yes Is Patient Ambulatory and/or Out of Bed No REE-([facility]-confined to bed) 1891.068 Calculation Used for Recommendations [facility] Additional Notes Protein: 1.2-2 g/kg; 84-141 g/ day. Fluids: 1 ml/kcal, or as per MD. Nutrition Intervention Nutrition Support: Continue Nepro w/CARBSTEADY @ 45 ml/hr. Flush: 230 ml water Q 4 hr, as per MD Kcal 1,891 Protein (gm) 85 Carbohydrates (gm) 169 Fat (gm) 101 Fluid (mL) 764 Fiber (gm) 13 % RDI: 100% Kcal; 100% AA. Goal #1 Provide at least 75% of energy /protein needs through Enteral Feeding during LOS. Follow-Up By: 11/21/21 Additional Comments Continue monitoring TF tolerance and BM.
[2021-11-07] MEDS: ACETYLCYSTEINE 20% 200 MG/1 ML *FOR INHALATION USE INHALATION SCH ×2 (03:28→16:06)
[2021-11-07 05:40] LABS: Hematocrit 37.5 % (35.5-45.6); Hemoglobin 11.5 gm/dl (11.8-15.2); Mean Corpuscular HGB Conc 31 % (32-34); Mean Corpuscular Volume 87 fl (84-94); Platelet Count 442 K/mm3 (140-440); Red Blood Count 4.33 M/mm3 (3.65-5.03); Red Cell Distribution Width 14.9 % (13.2-15.2)
[2021-11-07 06:07] LABS: Alanine Aminotransferase 246 units/L (7-56); Albumin 2.8 g/dL (3.9-5); Blood Urea Nitrogen 16 mg/dL (9-20); Calcium 10.1 mg/dL (8.4-10.2); Hemolysis Index 1
[2021-11-07 06:22] LABS: BUN/Creatinine Ratio 32
[2021-11-07] MEDS: GLYCOPYRROLATE 1 MG TAB PO SCH (08:45)
[2021-11-07] MEDS: dexAMETHasone 4 MG/ML VIAL IV SCH (09:04)
[2021-11-07] MEDS: ENOXAPARIN 40 MG/0.4 ML INJ SUB-Q SCH (09:04)
[2021-11-07] MEDS: FAMOTIDINE 20 MG TAB FEEDTUBE SCH ×2 (09:04→21:34)
[2021-11-07] MEDS: SENNOSIDES/DOCUSATE SODIUM 8.6/50 MG TAB FEEDTUBE SCH ×2 (09:04→21:34)
--- NOTE | 2021-11-07 12:48 | Progress Note ---
Assessment and Plan Cultures: Blood culture no growth so far COVID-19 PCR positive Sputum culture 10/31/2021 Klebsiella pneumoniae A/P: 61-year-old male with medical history of stroke, chronic tracheostomy, PEG tube now with: #COVID pneumonia: with possible superimposed bacterial PNA #Acute on chronic respiratory failure: Chronic trach in place, required ventilation on top of normal requirements, now on T-piece #History of CVA #MARCELINO: Resolved. #Elevated LFTs: unknown etiology. ?COVID related. RUQ US showed contracted gall bladder Recs: -Completed 5 days of ceftriaxone -Completed Remdesivir -Continue Decadron, complete 10 days -leucocytosis probably from steroids -Anticoagulation per hospital protocol Adela Siddiqi MD, FACP, [facility] ([facility] O: [phone] F: [phone] Subjective Date of service: 11/07/21 Principal diagnosis: AHRF; Pneumonia; COVID-19; MARCELINO; Leukocytosis; Lactic acidosis; Sepsis Interval history: No fever. On T-piece. Objective - Exam Narrative Exam: Physical Exam: Constitutional: Awake Head, Ears, Nose: Normocephalic, atraumatic. External ears, nose normal Eyes: Conjunctivae/corneas clear. No icterus. No ptosis. Neck: Trach + Cardiovascular: S1, S2 + Respiratory: Good air entry, clear to auscultation bilaterally GI: Soft, non-tender; bowel sounds normal. No peritoneal signs Musculoskeletal: No pedal edema, no cyanosis. Skin: No rash or abscess Hem/Lymphatic: No palpable cervical or supraclavicular nodes. No lymphangitis Psych: No agitation Neurological: Awake - Constitutional Vitals: Vital Signs Temp Pulse Resp BP Pulse Ox 98.0 F 94 H 19 115/81 96 11/07/21 12:00 11/07/21 09:00 11/07/21 09:00 11/07/21 09:00 11/07/21 09:17 Temperature -Last 24 Hours Temperature 98.0 F Temperature 97.9 F Temperature 97.9 F Temperature 98.2 F Temperature 97.8 F Temperature 98.3 F - Labs CBC & Chem 7: 11/07/21 04:57 11/07/21 04:57 Labs: Abnormal lab results 11/06/21 11/06/21 11/06/21 Range/Units 13:27 16:14 23:55 WBC (4.5-11.0) K/mm3 Hgb (11.8-15.2) gm/dl MCH (28-32) pg MCHC (32-34) % Plt Count (140-440) K/mm3 D-Dimer (0-234) ng/mlDDU ABG pH 7.572 H (7.320-7.450) POC ABG pCO2 28.9 L (32.0-48.0) mmHg POC ABG pO2 80.4 L (83-108) mmHg ABG Potassium 3.1 L (3.40-4.50) mmol/L ABG Glucose 181 H (65-95) mg/dL Carboxyhemoglobin 0.1 L (0.5-1.5) Potassium (3.6-5.0) mmol/L Creatinine (0.8-1.3) mg/dL Glucose (75-100) mg/dL POC Glucose 172 H 130 H (70-105) mg/dL Ferritin (30.0-300.0) ng/mL AST (5-40) units/L ALT (7-56) units/L Alkaline Phosphatase (35-129) units/L Lactate Dehydrogenase (91-180) units/L C-Reactive Protein (0.00-1.30) mg/dL Albumin (3.9-5) g/dL Arterial Blood Glucose 181 H (65-95) mg/dL 11/07/21 11/07/21 11/07/21 Range/Units 04:57 04:57 04:57 WBC (4.5-11.0) K/mm3 Hgb (11.8-15.2) gm/dl MCH (28-32) pg MCHC (32-34) % Plt Count (140-440) K/mm3 D-Dimer 867.25 H (0-234) ng/mlDDU ABG pH (7.320-7.450) POC ABG pCO2 (32.0-48.0) mmHg POC ABG pO2 (83-108) mmHg ABG Potassium (3.40-4.50) mmol/L ABG Glucose (65-95) mg/dL Carboxyhemoglobin (0.5-1.5) Potassium 3.4 L (3.6-5.0) mmol/L Creatinine 0.5 L (0.8-1.3) mg/dL Glucose 115 H (75-100) mg/dL POC Glucose (70-105) mg/dL Ferritin > 2000.0 H (30.0-300.0) ng/mL AST 143 H (5-40) units/L ALT 246 H (7-56) units/L Alkaline Phosphatase 181 H (35-129) units/L Lactate Dehydrogenase 370 H (91-180) units/L C-Reactive Protein 9.10 H (0.00-1.30) mg/dL Albumin 2.8 L (3.9-5) g/dL Arterial Blood Glucose (65-95) mg/dL 11/07/21 11/07/21 Range/Units 04:57 11:54 WBC 16.6 H (4.5-11.0) K/mm3 Hgb 11.5 L (11.8-15.2) gm/dl MCH 27 L (28-32) pg MCHC 31 L (32-34) % Plt Count 442 H (140-440) K/mm3 D-Dimer (0-234) ng/mlDDU ABG pH (7.320-7.450) POC ABG pCO2 (32.0-48.0) mmHg POC ABG pO2 (83-108) mmHg ABG Potassium (3.40-4.50) mmol/L ABG Glucose (65-95) mg/dL Carboxyhemoglobin (0.5-1.5) Potassium (3.6-5.0) mmol/L Creatinine (0.8-1.3) mg/dL Glucose (75-100) mg/dL POC Glucose 177 H (70-105) mg/dL Ferritin (30.0-300.0) ng/mL AST (5-40) units/L ALT (7-56) units/L Alkaline Phosphatase (35-129) units/L Lactate Dehydrogenase (91-180) units/L C-Reactive Protein (0.00-1.30) mg/dL Albumin (3.9-5) g/dL Arterial Blood Glucose (65-95) mg/dL
--- NOTE | 2021-11-07 13:10 | Progress Note ---
Assessment and Plan Acute on chronic hypoxemic respiratory failure Possible aspiration pneumonia COVID-19 infection Acute kidney injury Sepsis Leukocytosis Mild metabolic acidosis Lactic acidosis Hypernatremia Adult FTT Elevated serum transaminases Elevated serum inflammatory markers to include ferritin, LDH and D-dimers Oropharyngeal dysphagia - KCL 40 meq p.o. X 1 - get Mg level in am - stopped Robinul - continue mucomyst q6h - continue AT-piece RTC as tolerated - continue care as below otherwise; - de-escalate AB's per ID recommendations - continue to wean supplemental oxygen for target O2 sat's > 90% acutely - aspiration precautions - continue bronchodilators with pulmonary hygiene per RT - wean per pulmonary driven protocols otherwise - avoid nephrotoxins, renally dose all medications - continue accuchecks with glycemic control per SSI for target blood glucose < 180 mg/dL - s/p Rocephin and Zithromax - prn analgesia per pain score - Maintenance of sleep-wake cycle, avoid delirium - enteral nutritional support at goal rate as tolerated - G.I. & VTE prophylaxis - PT/OT/ROM exercises - mobility protocols for pressure ulcer prophylaxis - Monitor hemodynamics closely - continue other care per attending / other consultants - discharge planning ongoing concurrently COVID SPECIFIC INTERVENTIONS - Remdesivir as per ID/Pulmonary developed protocols (Receiving) - continue systemic steroids for severe COVID-19 infection empirically ([facility]) - follow repeat COVID tests results - zinc and vitamin C supplementation - Monitor inflammatory markers per facility protocol - ferritin, Ddimer, CRP - therapeutic anticoagulation per system Protocol based on d-dimer and clinical considerations (VTE prophylaxis) - Continue contact and airborne isolation .... Re-evaluate in am & prn ... transfer to medical floor Subjective Date of service: 11/07/21 Principal diagnosis: AHRF; Pneumonia; COVID-19; MARCELINO; Leukocytosis; Lactic acidosis; Sepsis Interval history: Patient is seen today for: AHRF; Aspiration Pneumonia; COVID-19; MARCELINO; Leukocytosis; Lactic acidosis; Elevated serum LFT's; Sepsis Seen and examined at bedside; 24hour events reviewed; nursing and respiratory care staff consulted; no adverse overnight events reported to me; resting in bed; secretions still thick but now reduced; no N/V/F/C or overt aspiration; remains on RTC t-piece though Objective Vital Signs - 12hr 11/07/21 11/07/21 11/07/21 01:01 01:31 02:00 Temperature Pulse Rate 92 H 95 H 89 Pulse Rate [ Anterior Bilateral Throughout] Pulse Rate [ From Monitor] Respiratory 17 15 12 Rate Respiratory Rate [Anterior Bilateral Throughout] Blood Pressure 122/101 122/101 116/74 O2 Sat by Pulse 89 92 92 Oximetry O2 Sat by Pulse Oximetry [ Assessment] 11/07/21 11/07/21 11/07/21 02:31 03:00 03:29 Temperature Pulse Rate 82 88 Pulse Rate [ 82 Anterior Bilateral Throughout] Pulse Rate [ From Monitor] Respiratory 26 H 17 Rate Respiratory 16 Rate [Anterior Bilateral Throughout] Blood Pressure 116/74 105/71 O2 Sat by Pulse 94 95 97 Oximetry O2 Sat by Pulse 97 Oximetry [ Assessment] 11/07/21 11/07/21 11/07/21 03:31 04:00 04:31 Temperature 97.9 F Pulse Rate 91 H 81 82 Pulse Rate [ Anterior Bilateral Throughout] Pulse Rate [ 81 From Monitor] Respiratory 13 15 30 H Rate Respiratory Rate [Anterior Bilateral Throughout] Blood Pressure 105/71 104/79 104/79 O2 Sat by Pulse 94 92 90 Oximetry O2 Sat by Pulse Oximetry [ Assessment] 11/07/21 11/07/21 11/07/21 05:00 05:31 06:00 Temperature Pulse Rate 86 85 83 Pulse Rate [ Anterior Bilateral Throughout] Pulse Rate [ From Monitor] Respiratory 17 16 27 H Rate Respiratory Rate [Anterior Bilateral Throughout] Blood Pressure 109/80 109/80 115/77 O2 Sat by Pulse 95 94 92 Oximetry O2 Sat by Pulse Oximetry [ Assessment] 11/07/21 11/07/21 11/07/21 06:31 07:00 07:31 Temperature Pulse Rate 85 85 78 Pulse Rate [ Anterior Bilateral Throughout] Pulse Rate [ From Monitor] Respiratory 20 17 22 Rate Respiratory Rate [Anterior Bilateral Throughout] Blood Pressure 115/77 117/75 117/75 O2 Sat by Pulse 95 92 95 Oximetry O2 Sat by Pulse Oximetry [ Assessment] 11/07/21 11/07/21 11/07/21 08:00 08:01 08:31 Temperature 97.9 F Pulse Rate 88 85 Pulse Rate [ Anterior Bilateral Throughout] Pulse Rate [ From Monitor] Respiratory 14 17 Rate Respiratory Rate [Anterior Bilateral Throughout] Blood Pressure 117/75 123/81 O2 Sat by Pulse 94 96 Oximetry O2 Sat by Pulse Oximetry [ Assessment] 11/07/21 11/07/21 11/07/21 09:00 09:15 09:17 Temperature Pulse Rate 94 H Pulse Rate [ Anterior Bilateral Throughout] Pulse Rate [ From Monitor] Respiratory 19 Rate Respiratory Rate [Anterior Bilateral Throughout] Blood Pressure 115/81 O2 Sat by Pulse 95 96 Oximetry O2 Sat by Pulse 95 Oximetry [ Assessment] Constitutional: no acute distress, other (middle aged male with mildly increased respiratory effort at rest) Eyes: non-icteric ENT: oropharynx moist, oropharyngeal exudate pre (mild; thick / tenacious), other (midline tracheostomy) Neck: supple, no lymphadenopathy, no JVD Effort: mildly labored Ascultation: Bilateral: rhonchi (and referred upper airway sounds) Percussion: Bilateral: not dull Cardiovascular: regular rate and rhythm Gastrointestinal: normoactive bowel sounds, soft, non-tender, non-distended Integumentary: rash Extremities: no cyanosis, no ischemia or petechiae Neurologic: pupils equal and round, CN II-XII normal, other (weak lower extremities) Psychiatric: mood appropriate, affect normal, other (mild cognitive impairment) CBC and BMP: 11/07/21 04:57 11/07/21 04:57 ABG, PT/INR, D-dimer: ABG ABG pH 7.572 (7.320-7.450) H 11/06/21 13:27 POC ABG pCO2 28.9 mmHg (32.0-48.0) L 11/06/21 13:27 ABG pCO2 29.9 mm Hg 11/01/21 04:00 POC ABG pO2 80.4 mmHg (83-108) L 11/06/21 13:27 ABG pO2 82.5 mm Hg (80.0-90.0) 11/01/21 04:00 POC ABG HCO3 26.0 11/06/21 13:27 ABG O2 Saturation 96.8 (0-100) 11/06/21 13:27 PT/INR, D-dimer PT 15.6 Sec. (12.2-14.9) H 10/31/21 02:36 INR 1.12 (0.87-1.13) 10/31/21 02:36 D-Dimer 867.25 ng/mlDDU (0-234) H 11/07/21 04:57 Abnormal lab findings: Abnormal Labs 10/31/21 10/31/21 10/31/21 02:36 02:36 02:36 WBC 11.4 H Hgb Hct MCH 26 L MCHC 29 L RDW 15.3 H Plt Count Lymph % (Auto) Lymph # (Auto) Seg Neutrophils % 81.5 H Seg Neuts % (Manual) Lymphocytes % (Manual) Nucleated RBC % Seg Neutrophils # 9.3 H Seg Neutrophils # Man Lymphocytes # (Manual) PT 15.6 H APTT 43.1 H D-Dimer 1951.30 H ABG pH POC ABG pCO2 POC ABG pO2 ABG pO2 ABG HCO3 ABG O2 Saturation ABG Base Excess ABG Hemoglobin ABG Oxyhemoglobin ABG Sodium ABG Potassium ABG Chloride ABG Glucose Carboxyhemoglobin Sodium 155 H Potassium Chloride 110.3 H Carbon Dioxide 15 L BUN 46 H Creatinine 2.7 H Glucose 120 H POC Glucose Lactic Acid Magnesium Ferritin AST 492 H ALT 319 H Alkaline Phosphatase 153 H Ammonia Lactate Dehydrogenase Troponin T 0.065 H C-Reactive Protein NT-Pro-B Natriuret Pep 2381 H Albumin 3.0 L LDL Cholesterol Direct 20 L HDL Cholesterol 13 L Arterial Blood Glucose Coronavirus (PCR) 10/31/21 10/31/21 10/31/21 02:36 02:36 02:36 WBC Hgb Hct MCH MCHC RDW Plt Count Lymph % (Auto) Lymph # (Auto) Seg Neutrophils % Seg Neuts % (Manual) Lymphocytes % (Manual) Nucleated RBC % Seg Neutrophils # Seg Neutrophils # Man Lymphocytes # (Manual) PT APTT D-Dimer ABG pH POC ABG pCO2 POC ABG pO2 ABG pO2 ABG HCO3 ABG O2 Saturation ABG Base Excess ABG Hemoglobin ABG Oxyhemoglobin ABG Sodium ABG Potassium ABG Chloride ABG Glucose Carboxyhemoglobin Sodium Potassium Chloride Carbon Dioxide BUN Creatinine Glucose POC Glucose Lactic Acid 11.80 H* Magnesium Ferritin 10315.0 H AST ALT Alkaline Phosphatase Ammonia Lactate Dehydrogenase 923 H Troponin T C-Reactive Protein 7.80 H NT-Pro-B Natriuret Pep Albumin LDL Cholesterol Direct HDL Cholesterol Arterial Blood Glucose Coronavirus (PCR) 10/31/21 10/31/21 10/31/21 04:01 04:54 06:04 WBC Hgb Hct MCH MCHC RDW Plt Count Lymph % (Auto) Lymph # (Auto) Seg Neutrophils % Seg Neuts % (Manual) Lymphocytes % (Manual) Nucleated RBC % Seg Neutrophils # Seg Neutrophils # Man Lymphocytes # (Manual) PT APTT D-Dimer ABG pH 7.318 L POC ABG pCO2 POC ABG pO2 ABG pO2 229.1 H ABG HCO3 17.4 L ABG O2 Saturation 99.3 H ABG Base Excess -7.8 L ABG Hemoglobin 13.2 L ABG Oxyhemoglobin ABG Sodium ABG Potassium ABG Chloride ABG Glucose Carboxyhemoglobin Sodium Potassium Chloride Carbon Dioxide BUN Creatinine Glucose POC Glucose Lactic Acid 5.50 H* Magnesium Ferritin AST ALT Alkaline Phosphatase Ammonia 21.0 L Lactate Dehydrogenase Troponin T C-Reactive Protein NT-Pro-B Natriuret Pep Albumin LDL Cholesterol Direct HDL Cholesterol Arterial Blood Glucose Coronavirus (PCR) 10/31/21 10/31/21 10/31/21 09:30 10:44 16:42 WBC Hgb Hct MCH MCHC RDW Plt Count Lymph % (Auto) Lymph # (Auto) Seg Neutrophils % Seg Neuts % (Manual) Lymphocytes % (Manual) Nucleated RBC % Seg Neutrophils # Seg Neutrophils # Man Lymphocytes # (Manual) PT APTT D-Dimer ABG pH POC ABG pCO2 POC ABG pO2 ABG pO2 ABG HCO3 ABG O2 Saturation ABG Base Excess ABG Hemoglobin ABG Oxyhemoglobin ABG Sodium ABG Potassium ABG Chloride ABG Glucose Carboxyhemoglobin Sodium Potassium Chloride Carbon Dioxide BUN Creatinine Glucose POC Glucose Lactic Acid 3.40 H* 2.80 H* Magnesium Ferritin AST ALT Alkaline Phosphatase Ammonia Lactate Dehydrogenase Troponin T C-Reactive Protein NT-Pro-B Natriuret Pep Albumin LDL Cholesterol Direct HDL Cholesterol Arterial Blood Glucose Coronavirus (PCR) Positive A 10/31/21 11/01/21 11/01/21 16:42 03:38 03:38 WBC 15.6 H Hgb 11.3 L Hct MCH MCHC 31 L RDW 15.3 H Plt Count Lymph % (Auto) Lymph # (Auto) Seg Neutrophils % Seg Neuts % (Manual) 73.0 H Lymphocytes % (Manual) 9.0 L Nucleated RBC % 1.0 H Seg Neutrophils # Seg Neutrophils # Man 11.4 H Lymphocytes # (Manual) PT APTT D-Dimer ABG pH POC ABG pCO2 POC ABG pO2 ABG pO2 ABG HCO3 ABG O2 Saturation ABG Base Excess ABG Hemoglobin ABG Oxyhemoglobin ABG Sodium ABG Potassium ABG Chloride ABG Glucose Carboxyhemoglobin Sodium 158 H Potassium Chloride 122.1 H Carbon Dioxide BUN 40 H Creatinine Glucose 101 H POC Glucose Lactic Acid Magnesium 2.40 H Ferritin AST ALT Alkaline Phosphatase Ammonia Lactate Dehydrogenase Troponin T C-Reactive Protein NT-Pro-B Natriuret Pep Albumin LDL Cholesterol Direct HDL Cholesterol Arterial Blood Glucose Coronavirus (PCR) 11/01/21 11/02/21 11/02/21 04:00 03:22 03:22 WBC 11.9 H Hgb 11.6 L Hct MCH 27 L MCHC 31 L RDW 15.3 H Plt Count Lymph % (Auto) Lymph # (Auto) Seg Neutrophils % Seg Neuts % (Manual) Lymphocytes % (Manual) Nucleated RBC % Seg Neutrophils # Seg Neutrophils # Man Lymphocytes # (Manual) PT APTT D-Dimer ABG pH 7.468 H POC ABG pCO2 POC ABG pO2 ABG pO2 ABG HCO3 ABG O2 Saturation ABG Base Excess ABG Hemoglobin 11.3 L ABG Oxyhemoglobin ABG Sodium ABG Potassium ABG Chloride ABG Glucose Carboxyhemoglobin Sodium 159 H Potassium Chloride 123.3 H Carbon Dioxide BUN 35 H Creatinine Glucose POC Glucose Lactic Acid Magnesium Ferritin AST 394 H ALT 282 H Alkaline Phosphatase 173 H Ammonia Lactate Dehydrogenase Troponin T C-Reactive Protein NT-Pro-B Natriuret Pep Albumin 2.9 L LDL Cholesterol Direct HDL Cholesterol Arterial Blood Glucose Coronavirus (PCR) 11/02/21 11/02/21 11/03/21 03:22 03:58 03:47 WBC Hgb Hct MCH MCHC RDW Plt Count Lymph % (Auto) Lymph # (Auto) Seg Neutrophils % Seg Neuts % (Manual) Lymphocytes % (Manual) Nucleated RBC % Seg Neutrophils # Seg Neutrophils # Man Lymphocytes # (Manual) PT APTT D-Dimer ABG pH 7.523 H 7.467 H POC ABG pCO2 26.0 L 29.8 L POC ABG pO2 69.3 L 77.2 L ABG pO2 ABG HCO3 ABG O2 Saturation ABG Base Excess ABG Hemoglobin 11.7 L 11.4 L ABG Oxyhemoglobin 93.5 L ABG Sodium 161.6 H 158.6 H ABG Potassium ABG Chloride 123.0 H 122.0 H ABG Glucose 100 H 226 H Carboxyhemoglobin 0.3 L 0.2 L Sodium 160 H Potassium Chloride 126.4 H Carbon Dioxide BUN 36 H Creatinine Glucose POC Glucose Lactic Acid Magnesium 3.00 H Ferritin AST ALT Alkaline Phosphatase Ammonia Lactate Dehydrogenase Troponin T C-Reactive Protein NT-Pro-B Natriuret Pep Albumin LDL Cholesterol Direct HDL Cholesterol Arterial Blood Glucose 100 H 226 H Coronavirus (PCR) 11/03/21 11/03/21 11/03/21 04:32 04:32 04:32 WBC 13.6 H Hgb 11.2 L Hct MCH MCHC 31 L RDW 15.4 H Plt Count Lymph % (Auto) Lymph # (Auto) Seg Neutrophils % Seg Neuts % (Manual) 96.0 H Lymphocytes % (Manual) 4.0 L Nucleated RBC % Seg Neutrophils # Seg Neutrophils # Man 13.1 H Lymphocytes # (Manual) 0.5 L PT APTT D-Dimer ABG pH POC ABG pCO2 POC ABG pO2 ABG pO2 ABG HCO3 ABG O2 Saturation ABG Base Excess ABG Hemoglobin ABG Oxyhemoglobin ABG Sodium ABG Potassium ABG Chloride ABG Glucose Carboxyhemoglobin Sodium 154 H Potassium Chloride 120.7 H Carbon Dioxide 21 L BUN 30 H Creatinine Glucose 216 H POC Glucose Lactic Acid Magnesium 2.70 H Ferritin AST 258 H ALT 241 H Alkaline Phosphatase 178 H Ammonia Lactate Dehydrogenase Troponin T C-Reactive Protein NT-Pro-B Natriuret Pep Albumin 2.7 L LDL Cholesterol Direct HDL Cholesterol Arterial Blood Glucose Coronavirus (PCR) 11/04/21 11/04/21 11/04/21 04:48 04:48 05:04 WBC Hgb 10.5 L Hct 33.1 L MCH MCHC RDW Plt Count Lymph % (Auto) 9.7 L Lymph # (Auto) 1.0 L Seg Neutrophils % 87.1 H Seg Neuts % (Manual) Lymphocytes % (Manual) Nucleated RBC % Seg Neutrophils # 9.1 H Seg Neutrophils # Man Lymphocytes # (Manual) PT APTT D-Dimer ABG pH 7.531 H POC ABG pCO2 24.8 L POC ABG pO2 60.5 L ABG pO2 ABG HCO3 ABG O2 Saturation ABG Base Excess ABG Hemoglobin 11.5 L ABG Oxyhemoglobin 91.3 L ABG Sodium 154.1 H ABG Potassium ABG Chloride 118.0 H ABG Glucose 117 H Carboxyhemoglobin 0.3 L Sodium 157 H Potassium Chloride 122.0 H Carbon Dioxide 19 L BUN 21 H Creatinine 0.7 L Glucose 114 H POC Glucose Lactic Acid Magnesium Ferritin AST 366 H ALT 268 H Alkaline Phosphatase 177 H Ammonia Lactate Dehydrogenase Troponin T C-Reactive Protein NT-Pro-B Natriuret Pep Albumin 2.7 L LDL Cholesterol Direct HDL Cholesterol Arterial Blood Glucose 117 H Coronavirus (PCR) 11/04/21 11/04/21 11/04/21 11:59 17:53 18:30 WBC Hgb Hct MCH MCHC RDW Plt Count Lymph % (Auto) Lymph # (Auto) Seg Neutrophils % Seg Neuts % (Manual) Lymphocytes % (Manual) Nucleated RBC % Seg Neutrophils # Seg Neutrophils # Man Lymphocytes # (Manual) PT APTT D-Dimer ABG pH 7.508 H POC ABG pCO2 27.1 L POC ABG pO2 67.1 L ABG pO2 ABG HCO3 ABG O2 Saturation ABG Base Excess ABG Hemoglobin 11.9 L ABG Oxyhemoglobin 93.3 L ABG Sodium 147.4 H ABG Potassium ABG Chloride 113.0 H ABG Glucose 183 H Carboxyhemoglobin 0.2 L Sodium Potassium Chloride Carbon Dioxide BUN Creatinine Glucose POC Glucose 108 H 123 H Lactic Acid Magnesium Ferritin AST ALT Alkaline Phosphatase Ammonia Lactate Dehydrogenase Troponin T C-Reactive Protein NT-Pro-B Natriuret Pep Albumin LDL Cholesterol Direct HDL Cholesterol Arterial Blood Glucose 183 H Coronavirus (PCR) 11/04/21 11/05/21 11/05/21 21:24 06:03 06:03 WBC Hgb Hct MCH MCHC RDW Plt Count Lymph % (Auto) Lymph # (Auto) Seg Neutrophils % Seg Neuts % (Manual) Lymphocytes % (Manual) Nucleated RBC % Seg Neutrophils # Seg Neutrophils # Man Lymphocytes # (Manual) PT APTT D-Dimer 824.75 H ABG pH POC ABG pCO2 POC ABG pO2 ABG pO2 ABG HCO3 ABG O2 Saturation ABG Base Excess ABG Hemoglobin ABG Oxyhemoglobin ABG Sodium ABG Potassium ABG Chloride ABG Glucose Carboxyhemoglobin Sodium Potassium Chloride Carbon Dioxide BUN Creatinine Glucose POC Glucose 190 H Lactic Acid Magnesium Ferritin 2000.0 H AST ALT Alkaline Phosphatase Ammonia Lactate Dehydrogenase Troponin T C-Reactive Protein NT-Pro-B Natriuret Pep Albumin LDL Cholesterol Direct HDL Cholesterol Arterial Blood Glucose Coronavirus (PCR) 11/05/21 11/05/21 11/05/21 06:03 06:03 08:15 WBC 11.3 H Hgb 11.2 L Hct MCH MCHC 31 L RDW 15.4 H Plt Count Lymph % (Auto) Lymph # (Auto) Seg Neutrophils % Seg Neuts % (Manual) Lymphocytes % (Manual) Nucleated RBC % Seg Neutrophils # Seg Neutrophils # Man Lymphocytes # (Manual) PT APTT D-Dimer ABG pH POC ABG pCO2 POC ABG pO2 ABG pO2 ABG HCO3 ABG O2 Saturation ABG Base Excess ABG Hemoglobin ABG Oxyhemoglobin ABG Sodium ABG Potassium ABG Chloride ABG Glucose Carboxyhemoglobin Sodium Potassium Chloride 107.3 H Carbon Dioxide BUN Creatinine 0.6 L Glucose 192 H POC Glucose 171 H Lactic Acid Magnesium Ferritin AST 158 H ALT 233 H Alkaline Phosphatase 179 H Ammonia Lactate Dehydrogenase 401 H Troponin T C-Reactive Protein 6.50 H NT-Pro-B Natriuret Pep Albumin 2.7 L LDL Cholesterol Direct HDL Cholesterol Arterial Blood Glucose Coronavirus (PCR) 11/05/21 11/05/21 11/05/21 11:36 12:10 16:41 WBC Hgb Hct MCH MCHC RDW Plt Count Lymph % (Auto) Lymph # (Auto) Seg Neutrophils % Seg Neuts % (Manual) Lymphocytes % (Manual) Nucleated RBC % Seg Neutrophils # Seg Neutrophils # Man Lymphocytes # (Manual) PT APTT D-Dimer ABG pH 7.456 H POC ABG pCO2 POC ABG pO2 80.4 L 69.1 L ABG pO2 ABG HCO3 ABG O2 Saturation ABG Base Excess ABG Hemoglobin 11.0 L 11.4 L ABG Oxyhemoglobin 93.1 L ABG Sodium ABG Potassium ABG Chloride ABG Glucose 165 H 232 H Carboxyhemoglobin 0.3 L 0.3 L Sodium Potassium Chloride Carbon Dioxide BUN Creatinine Glucose POC Glucose 162 H Lactic Acid Magnesium Ferritin AST ALT Alkaline Phosphatase Ammonia Lactate Dehydrogenase Troponin T C-Reactive Protein NT-Pro-B Natriuret Pep Albumin LDL Cholesterol Direct HDL Cholesterol Arterial Blood Glucose 165 H 232 H Coronavirus (PCR) 11/05/21 11/05/21 11/06/21 16:53 23:33 05:05 WBC Hgb Hct MCH MCHC RDW Plt Count Lymph % (Auto) Lymph # (Auto) Seg Neutrophils % Seg Neuts % (Manual) Lymphocytes % (Manual) Nucleated RBC % Seg Neutrophils # Seg Neutrophils # Man Lymphocytes # (Manual) PT APTT D-Dimer ABG pH POC ABG pCO2 POC ABG pO2 ABG pO2 ABG HCO3 ABG O2 Saturation ABG Base Excess ABG Hemoglobin ABG Oxyhemoglobin ABG Sodium ABG Potassium ABG Chloride ABG Glucose Carboxyhemoglobin Sodium Potassium 3.3 L Chloride Carbon Dioxide BUN Creatinine 0.5 L Glucose 125 H POC Glucose 190 H 144 H Lactic Acid Magnesium Ferritin AST ALT Alkaline Phosphatase Ammonia Lactate Dehydrogenase Troponin T C-Reactive Protein NT-Pro-B Natriuret Pep Albumin LDL Cholesterol Direct HDL Cholesterol Arterial Blood Glucose Coronavirus (PCR) 11/06/21 11/06/21 11/06/21 05:05 11:11 13:27 WBC 13.6 H Hgb 11.1 L Hct 35.3 L MCH MCHC RDW Plt Count Lymph % (Auto) Lymph # (Auto) Seg Neutrophils % Seg Neuts % (Manual) Lymphocytes % (Manual) Nucleated RBC % Seg Neutrophils # Seg Neutrophils # Man Lymphocytes # (Manual) PT APTT D-Dimer ABG pH 7.572 H POC ABG pCO2 28.9 L POC ABG pO2 80.4 L ABG pO2 ABG HCO3 ABG O2 Saturation ABG Base Excess ABG Hemoglobin ABG Oxyhemoglobin ABG Sodium ABG Potassium 3.1 L ABG Chloride ABG Glucose 181 H Carboxyhemoglobin 0.1 L Sodium Potassium Chloride Carbon Dioxide BUN Creatinine Glucose POC Glucose 166 H Lactic Acid Magnesium Ferritin AST ALT Alkaline Phosphatase Ammonia Lactate Dehydrogenase Troponin T C-Reactive Protein NT-Pro-B Natriuret Pep Albumin LDL Cholesterol Direct HDL Cholesterol Arterial Blood Glucose 181 H Coronavirus (PCR) 11/06/21 11/06/21 11/07/21 16:14 23:55 04:57 WBC Hgb Hct MCH MCHC RDW Plt Count Lymph % (Auto) Lymph # (Auto) Seg Neutrophils % Seg Neuts % (Manual) Lymphocytes % (Manual) Nucleated RBC % Seg Neutrophils # Seg Neutrophils # Man Lymphocytes # (Manual) PT APTT D-Dimer 867.25 H ABG pH POC ABG pCO2 POC ABG pO2 ABG pO2 ABG HCO3 ABG O2 Saturation ABG Base Excess ABG Hemoglobin ABG Oxyhemoglobin ABG Sodium ABG Potassium ABG Chloride ABG Glucose Carboxyhemoglobin Sodium Potassium Chloride Carbon Dioxide BUN Creatinine Glucose POC Glucose 172 H 130 H Lactic Acid Magnesium Ferritin AST ALT Alkaline Phosphatase Ammonia Lactate Dehydrogenase Troponin T C-Reactive Protein NT-Pro-B Natriuret Pep Albumin LDL Cholesterol Direct HDL Cholesterol Arterial Blood Glucose Coronavirus (PCR) 11/07/21 11/07/21 11/07/21 04:57 04:57 04:57 WBC 16.6 H Hgb 11.5 L Hct MCH 27 L MCHC 31 L RDW Plt Count 442 H Lymph % (Auto) Lymph # (Auto) Seg Neutrophils % Seg Neuts % (Manual) Lymphocytes % (Manual) Nucleated RBC % Seg Neutrophils # Seg Neutrophils # Man Lymphocytes # (Manual) PT APTT D-Dimer ABG pH POC ABG pCO2 POC ABG pO2 ABG pO2 ABG HCO3 ABG O2 Saturation ABG Base Excess ABG Hemoglobin ABG Oxyhemoglobin ABG Sodium ABG Potassium ABG Chloride ABG Glucose Carboxyhemoglobin Sodium Potassium 3.4 L Chloride Carbon Dioxide BUN Creatinine 0.5 L Glucose 115 H POC Glucose Lactic Acid Magnesium Ferritin > 2000.0 H AST 143 H ALT 246 H Alkaline Phosphatase 181 H Ammonia Lactate Dehydrogenase 370 H Troponin T C-Reactive Protein 9.10 H NT-Pro-B Natriuret Pep Albumin 2.8 L LDL Cholesterol Direct HDL Cholesterol Arterial Blood Glucose Coronavirus (PCR) 11/07/21 11:54 WBC Hgb Hct MCH MCHC RDW Plt Count Lymph % (Auto) Lymph # (Auto) Seg Neutrophils % Seg Neuts % (Manual) Lymphocytes % (Manual) Nucleated RBC % Seg Neutrophils # Seg Neutrophils # Man Lymphocytes # (Manual) PT APTT D-Dimer ABG pH POC ABG pCO2 POC ABG pO2 ABG pO2 ABG HCO3 ABG O2 Saturation ABG Base Excess ABG Hemoglobin ABG Oxyhemoglobin ABG Sodium ABG Potassium ABG Chloride ABG Glucose Carboxyhemoglobin Sodium Potassium Chloride Carbon Dioxide BUN Creatinine Glucose POC Glucose 177 H Lactic Acid Magnesium Ferritin AST ALT Alkaline Phosphatase Ammonia Lactate Dehydrogenase Troponin T C-Reactive Protein NT-Pro-B Natriuret Pep Albumin LDL Cholesterol Direct HDL Cholesterol Arterial Blood Glucose Coronavirus (PCR) Allied health notes reviewed: nursing
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
[2021-11-08] MEDS: FAMOTIDINE 20 MG TAB FEEDTUBE SCH ×2 (10:10→21:56)
[2021-11-08] MEDS: ENOXAPARIN 40 MG/0.4 ML INJ SUB-Q SCH (10:10)
[2021-11-08] MEDS: dexAMETHasone 4 MG/ML VIAL IV SCH (10:10)
[2021-11-08] MEDS: SCOPOLAMINE TRANSDERMAL PATCH 72 HR TD SCH (10:10)
[2021-11-08] MEDS: SENNOSIDES/DOCUSATE SODIUM 8.6/50 MG TAB FEEDTUBE SCH ×2 (10:11→21:57)
--- NOTE | 2021-11-08 12:21 | Progress Note ---
Assessment and Plan Cultures: Blood culture no growth so far COVID-19 PCR positive Sputum culture 10/31/2021 Klebsiella pneumoniae A/P: 61-year-old male with medical history of stroke, chronic tracheostomy, PEG tube now with: #COVID pneumonia: with possible superimposed bacterial PNA, completed abx, remdesivir. on steroids. #Acute on chronic respiratory failure: Chronic trach in place, required ventilation on top of normal requirements, now on T-piece #History of CVA #MARCELINO: Resolved. #Elevated LFTs: unknown etiology. ?COVID related. RUQ US showed contracted gall bladder #Sacral decubitus, stage 2 Recs: -Completed 5 days of ceftriaxone -Completed Remdesivir -Continue Decadron, complete 10 days -leucocytosis probably from steroids -Anticoagulation per hospital protocol -wound care and offloading for sacral decubitus Adela Siddiqi MD, FACP, [facility] ([facility] O: [phone] F: [phone] Subjective Date of service: 11/08/21 Principal diagnosis: AHRF; Pneumonia; COVID-19; MARCELINO; Leukocytosis; Lactic acidosis; Sepsis Interval history: No fever. On T-piece. Moved out of ICU. Objective - Exam Narrative Exam: Physical Exam: (reviewed in chart, exam deferred to minimize risk of COVID-19 transmission) - Constitutional Vitals: Vital Signs Temp Pulse Resp BP Pulse Ox 98.6 F 91 H 20 109/74 97 11/08/21 04:29 11/08/21 04:29 11/08/21 04:29 11/08/21 04:29 11/08/21 10:00 Temperature -Last 24 Hours Temperature 98.6 F Temperature 98.3 F Temperature 98.1 F - Labs CBC & Chem 7: 11/07/21 04:57 11/07/21 04:57 Labs: Abnormal lab results 11/08/21 Range/Units 12:01 POC Glucose 183 H (70-105) mg/dL
--- NOTE | 2021-11-08 13:08 | Progress Note ---
Assessment and Plan Acute on chronic hypoxemic respiratory failure Possible aspiration pneumonia COVID-19 infection Acute kidney injury Sepsis Leukocytosis Mild metabolic acidosis Lactic acidosis Hypernatremia Adult FTT Elevated serum transaminases Elevated serum inflammatory markers to include ferritin, LDH and D-dimers Oropharyngeal dysphagia - no new issues today, continue care as below; - continue mucomyst q6h - continue AT-piece RTC as tolerated - completed AB's per ID recommendations - continue to wean supplemental oxygen for target O2 sat's > 90% acutely - aspiration precautions - continue bronchodilators with pulmonary hygiene per RT - wean per pulmonary driven protocols otherwise - avoid nephrotoxins, renally dose all medications - continue accuchecks with glycemic control per SSI for target blood glucose < 180 mg/dL - prn analgesia per pain score - Maintenance of sleep-wake cycle, avoid delirium - enteral nutritional support at goal rate as tolerated - G.I. & VTE prophylaxis - PT/OT/ROM exercises - mobility protocols for pressure ulcer prophylaxis - Monitor hemodynamics closely - continue other care per attending / other consultants - discharge planning ongoing concurrently COVID SPECIFIC INTERVENTIONS - Remdesivir as per ID/Pulmonary developed protocols (Receiving) - continue systemic steroids for severe COVID-19 infection empirically (Decadron) - follow repeat COVID tests results - zinc and vitamin C supplementation - Monitor inflammatory markers per facility protocol - ferritin, Ddimer, CRP - therapeutic anticoagulation per system Protocol based on d-dimer and clinical considerations (VTE prophylaxis) - Continue contact and airborne isolation .... Re-evaluate in am & prn . Subjective Date of service: 11/08/21 Principal diagnosis: AHRF; Pneumonia; COVID-19; MARCELINO; Leukocytosis; Lactic acidosis; Sepsis Interval history: Patient is seen today for: AHRF; Aspiration Pneumonia; COVID-19; MARCELINO; Leukocytosis; Lactic acidosis; Elevated serum LFT's; Sepsis Seen and examined at bedside; 24hour events reviewed; nursing and respiratory care staff consulted; no adverse overnight events reported to me; resting in bed; tolerating RTC t-piece; secretions better but persistent Objective Vital Signs - 12hr 11/08/21 11/08/21 11/08/21 04:29 05:29 08:00 Temperature 98.6 F 97.4 F L Pulse Rate 91 H 121 H Respiratory 20 16 Rate Blood Pressure 109/74 196/89 O2 Sat by Pulse 92 84 Oximetry O2 Sat by Pulse 97 Oximetry [ Assessment] 11/08/21 11/08/21 11/08/21 09:00 10:00 11:59 Temperature 98.3 F Pulse Rate 85 Respiratory 24 Rate Blood Pressure 98/71 O2 Sat by Pulse 97 97 91 Oximetry O2 Sat by Pulse Oximetry [ Assessment] Constitutional: no acute distress, other (middle aged male with mildly increased respiratory effort at rest) Eyes: non-icteric ENT: oropharynx moist, oropharyngeal exudate pre (mild), other (midline tracheostomy) Neck: supple, no lymphadenopathy, no JVD Effort: mildly labored Ascultation: Bilateral: rhonchi (and referred upper airway sounds) Percussion: Bilateral: not dull Cardiovascular: regular rate and rhythm Gastrointestinal: normoactive bowel sounds, soft, non-tender, non-distended Integumentary: rash Extremities: no cyanosis, no ischemia or petechiae Neurologic: pupils equal and round, CN II-XII normal, other (weak lower extremities) Psychiatric: mood appropriate, affect normal, other (mild cognitive impairment) CBC and BMP: 11/07/21 04:57 11/07/21 04:57 ABG, PT/INR, D-dimer: ABG ABG pH 7.572 (7.320-7.450) H 11/06/21 13:27 POC ABG pCO2 28.9 mmHg (32.0-48.0) L 11/06/21 13:27 ABG pCO2 29.9 mm Hg 11/01/21 04:00 POC ABG pO2 80.4 mmHg (83-108) L 11/06/21 13:27 ABG pO2 82.5 mm Hg (80.0-90.0) 11/01/21 04:00 POC ABG HCO3 26.0 11/06/21 13:27 ABG O2 Saturation 96.8 (0-100) 11/06/21 13:27 PT/INR, D-dimer PT 15.6 Sec. (12.2-14.9) H 10/31/21 02:36 INR 1.12 (0.87-1.13) 10/31/21 02:36 D-Dimer 867.25 ng/mlDDU (0-234) H 11/07/21 04:57 Abnormal lab findings: Abnormal Labs 10/31/21 10/31/21 10/31/21 02:36 02:36 02:36 WBC 11.4 H Hgb Hct MCH 26 L MCHC 29 L RDW 15.3 H Plt Count Lymph % (Auto) Lymph # (Auto) Seg Neutrophils % 81.5 H Seg Neuts % (Manual) Lymphocytes % (Manual) Nucleated RBC % Seg Neutrophils # 9.3 H Seg Neutrophils # Man Lymphocytes # (Manual) PT 15.6 H APTT 43.1 H D-Dimer 1951.30 H ABG pH POC ABG pCO2 POC ABG pO2 ABG pO2 ABG HCO3 ABG O2 Saturation ABG Base Excess ABG Hemoglobin ABG Oxyhemoglobin ABG Sodium ABG Potassium ABG Chloride ABG Glucose Carboxyhemoglobin Sodium 155 H Potassium Chloride 110.3 H Carbon Dioxide 15 L BUN 46 H Creatinine 2.7 H Glucose 120 H POC Glucose Lactic Acid Magnesium Ferritin AST 492 H ALT 319 H Alkaline Phosphatase 153 H Ammonia Lactate Dehydrogenase Troponin T 0.065 H C-Reactive Protein NT-Pro-B Natriuret Pep 2381 H Albumin 3.0 L LDL Cholesterol Direct 20 L HDL Cholesterol 13 L Arterial Blood Glucose Coronavirus (PCR) 10/31/21 10/31/21 10/31/21 02:36 02:36 02:36 WBC Hgb Hct MCH MCHC RDW Plt Count Lymph % (Auto) Lymph # (Auto) Seg Neutrophils % Seg Neuts % (Manual) Lymphocytes % (Manual) Nucleated RBC % Seg Neutrophils # Seg Neutrophils # Man Lymphocytes # (Manual) PT APTT D-Dimer ABG pH POC ABG pCO2 POC ABG pO2 ABG pO2 ABG HCO3 ABG O2 Saturation ABG Base Excess ABG Hemoglobin ABG Oxyhemoglobin ABG Sodium ABG Potassium ABG Chloride ABG Glucose Carboxyhemoglobin Sodium Potassium Chloride Carbon Dioxide BUN Creatinine Glucose POC Glucose Lactic Acid 11.80 H* Magnesium Ferritin 51854.0 H AST ALT Alkaline Phosphatase Ammonia Lactate Dehydrogenase 923 H Troponin T C-Reactive Protein 7.80 H NT-Pro-B Natriuret Pep Albumin LDL Cholesterol Direct HDL Cholesterol Arterial Blood Glucose Coronavirus (PCR) 10/31/21 10/31/21 10/31/21 04:01 04:54 06:04 WBC Hgb Hct MCH MCHC RDW Plt Count Lymph % (Auto) Lymph # (Auto) Seg Neutrophils % Seg Neuts % (Manual) Lymphocytes % (Manual) Nucleated RBC % Seg Neutrophils # Seg Neutrophils # Man Lymphocytes # (Manual) PT APTT D-Dimer ABG pH 7.318 L POC ABG pCO2 POC ABG pO2 ABG pO2 229.1 H ABG HCO3 17.4 L ABG O2 Saturation 99.3 H ABG Base Excess -7.8 L ABG Hemoglobin 13.2 L ABG Oxyhemoglobin ABG Sodium ABG Potassium ABG Chloride ABG Glucose Carboxyhemoglobin Sodium Potassium Chloride Carbon Dioxide BUN Creatinine Glucose POC Glucose Lactic Acid 5.50 H* Magnesium Ferritin AST ALT Alkaline Phosphatase Ammonia 21.0 L Lactate Dehydrogenase Troponin T C-Reactive Protein NT-Pro-B Natriuret Pep Albumin LDL Cholesterol Direct HDL Cholesterol Arterial Blood Glucose Coronavirus (PCR) 10/31/21 10/31/21 10/31/21 09:30 10:44 16:42 WBC Hgb Hct MCH MCHC RDW Plt Count Lymph % (Auto) Lymph # (Auto) Seg Neutrophils % Seg Neuts % (Manual) Lymphocytes % (Manual) Nucleated RBC % Seg Neutrophils # Seg Neutrophils # Man Lymphocytes # (Manual) PT APTT D-Dimer ABG pH POC ABG pCO2 POC ABG pO2 ABG pO2 ABG HCO3 ABG O2 Saturation ABG Base Excess ABG Hemoglobin ABG Oxyhemoglobin ABG Sodium ABG Potassium ABG Chloride ABG Glucose Carboxyhemoglobin Sodium Potassium Chloride Carbon Dioxide BUN Creatinine Glucose POC Glucose Lactic Acid 3.40 H* 2.80 H* Magnesium Ferritin AST ALT Alkaline Phosphatase Ammonia Lactate Dehydrogenase Troponin T C-Reactive Protein NT-Pro-B Natriuret Pep Albumin LDL Cholesterol Direct HDL Cholesterol Arterial Blood Glucose Coronavirus (PCR) Positive A 10/31/21 11/01/21 11/01/21 16:42 03:38 03:38 WBC 15.6 H Hgb 11.3 L Hct MCH MCHC 31 L RDW 15.3 H Plt Count Lymph % (Auto) Lymph # (Auto) Seg Neutrophils % Seg Neuts % (Manual) 73.0 H Lymphocytes % (Manual) 9.0 L Nucleated RBC % 1.0 H Seg Neutrophils # Seg Neutrophils # Man 11.4 H Lymphocytes # (Manual) PT APTT D-Dimer ABG pH POC ABG pCO2 POC ABG pO2 ABG pO2 ABG HCO3 ABG O2 Saturation ABG Base Excess ABG Hemoglobin ABG Oxyhemoglobin ABG Sodium ABG Potassium ABG Chloride ABG Glucose Carboxyhemoglobin Sodium 158 H Potassium Chloride 122.1 H Carbon Dioxide BUN 40 H Creatinine Glucose 101 H POC Glucose Lactic Acid Magnesium 2.40 H Ferritin AST ALT Alkaline Phosphatase Ammonia Lactate Dehydrogenase Troponin T C-Reactive Protein NT-Pro-B Natriuret Pep Albumin LDL Cholesterol Direct HDL Cholesterol Arterial Blood Glucose Coronavirus (PCR) 11/01/21 11/02/21 11/02/21 04:00 03:22 03:22 WBC 11.9 H Hgb 11.6 L Hct MCH 27 L MCHC 31 L RDW 15.3 H Plt Count Lymph % (Auto) Lymph # (Auto) Seg Neutrophils % Seg Neuts % (Manual) Lymphocytes % (Manual) Nucleated RBC % Seg Neutrophils # Seg Neutrophils # Man Lymphocytes # (Manual) PT APTT D-Dimer ABG pH 7.468 H POC ABG pCO2 POC ABG pO2 ABG pO2 ABG HCO3 ABG O2 Saturation ABG Base Excess ABG Hemoglobin 11.3 L ABG Oxyhemoglobin ABG Sodium ABG Potassium ABG Chloride ABG Glucose Carboxyhemoglobin Sodium 159 H Potassium Chloride 123.3 H Carbon Dioxide BUN 35 H Creatinine Glucose POC Glucose Lactic Acid Magnesium Ferritin AST 394 H ALT 282 H Alkaline Phosphatase 173 H Ammonia Lactate Dehydrogenase Troponin T C-Reactive Protein NT-Pro-B Natriuret Pep Albumin 2.9 L LDL Cholesterol Direct HDL Cholesterol Arterial Blood Glucose Coronavirus (PCR) 11/02/21 11/02/21 11/03/21 03:22 03:58 03:47 WBC Hgb Hct MCH MCHC RDW Plt Count Lymph % (Auto) Lymph # (Auto) Seg Neutrophils % Seg Neuts % (Manual) Lymphocytes % (Manual) Nucleated RBC % Seg Neutrophils # Seg Neutrophils # Man Lymphocytes # (Manual) PT APTT D-Dimer ABG pH 7.523 H 7.467 H POC ABG pCO2 26.0 L 29.8 L POC ABG pO2 69.3 L 77.2 L ABG pO2 ABG HCO3 ABG O2 Saturation ABG Base Excess ABG Hemoglobin 11.7 L 11.4 L ABG Oxyhemoglobin 93.5 L ABG Sodium 161.6 H 158.6 H ABG Potassium ABG Chloride 123.0 H 122.0 H ABG Glucose 100 H 226 H Carboxyhemoglobin 0.3 L 0.2 L Sodium 160 H Potassium Chloride 126.4 H Carbon Dioxide BUN 36 H Creatinine Glucose POC Glucose Lactic Acid Magnesium 3.00 H Ferritin AST ALT Alkaline Phosphatase Ammonia Lactate Dehydrogenase Troponin T C-Reactive Protein NT-Pro-B Natriuret Pep Albumin LDL Cholesterol Direct HDL Cholesterol Arterial Blood Glucose 100 H 226 H Coronavirus (PCR) 11/03/21 11/03/21 11/03/21 04:32 04:32 04:32 WBC 13.6 H Hgb 11.2 L Hct MCH MCHC 31 L RDW 15.4 H Plt Count Lymph % (Auto) Lymph # (Auto) Seg Neutrophils % Seg Neuts % (Manual) 96.0 H Lymphocytes % (Manual) 4.0 L Nucleated RBC % Seg Neutrophils # Seg Neutrophils # Man 13.1 H Lymphocytes # (Manual) 0.5 L PT APTT D-Dimer ABG pH POC ABG pCO2 POC ABG pO2 ABG pO2 ABG HCO3 ABG O2 Saturation ABG Base Excess ABG Hemoglobin ABG Oxyhemoglobin ABG Sodium ABG Potassium ABG Chloride ABG Glucose Carboxyhemoglobin Sodium 154 H Potassium Chloride 120.7 H Carbon Dioxide 21 L BUN 30 H Creatinine Glucose 216 H POC Glucose Lactic Acid Magnesium 2.70 H Ferritin AST 258 H ALT 241 H Alkaline Phosphatase 178 H Ammonia Lactate Dehydrogenase Troponin T C-Reactive Protein NT-Pro-B Natriuret Pep Albumin 2.7 L LDL Cholesterol Direct HDL Cholesterol Arterial Blood Glucose Coronavirus (PCR) 11/04/21 11/04/21 11/04/21 04:48 04:48 05:04 WBC Hgb 10.5 L Hct 33.1 L MCH MCHC RDW Plt Count Lymph % (Auto) 9.7 L Lymph # (Auto) 1.0 L Seg Neutrophils % 87.1 H Seg Neuts % (Manual) Lymphocytes % (Manual) Nucleated RBC % Seg Neutrophils # 9.1 H Seg Neutrophils # Man Lymphocytes # (Manual) PT APTT D-Dimer ABG pH 7.531 H POC ABG pCO2 24.8 L POC ABG pO2 60.5 L ABG pO2 ABG HCO3 ABG O2 Saturation ABG Base Excess ABG Hemoglobin 11.5 L ABG Oxyhemoglobin 91.3 L ABG Sodium 154.1 H ABG Potassium ABG Chloride 118.0 H ABG Glucose 117 H Carboxyhemoglobin 0.3 L Sodium 157 H Potassium Chloride 122.0 H Carbon Dioxide 19 L BUN 21 H Creatinine 0.7 L Glucose 114 H POC Glucose Lactic Acid Magnesium Ferritin AST 366 H ALT 268 H Alkaline Phosphatase 177 H Ammonia Lactate Dehydrogenase Troponin T C-Reactive Protein NT-Pro-B Natriuret Pep Albumin 2.7 L LDL Cholesterol Direct HDL Cholesterol Arterial Blood Glucose 117 H Coronavirus (PCR) 11/04/21 11/04/21 11/04/21 11:59 17:53 18:30 WBC Hgb Hct MCH MCHC RDW Plt Count Lymph % (Auto) Lymph # (Auto) Seg Neutrophils % Seg Neuts % (Manual) Lymphocytes % (Manual) Nucleated RBC % Seg Neutrophils # Seg Neutrophils # Man Lymphocytes # (Manual) PT APTT D-Dimer ABG pH 7.508 H POC ABG pCO2 27.1 L POC ABG pO2 67.1 L ABG pO2 ABG HCO3 ABG O2 Saturation ABG Base Excess ABG Hemoglobin 11.9 L ABG Oxyhemoglobin 93.3 L ABG Sodium 147.4 H ABG Potassium ABG Chloride 113.0 H ABG Glucose 183 H Carboxyhemoglobin 0.2 L Sodium Potassium Chloride Carbon Dioxide BUN Creatinine Glucose POC Glucose 108 H 123 H Lactic Acid Magnesium Ferritin AST ALT Alkaline Phosphatase Ammonia Lactate Dehydrogenase Troponin T C-Reactive Protein NT-Pro-B Natriuret Pep Albumin LDL Cholesterol Direct HDL Cholesterol Arterial Blood Glucose 183 H Coronavirus (PCR) 11/04/21 11/05/21 11/05/21 21:24 06:03 06:03 WBC Hgb Hct MCH MCHC RDW Plt Count Lymph % (Auto) Lymph # (Auto) Seg Neutrophils % Seg Neuts % (Manual) Lymphocytes % (Manual) Nucleated RBC % Seg Neutrophils # Seg Neutrophils # Man Lymphocytes # (Manual) PT APTT D-Dimer 824.75 H ABG pH POC ABG pCO2 POC ABG pO2 ABG pO2 ABG HCO3 ABG O2 Saturation ABG Base Excess ABG Hemoglobin ABG Oxyhemoglobin ABG Sodium ABG Potassium ABG Chloride ABG Glucose Carboxyhemoglobin Sodium Potassium Chloride Carbon Dioxide BUN Creatinine Glucose POC Glucose 190 H Lactic Acid Magnesium Ferritin 2000.0 H AST ALT Alkaline Phosphatase Ammonia Lactate Dehydrogenase Troponin T C-Reactive Protein NT-Pro-B Natriuret Pep Albumin LDL Cholesterol Direct HDL Cholesterol Arterial Blood Glucose Coronavirus (PCR) 11/05/21 11/05/21 11/05/21 06:03 06:03 08:15 WBC 11.3 H Hgb 11.2 L Hct MCH MCHC 31 L RDW 15.4 H Plt Count Lymph % (Auto) Lymph # (Auto) Seg Neutrophils % Seg Neuts % (Manual) Lymphocytes % (Manual) Nucleated RBC % Seg Neutrophils # Seg Neutrophils # Man Lymphocytes # (Manual) PT APTT D-Dimer ABG pH POC ABG pCO2 POC ABG pO2 ABG pO2 ABG HCO3 ABG O2 Saturation ABG Base Excess ABG Hemoglobin ABG Oxyhemoglobin ABG Sodium ABG Potassium ABG Chloride ABG Glucose Carboxyhemoglobin Sodium Potassium Chloride 107.3 H Carbon Dioxide BUN Creatinine 0.6 L Glucose 192 H POC Glucose 171 H Lactic Acid Magnesium Ferritin AST 158 H ALT 233 H Alkaline Phosphatase 179 H Ammonia Lactate Dehydrogenase 401 H Troponin T C-Reactive Protein 6.50 H NT-Pro-B Natriuret Pep Albumin 2.7 L LDL Cholesterol Direct HDL Cholesterol Arterial Blood Glucose Coronavirus (PCR) 11/05/21 11/05/21 11/05/21 11:36 12:10 16:41 WBC Hgb Hct MCH MCHC RDW Plt Count Lymph % (Auto) Lymph # (Auto) Seg Neutrophils % Seg Neuts % (Manual) Lymphocytes % (Manual) Nucleated RBC % Seg Neutrophils # Seg Neutrophils # Man Lymphocytes # (Manual) PT APTT D-Dimer ABG pH 7.456 H POC ABG pCO2 POC ABG pO2 80.4 L 69.1 L ABG pO2 ABG HCO3 ABG O2 Saturation ABG Base Excess ABG Hemoglobin 11.0 L 11.4 L ABG Oxyhemoglobin 93.1 L ABG Sodium ABG Potassium ABG Chloride ABG Glucose 165 H 232 H Carboxyhemoglobin 0.3 L 0.3 L Sodium Potassium Chloride Carbon Dioxide BUN Creatinine Glucose POC Glucose 162 H Lactic Acid Magnesium Ferritin AST ALT Alkaline Phosphatase Ammonia Lactate Dehydrogenase Troponin T C-Reactive Protein NT-Pro-B Natriuret Pep Albumin LDL Cholesterol Direct HDL Cholesterol Arterial Blood Glucose 165 H 232 H Coronavirus (PCR) 11/05/21 11/05/21 11/06/21 16:53 23:33 05:05 WBC Hgb Hct MCH MCHC RDW Plt Count Lymph % (Auto) Lymph # (Auto) Seg Neutrophils % Seg Neuts % (Manual) Lymphocytes % (Manual) Nucleated RBC % Seg Neutrophils # Seg Neutrophils # Man Lymphocytes # (Manual) PT APTT D-Dimer ABG pH POC ABG pCO2 POC ABG pO2 ABG pO2 ABG HCO3 ABG O2 Saturation ABG Base Excess ABG Hemoglobin ABG Oxyhemoglobin ABG Sodium ABG Potassium ABG Chloride ABG Glucose Carboxyhemoglobin Sodium Potassium 3.3 L Chloride Carbon Dioxide BUN Creatinine 0.5 L Glucose 125 H POC Glucose 190 H 144 H Lactic Acid Magnesium Ferritin AST ALT Alkaline Phosphatase Ammonia Lactate Dehydrogenase Troponin T C-Reactive Protein NT-Pro-B Natriuret Pep Albumin LDL Cholesterol Direct HDL Cholesterol Arterial Blood Glucose Coronavirus (PCR) 11/06/21 11/06/21 11/06/21 05:05 11:11 13:27 WBC 13.6 H Hgb 11.1 L Hct 35.3 L MCH MCHC RDW Plt Count Lymph % (Auto) Lymph # (Auto) Seg Neutrophils % Seg Neuts % (Manual) Lymphocytes % (Manual) Nucleated RBC % Seg Neutrophils # Seg Neutrophils # Man Lymphocytes # (Manual) PT APTT D-Dimer ABG pH 7.572 H POC ABG pCO2 28.9 L POC ABG pO2 80.4 L ABG pO2 ABG HCO3 ABG O2 Saturation ABG Base Excess ABG Hemoglobin ABG Oxyhemoglobin ABG Sodium ABG Potassium 3.1 L ABG Chloride ABG Glucose 181 H Carboxyhemoglobin 0.1 L Sodium Potassium Chloride Carbon Dioxide BUN Creatinine Glucose POC Glucose 166 H Lactic Acid Magnesium Ferritin AST ALT Alkaline Phosphatase Ammonia Lactate Dehydrogenase Troponin T C-Reactive Protein NT-Pro-B Natriuret Pep Albumin LDL Cholesterol Direct HDL Cholesterol Arterial Blood Glucose 181 H Coronavirus (PCR) 11/06/21 11/06/21 11/07/21 16:14 23:55 04:57 WBC Hgb Hct MCH MCHC RDW Plt Count Lymph % (Auto) Lymph # (Auto) Seg Neutrophils % Seg Neuts % (Manual) Lymphocytes % (Manual) Nucleated RBC % Seg Neutrophils # Seg Neutrophils # Man Lymphocytes # (Manual) PT APTT D-Dimer 867.25 H ABG pH POC ABG pCO2 POC ABG pO2 ABG pO2 ABG HCO3 ABG O2 Saturation ABG Base Excess ABG Hemoglobin ABG Oxyhemoglobin ABG Sodium ABG Potassium ABG Chloride ABG Glucose Carboxyhemoglobin Sodium Potassium Chloride Carbon Dioxide BUN Creatinine Glucose POC Glucose 172 H 130 H Lactic Acid Magnesium Ferritin AST ALT Alkaline Phosphatase Ammonia Lactate Dehydrogenase Troponin T C-Reactive Protein NT-Pro-B Natriuret Pep Albumin LDL Cholesterol Direct HDL Cholesterol Arterial Blood Glucose Coronavirus (PCR) 11/07/21 11/07/21 11/07/21 04:57 04:57 04:57 WBC 16.6 H Hgb 11.5 L Hct MCH 27 L MCHC 31 L RDW Plt Count 442 H Lymph % (Auto) Lymph # (Auto) Seg Neutrophils % Seg Neuts % (Manual) Lymphocytes % (Manual) Nucleated RBC % Seg Neutrophils # Seg Neutrophils # Man Lymphocytes # (Manual) PT APTT D-Dimer ABG pH POC ABG pCO2 POC ABG pO2 ABG pO2 ABG HCO3 ABG O2 Saturation ABG Base Excess ABG Hemoglobin ABG Oxyhemoglobin ABG Sodium ABG Potassium ABG Chloride ABG Glucose Carboxyhemoglobin Sodium Potassium 3.4 L Chloride Carbon Dioxide BUN Creatinine 0.5 L Glucose 115 H POC Glucose Lactic Acid Magnesium Ferritin > 2000.0 H AST 143 H ALT 246 H Alkaline Phosphatase 181 H Ammonia Lactate Dehydrogenase 370 H Troponin T C-Reactive Protein 9.10 H NT-Pro-B Natriuret Pep Albumin 2.8 L LDL Cholesterol Direct HDL Cholesterol Arterial Blood Glucose Coronavirus (PCR) 11/07/21 11/08/21 11:54 12:01 WBC Hgb Hct MCH MCHC RDW Plt Count Lymph % (Auto) Lymph # (Auto) Seg Neutrophils % Seg Neuts % (Manual) Lymphocytes % (Manual) Nucleated RBC % Seg Neutrophils # Seg Neutrophils # Man Lymphocytes # (Manual) PT APTT D-Dimer ABG pH POC ABG pCO2 POC ABG pO2 ABG pO2 ABG HCO3 ABG O2 Saturation ABG Base Excess ABG Hemoglobin ABG Oxyhemoglobin ABG Sodium ABG Potassium ABG Chloride ABG Glucose Carboxyhemoglobin Sodium Potassium Chloride Carbon Dioxide BUN Creatinine Glucose POC Glucose 177 H 183 H Lactic Acid Magnesium Ferritin AST ALT Alkaline Phosphatase Ammonia Lactate Dehydrogenase Troponin T C-Reactive Protein NT-Pro-B Natriuret Pep Albumin LDL Cholesterol Direct HDL Cholesterol Arterial Blood Glucose Coronavirus (PCR) Allied health notes reviewed: nursing
[2021-11-08] MEDS ORDERED: ONDANSETRON 4 MG/2 ML INJ IV PRN (22:56)
--- NOTE | 2021-11-09 08:52 | Progress Note ---
Assessment and Plan Assessment and plan: A/P: 61-year-old male with medical history of stroke, chronic tracheostomy, PEG tube in place --COVID pneumonia: with possible superimposed bacterial PNA, completed abx, remdesivir. on steroids for total 10 days. --Acute on chronic respiratory failure: Requiring ventilatory support now on tracheostomy T-piece Sepsis (POA), with possible superimposed bacterial pneumonia COVID-19 pneumonia, Lactic acidosis Patient meets criteria given the tachycardia, tachypnea and diagnosis of pneumonia -Infectious disease consulted, appreciate recommendations -Contact/droplet precautions Completed 5 days of Rocephin and Zithromax - sepsis / tracheal aspirate with Klebsiella pneumonia Leukocytosis; trending down closely monitor Partly due to steroids -10/31 blood culture x2 no growth to date -Anticoagulation per hospital protocol -Trend COVID-19 inflammatory markers -Monitor WBC and temperature curve --History of chronic hypoxia/ trach in place,; Continue tracheostomy care, titrate oxygen saturation to more than 90% --Past history of CVA; with residual weakness Continue supportive care, PT and OT if needed --Acute kidney injury ; vasomotor nephropathy , present on admission Now resolved , closely monitor renal function, avoid nephrotoxin --Transaminitis ; right upper quadrant ultrasound , no acute abnormality Contracted gallbladder , closely monitor and supportive care --Stage II decubitus ulcers ; bilateral buttock and sacrum Offloading, supportive care, wound care if needed --DVT prophylaxis; subcu Lovenox Full CODE STATUS We will closely monitor the patient and adjust the management as needed Plan of care reviewed with the patient's nurse Consultants and recommendations noted and appreciated 11/09/2021; continue current management, discharge back to [facility] when medically stable DC planning per case management History Interval history: Of seen and examined the patient Patient reports reviewed Tracheostomy on T-piece Hospitalist Physical - Constitutional Vitals: Temp Pulse Resp BP Pulse Ox 98.6 F 77 18 112/76 95 11/09/21 04:40 11/09/21 04:40 11/09/21 04:40 11/09/21 04:40 11/09/21 04:40 General appearance: Present: no acute distress, other ( tracheostomy on T-piece) - EENT Eyes: Present: PERRL, EOM intact - Neck Neck: Present: other (Tracheostomy on T-piece) - Respiratory Respiratory effort: normal Respiratory: bilateral: diminished, rhonchi, negative: rales, wheezing - Cardiovascular Rhythm: regular Heart Sounds: Present: S1 & S2 - Extremities Extremities: no ischemia, No edema - Abdominal General gastrointestinal: soft, non-tender, non-distended, normal bowel sounds - Integumentary Integumentary: Present: erythema (Stage II decubitus ulcers bilateral buttock and sacrum) - Psychiatric Psychiatric: other (Noncommunicative) - Neurologic Neurologic: moves all extremities, other (Noncommunicative/tracheostomy) HEART Score - HEART Score Troponin: Troponin T < 0.010 ng/mL (0.00-0.029) 10/31/21 16:42 Results - Labs CBC & Chem 7: 11/07/21 04:57 11/07/21 04:57 Labs: Laboratory Last Values WBC 16.6 K/mm3 (4.5-11.0) H 11/07/21 04:57 RBC 4.33 M/mm3 (3.65-5.03) 11/07/21 04:57 Hgb 11.5 gm/dl (11.8-15.2) L 11/07/21 04:57 Hct 37.5 % (35.5-45.6) 11/07/21 04:57 MCV 87 fl (84-94) 11/07/21 04:57 MCH 27 pg (28-32) L 11/07/21 04:57 MCHC 31 % (32-34) L 11/07/21 04:57 RDW 14.9 % (13.2-15.2) 11/07/21 04:57 Plt Count 442 K/mm3 (140-440) H 11/07/21 04:57 Lymph % (Auto) 9.7 % (13.4-35.0) L 11/04/21 04:48 [place] % (Auto) 3.1 % (0.0-7.3) 11/04/21 04:48 Eos % (Auto) 0.0 % (0.0-4.3) 11/04/21 04:48 Baso % (Auto) 0.1 % (0.0-1.8) 11/04/21 04:48 Lymph # (Auto) 1.0 K/mm3 (1.2-5.4) L 11/04/21 04:48 [place] # (Auto) 0.3 K/mm3 (0.0-0.8) 11/04/21 04:48 Eos # (Auto) 0.0 K/mm3 (0.0-0.4) 11/04/21 04:48 Baso # (Auto) 0.0 K/mm3 (0.0-0.1) 11/04/21 04:48 Add Manual Diff Complete 11/03/21 04:32 Total Counted 100 11/03/21 04:32 Seg Neutrophils % 87.1 % (40.0-70.0) H 11/04/21 04:48 Seg Neuts % (Manual) 96.0 % (40.0-70.0) H 11/03/21 04:32 Band Neutrophils % 0 % 11/03/21 04:32 Lymphocytes % (Manual) 4.0 % (13.4-35.0) L 11/03/21 04:32 Reactive Lymphs % (Man) 0 % 11/03/21 04:32 Monocytes % (Manual) 0 % (0.0-7.3) 11/03/21 04:32 Eosinophils % (Manual) 0 % (0.0-4.3) 11/03/21 04:32 Basophils % (Manual) 0 % (0.0-1.8) 11/03/21 04:32 Metamyelocytes % 0 % 11/03/21 04:32 Myelocytes % 0 % 11/03/21 04:32 Promyelocytes % 0 % 11/03/21 04:32 Blast Cells % 0 % 11/03/21 04:32 Nucleated RBC % Not Reportable 11/03/21 04:32 Seg Neutrophils # 9.1 K/mm3 (1.8-7.7) H 11/04/21 04:48 Seg Neutrophils # Man 13.1 K/mm3 (1.8-7.7) H 11/03/21 04:32 Band Neutrophils # 0.0 K/mm3 11/03/21 04:32 Lymphocytes # (Manual) 0.5 K/mm3 (1.2-5.4) L 11/03/21 04:32 Abs React Lymphs (Man) 0.0 K/mm3 11/03/21 04:32 Monocytes # (Manual) 0.0 K/mm3 (0.0-0.8) 11/03/21 04:32 Eosinophils # (Manual) 0.0 K/mm3 (0.0-0.4) 11/03/21 04:32 Basophils # (Manual) 0.0 K/mm3 (0.0-0.1) 11/03/21 04:32 Metamyelocytes # 0.0 K/mm3 11/03/21 04:32 Myelocytes # 0.0 K/mm3 11/03/21 04:32 Promyelocytes # 0.0 K/mm3 11/03/21 04:32 Blast Cells # 0.0 K/mm3 11/03/21 04:32 WBC Morphology Not Reportable 11/03/21 04:32 Hypersegmented Neuts Not Reportable 11/03/21 04:32 Hyposegmented Neuts Not Reportable 11/03/21 04:32 Hypogranular Neuts Not Reportable 11/03/21 04:32 Smudge Cells Not Reportable 11/03/21 04:32 Toxic Granulation Not Reportable 11/03/21 04:32 Toxic Vacuolation Not Reportable 11/03/21 04:32 Dohle Bodies Not Reportable 11/03/21 04:32 Pelger-Huet Anomaly Not Reportable 11/03/21 04:32 Sisi Rods Not Reportable 11/03/21 04:32 Platelet Estimate Consistent w auto 11/03/21 04:32 Clumped Platelets Not Reportable 11/03/21 04:32 Plt Clumps, EDTA Not Reportable 11/03/21 04:32 Large Platelets Not Reportable 11/03/21 04:32 Giant Platelets Not Reportable 11/03/21 04:32 Platelet Satelliting Not Reportable 11/03/21 04:32 Plt Morphology Comment Not Reportable 11/03/21 04:32 RBC Morphology Normal 11/03/21 04:32 Dimorphic RBCs Not Reportable 11/03/21 04:32 Polychromasia Not Reportable 11/03/21 04:32 Hypochromasia Not Reportable 11/03/21 04:32 Poikilocytosis Not Reportable 11/03/21 04:32 Anisocytosis Not Reportable 11/03/21 04:32 Microcytosis Not Reportable 11/03/21 04:32 Macrocytosis Not Reportable 11/03/21 04:32 Spherocytes Not Reportable 11/03/21 04:32 Pappenheimer Bodies Not Reportable 11/03/21 04:32 Sickle Cells Not Reportable 11/03/21 04:32 Target Cells Not Reportable 11/03/21 04:32 Tear Drop Cells Not Reportable 11/03/21 04:32 Ovalocytes Not Reportable 11/03/21 04:32 Helmet Cells Not Reportable 11/03/21 04:32 [place] Bodies Not Reportable 11/03/21 04:32 [place] Rings Not Reportable 11/03/21 04:32 Thanh Cells Not Reportable 11/03/21 04:32 Bite Cells Not Reportable 11/03/21 04:32 Crenated Cell Not Reportable 11/03/21 04:32 Elliptocytes Not Reportable 11/03/21 04:32 Acanthocytes (Spur) Not Reportable 11/03/21 04:32 Rouleaux Not Reportable 11/03/21 04:32 Hemoglobin C Crystals Not Reportable 11/03/21 04:32 Schistocytes Not Reportable 11/03/21 04:32 Malaria parasites Not Reportable 11/03/21 04:32 Hany Bodies Not Reportable 11/03/21 04:32 Hem Pathologist Commnt No 11/03/21 04:32 PT 15.6 Sec. (12.2-14.9) H 10/31/21 02:36 INR 1.12 (0.87-1.13) 10/31/21 02:36 APTT 43.1 Sec. (24.2-36.6) H 10/31/21 02:36 D-Dimer 867.25 ng/mlDDU (0-234) H 11/07/21 04:57 ABG pH 7.572 (7.320-7.450) H 11/06/21 13:27 POC ABG pCO2 28.9 mmHg (32.0-48.0) L 11/06/21 13:27 ABG pCO2 29.9 mm Hg 11/01/21 04:00 POC ABG pO2 80.4 mmHg (83-108) L 11/06/21 13:27 ABG pO2 82.5 mm Hg (80.0-90.0) 11/01/21 04:00 POC ABG HCO3 26.0 11/06/21 13: ABG HCO3 21.2 mmol/L (20.0-26.0) 11/01/21 04:00 ABG O2 Saturation 96.8 (0-100) 11/06/21 13: ABG O2 Content 15.3 (0.0-44) 11/01/21 04:00 POC ABG Base Excess 4.6 11/06/21 13: ABG Base Excess -1.6 mmol/L (-2.0-3.0) 11/01/21 04:00 ABG Hemoglobin 12.3 (12.0-17.5) 11/06/21 13:27 ABG Oxyhemoglobin 96.4 (94-98) 11/06/21 13:27 ABG Carboxyhemoglobin 1.1 % (0.0-5.0) 11/01/21 04:00 ABG Methemoglobin 0.3 (0.0-1.5) 11/06/21 13:27 ABG Sodium 139.2 mmol/L (136.0-145.0) 11/06/21 13:27 ABG Potassium 3.1 mmol/L (3.40-4.50) L 11/06/21 13:27 ABG Chloride 102.0 mmol/L (98-107) 11/06/21 13:27 ABG Glucose 181 mg/dL (65-95) H 11/06/21 13:27 Oxyhemoglobin 95.6 % (95.0-99.0) 11/01/21 04:00 Carboxyhemoglobin 0.1 (0.5-1.5) L 11/06/21 13:27 FiO2 50 % 11/01/21 04:00 FiO2 % 40 11/06/21 13:27 Sodium 141 mmol/L (137-145) 11/07/21 04:57 Potassium 3.4 mmol/L (3.6-5.0) L 11/07/21 04:57 Chloride 98.3 mmol/L (98-107) 11/07/21 04:57 Carbon Dioxide 29 mmol/L (22-30) 11/07/21 04:57 Anion Gap 17 mmol/L 11/07/21 04:57 BUN 16 mg/dL (9-20) 11/07/21 04:57 Creatinine 0.5 mg/dL (0.8-1.3) L 11/07/21 04:57 Estimated GFR > 60 ml/min 11/07/21 04:57 BUN/Creatinine Ratio 32 % 11/07/21 04:57 Glucose 115 mg/dL (75-100) H 11/07/21 04:57 POC Glucose 157 mg/dL (70-105) H 11/09/21 06:00 Lactic Acid 1.80 mmol/L (0.7-2.0) 10/31/21 23:23 Calcium 10.1 mg/dL (8.4-10.2) 11/07/21 04:57 Phosphorus 3.00 mg/dL (2.5-4.5) 11/07/21 04:57 Magnesium 1.70 mg/dL (1.7-2.3) 11/07/21 04:57 Ferritin > 2000.0 ng/mL (30.0-300.0) H 11/07/21 04:57 Total Bilirubin 0.30 mg/dL (0.1-1.2) 11/07/21 04:57 AST 143 units/L (5-40) H 11/07/21 04:57 ALT 246 units/L (7-56) H 11/07/21 04:57 Alkaline Phosphatase 181 units/L (35-129) H 11/07/21 04:57 Ammonia 21.0 umol/L (25-60) L 10/31/21 06:04 Lactate Dehydrogenase 370 units/L (91-180) H 11/07/21 04:57 Troponin T < 0.010 ng/mL (0.00-0.029) 10/31/21 16:42 C-Reactive Protein 9.10 mg/dL (0.00-1.30) H 11/07/21 04:57 NT-Pro-B Natriuret Pep 2381 pg/mL (0-900) H 10/31/21 02:36 Total Protein 7.6 g/dL (6.3-8.2) 11/07/21 04:57 Albumin 2.8 g/dL (3.9-5) L 11/07/21 04:57 Albumin/Globulin Ratio 0.6 % 11/07/21 04:57 Triglycerides 116 mg/dL (2-149) 10/31/21 02:36 Cholesterol 52 mg/dL (50-199) 10/31/21 02:36 LDL Cholesterol Direct 20 mg/dL (50-130) L 10/31/21 02:36 HDL Cholesterol 13 mg/dL (40-59) L 10/31/21 02:36 Cholesterol/HDL Ratio 4.00 % 10/31/21 02:36 Procalcitonin 3.44 ng/mL (<0.15) 10/31/21 02:36 Arterial Blood Glucose 181 mg/dL (65-95) H 11/06/21 13:27 Arterial Blood Ionized Calcium 5.0 mg/dL (4.6-5.3) 11/06/21 13:27 Coronavirus (PCR) Positive (Negative) A 10/31/21 09:30 [place]/IV: Voiding Method Condom Catheter Active Medications - Current Medications Current Medications: Generic Name Dose Route Start Last Admin Trade Name Freq PRN Reason Stop Dose Admin Acetaminophen 650 mg 10/31/21 12:00 Acetaminophen 325 Mg/10.15 Ml Oral Liqd Unit Dose FEEDTUBE Q6H PRN Pain MILD(1-3)/Fever >100.5/MARIANO Hydrocodone Bitart/Acetaminophen 2 each 10/31/21 12:00 Hydrocodone/Acetaminophen 5-325 Mg Tab PO Q6H PRN Pain, Moderate (4-6) Albuterol 2.5 mg 11/04/21 12:52 11/06/21 14:26 Albuterol 2.5 Mg/3 Ml Nebu IH 2.5 mg Q6HRT PRN Administration Shortness Of Breath Lipase/Protease/Amylase 1 each 10/31/21 12:00 Lipase 10,500/Protease 25,000/Amylase 43,750 (Units) Dr Adames FEEDTUBE PRN PRN For Clogged Feeding Tube Dexamethasone 6 mg 11/01/21 10:00 11/08/21 10:10 Dexamethasone 4 Mg/Ml Vial IV 11/10/21 10:01 6 mg Q24HR TRAVIS Administration Enoxaparin Sodium 40 mg 11/01/21 10:00 11/08/21 10:10 Enoxaparin 40 Mg/0.4 Ml Inj SUB-Q 40 mg QDAY@1000 TRAVIS Administration Famotidine 20 mg 11/04/21 10:00 11/08/21 21:56 Famotidine 20 Mg Tab FEEDTUBE 20 mg BID TRAVIS Administration Hydrophilic Ointment 1 applic 10/31/21 15:40 Lip Therapy Vaseline TP Q2HR PRN Dry Lips Morphine Sulfate 2 mg 10/31/21 12:00 11/02/21 11:48 Morphine 2 Mg/1 Ml Inj IV 2 mg Q4H PRN Administration Pain , Severe (7-10) Multi-Ingred Cream/Lotion/Oil/Oint 1 applic 10/31/21 15:40 Mineral Oil/Petrolatum, White Ophth Oint 3.5 Gm OU Q4HR PRN Dry Eye(s) Ondansetron HCl 4 mg 11/08/21 22:56 11/08/21 23:13 Ondansetron 4 Mg/2 Ml Inj IV 4 mg Q4H PRN Administration Nausea And Vomiting Scopolamine 1 each 11/05/21 14:00 11/08/21 10:10 Scopolamine Transdermal Patch 72 Hr TD 1 each Q3D TRAVIS Administration Senna/Docusate Sodium 1 tab 10/31/21 22:00 11/08/21 21:57 Sennosides/Docusate Sodium 8.6/50 Mg Tab FEEDTUBE Not Given BID TRAVIS Simple Syrup 15 ml 10/31/21 12:00 Simple Syrup 15 Ml FEEDTUBE PRN PRN Hypoglycemia Simple Syrup 30 ml 10/31/21 12:00 Simple Syrup 15 Ml FEEDTUBE PRN PRN Hypoglycemia Sodium Chloride 10 ml 10/31/21 12:00 11/08/21 21:57 Sodium Chloride 0.9% 10 Ml Flush Syringe IV 10 ml BID TRAVIS Administration Sodium Chloride 10 ml 10/31/21 12:00 Sodium Chloride 0.9% 10 Ml Flush Syringe IV PRN PRN LINE FLUSH Nutrition/Malnutrition Assess - Dietary Evaluation Nutrition/Malnutrition Findings: Nutrition Notes Start: 10/31/21 12:11 Freq: Status: Active Protocol: Document 11/06/21 15:43 ARTURO (Rec: 11/06/21 16:07 ARTURO [email or web address]) Nutrition Notes Initial or Follow up Brief Note Current Diet TF-Nepro w/CARBSTEADY @ 45 ml/ hr (since D 11/06). Height 6 ft 1 in Weight 70.3 kg [place] Body Weight (kg) 83.63 BMI 20.4 Weight change and time frame 0.007 Kg body weight change reported. Weight Status Appropriate Subjective/Other Information RD consult for routine F/U on Bolus Feeding tolerance. No report available on chart at the time, I spoke with RN and she informed that Pt is back to TF, tolerating well. Percent of energy/protein needs met: Prescribed Nepro w/CARBSTEADY @ 45 ml/hr provides for energy /protein needs (1,891 Kcal/85 g) during LOS, 100% Kcal; 100% AA. Current % PO Other Minimum of two criteria No #1 Nutrition Diagnosis Inadequate oral intake Diagnosis Progress(for reassessment Continues documentation) Nutrition Intervention Change Diet Order: d/c Nutrition Support: Nepro w/CARBSTEADY @ 45 ml/hr. Flush: 230 ml water Q 4 hr, as per MD Kcal 1,891 Protein (gm) 85 Carbohydrates (gm) 169 Fat (gm) 101 Fluid (mL) 764 Fiber (gm) 13 % RDI: 100% Kcal; 100% AA. Goal #1 Provide at least 75% of energy /protein needs through Enteral Feeding during LOS. Follow-Up By: 11/13/21 Additional Comments Continue monitoring TF tolerance and BM.
[2021-11-09] MEDS: ENOXAPARIN 40 MG/0.4 ML INJ SUB-Q SCH (09:02)
[2021-11-09] MEDS: dexAMETHasone 4 MG/ML VIAL IV SCH (09:02)
[2021-11-09] MEDS: FAMOTIDINE 20 MG TAB FEEDTUBE SCH ×2 (09:02→22:02)
[2021-11-09] MEDS: SENNOSIDES/DOCUSATE SODIUM 8.6/50 MG TAB FEEDTUBE SCH ×2 (09:03→22:02)
--- NOTE | 2021-11-09 15:06 | Progress Note ---
Assessment and Plan Acute on chronic hypoxemic respiratory failure Possible aspiration pneumonia COVID-19 infection Acute kidney injury Sepsis Leukocytosis Mild metabolic acidosis Lactic acidosis Hypernatremia Adult FTT Elevated serum transaminases Elevated serum inflammatory markers to include ferritin, LDH and D-dimers Oropharyngeal dysphagia - discharge planning ongoing concurrently - no new issues today, continue care as below; - continue mucomyst q6h - continue AT-piece RTC as tolerated - completed AB's per ID recommendations - continue to wean supplemental oxygen for target O2 sat's > 90% acutely - aspiration precautions - continue bronchodilators with pulmonary hygiene per RT - wean per pulmonary driven protocols otherwise - avoid nephrotoxins, renally dose all medications - continue accuchecks with glycemic control per SSI for target blood glucose < 180 mg/dL - prn analgesia per pain score - Maintenance of sleep-wake cycle, avoid delirium - enteral nutritional support at goal rate as tolerated - G.I. & VTE prophylaxis - PT/OT/ROM exercises - mobility protocols for pressure ulcer prophylaxis - Monitor hemodynamics closely - continue other care per attending / other consultants - discharge planning ongoing concurrently COVID SPECIFIC INTERVENTIONS - Remdesivir as per ID/Pulmonary developed protocols (Receiving) - continue systemic steroids for severe COVID-19 infection empirically (Decadron) - follow repeat COVID tests results - zinc and vitamin C supplementation - Monitor inflammatory markers per facility protocol - ferritin, Ddimer, CRP - therapeutic anticoagulation per system Protocol based on d-dimer and clinical considerations (VTE prophylaxis) - Continue contact and airborne isolation .... Re-evaluate in am & prn Subjective Date of service: 11/09/21 Principal diagnosis: AHRF; Pneumonia; COVID-19; MARCELINO; Leukocytosis; Lactic acidosis; Sepsis Interval history: Patient is seen today for: AHRF; Aspiration Pneumonia; COVID-19; MARCELINO; Leukocytosis; Lactic acidosis; Elevated serum LFT's; Sepsis Seen and examined at bedside; 24hour events reviewed; nursing and respiratory care staff consulted; no adverse overnight events reported to me; resting in bed; tolerating RTC t-piece; secretions persistent but tolerating well; no N/V/F/C Objective Vital Signs - 12hr 11/09/21 11/09/21 11/09/21 04:40 11:06 11:30 Temperature 98.6 F 98.3 F Pulse Rate 77 72 Respiratory 18 20 Rate Blood Pressure 112/76 128/82 O2 Sat by Pulse 95 97 Oximetry O2 Sat by Pulse 97 Oximetry [ Assessment] 11/09/21 11:48 Temperature Pulse Rate Respiratory Rate Blood Pressure O2 Sat by Pulse 97 Oximetry O2 Sat by Pulse Oximetry [ Assessment] Constitutional: no acute distress, other (middle aged male with mildly increased respiratory effort at rest) Eyes: non-icteric ENT: oropharynx moist, oropharyngeal exudate pre (mild), other (midline tracheostomy) Neck: supple, no lymphadenopathy, no JVD Effort: mildly labored Ascultation: Bilateral: rhonchi (and referred upper airway sounds) Percussion: Bilateral: not dull Cardiovascular: regular rate and rhythm Gastrointestinal: normoactive bowel sounds, soft, non-tender, non-distended Integumentary: rash Extremities: no cyanosis, no ischemia or petechiae Neurologic: pupils equal and round, CN II-XII normal, other (weak lower extremities) Psychiatric: mood appropriate, affect normal, other (mild cognitive impairment) CBC and BMP: 11/07/21 04:57 11/07/21 04:57 ABG, PT/INR, D-dimer: ABG ABG pH 7.572 (7.320-7.450) H 11/06/21 13:27 POC ABG pCO2 28.9 mmHg (32.0-48.0) L 11/06/21 13:27 ABG pCO2 29.9 mm Hg 11/01/21 04:00 POC ABG pO2 80.4 mmHg (83-108) L 11/06/21 13:27 ABG pO2 82.5 mm Hg (80.0-90.0) 11/01/21 04:00 POC ABG HCO3 26.0 11/06/21 13:27 ABG O2 Saturation 96.8 (0-100) 11/06/21 13:27 PT/INR, D-dimer PT 15.6 Sec. (12.2-14.9) H 10/31/21 02:36 INR 1.12 (0.87-1.13) 10/31/21 02:36 D-Dimer 867.25 ng/mlDDU (0-234) H 11/07/21 04:57 Abnormal lab findings: Abnormal Labs 10/31/21 10/31/21 10/31/21 02:36 02:36 02:36 WBC 11.4 H Hgb Hct MCH 26 L MCHC 29 L RDW 15.3 H Plt Count Lymph % (Auto) Lymph # (Auto) Seg Neutrophils % 81.5 H Seg Neuts % (Manual) Lymphocytes % (Manual) Nucleated RBC % Seg Neutrophils # 9.3 H Seg Neutrophils # Man Lymphocytes # (Manual) PT 15.6 H APTT 43.1 H D-Dimer 1951.30 H ABG pH POC ABG pCO2 POC ABG pO2 ABG pO2 ABG HCO3 ABG O2 Saturation ABG Base Excess ABG Hemoglobin ABG Oxyhemoglobin ABG Sodium ABG Potassium ABG Chloride ABG Glucose Carboxyhemoglobin Sodium 155 H Potassium Chloride 110.3 H Carbon Dioxide 15 L BUN 46 H Creatinine 2.7 H Glucose 120 H POC Glucose Lactic Acid Magnesium Ferritin AST 492 H ALT 319 H Alkaline Phosphatase 153 H Ammonia Lactate Dehydrogenase Troponin T 0.065 H C-Reactive Protein NT-Pro-B Natriuret Pep 2381 H Albumin 3.0 L LDL Cholesterol Direct 20 L HDL Cholesterol 13 L Arterial Blood Glucose Coronavirus (PCR) 10/31/21 10/31/21 10/31/21 02:36 02:36 02:36 WBC Hgb Hct MCH MCHC RDW Plt Count Lymph % (Auto) Lymph # (Auto) Seg Neutrophils % Seg Neuts % (Manual) Lymphocytes % (Manual) Nucleated RBC % Seg Neutrophils # Seg Neutrophils # Man Lymphocytes # (Manual) PT APTT D-Dimer ABG pH POC ABG pCO2 POC ABG pO2 ABG pO2 ABG HCO3 ABG O2 Saturation ABG Base Excess ABG Hemoglobin ABG Oxyhemoglobin ABG Sodium ABG Potassium ABG Chloride ABG Glucose Carboxyhemoglobin Sodium Potassium Chloride Carbon Dioxide BUN Creatinine Glucose POC Glucose Lactic Acid 11.80 H* Magnesium Ferritin 76444.0 H AST ALT Alkaline Phosphatase Ammonia Lactate Dehydrogenase 923 H Troponin T C-Reactive Protein 7.80 H NT-Pro-B Natriuret Pep Albumin LDL Cholesterol Direct HDL Cholesterol Arterial Blood Glucose Coronavirus (PCR) 10/31/21 10/31/21 10/31/21 04:01 04:54 06:04 WBC Hgb Hct MCH MCHC RDW Plt Count Lymph % (Auto) Lymph # (Auto) Seg Neutrophils % Seg Neuts % (Manual) Lymphocytes % (Manual) Nucleated RBC % Seg Neutrophils # Seg Neutrophils # Man Lymphocytes # (Manual) PT APTT D-Dimer ABG pH 7.318 L POC ABG pCO2 POC ABG pO2 ABG pO2 229.1 H ABG HCO3 17.4 L ABG O2 Saturation 99.3 H ABG Base Excess -7.8 L ABG Hemoglobin 13.2 L ABG Oxyhemoglobin ABG Sodium ABG Potassium ABG Chloride ABG Glucose Carboxyhemoglobin Sodium Potassium Chloride Carbon Dioxide BUN Creatinine Glucose POC Glucose Lactic Acid 5.50 H* Magnesium Ferritin AST ALT Alkaline Phosphatase Ammonia 21.0 L Lactate Dehydrogenase Troponin T C-Reactive Protein NT-Pro-B Natriuret Pep Albumin LDL Cholesterol Direct HDL Cholesterol Arterial Blood Glucose Coronavirus (PCR) 10/31/21 10/31/21 10/31/21 09:30 10:44 16:42 WBC Hgb Hct MCH MCHC RDW Plt Count Lymph % (Auto) Lymph # (Auto) Seg Neutrophils % Seg Neuts % (Manual) Lymphocytes % (Manual) Nucleated RBC % Seg Neutrophils # Seg Neutrophils # Man Lymphocytes # (Manual) PT APTT D-Dimer ABG pH POC ABG pCO2 POC ABG pO2 ABG pO2 ABG HCO3 ABG O2 Saturation ABG Base Excess ABG Hemoglobin ABG Oxyhemoglobin ABG Sodium ABG Potassium ABG Chloride ABG Glucose Carboxyhemoglobin Sodium Potassium Chloride Carbon Dioxide BUN Creatinine Glucose POC Glucose Lactic Acid 3.40 H* 2.80 H* Magnesium Ferritin AST ALT Alkaline Phosphatase Ammonia Lactate Dehydrogenase Troponin T C-Reactive Protein NT-Pro-B Natriuret Pep Albumin LDL Cholesterol Direct HDL Cholesterol Arterial Blood Glucose Coronavirus (PCR) Positive A 10/31/21 11/01/21 11/01/21 16:42 03:38 03:38 WBC 15.6 H Hgb 11.3 L Hct MCH MCHC 31 L RDW 15.3 H Plt Count Lymph % (Auto) Lymph # (Auto) Seg Neutrophils % Seg Neuts % (Manual) 73.0 H Lymphocytes % (Manual) 9.0 L Nucleated RBC % 1.0 H Seg Neutrophils # Seg Neutrophils # Man 11.4 H Lymphocytes # (Manual) PT APTT D-Dimer ABG pH POC ABG pCO2 POC ABG pO2 ABG pO2 ABG HCO3 ABG O2 Saturation ABG Base Excess ABG Hemoglobin ABG Oxyhemoglobin ABG Sodium ABG Potassium ABG Chloride ABG Glucose Carboxyhemoglobin Sodium 158 H Potassium Chloride 122.1 H Carbon Dioxide BUN 40 H Creatinine Glucose 101 H POC Glucose Lactic Acid Magnesium 2.40 H Ferritin AST ALT Alkaline Phosphatase Ammonia Lactate Dehydrogenase Troponin T C-Reactive Protein NT-Pro-B Natriuret Pep Albumin LDL Cholesterol Direct HDL Cholesterol Arterial Blood Glucose Coronavirus (PCR) 11/01/21 11/02/21 11/02/21 04:00 03:22 03:22 WBC 11.9 H Hgb 11.6 L Hct MCH 27 L MCHC 31 L RDW 15.3 H Plt Count Lymph % (Auto) Lymph # (Auto) Seg Neutrophils % Seg Neuts % (Manual) Lymphocytes % (Manual) Nucleated RBC % Seg Neutrophils # Seg Neutrophils # Man Lymphocytes # (Manual) PT APTT D-Dimer ABG pH 7.468 H POC ABG pCO2 POC ABG pO2 ABG pO2 ABG HCO3 ABG O2 Saturation ABG Base Excess ABG Hemoglobin 11.3 L ABG Oxyhemoglobin ABG Sodium ABG Potassium ABG Chloride ABG Glucose Carboxyhemoglobin Sodium 159 H Potassium Chloride 123.3 H Carbon Dioxide BUN 35 H Creatinine Glucose POC Glucose Lactic Acid Magnesium Ferritin AST 394 H ALT 282 H Alkaline Phosphatase 173 H Ammonia Lactate Dehydrogenase Troponin T C-Reactive Protein NT-Pro-B Natriuret Pep Albumin 2.9 L LDL Cholesterol Direct HDL Cholesterol Arterial Blood Glucose Coronavirus (PCR) 11/02/21 11/02/21 11/03/21 03:22 03:58 03:47 WBC Hgb Hct MCH MCHC RDW Plt Count Lymph % (Auto) Lymph # (Auto) Seg Neutrophils % Seg Neuts % (Manual) Lymphocytes % (Manual) Nucleated RBC % Seg Neutrophils # Seg Neutrophils # Man Lymphocytes # (Manual) PT APTT D-Dimer ABG pH 7.523 H 7.467 H POC ABG pCO2 26.0 L 29.8 L POC ABG pO2 69.3 L 77.2 L ABG pO2 ABG HCO3 ABG O2 Saturation ABG Base Excess ABG Hemoglobin 11.7 L 11.4 L ABG Oxyhemoglobin 93.5 L ABG Sodium 161.6 H 158.6 H ABG Potassium ABG Chloride 123.0 H 122.0 H ABG Glucose 100 H 226 H Carboxyhemoglobin 0.3 L 0.2 L Sodium 160 H Potassium Chloride 126.4 H Carbon Dioxide BUN 36 H Creatinine Glucose POC Glucose Lactic Acid Magnesium 3.00 H Ferritin AST ALT Alkaline Phosphatase Ammonia Lactate Dehydrogenase Troponin T C-Reactive Protein NT-Pro-B Natriuret Pep Albumin LDL Cholesterol Direct HDL Cholesterol Arterial Blood Glucose 100 H 226 H Coronavirus (PCR) 11/03/21 11/03/21 11/03/21 04:32 04:32 04:32 WBC 13.6 H Hgb 11.2 L Hct MCH MCHC 31 L RDW 15.4 H Plt Count Lymph % (Auto) Lymph # (Auto) Seg Neutrophils % Seg Neuts % (Manual) 96.0 H Lymphocytes % (Manual) 4.0 L Nucleated RBC % Seg Neutrophils # Seg Neutrophils # Man 13.1 H Lymphocytes # (Manual) 0.5 L PT APTT D-Dimer ABG pH POC ABG pCO2 POC ABG pO2 ABG pO2 ABG HCO3 ABG O2 Saturation ABG Base Excess ABG Hemoglobin ABG Oxyhemoglobin ABG Sodium ABG Potassium ABG Chloride ABG Glucose Carboxyhemoglobin Sodium 154 H Potassium Chloride 120.7 H Carbon Dioxide 21 L BUN 30 H Creatinine Glucose 216 H POC Glucose Lactic Acid Magnesium 2.70 H Ferritin AST 258 H ALT 241 H Alkaline Phosphatase 178 H Ammonia Lactate Dehydrogenase Troponin T C-Reactive Protein NT-Pro-B Natriuret Pep Albumin 2.7 L LDL Cholesterol Direct HDL Cholesterol Arterial Blood Glucose Coronavirus (PCR) 11/04/21 11/04/21 11/04/21 04:48 04:48 05:04 WBC Hgb 10.5 L Hct 33.1 L MCH MCHC RDW Plt Count Lymph % (Auto) 9.7 L Lymph # (Auto) 1.0 L Seg Neutrophils % 87.1 H Seg Neuts % (Manual) Lymphocytes % (Manual) Nucleated RBC % Seg Neutrophils # 9.1 H Seg Neutrophils # Man Lymphocytes # (Manual) PT APTT D-Dimer ABG pH 7.531 H POC ABG pCO2 24.8 L POC ABG pO2 60.5 L ABG pO2 ABG HCO3 ABG O2 Saturation ABG Base Excess ABG Hemoglobin 11.5 L ABG Oxyhemoglobin 91.3 L ABG Sodium 154.1 H ABG Potassium ABG Chloride 118.0 H ABG Glucose 117 H Carboxyhemoglobin 0.3 L Sodium 157 H Potassium Chloride 122.0 H Carbon Dioxide 19 L BUN 21 H Creatinine 0.7 L Glucose 114 H POC Glucose Lactic Acid Magnesium Ferritin AST 366 H ALT 268 H Alkaline Phosphatase 177 H Ammonia Lactate Dehydrogenase Troponin T C-Reactive Protein NT-Pro-B Natriuret Pep Albumin 2.7 L LDL Cholesterol Direct HDL Cholesterol Arterial Blood Glucose 117 H Coronavirus (PCR) 11/04/21 11/04/21 11/04/21 11:59 17:53 18:30 WBC Hgb Hct MCH MCHC RDW Plt Count Lymph % (Auto) Lymph # (Auto) Seg Neutrophils % Seg Neuts % (Manual) Lymphocytes % (Manual) Nucleated RBC % Seg Neutrophils # Seg Neutrophils # Man Lymphocytes # (Manual) PT APTT D-Dimer ABG pH 7.508 H POC ABG pCO2 27.1 L POC ABG pO2 67.1 L ABG pO2 ABG HCO3 ABG O2 Saturation ABG Base Excess ABG Hemoglobin 11.9 L ABG Oxyhemoglobin 93.3 L ABG Sodium 147.4 H ABG Potassium ABG Chloride 113.0 H ABG Glucose 183 H Carboxyhemoglobin 0.2 L Sodium Potassium Chloride Carbon Dioxide BUN Creatinine Glucose POC Glucose 108 H 123 H Lactic Acid Magnesium Ferritin AST ALT Alkaline Phosphatase Ammonia Lactate Dehydrogenase Troponin T C-Reactive Protein NT-Pro-B Natriuret Pep Albumin LDL Cholesterol Direct HDL Cholesterol Arterial Blood Glucose 183 H Coronavirus (PCR) 11/04/21 11/05/21 11/05/21 21:24 06:03 06:03 WBC Hgb Hct MCH MCHC RDW Plt Count Lymph % (Auto) Lymph # (Auto) Seg Neutrophils % Seg Neuts % (Manual) Lymphocytes % (Manual) Nucleated RBC % Seg Neutrophils # Seg Neutrophils # Man Lymphocytes # (Manual) PT APTT D-Dimer 824.75 H ABG pH POC ABG pCO2 POC ABG pO2 ABG pO2 ABG HCO3 ABG O2 Saturation ABG Base Excess ABG Hemoglobin ABG Oxyhemoglobin ABG Sodium ABG Potassium ABG Chloride ABG Glucose Carboxyhemoglobin Sodium Potassium Chloride Carbon Dioxide BUN Creatinine Glucose POC Glucose 190 H Lactic Acid Magnesium Ferritin 2000.0 H AST ALT Alkaline Phosphatase Ammonia Lactate Dehydrogenase Troponin T C-Reactive Protein NT-Pro-B Natriuret Pep Albumin LDL Cholesterol Direct HDL Cholesterol Arterial Blood Glucose Coronavirus (PCR) 11/05/21 11/05/21 11/05/21 06:03 06:03 08:15 WBC 11.3 H Hgb 11.2 L Hct MCH MCHC 31 L RDW 15.4 H Plt Count Lymph % (Auto) Lymph # (Auto) Seg Neutrophils % Seg Neuts % (Manual) Lymphocytes % (Manual) Nucleated RBC % Seg Neutrophils # Seg Neutrophils # Man Lymphocytes # (Manual) PT APTT D-Dimer ABG pH POC ABG pCO2 POC ABG pO2 ABG pO2 ABG HCO3 ABG O2 Saturation ABG Base Excess ABG Hemoglobin ABG Oxyhemoglobin ABG Sodium ABG Potassium ABG Chloride ABG Glucose Carboxyhemoglobin Sodium Potassium Chloride 107.3 H Carbon Dioxide BUN Creatinine 0.6 L Glucose 192 H POC Glucose 171 H Lactic Acid Magnesium Ferritin AST 158 H ALT 233 H Alkaline Phosphatase 179 H Ammonia Lactate Dehydrogenase 401 H Troponin T C-Reactive Protein 6.50 H NT-Pro-B Natriuret Pep Albumin 2.7 L LDL Cholesterol Direct HDL Cholesterol Arterial Blood Glucose Coronavirus (PCR) 11/05/21 11/05/21 11/05/21 11:36 12:10 16:41 WBC Hgb Hct MCH MCHC RDW Plt Count Lymph % (Auto) Lymph # (Auto) Seg Neutrophils % Seg Neuts % (Manual) Lymphocytes % (Manual) Nucleated RBC % Seg Neutrophils # Seg Neutrophils # Man Lymphocytes # (Manual) PT APTT D-Dimer ABG pH 7.456 H POC ABG pCO2 POC ABG pO2 80.4 L 69.1 L ABG pO2 ABG HCO3 ABG O2 Saturation ABG Base Excess ABG Hemoglobin 11.0 L 11.4 L ABG Oxyhemoglobin 93.1 L ABG Sodium ABG Potassium ABG Chloride ABG Glucose 165 H 232 H Carboxyhemoglobin 0.3 L 0.3 L Sodium Potassium Chloride Carbon Dioxide BUN Creatinine Glucose POC Glucose 162 H Lactic Acid Magnesium Ferritin AST ALT Alkaline Phosphatase Ammonia Lactate Dehydrogenase Troponin T C-Reactive Protein NT-Pro-B Natriuret Pep Albumin LDL Cholesterol Direct HDL Cholesterol Arterial Blood Glucose 165 H 232 H Coronavirus (PCR) 11/05/21 11/05/21 11/06/21 16:53 23:33 05:05 WBC Hgb Hct MCH MCHC RDW Plt Count Lymph % (Auto) Lymph # (Auto) Seg Neutrophils % Seg Neuts % (Manual) Lymphocytes % (Manual) Nucleated RBC % Seg Neutrophils # Seg Neutrophils # Man Lymphocytes # (Manual) PT APTT D-Dimer ABG pH POC ABG pCO2 POC ABG pO2 ABG pO2 ABG HCO3 ABG O2 Saturation ABG Base Excess ABG Hemoglobin ABG Oxyhemoglobin ABG Sodium ABG Potassium ABG Chloride ABG Glucose Carboxyhemoglobin Sodium Potassium 3.3 L Chloride Carbon Dioxide BUN Creatinine 0.5 L Glucose 125 H POC Glucose 190 H 144 H Lactic Acid Magnesium Ferritin AST ALT Alkaline Phosphatase Ammonia Lactate Dehydrogenase Troponin T C-Reactive Protein NT-Pro-B Natriuret Pep Albumin LDL Cholesterol Direct HDL Cholesterol Arterial Blood Glucose Coronavirus (PCR) 11/06/21 11/06/21 11/06/21 05:05 11:11 13:27 WBC 13.6 H Hgb 11.1 L Hct 35.3 L MCH MCHC RDW Plt Count Lymph % (Auto) Lymph # (Auto) Seg Neutrophils % Seg Neuts % (Manual) Lymphocytes % (Manual) Nucleated RBC % Seg Neutrophils # Seg Neutrophils # Man Lymphocytes # (Manual) PT APTT D-Dimer ABG pH 7.572 H POC ABG pCO2 28.9 L POC ABG pO2 80.4 L ABG pO2 ABG HCO3 ABG O2 Saturation ABG Base Excess ABG Hemoglobin ABG Oxyhemoglobin ABG Sodium ABG Potassium 3.1 L ABG Chloride ABG Glucose 181 H Carboxyhemoglobin 0.1 L Sodium Potassium Chloride Carbon Dioxide BUN Creatinine Glucose POC Glucose 166 H Lactic Acid Magnesium Ferritin AST ALT Alkaline Phosphatase Ammonia Lactate Dehydrogenase Troponin T C-Reactive Protein NT-Pro-B Natriuret Pep Albumin LDL Cholesterol Direct HDL Cholesterol Arterial Blood Glucose 181 H Coronavirus (PCR) 11/06/21 11/06/21 11/07/21 16:14 23:55 04:57 WBC Hgb Hct MCH MCHC RDW Plt Count Lymph % (Auto) Lymph # (Auto) Seg Neutrophils % Seg Neuts % (Manual) Lymphocytes % (Manual) Nucleated RBC % Seg Neutrophils # Seg Neutrophils # Man Lymphocytes # (Manual) PT APTT D-Dimer 867.25 H ABG pH POC ABG pCO2 POC ABG pO2 ABG pO2 ABG HCO3 ABG O2 Saturation ABG Base Excess ABG Hemoglobin ABG Oxyhemoglobin ABG Sodium ABG Potassium ABG Chloride ABG Glucose Carboxyhemoglobin Sodium Potassium Chloride Carbon Dioxide BUN Creatinine Glucose POC Glucose 172 H 130 H Lactic Acid Magnesium Ferritin AST ALT Alkaline Phosphatase Ammonia Lactate Dehydrogenase Troponin T C-Reactive Protein NT-Pro-B Natriuret Pep Albumin LDL Cholesterol Direct HDL Cholesterol Arterial Blood Glucose Coronavirus (PCR) 11/07/21 11/07/21 11/07/21 04:57 04:57 04:57 WBC 16.6 H Hgb 11.5 L Hct MCH 27 L MCHC 31 L RDW Plt Count 442 H Lymph % (Auto) Lymph # (Auto) Seg Neutrophils % Seg Neuts % (Manual) Lymphocytes % (Manual) Nucleated RBC % Seg Neutrophils # Seg Neutrophils # Man Lymphocytes # (Manual) PT APTT D-Dimer ABG pH POC ABG pCO2 POC ABG pO2 ABG pO2 ABG HCO3 ABG O2 Saturation ABG Base Excess ABG Hemoglobin ABG Oxyhemoglobin ABG Sodium ABG Potassium ABG Chloride ABG Glucose Carboxyhemoglobin Sodium Potassium 3.4 L Chloride Carbon Dioxide BUN Creatinine 0.5 L Glucose 115 H POC Glucose Lactic Acid Magnesium Ferritin > 2000.0 H AST 143 H ALT 246 H Alkaline Phosphatase 181 H Ammonia Lactate Dehydrogenase 370 H Troponin T C-Reactive Protein 9.10 H NT-Pro-B Natriuret Pep Albumin 2.8 L LDL Cholesterol Direct HDL Cholesterol Arterial Blood Glucose Coronavirus (PCR) 11/07/21 11/08/21 11/08/21 11:54 12:01 16:57 WBC Hgb Hct MCH MCHC RDW Plt Count Lymph % (Auto) Lymph # (Auto) Seg Neutrophils % Seg Neuts % (Manual) Lymphocytes % (Manual) Nucleated RBC % Seg Neutrophils # Seg Neutrophils # Man Lymphocytes # (Manual) PT APTT D-Dimer ABG pH POC ABG pCO2 POC ABG pO2 ABG pO2 ABG HCO3 ABG O2 Saturation ABG Base Excess ABG Hemoglobin ABG Oxyhemoglobin ABG Sodium ABG Potassium ABG Chloride ABG Glucose Carboxyhemoglobin Sodium Potassium Chloride Carbon Dioxide BUN Creatinine Glucose POC Glucose 177 H 183 H 204 H Lactic Acid Magnesium Ferritin AST ALT Alkaline Phosphatase Ammonia Lactate Dehydrogenase Troponin T C-Reactive Protein NT-Pro-B Natriuret Pep Albumin LDL Cholesterol Direct HDL Cholesterol Arterial Blood Glucose Coronavirus (PCR) 11/09/21 11/09/21 06:00 10:38 WBC Hgb Hct MCH MCHC RDW Plt Count Lymph % (Auto) Lymph # (Auto) Seg Neutrophils % Seg Neuts % (Manual) Lymphocytes % (Manual) Nucleated RBC % Seg Neutrophils # Seg Neutrophils # Man Lymphocytes # (Manual) PT APTT D-Dimer ABG pH POC ABG pCO2 POC ABG pO2 ABG pO2 ABG HCO3 ABG O2 Saturation ABG Base Excess ABG Hemoglobin ABG Oxyhemoglobin ABG Sodium ABG Potassium ABG Chloride ABG Glucose Carboxyhemoglobin Sodium Potassium Chloride Carbon Dioxide BUN Creatinine Glucose POC Glucose 157 H 141 H Lactic Acid Magnesium Ferritin AST ALT Alkaline Phosphatase Ammonia Lactate Dehydrogenase Troponin T C-Reactive Protein NT-Pro-B Natriuret Pep Albumin LDL Cholesterol Direct HDL Cholesterol Arterial Blood Glucose Coronavirus (PCR) Allied health notes reviewed: nursing
[2021-11-09] MEDS: INSULIN LISPRO 100 UNIT/ML SUB-Q SCH (17:53)
--- NOTE | 2021-11-09 23:22 | Progress Note ---
Assessment and Plan Assessment and plan: A/P: 61-year-old male with medical history of stroke, chronic tracheostomy, PEG tube in place --COVID pneumonia: with possible superimposed bacterial PNA, completed abx, remdesivir. on steroids for total 10 days. --Acute on chronic respiratory failure: Requiring ventilatory support now on tracheostomy T-piece Sepsis (POA), with possible superimposed bacterial pneumonia COVID-19 pneumonia, Lactic acidosis Patient meets criteria given the tachycardia, tachypnea and diagnosis of pneumonia -Infectious disease consulted, appreciate recommendations -Contact/droplet precautions Completed 5 days of Rocephin and Zithromax - sepsis / tracheal aspirate with Klebsiella pneumonia Leukocytosis; trending down closely monitor Partly due to steroids -10/31 blood culture x2 no growth to date -Anticoagulation per hospital protocol -Trend COVID-19 inflammatory markers -Monitor WBC and temperature curve --History of chronic hypoxia/ trach in place,; Continue tracheostomy care, titrate oxygen saturation to more than 90% --Past history of CVA; with residual weakness Continue supportive care, PT and OT if needed --Acute kidney injury ; vasomotor nephropathy , present on admission Now resolved , closely monitor renal function, avoid nephrotoxin --Transaminitis ; right upper quadrant ultrasound , no acute abnormality Contracted gallbladder , closely monitor and supportive care --Stage II decubitus ulcers ; bilateral buttock and sacrum Offloading, supportive care, wound care if needed --DVT prophylaxis; subcu Lovenox Full CODE STATUS We will closely monitor the patient and adjust the management as needed Plan of care reviewed with the patient's nurse Consultants and recommendations noted and appreciated 11/09/2021; continue current management, discharge back to [facility] when medically stable DC planning per case management 11/10/2021; continue current management, tracheostomy care, patient is more alert and awake DC planning per case management back to SNF when medically stable and cleared by all the consultants History Interval history: Of seen and examined the patient Patient reports reviewed Tracheostomy on T-piece Not in acute distress Hospitalist Physical - Constitutional Vitals: Temp Pulse Resp BP Pulse Ox 97.8 F 77 16 100/72 92 11/09/21 20:23 11/09/21 20:23 11/09/21 20:23 11/09/21 20:23 11/09/21 21:17 General appearance: Present: no acute distress, well-nourished, other ( tracheostomy on T-piece) - EENT Eyes: Present: PERRL, EOM intact ENT: other (Tracheostomy) - Neck Neck: Present: supple, normal ROM - Respiratory Respiratory effort: normal Respiratory: bilateral: diminished, rhonchi, negative: rales, wheezing - Cardiovascular Rhythm: regular Heart Sounds: Present: S1 & S2 - Extremities Extremities: no ischemia, No edema - Abdominal General gastrointestinal: soft, non-tender, non-distended, normal bowel sounds - Integumentary Integumentary: Present: clear, warm - Psychiatric Psychiatric: other - Neurologic Neurologic: other (Noncommunicative) HEART Score - HEART Score Troponin: Troponin T < 0.010 ng/mL (0.00-0.029) 10/31/21 16:42 Results - Labs CBC & Chem 7: 11/07/21 04:57 11/07/21 04:57 Labs: Laboratory Last Values WBC 16.6 K/mm3 (4.5-11.0) H 11/07/21 04:57 RBC 4.33 M/mm3 (3.65-5.03) 11/07/21 04:57 Hgb 11.5 gm/dl (11.8-15.2) L 11/07/21 04:57 Hct 37.5 % (35.5-45.6) 11/07/21 04:57 MCV 87 fl (84-94) 11/07/21 04:57 MCH 27 pg (28-32) L 11/07/21 04:57 MCHC 31 % (32-34) L 11/07/21 04:57 RDW 14.9 % (13.2-15.2) 11/07/21 04:57 Plt Count 442 K/mm3 (140-440) H 11/07/21 04:57 Lymph % (Auto) 9.7 % (13.4-35.0) L 11/04/21 04:48 [place] % (Auto) 3.1 % (0.0-7.3) 11/04/21 04:48 Eos % (Auto) 0.0 % (0.0-4.3) 11/04/21 04:48 Baso % (Auto) 0.1 % (0.0-1.8) 11/04/21 04:48 Lymph # (Auto) 1.0 K/mm3 (1.2-5.4) L 11/04/21 04:48 [place] # (Auto) 0.3 K/mm3 (0.0-0.8) 11/04/21 04:48 Eos # (Auto) 0.0 K/mm3 (0.0-0.4) 11/04/21 04:48 Baso # (Auto) 0.0 K/mm3 (0.0-0.1) 11/04/21 04:48 Add Manual Diff Complete 11/03/21 04:32 Total Counted 100 11/03/21 04:32 Seg Neutrophils % 87.1 % (40.0-70.0) H 11/04/21 04:48 Seg Neuts % (Manual) 96.0 % (40.0-70.0) H 11/03/21 04:32 Band Neutrophils % 0 % 11/03/21 04:32 Lymphocytes % (Manual) 4.0 % (13.4-35.0) L 11/03/21 04:32 Reactive Lymphs % (Man) 0 % 11/03/21 04:32 Monocytes % (Manual) 0 % (0.0-7.3) 11/03/21 04:32 Eosinophils % (Manual) 0 % (0.0-4.3) 11/03/21 04:32 Basophils % (Manual) 0 % (0.0-1.8) 11/03/21 04:32 Metamyelocytes % 0 % 11/03/21 04:32 Myelocytes % 0 % 11/03/21 04:32 Promyelocytes % 0 % 11/03/21 04:32 Blast Cells % 0 % 11/03/21 04:32 Nucleated RBC % Not Reportable 11/03/21 04:32 Seg Neutrophils # 9.1 K/mm3 (1.8-7.7) H 11/04/21 04:48 Seg Neutrophils # Man 13.1 K/mm3 (1.8-7.7) H 11/03/21 04:32 Band Neutrophils # 0.0 K/mm3 11/03/21 04:32 Lymphocytes # (Manual) 0.5 K/mm3 (1.2-5.4) L 11/03/21 04:32 Abs React Lymphs (Man) 0.0 K/mm3 11/03/21 04:32 Monocytes # (Manual) 0.0 K/mm3 (0.0-0.8) 11/03/21 04:32 Eosinophils # (Manual) 0.0 K/mm3 (0.0-0.4) 11/03/21 04:32 Basophils # (Manual) 0.0 K/mm3 (0.0-0.1) 11/03/21 04:32 Metamyelocytes # 0.0 K/mm3 11/03/21 04:32 Myelocytes # 0.0 K/mm3 11/03/21 04:32 Promyelocytes # 0.0 K/mm3 11/03/21 04:32 Blast Cells # 0.0 K/mm3 11/03/21 04:32 WBC Morphology Not Reportable 11/03/21 04:32 Hypersegmented Neuts Not Reportable 11/03/21 04:32 Hyposegmented Neuts Not Reportable 11/03/21 04:32 Hypogranular Neuts Not Reportable 11/03/21 04:32 Smudge Cells Not Reportable 11/03/21 04:32 Toxic Granulation Not Reportable 11/03/21 04:32 Toxic Vacuolation Not Reportable 11/03/21 04:32 Dohle Bodies Not Reportable 11/03/21 04:32 Pelger-Huet Anomaly Not Reportable 11/03/21 04:32 Sisi Rods Not Reportable 11/03/21 04:32 Platelet Estimate Consistent w auto 11/03/21 04:32 Clumped Platelets Not Reportable 11/03/21 04:32 Plt Clumps, EDTA Not Reportable 11/03/21 04:32 Large Platelets Not Reportable 11/03/21 04:32 Giant Platelets Not Reportable 11/03/21 04:32 Platelet Satelliting Not Reportable 11/03/21 04:32 Plt Morphology Comment Not Reportable 11/03/21 04:32 RBC Morphology Normal 11/03/21 04:32 Dimorphic RBCs Not Reportable 11/03/21 04:32 Polychromasia Not Reportable 11/03/21 04:32 Hypochromasia Not Reportable 11/03/21 04:32 Poikilocytosis Not Reportable 11/03/21 04:32 Anisocytosis Not Reportable 11/03/21 04:32 Microcytosis Not Reportable 11/03/21 04:32 Macrocytosis Not Reportable 11/03/21 04:32 Spherocytes Not Reportable 11/03/21 04:32 Pappenheimer Bodies Not Reportable 11/03/21 04:32 Sickle Cells Not Reportable 11/03/21 04:32 Target Cells Not Reportable 11/03/21 04:32 Tear Drop Cells Not Reportable 11/03/21 04:32 Ovalocytes Not Reportable 11/03/21 04:32 Helmet Cells Not Reportable 11/03/21 04:32 [place] Bodies Not Reportable 11/03/21 04:32 [place] Rings Not Reportable 11/03/21 04:32 Thanh Cells Not Reportable 11/03/21 04:32 Bite Cells Not Reportable 11/03/21 04:32 Crenated Cell Not Reportable 11/03/21 04:32 Elliptocytes Not Reportable 11/03/21 04:32 Acanthocytes (Spur) Not Reportable 11/03/21 04:32 Rouleaux Not Reportable 11/03/21 04:32 Hemoglobin C Crystals Not Reportable 11/03/21 04:32 Schistocytes Not Reportable 11/03/21 04:32 Malaria parasites Not Reportable 11/03/21 04:32 Hany Bodies Not Reportable 11/03/21 04:32 Hem Pathologist Commnt No 11/03/21 04:32 PT 15.6 Sec. (12.2-14.9) H 10/31/21 02:36 INR 1.12 (0.87-1.13) 10/31/21 02:36 APTT 43.1 Sec. (24.2-36.6) H 10/31/21 02:36 D-Dimer 867.25 ng/mlDDU (0-234) H 11/07/21 04:57 ABG pH 7.572 (7.320-7.450) H 11/06/21 13:27 POC ABG pCO2 28.9 mmHg (32.0-48.0) L 11/06/21 13:27 ABG pCO2 29.9 mm Hg 11/01/21 04:00 POC ABG pO2 80.4 mmHg (83-108) L 11/06/21 13:27 ABG pO2 82.5 mm Hg (80.0-90.0) 11/01/21 04:00 POC ABG HCO3 26.0 11/06/21 13:27 ABG HCO3 21.2 mmol/L (20.0-26.0) 11/01/21 04:00 ABG O2 Saturation 96.8 (0-100) 11/06/21 13:27 ABG O2 Content 15.3 (0.0-44) 11/01/21 04:00 POC ABG Base Excess 4.6 11/06/21 13:27 ABG Base Excess -1.6 mmol/L (-2.0-3.0) 11/01/21 04:00 ABG Hemoglobin 12.3 (12.0-17.5) 11/06/21 13:27 ABG Oxyhemoglobin 96.4 (94-98) 11/06/21 13:27 ABG Carboxyhemoglobin 1.1 % (0.0-5.0) 11/01/21 04:00 ABG Methemoglobin 0.3 (0.0-1.5) 11/06/21 13:27 ABG Sodium 139.2 mmol/L (136.0-145.0) 11/06/21 13:27 ABG Potassium 3.1 mmol/L (3.40-4.50) L 11/06/21 13:27 ABG Chloride 102.0 mmol/L (98-107) 11/06/21 13:27 ABG Glucose 181 mg/dL (65-95) H 11/06/21 13:27 Oxyhemoglobin 95.6 % (95.0-99.0) 11/01/21 04:00 Carboxyhemoglobin 0.1 (0.5-1.5) L 11/06/21 13:27 FiO2 50 % 11/01/21 04:00 FiO2 % 40 11/06/21 13:27 Sodium 141 mmol/L (137-145) 11/07/21 04:57 Potassium 3.4 mmol/L (3.6-5.0) L 11/07/21 04:57 Chloride 98.3 mmol/L (98-107) 11/07/21 04:57 Carbon Dioxide 29 mmol/L (22-30) 11/07/21 04:57 Anion Gap 17 mmol/L 11/07/21 04:57 BUN 16 mg/dL (9-20) 11/07/21 04:57 Creatinine 0.5 mg/dL (0.8-1.3) L 11/07/21 04:57 Estimated GFR > 60 ml/min 11/07/21 04:57 BUN/Creatinine Ratio 32 % 11/07/21 04:57 Glucose 115 mg/dL (75-100) H 11/07/21 04:57 POC Glucose 205 mg/dL (70-105) H 11/09/21 15:48 Lactic Acid 1.80 mmol/L (0.7-2.0) 10/31/21 23:23 Calcium 10.1 mg/dL (8.4-10.2) 11/07/21 04:57 Phosphorus 3.00 mg/dL (2.5-4.5) 11/07/21 04:57 Magnesium 1.70 mg/dL (1.7-2.3) 11/07/21 04:57 Ferritin > 2000.0 ng/mL (30.0-300.0) H 11/07/21 04:57 Total Bilirubin 0.30 mg/dL (0.1-1.2) 11/07/21 04:57 AST 143 units/L (5-40) H 11/07/21 04:57 ALT 246 units/L (7-56) H 11/07/21 04:57 Alkaline Phosphatase 181 units/L (35-129) H 11/07/21 04:57 Ammonia 21.0 umol/L (25-60) L 10/31/21 06:04 Lactate Dehydrogenase 370 units/L (91-180) H 11/07/21 04:57 Troponin T < 0.010 ng/mL (0.00-0.029) 10/31/21 16:42 C-Reactive Protein 9.10 mg/dL (0.00-1.30) H 11/07/21 04:57 NT-Pro-B Natriuret Pep 2381 pg/mL (0-900) H 10/31/21 02:36 Total Protein 7.6 g/dL (6.3-8.2) 11/07/21 04:57 Albumin 2.8 g/dL (3.9-5) L 11/07/21 04:57 Albumin/Globulin Ratio 0.6 % 11/07/21 04:57 Triglycerides 116 mg/dL (2-149) 10/31/21 02:36 Cholesterol 52 mg/dL (50-199) 10/31/21 02:36 LDL Cholesterol Direct 20 mg/dL (50-130) L 10/31/21 02:36 HDL Cholesterol 13 mg/dL (40-59) L 10/31/21 02:36 Cholesterol/HDL Ratio 4.00 % 10/31/21 02:36 Procalcitonin 3.44 ng/mL (<0.15) 10/31/21 02:36 Arterial Blood Glucose 181 mg/dL (65-95) H 11/06/21 13:27 Arterial Blood Ionized Calcium 5.0 mg/dL (4.6-5.3) 11/06/21 13:27 Coronavirus (PCR) Positive (Negative) A 10/31/21 09:30 [place]/IV: Voiding Method Condom Catheter Active Medications - Current Medications Current Medications: Generic Name Dose Route Start Last Admin Trade Name Freq PRN Reason Stop Dose Admin Acetaminophen 650 mg 10/31/21 12:00 Acetaminophen 325 Mg/10.15 Ml Oral Liqd Unit Dose FEEDTUBE Q6H PRN Pain MILD(1-3)/Fever >100.5/MARIANO Hydrocodone Bitart/Acetaminophen 2 each 10/31/21 12:00 Hydrocodone/Acetaminophen 5-325 Mg Tab PO Q6H PRN Pain, Moderate (4-6) Albuterol 2.5 mg 11/04/21 12:52 11/06/21 14:26 Albuterol 2.5 Mg/3 Ml Nebu IH 2.5 mg Q6HRT PRN Administration Shortness Of Breath Lipase/Protease/Amylase 1 each 10/31/21 12:00 Lipase 10,500/Protease 25,000/Amylase 43,750 (Units) Dr Adames FEEDTUBE PRN PRN For Clogged Feeding Tube Dexamethasone 6 mg 11/01/21 10:00 11/09/21 09:02 Dexamethasone 4 Mg/Ml Vial IV 11/10/21 10:01 6 mg Q24HR TRAVIS Administration Enoxaparin Sodium 40 mg 11/01/21 10:00 11/09/21 09:02 Enoxaparin 40 Mg/0.4 Ml Inj SUB-Q 40 mg QDAY@1000 TRAVIS Administration Famotidine 20 mg 11/04/21 10:00 11/09/21 22:02 Famotidine 20 Mg Tab FEEDTUBE 20 mg BID TRAVIS Administration Hydrophilic Ointment 1 applic 10/31/21 15:40 Lip Therapy Vaseline TP Q2HR PRN Dry Lips Insulin Human Lispro 0 unit 11/09/21 18:00 11/09/21 17:53 Insulin Lispro 100 Unit/Ml SUB-Q 3 unit Q6HR RTAVIS Administration Protocol Morphine Sulfate 2 mg 10/31/21 12:00 11/02/21 11:48 Morphine 2 Mg/1 Ml Inj IV 2 mg Q4H PRN Administration Pain , Severe (7-10) Multi-Ingred Cream/Lotion/Oil/Oint 1 applic 10/31/21 15:40 Mineral Oil/Petrolatum, White Ophth Oint 3.5 Gm OU Q4HR PRN Dry Eye(s) Ondansetron HCl 4 mg 11/08/21 22:56 11/08/21 23:13 Ondansetron 4 Mg/2 Ml Inj IV 4 mg Q4H PRN Administration Nausea And Vomiting Scopolamine 1 each 11/05/21 14:00 11/08/21 10:10 Scopolamine Transdermal Patch 72 Hr TD 1 each Q3D TRAVIS Administration Senna/Docusate Sodium 1 tab 10/31/21 22:00 11/09/21 22:02 Sennosides/Docusate Sodium 8.6/50 Mg Tab FEEDTUBE 1 tab BID TRAVIS Administration Simple Syrup 15 ml 10/31/21 12:00 Simple Syrup 15 Ml FEEDTUBE PRN PRN Hypoglycemia Simple Syrup 30 ml 10/31/21 12:00 Simple Syrup 15 Ml FEEDTUBE PRN PRN Hypoglycemia Sodium Chloride 10 ml 10/31/21 12:00 11/09/21 22:02 Sodium Chloride 0.9% 10 Ml Flush Syringe IV 10 ml BID TRAVIS Administration Sodium Chloride 10 ml 10/31/21 12:00 Sodium Chloride 0.9% 10 Ml Flush Syringe IV PRN PRN LINE FLUSH Nutrition/Malnutrition Assess - Dietary Evaluation Nutrition/Malnutrition Findings: Nutrition Notes Start: 10/31/21 12:11 Freq: Status: Active Protocol: Document 11/06/21 15:43 ARTURO (Rec: 11/06/21 16:07 ARTURO [id number]) Nutrition Notes Initial or Follow up Brief Note Current Diet TF-Nepro w/CARBSTEADY @ 45 ml/ hr (since D 11/06). Height 6 ft 1 in Weight 70.3 kg [place] Body Weight (kg) 83.63 BMI 20.4 Weight change and time frame 0.007 Kg body weight change reported. Weight Status Appropriate Subjective/Other Information RD consult for routine F/U on Bolus Feeding tolerance. No report available on chart at the time, I spoke with RN and she informed that Pt is back to TF, tolerating well. Percent of energy/protein needs met: Prescribed Nepro w/CARBSTEADY @ 45 ml/hr provides for energy /protein needs (1,891 Kcal/85 g) during LOS, 100% Kcal; 100% AA. Current % PO Other Minimum of two criteria No #1 Nutrition Diagnosis Inadequate oral intake Diagnosis Progress(for reassessment Continues documentation) Nutrition Intervention Change Diet Order: d/c Nutrition Support: Nepro w/CARBSTEADY @ 45 ml/hr. Flush: 230 ml water Q 4 hr, as per MD Kcal 1,891 Protein (gm) 85 Carbohydrates (gm) 169 Fat (gm) 101 Fluid (mL) 764 Fiber (gm) 13 % RDI: 100% Kcal; 100% AA. Goal #1 Provide at least 75% of energy /protein needs through Enteral Feeding during LOS. Follow-Up By: 11/13/21 Additional Comments Continue monitoring TF tolerance and BM.
[2021-11-10] MEDS: INSULIN LISPRO 100 UNIT/ML SUB-Q SCH ×5 (00:53→23:32)
[2021-11-10] MEDS: dexAMETHasone 4 MG/ML VIAL IV SCH (09:56)
[2021-11-10] MEDS: ENOXAPARIN 40 MG/0.4 ML INJ SUB-Q SCH (09:57)
[2021-11-10] MEDS: FAMOTIDINE 20 MG TAB FEEDTUBE SCH ×2 (09:57→21:53)
[2021-11-10] MEDS: SENNOSIDES/DOCUSATE SODIUM 8.6/50 MG TAB FEEDTUBE SCH ×2 (09:57→21:53)
--- NOTE | 2021-11-10 16:51 | Progress Note ---
Assessment and Plan Acute on chronic hypoxemic respiratory failure Possible aspiration pneumonia COVID-19 infection Acute kidney injury Sepsis Leukocytosis Mild metabolic acidosis Lactic acidosis Hypernatremia Adult FTT Elevated serum transaminases Elevated serum inflammatory markers to include ferritin, LDH and D-dimers Oropharyngeal dysphagia - discharge planning ongoing concurrently - no new issues today, continue care as below; - continue mucomyst q6h - continue AT-piece RTC as tolerated - completed AB's per ID recommendations - continue to wean supplemental oxygen for target O2 sat's > 90% acutely - aspiration precautions - continue bronchodilators with pulmonary hygiene per RT - wean per pulmonary driven protocols otherwise - avoid nephrotoxins, renally dose all medications - continue accuchecks with glycemic control per SSI for target blood glucose < 180 mg/dL - prn analgesia per pain score - Maintenance of sleep-wake cycle, avoid delirium - enteral nutritional support at goal rate as tolerated - G.I. & VTE prophylaxis - PT/OT/ROM exercises - mobility protocols for pressure ulcer prophylaxis - Monitor hemodynamics closely - continue other care per attending / other consultants - discharge planning ongoing concurrently COVID SPECIFIC INTERVENTIONS - Remdesivir as per ID/Pulmonary developed protocols (Receiving) - continue systemic steroids for severe COVID-19 infection empirically (Decadron) - follow repeat COVID tests results - zinc and vitamin C supplementation - Monitor inflammatory markers per facility protocol - ferritin, Ddimer, CRP - therapeutic anticoagulation per system Protocol based on d-dimer and clinical considerations (VTE prophylaxis) - Continue contact and airborne isolation .... Re-evaluate in am & prn Subjective Date of service: 11/10/21 Principal diagnosis: AHRF; Pneumonia; COVID-19; MARCELINO; Leukocytosis; Lactic acidosis; Sepsis Interval history: Patient is seen today for: AHRF; Aspiration Pneumonia; COVID-19; MARCELINO; Leukocytosis; Lactic acidosis; Elevated serum LFT's; Sepsis Seen and examined at bedside; 24hour events reviewed; nursing and respiratory care staff consulted; no adverse overnight events reported to me; resting in bed; tolerating RTC t-piece; Objective Vital Signs - 12hr 11/10/21 11/10/21 11/10/21 10:00 11:29 11:30 Temperature Pulse Rate Respiratory Rate Blood Pressure O2 Sat by Pulse 97 95 Oximetry O2 Sat by Pulse 95 Oximetry [ Assessment] 11/10/21 12:01 Temperature 98.5 F Pulse Rate 92 H Respiratory 20 Rate Blood Pressure 101/74 O2 Sat by Pulse 89 Oximetry O2 Sat by Pulse Oximetry [ Assessment] Constitutional: no acute distress, other (middle aged male with mildly increased respiratory effort at rest) Eyes: non-icteric ENT: oropharynx moist, oropharyngeal exudate pre (mild), other (midline trac heostomy) Neck: supple, no lymphadenopathy, no JVD Effort: mildly labored Ascultation: Bilateral: rhonchi (and referred upper airway sounds) Percussion: Bilateral: not dull Cardiovascular: regular rate and rhythm Gastrointestinal: normoactive bowel sounds, soft, non-tender, non-distended Integumentary: rash Extremities: no cyanosis, no ischemia or petechiae Neurologic: pupils equal and round, CN II-XII normal, other (weak lower extremities) Psychiatric: mood appropriate, affect normal, other (mild cognitive impairment) CBC and BMP: 11/07/21 04:57 11/07/21 04:57 ABG, PT/INR, D-dimer: ABG ABG pH 7.572 (7.320-7.450) H 11/06/21 13:27 POC ABG pCO2 28.9 mmHg (32.0-48.0) L 11/06/21 13:27 ABG pCO2 29.9 mm Hg 11/01/21 04:00 POC ABG pO2 80.4 mmHg (83-108) L 11/06/21 13:27 ABG pO2 82.5 mm Hg (80.0-90.0) 11/01/21 04:00 POC ABG HCO3 26.0 11/06/21 13:27 ABG O2 Saturation 96.8 (0-100) 11/06/21 13:27 PT/INR, D-dimer PT 15.6 Sec. (12.2-14.9) H 10/31/21 02:36 INR 1.12 (0.87-1.13) 10/31/21 02:36 D-Dimer 867.25 ng/mlDDU (0-234) H 11/07/21 04:57 Abnormal lab findings: Abnormal Labs 10/31/21 10/31/21 10/31/21 02:36 02:36 02:36 WBC 11.4 H Hgb Hct MCH 26 L MCHC 29 L RDW 15.3 H Plt Count Lymph % (Auto) Lymph # (Auto) Seg Neutrophils % 81.5 H Seg Neuts % (Manual) Lymphocytes % (Manual) Nucleated RBC % Seg Neutrophils # 9.3 H Seg Neutrophils # Man Lymphocytes # (Manual) PT 15.6 H APTT 43.1 H D-Dimer 1951.30 H ABG pH POC ABG pCO2 POC ABG pO2 ABG pO2 ABG HCO3 ABG O2 Saturation ABG Base Excess ABG Hemoglobin ABG Oxyhemoglobin ABG Sodium ABG Potassium ABG Chloride ABG Glucose Carboxyhemoglobin Sodium 155 H Potassium Chloride 110.3 H Carbon Dioxide 15 L BUN 46 H Creatinine 2.7 H Glucose 120 H POC Glucose Lactic Acid Magnesium Ferritin AST 492 H ALT 319 H Alkaline Phosphatase 153 H Ammonia Lactate Dehydrogenase Troponin T 0.065 H C-Reactive Protein NT-Pro-B Natriuret Pep 2381 H Albumin 3.0 L LDL Cholesterol Direct 20 L HDL Cholesterol 13 L Arterial Blood Glucose Coronavirus (PCR) 10/31/21 10/31/21 10/31/21 02:36 02:36 02:36 WBC Hgb Hct MCH MCHC RDW Plt Count Lymph % (Auto) Lymph # (Auto) Seg Neutrophils % Seg Neuts % (Manual) Lymphocytes % (Manual) Nucleated RBC % Seg Neutrophils # Seg Neutrophils # Man Lymphocytes # (Manual) PT APTT D-Dimer ABG pH POC ABG pCO2 POC ABG pO2 ABG pO2 ABG HCO3 ABG O2 Saturation ABG Base Excess ABG Hemoglobin ABG Oxyhemoglobin ABG Sodium ABG Potassium ABG Chloride ABG Glucose Carboxyhemoglobin Sodium Potassium Chloride Carbon Dioxide BUN Creatinine Glucose POC Glucose Lactic Acid 11.80 H* Magnesium Ferritin 90630.0 H AST ALT Alkaline Phosphatase Ammonia Lactate Dehydrogenase 923 H Troponin T C-Reactive Protein 7.80 H NT-Pro-B Natriuret Pep Albumin LDL Cholesterol Direct HDL Cholesterol Arterial Blood Glucose Coronavirus (PCR) 10/31/21 10/31/21 10/31/21 04:01 04:54 06:04 WBC Hgb Hct MCH MCHC RDW Plt Count Lymph % (Auto) Lymph # (Auto) Seg Neutrophils % Seg Neuts % (Manual) Lymphocytes % (Manual) Nucleated RBC % Seg Neutrophils # Seg Neutrophils # Man Lymphocytes # (Manual) PT APTT D-Dimer ABG pH 7.318 L POC ABG pCO2 POC ABG pO2 ABG pO2 229.1 H ABG HCO3 17.4 L ABG O2 Saturation 99.3 H ABG Base Excess -7.8 L ABG Hemoglobin 13.2 L ABG Oxyhemoglobin ABG Sodium ABG Potassium ABG Chloride ABG Glucose Carboxyhemoglobin Sodium Potassium Chloride Carbon Dioxide BUN Creatinine Glucose POC Glucose Lactic Acid 5.50 H* Magnesium Ferritin AST ALT Alkaline Phosphatase Ammonia 21.0 L Lactate Dehydrogenase Troponin T C-Reactive Protein NT-Pro-B Natriuret Pep Albumin LDL Cholesterol Direct HDL Cholesterol Arterial Blood Glucose Coronavirus (PCR) 10/31/21 10/31/21 10/31/21 09:30 10:44 16:42 WBC Hgb Hct MCH MCHC RDW Plt Count Lymph % (Auto) Lymph # (Auto) Seg Neutrophils % Seg Neuts % (Manual) Lymphocytes % (Manual) Nucleated RBC % Seg Neutrophils # Seg Neutrophils # Man Lymphocytes # (Manual) PT APTT D-Dimer ABG pH POC ABG pCO2 POC ABG pO2 ABG pO2 ABG HCO3 ABG O2 Saturation ABG Base Excess ABG Hemoglobin ABG Oxyhemoglobin ABG Sodium ABG Potassium ABG Chloride ABG Glucose Carboxyhemoglobin Sodium Potassium Chloride Carbon Dioxide BUN Creatinine Glucose POC Glucose Lactic Acid 3.40 H* 2.80 H* Magnesium Ferritin AST ALT Alkaline Phosphatase Ammonia Lactate Dehydrogenase Troponin T C-Reactive Protein NT-Pro-B Natriuret Pep Albumin LDL Cholesterol Direct HDL Cholesterol Arterial Blood Glucose Coronavirus (PCR) Positive A 10/31/21 11/01/21 11/01/21 16:42 03:38 03:38 WBC 15.6 H Hgb 11.3 L Hct MCH MCHC 31 L RDW 15.3 H Plt Count Lymph % (Auto) Lymph # (Auto) Seg Neutrophils % Seg Neuts % (Manual) 73.0 H Lymphocytes % (Manual) 9.0 L Nucleated RBC % 1.0 H Seg Neutrophils # Seg Neutrophils # Man 11.4 H Lymphocytes # (Manual) PT APTT D-Dimer ABG pH POC ABG pCO2 POC ABG pO2 ABG pO2 ABG HCO3 ABG O2 Saturation ABG Base Excess ABG Hemoglobin ABG Oxyhemoglobin ABG Sodium ABG Potassium ABG Chloride ABG Glucose Carboxyhemoglobin Sodium 158 H Potassium Chloride 122.1 H Carbon Dioxide BUN 40 H Creatinine Glucose 101 H POC Glucose Lactic Acid Magnesium 2.40 H Ferritin AST ALT Alkaline Phosphatase Ammonia Lactate Dehydrogenase Troponin T C-Reactive Protein NT-Pro-B Natriuret Pep Albumin LDL Cholesterol Direct HDL Cholesterol Arterial Blood Glucose Coronavirus (PCR) 11/01/21 11/02/21 11/02/21 04:00 03:22 03:22 WBC 11.9 H Hgb 11.6 L Hct MCH 27 L MCHC 31 L RDW 15.3 H Plt Count Lymph % (Auto) Lymph # (Auto) Seg Neutrophils % Seg Neuts % (Manual) Lymphocytes % (Manual) Nucleated RBC % Seg Neutrophils # Seg Neutrophils # Man Lymphocytes # (Manual) PT APTT D-Dimer ABG pH 7.468 H POC ABG pCO2 POC ABG pO2 ABG pO2 ABG HCO3 ABG O2 Saturation ABG Base Excess ABG Hemoglobin 11.3 L ABG Oxyhemoglobin ABG Sodium ABG Potassium ABG Chloride ABG Glucose Carboxyhemoglobin Sodium 159 H Potassium Chloride 123.3 H Carbon Dioxide BUN 35 H Creatinine Glucose POC Glucose Lactic Acid Magnesium Ferritin AST 394 H ALT 282 H Alkaline Phosphatase 173 H Ammonia Lactate Dehydrogenase Troponin T C-Reactive Protein NT-Pro-B Natriuret Pep Albumin 2.9 L LDL Cholesterol Direct HDL Cholesterol Arterial Blood Glucose Coronavirus (PCR) 11/02/21 11/02/21 11/03/21 03:22 03:58 03:47 WBC Hgb Hct MCH MCHC RDW Plt Count Lymph % (Auto) Lymph # (Auto) Seg Neutrophils % Seg Neuts % (Manual) Lymphocytes % (Manual) Nucleated RBC % Seg Neutrophils # Seg Neutrophils # Man Lymphocytes # (Manual) PT APTT D-Dimer ABG pH 7.523 H 7.467 H POC ABG pCO2 26.0 L 29.8 L POC ABG pO2 69.3 L 77.2 L ABG pO2 ABG HCO3 ABG O2 Saturation ABG Base Excess ABG Hemoglobin 11.7 L 11.4 L ABG Oxyhemoglobin 93.5 L ABG Sodium 161.6 H 158.6 H ABG Potassium ABG Chloride 123.0 H 122.0 H ABG Glucose 100 H 226 H Carboxyhemoglobin 0.3 L 0.2 L Sodium 160 H Potassium Chloride 126.4 H Carbon Dioxide BUN 36 H Creatinine Glucose POC Glucose Lactic Acid Magnesium 3.00 H Ferritin AST ALT Alkaline Phosphatase Ammonia Lactate Dehydrogenase Troponin T C-Reactive Protein NT-Pro-B Natriuret Pep Albumin LDL Cholesterol Direct HDL Cholesterol Arterial Blood Glucose 100 H 226 H Coronavirus (PCR) 11/03/21 11/03/21 11/03/21 04:32 04:32 04:32 WBC 13.6 H Hgb 11.2 L Hct MCH MCHC 31 L RDW 15.4 H Plt Count Lymph % (Auto) Lymph # (Auto) Seg Neutrophils % Seg Neuts % (Manual) 96.0 H Lymphocytes % (Manual) 4.0 L Nucleated RBC % Seg Neutrophils # Seg Neutrophils # Man 13.1 H Lymphocytes # (Manual) 0.5 L PT APTT D-Dimer ABG pH POC ABG pCO2 POC ABG pO2 ABG pO2 ABG HCO3 ABG O2 Saturation ABG Base Excess ABG Hemoglobin ABG Oxyhemoglobin ABG Sodium ABG Potassium ABG Chloride ABG Glucose Carboxyhemoglobin Sodium 154 H Potassium Chloride 120.7 H Carbon Dioxide 21 L BUN 30 H Creatinine Glucose 216 H POC Glucose Lactic Acid Magnesium 2.70 H Ferritin AST 258 H ALT 241 H Alkaline Phosphatase 178 H Ammonia Lactate Dehydrogenase Troponin T C-Reactive Protein NT-Pro-B Natriuret Pep Albumin 2.7 L LDL Cholesterol Direct HDL Cholesterol Arterial Blood Glucose Coronavirus (PCR) 11/04/21 11/04/21 11/04/21 04:48 04:48 05:04 WBC Hgb 10.5 L Hct 33.1 L MCH MCHC RDW Plt Count Lymph % (Auto) 9.7 L Lymph # (Auto) 1.0 L Seg Neutrophils % 87.1 H Seg Neuts % (Manual) Lymphocytes % (Manual) Nucleated RBC % Seg Neutrophils # 9.1 H Seg Neutrophils # Man Lymphocytes # (Manual) PT APTT D-Dimer ABG pH 7.531 H POC ABG pCO2 24.8 L POC ABG pO2 60.5 L ABG pO2 ABG HCO3 ABG O2 Saturation ABG Base Excess ABG Hemoglobin 11.5 L ABG Oxyhemoglobin 91.3 L ABG Sodium 154.1 H ABG Potassium ABG Chloride 118.0 H ABG Glucose 117 H Carboxyhemoglobin 0.3 L Sodium 157 H Potassium Chloride 122.0 H Carbon Dioxide 19 L BUN 21 H Creatinine 0.7 L Glucose 114 H POC Glucose Lactic Acid Magnesium Ferritin AST 366 H ALT 268 H Alkaline Phosphatase 177 H Ammonia Lactate Dehydrogenase Troponin T C-Reactive Protein NT-Pro-B Natriuret Pep Albumin 2.7 L LDL Cholesterol Direct HDL Cholesterol Arterial Blood Glucose 117 H Coronavirus (PCR) 11/04/21 11/04/21 11/04/21 11:59 17:53 18:30 WBC Hgb Hct MCH MCHC RDW Plt Count Lymph % (Auto) Lymph # (Auto) Seg Neutrophils % Seg Neuts % (Manual) Lymphocytes % (Manual) Nucleated RBC % Seg Neutrophils # Seg Neutrophils # Man Lymphocytes # (Manual) PT APTT D-Dimer ABG pH 7.508 H POC ABG pCO2 27.1 L POC ABG pO2 67.1 L ABG pO2 ABG HCO3 ABG O2 Saturation ABG Base Excess ABG Hemoglobin 11.9 L ABG Oxyhemoglobin 93.3 L ABG Sodium 147.4 H ABG Potassium ABG Chloride 113.0 H ABG Glucose 183 H Carboxyhemoglobin 0.2 L Sodium Potassium Chloride Carbon Dioxide BUN Creatinine Glucose POC Glucose 108 H 123 H Lactic Acid Magnesium Ferritin AST ALT Alkaline Phosphatase Ammonia Lactate Dehydrogenase Troponin T C-Reactive Protein NT-Pro-B Natriuret Pep Albumin LDL Cholesterol Direct HDL Cholesterol Arterial Blood Glucose 183 H Coronavirus (PCR) 11/04/21 11/05/21 11/05/21 21:24 06:03 06:03 WBC Hgb Hct MCH MCHC RDW Plt Count Lymph % (Auto) Lymph # (Auto) Seg Neutrophils % Seg Neuts % (Manual) Lymphocytes % (Manual) Nucleated RBC % Seg Neutrophils # Seg Neutrophils # Man Lymphocytes # (Manual) PT APTT D-Dimer 824.75 H ABG pH POC ABG pCO2 POC ABG pO2 ABG pO2 ABG HCO3 ABG O2 Saturation ABG Base Excess ABG Hemoglobin ABG Oxyhemoglobin ABG Sodium ABG Potassium ABG Chloride ABG Glucose Carboxyhemoglobin Sodium Potassium Chloride Carbon Dioxide BUN Creatinine Glucose POC Glucose 190 H Lactic Acid Magnesium Ferritin 2000.0 H AST ALT Alkaline Phosphatase Ammonia Lactate Dehydrogenase Troponin T C-Reactive Protein NT-Pro-B Natriuret Pep Albumin LDL Cholesterol Direct HDL Cholesterol Arterial Blood Glucose Coronavirus (PCR) 11/05/21 11/05/21 11/05/21 06:03 06:03 08:15 WBC 11.3 H Hgb 11.2 L Hct MCH MCHC 31 L RDW 15.4 H Plt Count Lymph % (Auto) Lymph # (Auto) Seg Neutrophils % Seg Neuts % (Manual) Lymphocytes % (Manual) Nucleated RBC % Seg Neutrophils # Seg Neutrophils # Man Lymphocytes # (Manual) PT APTT D-Dimer ABG pH POC ABG pCO2 POC ABG pO2 ABG pO2 ABG HCO3 ABG O2 Saturation ABG Base Excess ABG Hemoglobin ABG Oxyhemoglobin ABG Sodium ABG Potassium ABG Chloride ABG Glucose Carboxyhemoglobin Sodium Potassium Chloride 107.3 H Carbon Dioxide BUN Creatinine 0.6 L Glucose 192 H POC Glucose 171 H Lactic Acid Magnesium Ferritin AST 158 H ALT 233 H Alkaline Phosphatase 179 H Ammonia Lactate Dehydrogenase 401 H Troponin T C-Reactive Protein 6.50 H NT-Pro-B Natriuret Pep Albumin 2.7 L LDL Cholesterol Direct HDL Cholesterol Arterial Blood Glucose Coronavirus (PCR) 11/05/21 11/05/21 11/05/21 11:36 12:10 16:41 WBC Hgb Hct MCH MCHC RDW Plt Count Lymph % (Auto) Lymph # (Auto) Seg Neutrophils % Seg Neuts % (Manual) Lymphocytes % (Manual) Nucleated RBC % Seg Neutrophils # Seg Neutrophils # Man Lymphocytes # (Manual) PT APTT D-Dimer ABG pH 7.456 H POC ABG pCO2 POC ABG pO2 80.4 L 69.1 L ABG pO2 ABG HCO3 ABG O2 Saturation ABG Base Excess ABG Hemoglobin 11.0 L 11.4 L ABG Oxyhemoglobin 93.1 L ABG Sodium ABG Potassium ABG Chloride ABG Glucose 165 H 232 H Carboxyhemoglobin 0.3 L 0.3 L Sodium Potassium Chloride Carbon Dioxide BUN Creatinine Glucose POC Glucose 162 H Lactic Acid Magnesium Ferritin AST ALT Alkaline Phosphatase Ammonia Lactate Dehydrogenase Troponin T C-Reactive Protein NT-Pro-B Natriuret Pep Albumin LDL Cholesterol Direct HDL Cholesterol Arterial Blood Glucose 165 H 232 H Coronavirus (PCR) 11/05/21 11/05/21 11/06/21 16:53 23:33 05:05 WBC Hgb Hct MCH MCHC RDW Plt Count Lymph % (Auto) Lymph # (Auto) Seg Neutrophils % Seg Neuts % (Manual) Lymphocytes % (Manual) Nucleated RBC % Seg Neutrophils # Seg Neutrophils # Man Lymphocytes # (Manual) PT APTT D-Dimer ABG pH POC ABG pCO2 POC ABG pO2 ABG pO2 ABG HCO3 ABG O2 Saturation ABG Base Excess ABG Hemoglobin ABG Oxyhemoglobin ABG Sodium ABG Potassium ABG Chloride ABG Glucose Carboxyhemoglobin Sodium Potassium 3.3 L Chloride Carbon Dioxide BUN Creatinine 0.5 L Glucose 125 H POC Glucose 190 H 144 H Lactic Acid Magnesium Ferritin AST ALT Alkaline Phosphatase Ammonia Lactate Dehydrogenase Troponin T C-Reactive Protein NT-Pro-B Natriuret Pep Albumin LDL Cholesterol Direct HDL Cholesterol Arterial Blood Glucose Coronavirus (PCR) 11/06/21 11/06/21 11/06/21 05:05 11:11 13:27 WBC 13.6 H Hgb 11.1 L Hct 35.3 L MCH MCHC RDW Plt Count Lymph % (Auto) Lymph # (Auto) Seg Neutrophils % Seg Neuts % (Manual) Lymphocytes % (Manual) Nucleated RBC % Seg Neutrophils # Seg Neutrophils # Man Lymphocytes # (Manual) PT APTT D-Dimer ABG pH 7.572 H POC ABG pCO2 28.9 L POC ABG pO2 80.4 L ABG pO2 ABG HCO3 ABG O2 Saturation ABG Base Excess ABG Hemoglobin ABG Oxyhemoglobin ABG Sodium ABG Potassium 3.1 L ABG Chloride ABG Glucose 181 H Carboxyhemoglobin 0.1 L Sodium Potassium Chloride Carbon Dioxide BUN Creatinine Glucose POC Glucose 166 H Lactic Acid Magnesium Ferritin AST ALT Alkaline Phosphatase Ammonia Lactate Dehydrogenase Troponin T C-Reactive Protein NT-Pro-B Natriuret Pep Albumin LDL Cholesterol Direct HDL Cholesterol Arterial Blood Glucose 181 H Coronavirus (PCR) 11/06/21 11/06/21 11/07/21 16:14 23:55 04:57 WBC Hgb Hct MCH MCHC RDW Plt Count Lymph % (Auto) Lymph # (Auto) Seg Neutrophils % Seg Neuts % (Manual) Lymphocytes % (Manual) Nucleated RBC % Seg Neutrophils # Seg Neutrophils # Man Lymphocytes # (Manual) PT APTT D-Dimer 867.25 H ABG pH POC ABG pCO2 POC ABG pO2 ABG pO2 ABG HCO3 ABG O2 Saturation ABG Base Excess ABG Hemoglobin ABG Oxyhemoglobin ABG Sodium ABG Potassium ABG Chloride ABG Glucose Carboxyhemoglobin Sodium Potassium Chloride Carbon Dioxide BUN Creatinine Glucose POC Glucose 172 H 130 H Lactic Acid Magnesium Ferritin AST ALT Alkaline Phosphatase Ammonia Lactate Dehydrogenase Troponin T C-Reactive Protein NT-Pro-B Natriuret Pep Albumin LDL Cholesterol Direct HDL Cholesterol Arterial Blood Glucose Coronavirus (PCR) 11/07/21 11/07/21 11/07/21 04:57 04:57 04:57 WBC 16.6 H Hgb 11.5 L Hct MCH 27 L MCHC 31 L RDW Plt Count 442 H Lymph % (Auto) Lymph # (Auto) Seg Neutrophils % Seg Neuts % (Manual) Lymphocytes % (Manual) Nucleated RBC % Seg Neutrophils # Seg Neutrophils # Man Lymphocytes # (Manual) PT APTT D-Dimer ABG pH POC ABG pCO2 POC ABG pO2 ABG pO2 ABG HCO3 ABG O2 Saturation ABG Base Excess ABG Hemoglobin ABG Oxyhemoglobin ABG Sodium ABG Potassium ABG Chloride ABG Glucose Carboxyhemoglobin Sodium Potassium 3.4 L Chloride Carbon Dioxide BUN Creatinine 0.5 L Glucose 115 H POC Glucose Lactic Acid Magnesium Ferritin > 2000.0 H AST 143 H ALT 246 H Alkaline Phosphatase 181 H Ammonia Lactate Dehydrogenase 370 H Troponin T C-Reactive Protein 9.10 H NT-Pro-B Natriuret Pep Albumin 2.8 L LDL Cholesterol Direct HDL Cholesterol Arterial Blood Glucose Coronavirus (PCR) 11/07/21 11/08/21 11/08/21 11:54 12:01 16:57 WBC Hgb Hct MCH MCHC RDW Plt Count Lymph % (Auto) Lymph # (Auto) Seg Neutrophils % Seg Neuts % (Manual) Lymphocytes % (Manual) Nucleated RBC % Seg Neutrophils # Seg Neutrophils # Man Lymphocytes # (Manual) PT APTT D-Dimer ABG pH POC ABG pCO2 POC ABG pO2 ABG pO2 ABG HCO3 ABG O2 Saturation ABG Base Excess ABG Hemoglobin ABG Oxyhemoglobin ABG Sodium ABG Potassium ABG Chloride ABG Glucose Carboxyhemoglobin Sodium Potassium Chloride Carbon Dioxide BUN Creatinine Glucose POC Glucose 177 H 183 H 204 H Lactic Acid Magnesium Ferritin AST ALT Alkaline Phosphatase Ammonia Lactate Dehydrogenase Troponin T C-Reactive Protein NT-Pro-B Natriuret Pep Albumin LDL Cholesterol Direct HDL Cholesterol Arterial Blood Glucose Coronavirus (PCR) 11/09/21 11/09/21 11/09/21 06:00 10:38 15:48 WBC Hgb Hct MCH MCHC RDW Plt Count Lymph % (Auto) Lymph # (Auto) Seg Neutrophils % Seg Neuts % (Manual) Lymphocytes % (Manual) Nucleated RBC % Seg Neutrophils # Seg Neutrophils # Man Lymphocytes # (Manual) PT APTT D-Dimer ABG pH POC ABG pCO2 POC ABG pO2 ABG pO2 ABG HCO3 ABG O2 Saturation ABG Base Excess ABG Hemoglobin ABG Oxyhemoglobin ABG Sodium ABG Potassium ABG Chloride ABG Glucose Carboxyhemoglobin Sodium Potassium Chloride Carbon Dioxide BUN Creatinine Glucose POC Glucose 157 H 141 H 205 H Lactic Acid Magnesium Ferritin AST ALT Alkaline Phosphatase Ammonia Lactate Dehydrogenase Troponin T C-Reactive Protein NT-Pro-B Natriuret Pep Albumin LDL Cholesterol Direct HDL Cholesterol Arterial Blood Glucose Coronavirus (PCR) 11/10/21 11/10/21 11/10/21 00:52 05:12 11:58 WBC Hgb Hct MCH MCHC RDW Plt Count Lymph % (Auto) Lymph # (Auto) Seg Neutrophils % Seg Neuts % (Manual) Lymphocytes % (Manual) Nucleated RBC % Seg Neutrophils # Seg Neutrophils # Man Lymphocytes # (Manual) PT APTT D-Dimer ABG pH POC ABG pCO2 POC ABG pO2 ABG pO2 ABG HCO3 ABG O2 Saturation ABG Base Excess ABG Hemoglobin ABG Oxyhemoglobin ABG Sodium ABG Potassium ABG Chloride ABG Glucose Carboxyhemoglobin Sodium Potassium Chloride Carbon Dioxide BUN Creatinine Glucose POC Glucose 114 H 118 H 161 H Lactic Acid Magnesium Ferritin AST ALT Alkaline Phosphatase Ammonia Lactate Dehydrogenase Troponin T C-Reactive Protein NT-Pro-B Natriuret Pep Albumin LDL Cholesterol Direct HDL Cholesterol Arterial Blood Glucose Coronavirus (PCR) 11/10/21 15:54 WBC Hgb Hct MCH MCHC RDW Plt Count Lymph % (Auto) Lymph # (Auto) Seg Neutrophils % Seg Neuts % (Manual) Lymphocytes % (Manual) Nucleated RBC % Seg Neutrophils # Seg Neutrophils # Man Lymphocytes # (Manual) PT APTT D-Dimer ABG pH POC ABG pCO2 POC ABG pO2 ABG pO2 ABG HCO3 ABG O2 Saturation ABG Base Excess ABG Hemoglobin ABG Oxyhemoglobin ABG Sodium ABG Potassium ABG Chloride ABG Glucose Carboxyhemoglobin Sodium Potassium Chloride Carbon Dioxide BUN Creatinine Glucose POC Glucose 199 H Lactic Acid Magnesium Ferritin AST ALT Alkaline Phosphatase Ammonia Lactate Dehydrogenase Troponin T C-Reactive Protein NT-Pro-B Natriuret Pep Albumin LDL Cholesterol Direct HDL Cholesterol Arterial Blood Glucose Coronavirus (PCR) Allied health notes reviewed: nursing
[2021-11-11] MEDS: INSULIN LISPRO 100 UNIT/ML SUB-Q SCH ×3 (06:08→19:26)
--- NOTE | 2021-11-11 08:48 | Progress Note ---
Assessment and Plan Assessment and plan: A/P: 61-year-old male with medical history of stroke, chronic tracheostomy, PEG tube in place --COVID pneumonia: with possible superimposed bacterial PNA, completed abx, remdesivir. on steroids for total 10 days. --Acute on chronic respiratory failure: Requiring ventilatory support now on tracheostomy T-piece Sepsis (POA), with possible superimposed bacterial pneumonia COVID-19 pneumonia, Lactic acidosis Patient meets criteria given the tachycardia, tachypnea and diagnosis of pneumonia -Infectious disease consulted, appreciate recommendations -Contact/droplet precautions Completed 5 days of Rocephin and Zithromax - sepsis 10/31 tracheal aspirate with Klebsiella pneumonia Leukocytosis; trending down closely monitor Partly due to steroids -10/31 blood culture x2 no growth to date -Anticoagulation per hospital protocol -Trend COVID-19 inflammatory markers -Monitor WBC and temperature curve --History of chronic hypoxia/ trach in place,; Continue tracheostomy care, titrate oxygen saturation to more than 90% --Past history of CVA; with residual weakness Continue supportive care, PT and OT if needed --Acute kidney injury ; vasomotor nephropathy , present on admission Now resolved , closely monitor renal function, avoid nephrotoxin --Transaminitis ; right upper quadrant ultrasound , no acute abnormality Contracted gallbladder , closely monitor and supportive care --Stage II decubitus ulcers ; bilateral buttock and sacrum Offloading, supportive care, wound care if needed --DVT prophylaxis; subcu Lovenox Full CODE STATUS We will closely monitor the patient and adjust the management as needed Plan of care reviewed with the patient's nurse Consultants and recommendations noted and appreciated 11/09/2021; continue current management, discharge back to [facility] when medically stable DC planning per case management 11/10/2021; continue current management, tracheostomy care, patient is more alert and awake DC planning per case management back to SNF when medically stable and cleared by all the consultants 11/11/2021; patient will be transfer back to SNF when medically stable . History Interval history: I have seen and examined the patient at the bedside Patient's chart and medications reviewed No new events reported by the nursing Vital signs noted Hospitalist Physical - Constitutional Vitals: Temp Pulse Resp BP Pulse Ox 98.1 F 107 H 20 103/78 100 11/11/21 04:57 11/11/21 04:57 11/11/21 04:57 11/11/21 04:57 11/11/21 04:57 General appearance: Present: no acute distress, well-nourished, other ( tracheostomy on T-piece) - EENT Eyes: Present: PERRL, EOM intact - Neck Neck: Present: supple, normal ROM - Respiratory Respiratory effort: normal Respiratory: bilateral: diminished, negative: rales, rhonchi, wheezing - Cardiovascular Rhythm: regular Heart Sounds: Present: S1 & S2 - Extremities Extremities: no ischemia, No edema - Abdominal General gastrointestinal: soft, non-tender, non-distended, normal bowel sounds - Integumentary Integumentary: Present: clear, warm - Psychiatric Psychiatric: appropriate mood/affect, cooperative - Neurologic Neurologic: CNII-XII intact, moves all extremities HEART Score - HEART Score Troponin: Troponin T < 0.010 ng/mL (0.00-0.029) 10/31/21 16:42 Results - Labs CBC & Chem 7: 11/07/21 04:57 11/07/21 04:57 Labs: Laboratory Last Values WBC 16.6 K/mm3 (4.5-11.0) H 11/07/21 04:57 RBC 4.33 M/mm3 (3.65-5.03) 11/07/21 04:57 Hgb 11.5 gm/dl (11.8-15.2) L 11/07/21 04:57 Hct 37.5 % (35.5-45.6) 11/07/21 04:57 MCV 87 fl (84-94) 11/07/21 04:57 MCH 27 pg (28-32) L 11/07/21 04:57 MCHC 31 % (32-34) L 11/07/21 04:57 RDW 14.9 % (13.2-15.2) 11/07/21 04:57 Plt Count 442 K/mm3 (140-440) H 11/07/21 04:57 Lymph % (Auto) 9.7 % (13.4-35.0) L 11/04/21 04:48 [place] % (Auto) 3.1 % (0.0-7.3) 11/04/21 04:48 Eos % (Auto) 0.0 % (0.0-4.3) 11/04/21 04:48 Baso % (Auto) 0.1 % (0.0-1.8) 11/04/21 04:48 Lymph # (Auto) 1.0 K/mm3 (1.2-5.4) L 11/04/21 04:48 [place] # (Auto) 0.3 K/mm3 (0.0-0.8) 11/04/21 04:48 Eos # (Auto) 0.0 K/mm3 (0.0-0.4) 11/04/21 04:48 Baso # (Auto) 0.0 K/mm3 (0.0-0.1) 11/04/21 04:48 Add Manual Diff Complete 11/03/21 04:32 Total Counted 100 11/03/21 04:32 Seg Neutrophils % 87.1 % (40.0-70.0) H 11/04/21 04:48 Seg Neuts % (Manual) 96.0 % (40.0-70.0) H 11/03/21 04:32 Band Neutrophils % 0 % 11/03/21 04:32 Lymphocytes % (Manual) 4.0 % (13.4-35.0) L 11/03/21 04:32 Reactive Lymphs % (Man) 0 % 11/03/21 04:32 Monocytes % (Manual) 0 % (0.0-7.3) 11/03/21 04:32 Eosinophils % (Manual) 0 % (0.0-4.3) 11/03/21 04:32 Basophils % (Manual) 0 % (0.0-1.8) 11/03/21 04:32 Metamyelocytes % 0 % 11/03/21 04:32 Myelocytes % 0 % 11/03/21 04:32 Promyelocytes % 0 % 11/03/21 04:32 Blast Cells % 0 % 11/03/21 04:32 Nucleated RBC % Not Reportable 11/03/21 04:32 Seg Neutrophils # 9.1 K/mm3 (1.8-7.7) H 11/04/21 04:48 Seg Neutrophils # Man 13.1 K/mm3 (1.8-7.7) H 11/03/21 04:32 Band Neutrophils # 0.0 K/mm3 11/03/21 04:32 Lymphocytes # (Manual) 0.5 K/mm3 (1.2-5.4) L 11/03/21 04:32 Abs React Lymphs (Man) 0.0 K/mm3 11/03/21 04:32 Monocytes # (Manual) 0.0 K/mm3 (0.0-0.8) 11/03/21 04:32 Eosinophils # (Manual) 0.0 K/mm3 (0.0-0.4) 11/03/21 04:32 Basophils # (Manual) 0.0 K/mm3 (0.0-0.1) 11/03/21 04:32 Metamyelocytes # 0.0 K/mm3 11/03/21 04:32 Myelocytes # 0.0 K/mm3 11/03/21 04:32 Promyelocytes # 0.0 K/mm3 11/03/21 04:32 Blast Cells # 0.0 K/mm3 11/03/21 04:32 WBC Morphology Not Reportable 11/03/21 04:32 Hypersegmented Neuts Not Reportable 11/03/21 04:32 Hyposegmented Neuts Not Reportable 11/03/21 04:32 Hypogranular Neuts Not Reportable 11/03/21 04:32 Smudge Cells Not Reportable 11/03/21 04:32 Toxic Granulation Not Reportable 11/03/21 04:32 Toxic Vacuolation Not Reportable 11/03/21 04:32 Dohle Bodies Not Reportable 11/03/21 04:32 Pelger-Huet Anomaly Not Reportable 11/03/21 04:32 Sisi Rods Not Reportable 11/03/21 04:32 Platelet Estimate Consistent w auto 11/03/21 04:32 Clumped Platelets Not Reportable 11/03/21 04:32 Plt Clumps, EDTA Not Reportable 11/03/21 04:32 Large Platelets Not Reportable 11/03/21 04:32 Giant Platelets Not Reportable 11/03/21 04:32 Platelet Satelliting Not Reportable 11/03/21 04:32 Plt Morphology Comment Not Reportable 11/03/21 04:32 RBC Morphology Normal 11/03/21 04:32 Dimorphic RBCs Not Reportable 11/03/21 04:32 Polychromasia Not Reportable 11/03/21 04:32 Hypochromasia Not Reportable 11/03/21 04:32 Poikilocytosis Not Reportable 11/03/21 04:32 Anisocytosis Not Reportable 11/03/21 04:32 Microcytosis Not Reportable 11/03/21 04:32 Macrocytosis Not Reportable 11/03/21 04:32 Spherocytes Not Reportable 11/03/21 04:32 Pappenheimer Bodies Not Reportable 11/03/21 04:32 Sickle Cells Not Reportable 11/03/21 04:32 Target Cells Not Reportable 11/03/21 04:32 Tear Drop Cells Not Reportable 11/03/21 04:32 Ovalocytes Not Reportable 11/03/21 04:32 Helmet Cells Not Reportable 11/03/21 04:32 [place] Bodies Not Reportable 11/03/21 04:32 [place] Rings Not Reportable 11/03/21 04:32 Thanh Cells Not Reportable 11/03/21 04:32 Bite Cells Not Reportable 11/03/21 04:32 Crenated Cell Not Reportable 11/03/21 04:32 Elliptocytes Not Reportable 11/03/21 04:32 Acanthocytes (Spur) Not Reportable 11/03/21 04:32 Rouleaux Not Reportable 11/03/21 04:32 Hemoglobin C Crystals Not Reportable 11/03/21 04:32 Schistocytes Not Reportable 11/03/21 04:32 Malaria parasites Not Reportable 11/03/21 04:32 Hany Bodies Not Reportable 11/03/21 04:32 Hem Pathologist Commnt No 11/03/21 04:32 PT 15.6 Sec. (12.2-14.9) H 10/31/21 02:36 INR 1.12 (0.87-1.13) 10/31/21 02:36 APTT 43.1 Sec. (24.2-36.6) H 10/31/21 02:36 D-Dimer 867.25 ng/mlDDU (0-234) H 11/07/21 04:57 ABG pH 7.572 (7.320-7.450) H 11/06/21 13:27 POC ABG pCO2 28.9 mmHg (32.0-48.0) L 11/06/21 13:27 ABG pCO2 29.9 mm Hg 11/01/21 04:00 POC ABG pO2 80.4 mmHg (83-108) L 11/06/21 13: ABG pO2 82.5 mm Hg (80.0-90.0) 11/01/21 04:00 POC ABG HCO3 26.0 11/06/21 13: ABG HCO3 21.2 mmol/L (20.0-26.0) 11/01/21 04:00 ABG O2 Saturation 96.8 (0-100) 11/06/21 13: ABG O2 Content 15.3 (0.0-44) 11/01/21 04:00 POC ABG Base Excess 4.6 11/06/21: ABG Base Excess -1.6 mmol/L (-2.0-3.0) 11/01/21 04:00 ABG Hemoglobin 12.3 (12.0-17.5) 11/06/21 13: ABG Oxyhemoglobin 96.4 (94-98) 11/06/21 13:27 ABG Carboxyhemoglobin 1.1 % (0.0-5.0) 11/01/21 04:00 ABG Methemoglobin 0.3 (0.0-1.5) 11/06/21 13:27 ABG Sodium 139.2 mmol/L (136.0-145.0) 11/06/21 13:27 ABG Potassium 3.1 mmol/L (3.40-4.50) L 11/06/21 13:27 ABG Chloride 102.0 mmol/L (98-107) 11/06/21 13: ABG Glucose 181 mg/dL (65-95) H 11/06/21 13:27 Oxyhemoglobin 95.6 % (95.0-99.0) 11/01/21 04:00 Carboxyhemoglobin 0.1 (0.5-1.5) L 11/06/21 13:27 FiO2 50 % 11/01/21 04:00 FiO2 % 40 11/06/21 13:27 Sodium 141 mmol/L (137-145) 11/07/21 04:57 Potassium 3.4 mmol/L (3.6-5.0) L 11/07/21 04:57 Chloride 98.3 mmol/L (98-107) 11/07/21 04:57 Carbon Dioxide 29 mmol/L (22-30) 11/07/21 04:57 Anion Gap 17 mmol/L 11/07/21 04:57 BUN 16 mg/dL (9-20) 11/07/21 04:57 Creatinine 0.5 mg/dL (0.8-1.3) L 11/07/21 04:57 Estimated GFR > 60 ml/min 11/07/21 04:57 BUN/Creatinine Ratio 32 % 11/07/21 04:57 Glucose 115 mg/dL (75-100) H 11/07/21 04:57 POC Glucose 131 mg/dL (70-105) H 11/11/21 06:06 Lactic Acid 1.80 mmol/L (0.7-2.0) 10/31/21 23:23 Calcium 10.1 mg/dL (8.4-10.2) 11/07/21 04:57 Phosphorus 3.00 mg/dL (2.5-4.5) 11/07/21 04:57 Magnesium 1.70 mg/dL (1.7-2.3) 11/07/21 04:57 Ferritin > 2000.0 ng/mL (30.0-300.0) H 11/07/21 04:57 Total Bilirubin 0.30 mg/dL (0.1-1.2) 11/07/21 04:57 AST 143 units/L (5-40) H 11/07/21 04:57 ALT 246 units/L (7-56) H 11/07/21 04:57 Alkaline Phosphatase 181 units/L (35-129) H 11/07/21 04:57 Ammonia 21.0 umol/L (25-60) L 10/31/21 06:04 Lactate Dehydrogenase 370 units/L (91-180) H 11/07/21 04:57 Troponin T < 0.010 ng/mL (0.00-0.029) 10/31/21 16:42 C-Reactive Protein 9.10 mg/dL (0.00-1.30) H 11/07/21 04:57 NT-Pro-B Natriuret Pep 2381 pg/mL (0-900) H 10/31/21 02:36 Total Protein 7.6 g/dL (6.3-8.2) 11/07/21 04:57 Albumin 2.8 g/dL (3.9-5) L 11/07/21 04:57 Albumin/Globulin Ratio 0.6 % 11/07/21 04:57 Triglycerides 116 mg/dL (2-149) 10/31/21 02:36 Cholesterol 52 mg/dL (50-199) 10/31/21 02:36 LDL Cholesterol Direct 20 mg/dL (50-130) L 10/31/21 02:36 HDL Cholesterol 13 mg/dL (40-59) L 10/31/21 02:36 Cholesterol/HDL Ratio 4.00 % 10/31/21 02:36 Procalcitonin 3.44 ng/mL (<0.15) 10/31/21 02:36 Arterial Blood Glucose 181 mg/dL (65-95) H 11/06/21 13:27 Arterial Blood Ionized Calcium 5.0 mg/dL (4.6-5.3) 11/06/21 13:27 Coronavirus (PCR) Positive (Negative) A 10/31/21 09:30 [place]/IV: Voiding Method Condom Catheter Active Medications - Current Medications Current Medications: Generic Name Dose Route Start Last Admin Trade Name Freq PRN Reason Stop Dose Admin Acetaminophen 650 mg 10/31/21 12:00 Acetaminophen 325 Mg/10.15 Ml Oral Liqd Unit Dose FEEDTUBE Q6H PRN Pain MILD(1-3)/Fever >100.5/MARIANO Hydrocodone Bitart/Acetaminophen 2 each 10/31/21 12:00 Hydrocodone/Acetaminophen 5-325 Mg Tab PO Q6H PRN Pain, Moderate (4-6) Albuterol 2.5 mg 11/04/21 12:52 11/06/21 14:26 Albuterol 2.5 Mg/3 Ml Nebu IH 2.5 mg Q6HRT PRN Administration Shortness Of Breath Lipase/Protease/Amylase 1 each 10/31/21 12:00 Lipase 10,500/Protease 25,000/Amylase 43,750 (Units) Dr Adames FEEDTUBE PRN PRN For Clogged Feeding Tube Enoxaparin Sodium 40 mg 11/01/21 10:00 11/10/21 09:57 Enoxaparin 40 Mg/0.4 Ml Inj SUB-Q 40 mg QDAY@1000 TRAVIS Administration Famotidine 20 mg 11/04/21 10:00 11/10/21 21:53 Famotidine 20 Mg Tab FEEDTUBE 20 mg BID TRAVIS Administration Hydrophilic Ointment 1 applic 10/31/21 15:40 Lip Therapy Vaseline TP Q2HR PRN Dry Lips Insulin Human Lispro 0 unit 11/09/21 18:00 11/11/21 06:08 Insulin Lispro 100 Unit/Ml SUB-Q Not Given Q6HR [facility] Protocol Morphine Sulfate 2 mg 10/31/21 12:00 11/02/21 11:48 Morphine 2 Mg/1 Ml Inj IV 2 mg Q4H PRN Administration Pain , Severe (7-10) Multi-Ingred Cream/Lotion/Oil/Oint 1 applic 10/31/21 15:40 Mineral Oil/Petrolatum, White Ophth Oint 3.5 Gm OU Q4HR PRN Dry Eye(s) Ondansetron HCl 4 mg 11/08/21 22:56 11/08/21 23:13 Ondansetron 4 Mg/2 Ml Inj IV 4 mg Q4H PRN Administration Nausea And Vomiting Scopolamine 1 each 11/05/21 14:00 11/08/21 10:10 Scopolamine Transdermal Patch 72 Hr TD 1 each Q3D TRAVIS Administration Senna/Docusate Sodium 1 tab 10/31/21 22:00 11/10/21 21:53 Sennosides/Docusate Sodium 8.6/50 Mg Tab FEEDTUBE Not Given BID TRAVIS Simple Syrup 15 ml 10/31/21 12:00 Simple Syrup 15 Ml FEEDTUBE PRN PRN Hypoglycemia Simple Syrup 30 ml 10/31/21 12:00 Simple Syrup 15 Ml FEEDTUBE PRN PRN Hypoglycemia Sodium Chloride 10 ml 10/31/21 12:00 11/10/21 21:54 Sodium Chloride 0.9% 10 Ml Flush Syringe IV 10 ml BID TRAVIS Administration Sodium Chloride 10 ml 10/31/21 12:00 Sodium Chloride 0.9% 10 Ml Flush Syringe IV PRN PRN LINE FLUSH Nutrition/Malnutrition Assess - Dietary Evaluation Nutrition/Malnutrition Findings: Nutrition Notes Start: 10/31/21 12:11 Freq: Status: Active Protocol: Document 11/06/21 15:43 ARTURO (Rec: 11/06/21 16:07 ARTURO [id number]) Nutrition Notes Initial or Follow up Brief Note Current Diet TF-Nepro w/CARBSTEADY @ 45 ml/ hr (since D 11/06). Height 6 ft 1 in Weight 70.3 kg [place] Body Weight (kg) 83.63 BMI 20.4 Weight change and time frame 0.007 Kg body weight change reported. Weight Status Appropriate Subjective/Other Information RD consult for routine F/U on Bolus Feeding tolerance. No report available on chart at the time, I spoke with RN and she informed that Pt is back to TF, tolerating well. Percent of energy/protein needs met: Prescribed Nepro w/CARBSTEADY @ 45 ml/hr provides for energy /protein needs (1,891 Kcal/85 g) during LOS, 100% Kcal; 100% AA. Current % PO Other Minimum of two criteria No #1 Nutrition Diagnosis Inadequate oral intake Diagnosis Progress(for reassessment Continues documentation) Nutrition Intervention Change Diet Order: d/c Nutrition Support: Nepro w/CARBSTEADY @ 45 ml/hr. Flush: 230 ml water Q 4 hr, as per MD Kcal 1,891 Protein (gm) 85 Carbohydrates (gm) 169 Fat (gm) 101 Fluid (mL) 764 Fiber (gm) 13 % RDI: 100% Kcal; 100% AA. Goal #1 Provide at least 75% of energy /protein needs through Enteral Feeding during LOS. Follow-Up By: 11/13/21 Additional Comments Continue monitoring TF tolerance and BM.
[2021-11-11] MEDS: SENNOSIDES/DOCUSATE SODIUM 8.6/50 MG TAB FEEDTUBE SCH ×2 (09:49→22:40)
[2021-11-11] MEDS: FAMOTIDINE 20 MG TAB FEEDTUBE SCH ×2 (09:49→22:40)
[2021-11-11] MEDS: SCOPOLAMINE TRANSDERMAL PATCH 72 HR TD SCH (09:49)
[2021-11-11] MEDS: ENOXAPARIN 40 MG/0.4 ML INJ SUB-Q SCH (09:49)
--- NOTE | 2021-11-11 13:38 | Progress Note ---
Assessment and Plan Cultures: Blood culture no growth so far COVID-19 PCR positive Sputum culture 10/31/2021 Klebsiella pneumoniae A/P: 61-year-old male with medical history of stroke, chronic tracheostomy, PEG tube now with: #COVID pneumonia: with possible superimposed bacterial PNA, completed abx, remdesivir. Completed steroids. #Acute on chronic respiratory failure: Chronic trach in place, required ventilation on top of normal requirements, now stable on T-piece #History of CVA #MARCELINO: Resolved. #Elevated LFTs: unknown etiology. ?COVID related. RUQ US showed contracted gall bladder #Sacral decubitus, stage 2 Recs: -Completed 5 days of ceftriaxone, Remdesivir -Completed Decadron x 10 days -Anticoagulation per hospital protocol -wound care and offloading for sacral decubitus Will sign off. Adela Siddiqi MD, FACP, [facility] ([facility]) O: [phone] F: [phone] Subjective Date of service: 11/11/21 Principal diagnosis: AHRF; Pneumonia; COVID-19; MARCELINO; Leukocytosis; Lactic acidosis; Sepsis Interval history: No fever. Remains stable on T-piece. Objective - Exam Narrative Exam: Physical Exam: (reviewed in chart, exam deferred to minimize risk of COVID-19 transmission) - Constitutional Vitals: Vital Signs Temp Pulse Resp BP Pulse Ox 98.2 F 106 H 24 101/76 94 11/11/21 11:39 11/11/21 11:39 11/11/21 11:39 11/11/21 11:39 11/11/21 11:39 Temperature -Last 24 Hours Temperature 98.2 F Temperature 97.0 F Temperature 98.1 F Temperature 98.1 F Temperature 97.4 F Temperature 97.9 F - Labs CBC & Chem 7: 11/07/21 04:57 11/07/21 04:57 Labs: Abnormal lab results 11/10/21 11/10/21 11/11/21 Range/Units 15:54 23:31 06:06 POC Glucose 199 H 131 H 131 H (70-105) mg/dL 11/11/21 Range/Units 11:42 POC Glucose 160 H (70-105) mg/dL
--- NOTE | 2021-11-11 14:20 | Progress Note ---
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 Carboxyhemoglobin Sodium Potassium Chloride Carbon Dioxide BUN Creatinine Glucose POC Glucose 160 H Lactic Acid Magnesium Ferritin AST ALT Alkaline Phosphatase Ammonia Lactate Dehydrogenase Troponin T C-Reactive Protein NT-Pro-B Natriuret Pep Albumin LDL Cholesterol Direct HDL Cholesterol Arterial Blood Glucose Coronavirus (PCR) Chest x-ray: report reviewed, image reviewed Prior PFT's, U/S of legs: report reviewed, image reviewed Additional Studies: CHEST 1 VIEW 11/03/2021 9:25 AM INDICATION / CLINICAL INFORMATION: Follow-up respiratory failure. COMPARISON: Yesterday. FINDINGS: SUPPORT DEVICES: The position of the tracheostomy tube has not changed. HEART / MEDIASTINUM: Unchanged. LUNGS / PLEURA: There are mild patchy parenchymal opacities in both mid to lower lung zones, left greater than right, probably unchanged. No new abnormality. No pleural effusion. No pneumothorax. ADDITIONAL FINDINGS: No significant additional findings. IMPRESSION: No significant change since yesterday. DUPLEX DOPPLER LOWER EXTREMITY VEINS, BILATERAL 11/04/21 INDICATION / CLINICAL INFORMATION: r/o dvt. Bilateral leg swelling, sepsis TECHNIQUE: Duplex doppler imaging was performed through the veins of both lower extremities using venous compression and other maneuvers. COMPARISON: None available. FINDINGS: RIGHT COMMON FEMORAL VEIN: Negative. RIGHT FEMORAL VEIN: Negative. RIGHT POPLITEAL VEIN: Negative. RIGHT CALF VEINS: Negative. LEFT COMMON FEMORAL VEIN: Negative. LEFT FEMORAL VEIN: Negative. LEFT POPLITEAL VEIN: Negative. LEFT CALF VEINS: Negative. ADDITIONAL FINDINGS: None. IMPRESSION: 1. No sonographic evidence for DVT in either lower extremity. Allied health notes reviewed: nursing
[2021-11-12] MEDS: INSULIN LISPRO 100 UNIT/ML SUB-Q SCH ×4 (00:35→18:00)
--- NOTE | 2021-11-12 08:59 | Progress Note ---
Assessment and Plan Assessment and plan: A/P: 61-year-old male with medical history of stroke, chronic tracheostomy, PEG tube in place --COVID pneumonia: with possible superimposed bacterial PNA, completed abx, remdesivir. on steroids for total 10 days. --Acute on chronic respiratory failure: Requiring ventilatory support now on tracheostomy T-piece Patient is requiring 10 L of oxygen via trach Sepsis (POA), with possible superimposed bacterial pneumonia COVID-19 pneumonia, Lactic acidosis Patient meets criteria given the tachycardia, tachypnea and diagnosis of pneumonia -Infectious disease consulted, appreciate recommendations -Contact/droplet precautions Completed 5 days of Rocephin and Zithromax - sepsis 10/31 tracheal aspirate with Klebsiella pneumonia Leukocytosis; trending down closely monitor Partly due to steroids -10/31 blood culture x2 no growth to date -Anticoagulation per hospital protocol -Trend COVID-19 inflammatory markers -Monitor WBC and temperature curve --History of chronic hypoxia/ trach in place,; Continue tracheostomy care, titrate oxygen saturation to more than 90% --Past history of CVA; with residual weakness Continue supportive care, PT and OT if needed --Acute kidney injury ; vasomotor nephropathy , present on admission Now resolved , closely monitor renal function, avoid nephrotoxin --Transaminitis ; right upper quadrant ultrasound , no acute abnormality Contracted gallbladder , closely monitor and supportive care --Stage II decubitus ulcers ; bilateral buttock and sacrum Offloading, supportive care, wound care if needed --DVT prophylaxis; subcu Lovenox Full CODE STATUS We will closely monitor the patient and adjust the management as needed Plan of care reviewed with the patient's nurse Consultants and recommendations noted and appreciated Brief history and daily hospital course: 61-year-old male patient with significant past medical history of stroke chronic hypoxia status post tracheostomy PEG tube on PEG feeds, positive for COVID-19 pneumonia superimposed by bacterial pneumonia completed steroids, remdesivir, a ntibiotics Patient is requiring 10 L of oxygen via tracheostomy wean as tolerated and discharged to [facility] in stable brief history and daily hospital course 11/09/2021; continue current management, discharge back to [facility] when medically stable DC planning per case management 11/10/2021; continue current management, tracheostomy care, patient is more alert and awake DC planning per case management back to [facility] when medically stable and cleared by all the consultants 11/11/2021; patient will be transfer back to SNF when medically stable . 11/12/2021; patient is requiring 10 L of oxygen via trach, wean as tolerated Discharge to [facility] when medically stable Disposition wean as tolerated and transferred to [facility] stable History Interval history: I have seen and examined the patient at the bedside Patient's chart and medications reviewed Patient is requiring 10 L of oxygen via trach Cachectic and emaciated chronically ill looking Hospitalist Physical - Constitutional Vitals: Temp Pulse Resp BP Pulse Ox 98.2 F 108 H 18 109/79 94 11/12/21 04:59 11/12/21 04:59 11/12/21 04:59 11/12/21 04:59 11/12/21 04:59 General appearance: Present: mild distress, cachectic, other ( tracheostomy on T-piece) - EENT Eyes: Present: PERRL, EOM intact ENT: other (Tracheostomy on T-piece) - Neck Neck: Present: supple, normal ROM - Respiratory Respiratory effort: normal Respiratory: bilateral: diminished, rhonchi, negative: rales, wheezing - Cardiovascular Rhythm: regular Heart Sounds: Present: S1 & S2 - Extremities Extremities: no ischemia, No edema - Abdominal General gastrointestinal: soft, non-tender, non-distended, normal bowel sounds - Integumentary Integumentary: Present: clear, warm - Psychiatric Psychiatric: appropriate mood/affect, other (Minimally communicative) - Neurologic Neurologic: moves all extremities HEART Score - HEART Score Troponin: Troponin T < 0.010 ng/mL (0.00-0.029) 10/31/21 16:42 Results - Labs CBC & Chem 7: 11/12/21 09:37 11/12/21 09:37 Labs: Laboratory Last Values WBC 16.6 K/mm3 (4.5-11.0) H 11/07/21 04:57 RBC 4.33 M/mm3 (3.65-5.03) 11/07/21 04:57 Hgb 11.5 gm/dl (11.8-15.2) L 11/07/21 04:57 Hct 37.5 % (35.5-45.6) 11/07/21 04:57 MCV 87 fl (84-94) 11/07/21 04:57 MCH 27 pg (28-32) L 11/07/21 04:57 MCHC 31 % (32-34) L 11/07/21 04:57 RDW 14.9 % (13.2-15.2) 11/07/21 04:57 Plt Count 442 K/mm3 (140-440) H 11/07/21 04:57 Lymph % (Auto) 9.7 % (13.4-35.0) L 11/04/21 04:48 [place] % (Auto) 3.1 % (0.0-7.3) 11/04/21 04:48 Eos % (Auto) 0.0 % (0.0-4.3) 11/04/21 04:48 Baso % (Auto) 0.1 % (0.0-1.8) 11/04/21 04:48 Lymph # (Auto) 1.0 K/mm3 (1.2-5.4) L 11/04/21 04:48 [place] # (Auto) 0.3 K/mm3 (0.0-0.8) 11/04/21 04:48 Eos # (Auto) 0.0 K/mm3 (0.0-0.4) 11/04/21 04:48 Baso # (Auto) 0.0 K/mm3 (0.0-0.1) 11/04/21 04:48 Add Manual Diff Complete 11/03/21 04:32 Total Counted 100 11/03/21 04:32 Seg Neutrophils % 87.1 % (40.0-70.0) H 11/04/21 04:48 Seg Neuts % (Manual) 96.0 % (40.0-70.0) H 11/03/21 04:32 Band Neutrophils % 0 % 11/03/21 04:32 Lymphocytes % (Manual) 4.0 % (13.4-35.0) L 11/03/21 04:32 Reactive Lymphs % (Man) 0 % 11/03/21 04:32 Monocytes % (Manual) 0 % (0.0-7.3) 11/03/21 04:32 Eosinophils % (Manual) 0 % (0.0-4.3) 11/03/21 04:32 Basophils % (Manual) 0 % (0.0-1.8) 11/03/21 04:32 Metamyelocytes % 0 % 11/03/21 04:32 Myelocytes % 0 % 11/03/21 04:32 Promyelocytes % 0 % 11/03/21 04:32 Blast Cells % 0 % 11/03/21 04:32 Nucleated RBC % Not Reportable 11/03/21 04:32 Seg Neutrophils # 9.1 K/mm3 (1.8-7.7) H 11/04/21 04:48 Seg Neutrophils # Man 13.1 K/mm3 (1.8-7.7) H 11/03/21 04:32 Band Neutrophils # 0.0 K/mm3 11/03/21 04:32 Lymphocytes # (Manual) 0.5 K/mm3 (1.2-5.4) L 11/03/21 04:32 Abs React Lymphs (Man) 0.0 K/mm3 11/03/21 04:32 Monocytes # (Manual) 0.0 K/mm3 (0.0-0.8) 11/03/21 04:32 Eosinophils # (Manual) 0.0 K/mm3 (0.0-0.4) 11/03/21 04:32 Basophils # (Manual) 0.0 K/mm3 (0.0-0.1) 11/03/21 04:32 Metamyelocytes # 0.0 K/mm3 11/03/21 04:32 Myelocytes # 0.0 K/mm3 11/03/21 04:32 Promyelocytes # 0.0 K/mm3 11/03/21 04:32 Blast Cells # 0.0 K/mm3 11/03/21 04:32 WBC Morphology Not Reportable 11/03/21 04:32 Hypersegmented Neuts Not Reportable 11/03/21 04:32 Hyposegmented Neuts Not Reportable 11/03/21 04:32 Hypogranular Neuts Not Reportable 11/03/21 04:32 Smudge Cells Not Reportable 11/03/21 04:32 Toxic Granulation Not Reportable 11/03/21 04:32 Toxic Vacuolation Not Reportable 11/03/21 04:32 Dohle Bodies Not Reportable 11/03/21 04:32 Pelger-Huet Anomaly Not Reportable 11/03/21 04:32 Sisi Rods Not Reportable 11/03/21 04:32 Platelet Estimate Consistent w auto 11/03/21 04:32 Clumped Platelets Not Reportable 11/03/21 04:32 Plt Clumps, EDTA Not Reportable 11/03/21 04:32 Large Platelets Not Reportable 11/03/21 04:32 Giant Platelets Not Reportable 11/03/21 04:32 Platelet Satelliting Not Reportable 11/03/21 04:32 Plt Morphology Comment Not Reportable 11/03/21 04:32 RBC Morphology Normal 11/03/21 04:32 Dimorphic RBCs Not Reportable 11/03/21 04:32 Polychromasia Not Reportable 11/03/21 04:32 Hypochromasia Not Reportable 11/03/21 04:32 Poikilocytosis Not Reportable 11/03/21 04:32 Anisocytosis Not Reportable 11/03/21 04:32 Microcytosis Not Reportable 11/03/21 04:32 Macrocytosis Not Reportable 11/03/21 04:32 Spherocytes Not Reportable 11/03/21 04:32 Pappenheimer Bodies Not Reportable 11/03/21 04:32 Sickle Cells Not Reportable 11/03/21 04:32 Target Cells Not Reportable 11/03/21 04:32 Tear Drop Cells Not Reportable 11/03/21 04:32 Ovalocytes Not Reportable 11/03/21 04:32 Helmet Cells Not Reportable 11/03/21 04:32 Chicas-Altheimer Bodies Not Reportable 11/03/21 04:32 [place] Rings Not Reportable 11/03/21 04:32 Candia Cells Not Reportable 11/03/21 04:32 Bite Cells Not Reportable 11/03/21 04:32 Crenated Cell Not Reportable 11/03/21 04:32 Elliptocytes Not Reportable 11/03/21 04:32 Acanthocytes (Spur) Not Reportable 11/03/21 04:32 Rouleaux Not Reportable 11/03/21 04:32 Hemoglobin C Crystals Not Reportable 11/03/21 04:32 Schistocytes Not Reportable 11/03/21 04:32 Malaria parasites Not Reportable 11/03/21 04:32 Hany Bodies Not Reportable 11/03/21 04:32 Hem Pathologist Commnt No 11/03/21 04:32 PT 15.6 Sec. (12.2-14.9) H 10/31/21 02:36 INR 1.12 (0.87-1.13) 10/31/21 02:36 APTT 43.1 Sec. (24.2-36.6) H 10/31/21 02:36 D-Dimer 867.25 ng/mlDDU (0-234) H 11/07/21 04:57 ABG pH 7.572 (7.320-7.450) H 11/06/21 13:27 POC ABG pCO2 28.9 mmHg (32.0-48.0) L 11/06/21 13:27 ABG pCO2 29.9 mm Hg 11/01/21 04:00 POC ABG pO2 80.4 mmHg (83-108) L 11/06/21 13: ABG pO2 82.5 mm Hg (80.0-90.0) 11/01/21 04:00 POC ABG HCO3 26.0 11/06/21 13: ABG HCO3 21.2 mmol/L (20.0-26.0) 11/01/21 04:00 ABG O2 Saturation 96.8 (0-100) 11/06/21 13:27 ABG O2 Content 15.3 (0.0-44) 11/01/21 04:00 POC ABG Base Excess 4.6 11/06/21 13: ABG Base Excess -1.6 mmol/L (-2.0-3.0) 11/01/21 04:00 ABG Hemoglobin 12.3 (12.0-17.5) 11/06/21 13: ABG Oxyhemoglobin 96.4 (94-98) 11/06/21 13:27 ABG Carboxyhemoglobin 1.1 % (0.0-5.0) 11/01/21 04:00 ABG Methemoglobin 0.3 (0.0-1.5) 11/06/21 13:27 ABG Sodium 139.2 mmol/L (136.0-145.0) 11/06/21 13:27 ABG Potassium 3.1 mmol/L (3.40-4.50) L 11/06/21 13:27 ABG Chloride 102.0 mmol/L (98-107) 11/06/21 13:27 ABG Glucose 181 mg/dL (65-95) H 11/06/21 13:27 Oxyhemoglobin 95.6 % (95.0-99.0) 11/01/21 04:00 Carboxyhemoglobin 0.1 (0.5-1.5) L 11/06/21 13:27 FiO2 50 % 11/01/21 04:00 FiO2 % 40 11/06/21 13:27 Sodium 141 mmol/L (137-145) 11/07/21 04:57 Potassium 3.4 mmol/L (3.6-5.0) L 11/07/21 04:57 Chloride 98.3 mmol/L (98-107) 11/07/21 04:57 Carbon Dioxide 29 mmol/L (22-30) 11/07/21 04:57 Anion Gap 17 mmol/L 11/07/21 04:57 BUN 16 mg/dL (9-20) 11/07/21 04:57 Creatinine 0.5 mg/dL (0.8-1.3) L 11/07/21 04:57 Estimated GFR > 60 ml/min 11/07/21 04:57 BUN/Creatinine Ratio 32 % 11/07/21 04:57 Glucose 115 mg/dL (75-100) H 11/07/21 04:57 POC Glucose 117 mg/dL (70-105) H 11/12/21 05:00 Lactic Acid 1.80 mmol/L (0.7-2.0) 10/31/21 23:23 Calcium 10.1 mg/dL (8.4-10.2) 11/07/21 04:57 Phosphorus 3.00 mg/dL (2.5-4.5) 11/07/21 04:57 Magnesium 1.70 mg/dL (1.7-2.3) 11/07/21 04:57 Ferritin > 2000.0 ng/mL (30.0-300.0) H 11/07/21 04:57 Total Bilirubin 0.30 mg/dL (0.1-1.2) 11/07/21 04:57 AST 143 units/L (5-40) H 11/07/21 04:57 ALT 246 units/L (7-56) H 11/07/21 04:57 Alkaline Phosphatase 181 units/L (35-129) H 11/07/21 04:57 Ammonia 21.0 umol/L (25-60) L 10/31/21 06:04 Lactate Dehydrogenase 370 units/L (91-180) H 11/07/21 04:57 Troponin T < 0.010 ng/mL (0.00-0.029) 10/31/21 16:42 C-Reactive Protein 9.10 mg/dL (0.00-1.30) H 11/07/21 04:57 NT-Pro-B Natriuret Pep 2381 pg/mL (0-900) H 10/31/21 02:36 Total Protein 7.6 g/dL (6.3-8.2) 11/07/21 04:57 Albumin 2.8 g/dL (3.9-5) L 11/07/21 04:57 Albumin/Globulin Ratio 0.6 % 11/07/21 04:57 Triglycerides 116 mg/dL (2-149) 10/31/21 02:36 Cholesterol 52 mg/dL (50-199) 10/31/21 02:36 LDL Cholesterol Direct 20 mg/dL (50-130) L 10/31/21 02:36 HDL Cholesterol 13 mg/dL (40-59) L 10/31/21 02:36 Cholesterol/HDL Ratio 4.00 % 10/31/21 02:36 Procalcitonin 3.44 ng/mL (<0.15) 10/31/21 02:36 Arterial Blood Glucose 181 mg/dL (65-95) H 11/06/21 13:27 Arterial Blood Ionized Calcium 5.0 mg/dL (4.6-5.3) 11/06/21 13:27 Coronavirus (PCR) Positive (Negative) A 10/31/21 09:30 [place]/IV: Voiding Method Condom Catheter Active Medications - Current Medications Current Medications: Generic Name Dose Route Start Last Admin Trade Name Freq PRN Reason Stop Dose Admin Acetaminophen 650 mg 10/31/21 12:00 Acetaminophen 325 Mg/10.15 Ml Oral Liqd Unit Dose FEEDTUBE Q6H PRN Pain MILD(1-3)/Fever >100.5/MARIANO Hydrocodone Bitart/Acetaminophen 2 each 10/31/21 12:00 Hydrocodone/Acetaminophen 5-325 Mg Tab PO Q6H PRN Pain, Moderate (4-6) Albuterol 2.5 mg 11/04/21 12:52 11/06/21 14:26 Albuterol 2.5 Mg/3 Ml Nebu IH 2.5 mg Q6HRT PRN Administration Shortness Of Breath Lipase/Protease/Amylase 1 each 10/31/21 12:00 Lipase 10,500/Protease 25,000/Amylase 43,750 (Units) Dr Adames FEEDTUBE PRN PRN For Clogged Feeding Tube Enoxaparin Sodium 40 mg 11/01/21 10:00 11/11/21 09:49 Enoxaparin 40 Mg/0.4 Ml Inj SUB-Q 40 mg QDAY@1000 TRAVIS Administration Famotidine 20 mg 11/04/21 10:00 11/11/21 22:40 Famotidine 20 Mg Tab FEEDTUBE 20 mg BID TRAVIS Administration Hydrophilic Ointment 1 applic 10/31/21 15:40 Lip Therapy Vaseline TP Q2HR PRN Dry Lips Insulin Human Lispro 0 unit 11/09/21 18:00 11/12/21 05:37 Insulin Lispro 100 Unit/Ml SUB-Q Not Given Q6HR [facility] Protocol Morphine Sulfate 2 mg 10/31/21 12:00 11/02/21 11:48 Morphine 2 Mg/1 Ml Inj IV 2 mg Q4H PRN Administration Pain , Severe (7-10) Multi-Ingred Cream/Lotion/Oil/Oint 1 applic 10/31/21 15:40 Mineral Oil/Petrolatum, White Ophth Oint 3.5 Gm OU Q4HR PRN Dry Eye(s) Ondansetron HCl 4 mg 11/08/21 22:56 11/08/21 23:13 Ondansetron 4 Mg/2 Ml Inj IV 4 mg Q4H PRN Administration Nausea And Vomiting Scopolamine 1 each 11/05/21 14:00 11/11/21 09:49 Scopolamine Transdermal Patch 72 Hr TD 1 each Q3D TRAVIS Administration Senna/Docusate Sodium 1 tab 10/31/21 22:00 11/11/21 22:40 Sennosides/Docusate Sodium 8.6/50 Mg Tab FEEDTUBE 1 tab BID TRAVIS Administration Simple Syrup 15 ml 10/31/21 12:00 Simple Syrup 15 Ml FEEDTUBE PRN PRN Hypoglycemia Simple Syrup 30 ml 10/31/21 12:00 Simple Syrup 15 Ml FEEDTUBE PRN PRN Hypoglycemia Sodium Chloride 10 ml 10/31/21 12:00 11/11/21 22:40 Sodium Chloride 0.9% 10 Ml Flush Syringe IV 10 ml BID TRAVIS Administration Sodium Chloride 10 ml 10/31/21 12:00 Sodium Chloride 0.9% 10 Ml Flush Syringe IV PRN PRN LINE FLUSH Nutrition/Malnutrition Assess - Dietary Evaluation Nutrition/Malnutrition Findings: Nutrition Notes Start: 10/31/21 12:11 Freq: Status: Active Protocol: Document 11/06/21 15:43 ARTURO (Rec: 11/06/21 16:07 ARTURO [id number]) Nutrition Notes Initial or Follow up Brief Note Current Diet TF-Nepro w/CARBSTEADY @ 45 ml/ hr (since D 11/06). Height 6 ft 1 in Weight 70.3 kg [place] Body Weight (kg) 83.63 BMI 20.4 Weight change and time frame 0.007 Kg body weight change reported. Weight Status Appropriate Subjective/Other Information RD consult for routine F/U on Bolus Feeding tolerance. No report available on chart at the time, I spoke with RN and she informed that Pt is back to TF, tolerating well. Percent of energy/protein needs met: Prescribed Nepro w/CARBSTEADY @ 45 ml/hr provides for energy /protein needs (1,891 Kcal/85 g) during LOS, 100% Kcal; 100% AA. Current % PO Other Minimum of two criteria No #1 Nutrition Diagnosis Inadequate oral intake Diagnosis Progress(for reassessment Continues documentation) Nutrition Intervention Change Diet Order: d/c Nutrition Support: Nepro w/CARBSTEADY @ 45 ml/hr. Flush: 230 ml water Q 4 hr, as per MD Kcal 1,891 Protein (gm) 85 Carbohydrates (gm) 169 Fat (gm) 101 Fluid (mL) 764 Fiber (gm) 13 % RDI: 100% Kcal; 100% AA. Goal #1 Provide at least 75% of energy /protein needs through Enteral Feeding during LOS. Follow-Up By: 11/13/21 Additional Comments Continue monitoring TF tolerance and BM.
[2021-11-12] MEDS: SENNOSIDES/DOCUSATE SODIUM 8.6/50 MG TAB FEEDTUBE SCH ×2 (09:18→23:04)
[2021-11-12] MEDS: ENOXAPARIN 40 MG/0.4 ML INJ SUB-Q SCH (09:18)
[2021-11-12] MEDS: FAMOTIDINE 20 MG TAB FEEDTUBE SCH ×2 (09:18→23:04)
[2021-11-12 09:53] LABS: Basophils % (Auto) 0.3 % (0.0-1.8); Eosinophils % (Auto) 0.1 % (0.0-4.3); Hematocrit 34.5 % (35.5-45.6); Lymphocytes # (Auto) 1.5 K/mm3 (1.2-5.4); Lymphocytes % (Auto) 9.9 % (13.4-35.0); Mean Corpuscular HGB Conc 32 % (32-34); Mean Corpuscular Volume 86 fl (84-94); Monocytes # (Auto) 0.8 K/mm3 (0.0-0.8); Monocytes % (Auto) 5.1 % (0.0-7.3); Platelet Count 456 K/mm3 (140-440); Red Blood Count 4.03 M/mm3 (3.65-5.03); Red Cell Distribution Width 14.9 % (13.2-15.2)
[2021-11-12 10:12] LABS: Alanine Aminotransferase 119 units/L (7-56); Albumin 2.5 g/dL (3.9-5); BUN/Creatinine Ratio 38; Blood Urea Nitrogen 19 mg/dL (9-20); Hemolysis Index 3
--- NOTE | 2021-11-12 19:41 | Progress Note ---
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 % (Auto) 9.9 L Lymph # (Auto) Seg Neutrophils % 84.6 H Seg Neuts % (Manual) Lymphocytes % (Manual) Nucleated RBC % Seg Neutrophils # 13.1 H Seg Neutrophils # Man Lymphocytes # (Manual) PT APTT D-Dimer ABG pH POC ABG pCO2 POC ABG pO2 ABG pO2 ABG HCO3 ABG O2 Saturation ABG Base Excess ABG Hemoglobin ABG Oxyhemoglobin ABG Sodium ABG Potassium ABG Chloride ABG Glucose Carboxyhemoglobin Sodium Potassium 3.4 L Chloride Carbon Dioxide BUN Creatinine 0.5 L Glucose 127 H POC Glucose 143 H Lactic Acid Magnesium Ferritin AST 58 H ALT 119 H Alkaline Phosphatase 168 H Ammonia Lactate Dehydrogenase Troponin T C-Reactive Protein NT-Pro-B Natriuret Pep Albumin 2.5 L LDL Cholesterol Direct HDL Cholesterol Arterial Blood Glucose Coronavirus (PCR) Allied health notes reviewed: nursing
[2021-11-13] MEDS: INSULIN LISPRO 100 UNIT/ML SUB-Q SCH ×4 (00:41→22:32)
[2021-11-13] MEDS: ENOXAPARIN 40 MG/0.4 ML INJ SUB-Q SCH (11:45)
[2021-11-13] MEDS: SENNOSIDES/DOCUSATE SODIUM 8.6/50 MG TAB FEEDTUBE SCH ×2 (11:46→22:34)
[2021-11-13] MEDS: FAMOTIDINE 20 MG TAB FEEDTUBE SCH ×2 (11:46→22:33)
--- NOTE | 2021-11-13 12:43 | Discharge Summary ---
Providers - Providers Date of Admission: 10/31/21 06:03 Date of discharge: 11/14/21 Attending physician: MOUNA HERRING 10/31/21 04:03 Consult to Physician [CONS] Routine Comment: Consulting Provider: NEVAEH GAY Physician Instructions: Reason For Exam: ICU management, Acute respiratory failure 10/31/21 11:10 Consult to Dietitian/Nutrition [CONS] Routine Physician Instructions: Reason For Exam: Reason for Consult: Write/Manage Tube Feeding Consult to Physician [CONS] Routine Comment: Consulting Provider: ORA OLREDO Physician Instructions: Reason For Exam: sepsis 10/31/21 11:11 Consult to Dietitian/Nutrition [CONS] Routine Physician Instructions: Assess nutrtn needs, initiate, modify, manage TF Reason For Exam: Reason for Consult: Write/Manage Tube Feeding Reason for Consult: Write/Manage Tube Feeding 10/31/21 11:13 Consult to Physician [CONS] Routine Comment: Consulting Provider: REINALDO SUERO Physician Instructions: Reason For Exam: MARCELINO 10/31/21 11:14 Consult to Physician [CONS] Routine Comment: Consulting Provider: FLORINDA CARTER Physician Instructions: Reason For Exam: elevated troponin 10/31/21 15:41 Consult to Dietitian/Nutrition [CONS] Routine Physician Instructions: Reason For Exam: Reason for Consult: Evaluate nutritional intake 11/03/21 18:22 Consult to Wound/ET Nurse [CONS] Routine Reason For Exam: wound eval Primary care physician: EPIC [facility]OW SPECIALIST Hospitalization Condition: Stable Hospital course: 61-year-old male patient presented to the ER with significant past medical history of stroke chronic hypoxia status post tracheostomy PEG tube on PEG feeds, positive for COVID-19 pneumonia superimposed by bacterial pneumonia completed steroids, remdesivir, antibiotics. Patient is requiring 10 L of oxygen via tracheostomy and discharged to [facility] in stable condition. Disposition: [facility] Final Discharge Diagnosis (Prints w/discharge instructions): --COVID pneumonia: with possible superimposed bacterial PNA,. completed abx, remdesivir. on steroids for total 10 days. --Acute on chronic respiratory failure: Required ventilatory support now on tracheostomy T-piece. Patient is requiring 10 L of oxygen via trach. --Sepsis (POA), with possible superimposed bacterial pneumonia COVID-19 pneumonia, Lactic acidosis. Completed 5 days of Rocephin and Zithromax. Also completed remdesivir. --History of chronic hypoxia/ trach in place. --Past history of CVA; with residual weakness. --Acute kidney injury ; vasomotor nephropathy , present on admission, Now resolved. --Transaminitis ; right upper quadrant ultrasound showed contracted gallbladder, no acute abnormality. --Stage II decubitus ulcers ; bilateral buttock and sacrum. Offloading, supportive care, wound care if needed Time spent for discharge: 34 minutes Core Measure Documentation - Palliative Care Palliative Care/ Comfort Measures: Not Applicable - Core Measures Any of the following diagnoses?: history only Exam - Physical Exam Narrative exam: General appearance: Present: mild distress, cachectic, other ( tracheostomy on T-piece) - EENT Eyes: Present: PERRL, EOM intact ENT: other (Tracheostomy on T-piece) - Neck Neck: Present: supple, normal ROM - Respiratory Respiratory effort: normal Respiratory: bilateral: diminished, rhonchi, negative: rales, wheezing - Cardiovascular Rhythm: regular Heart Sounds: Present: S1 & S2 - Extremities Extremities: no ischemia, No edema - Abdominal General gastrointestinal: soft, non-tender, non-distended, normal bowel sounds - Integumentary Integumentary: Present: clear, warm - Psychiatric Psychiatric: other (Minimally communicative) - Neurologic Neurologic: alert and awake - Constitutional Vitals: Temp Pulse Resp BP Pulse Ox 97.8 F 99 H 19 117/88 96 11/13/21 03:50 11/13/21 03:50 11/13/21 03:50 11/13/21 03:50 11/13/21 10:18 Plan Activity: advance as tolerated Diet: diabetic Wound: change dressing, per wound nurse instructions Follow up with: HUMBLE LUIS MD [Primary Care Provider] - 7 Days SHERRY SALINAS MD [Staff Physician] - 7 Days
--- NOTE | 2021-11-13 16:32 | Progress Note ---
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 L Lymph # (Auto) Seg Neutrophils % 84.6 H Seg Neuts % (Manual) Lymphocytes % (Manual) Nucleated RBC % Seg Neutrophils # 13.1 H Seg Neutrophils # Man Lymphocytes # (Manual) PT APTT D-Dimer ABG pH POC ABG pCO2 POC ABG pO2 ABG pO2 ABG HCO3 ABG O2 Saturation ABG Base Excess ABG Hemoglobin ABG Oxyhemoglobin ABG Sodium ABG Potassium ABG Chloride ABG Glucose Carboxyhemoglobin Sodium Potassium 3.4 L Chloride Carbon Dioxide BUN Creatinine 0.5 L Glucose 127 H POC Glucose 143 H Lactic Acid Magnesium Ferritin AST 58 H ALT 119 H Alkaline Phosphatase 168 H Ammonia Lactate Dehydrogenase Troponin T C-Reactive Protein NT-Pro-B Natriuret Pep Albumin 2.5 L LDL Cholesterol Direct HDL Cholesterol Arterial Blood Glucose Coronavirus (PCR) 11/12/21 11/12/21 11/13/21 19:43 21:32 06:34 WBC Hgb Hct MCH MCHC RDW Plt Count Lymph % (Auto) Lymph # (Auto) Seg Neutrophils % Seg Neuts % (Manual) Lymphocytes % (Manual) Nucleated RBC % Seg Neutrophils # Seg Neutrophils # Man Lymphocytes # (Manual) PT APTT D-Dimer ABG pH POC ABG pCO2 POC ABG pO2 ABG pO2 ABG HCO3 ABG O2 Saturation ABG Base Excess ABG Hemoglobin ABG Oxyhemoglobin ABG Sodium ABG Potassium ABG Chloride ABG Glucose Carboxyhemoglobin Sodium Potassium Chloride Carbon Dioxide BUN Creatinine Glucose POC Glucose 125 H 131 H 112 H Lactic Acid Magnesium Ferritin AST ALT Alkaline Phosphatase Ammonia Lactate Dehydrogenase Troponin T C-Reactive Protein NT-Pro-B Natriuret Pep Albumin LDL Cholesterol Direct HDL Cholesterol Arterial Blood Glucose Coronavirus (PCR) 11/13/21 11/13/21 12:45 16:16 WBC Hgb Hct MCH MCHC RDW Plt Count Lymph % (Auto) Lymph # (Auto) Seg Neutrophils % Seg Neuts % (Manual) Lymphocytes % (Manual) Nucleated RBC % Seg Neutrophils # Seg Neutrophils # Man Lymphocytes # (Manual) PT APTT D-Dimer ABG pH POC ABG pCO2 POC ABG pO2 ABG pO2 ABG HCO3 ABG O2 Saturation ABG Base Excess ABG Hemoglobin ABG Oxyhemoglobin ABG Sodium ABG Potassium ABG Chloride ABG Glucose Carboxyhemoglobin Sodium Potassium Chloride Carbon Dioxide BUN Creatinine Glucose POC Glucose 108 H 114 H Lactic Acid Magnesium Ferritin AST ALT Alkaline Phosphatase Ammonia Lactate Dehydrogenase Troponin T C-Reactive Protein NT-Pro-B Natriuret Pep Albumin LDL Cholesterol Direct HDL Cholesterol Arterial Blood Glucose Coronavirus (PCR) Allied health notes reviewed: nursing
[2021-11-14] MEDS: INSULIN LISPRO 100 UNIT/ML SUB-Q SCH ×4 (04:32→17:55)
[2021-11-14 05:12] VITALS: BP 114/82
--- NOTE | 2021-11-14 08:08 | Progress Note ---
Subjective Date of service: 11/14/21 Principal diagnosis: AHRF; Pneumonia; COVID-19; MARCELINO; Leukocytosis; Lactic acidosis; Sepsis Objective Vital Signs - 12hr 11/13/21 11/13/21 11/13/21 20:48 20:49 22:00 Temperature Pulse Rate Respiratory Rate Blood Pressure O2 Sat by Pulse 100 95 Oximetry O2 Sat by Pulse 100 Oximetry [ Assessment] 11/13/21 11/14/21 11/14/21 22:15 05:07 05:08 Temperature 98.5 F 98.6 F Pulse Rate 86 91 H Respiratory 20 20 Rate Blood Pressure 125/76 114/82 O2 Sat by Pulse 96 97 Oximetry O2 Sat by Pulse 96 Oximetry [ Assessment] Constitutional: no acute distress, other (middle aged male with mildly increased respiratory effort at rest) Eyes: non-icteric ENT: oropharynx moist, oropharyngeal exudate pre (mild), other (midline tracheostomy) Neck: supple, no lymphadenopathy, no JVD Effort: mildly labored Ascultation: Bilateral: rhonchi (and referred upper airway sounds) Percussion: Bilateral: not dull Cardiovascular: regular rate and rhythm Gastrointestinal: normoactive bowel sounds, soft, non-tender, non-distended Integumentary: rash Extremities: no cyanosis, no ischemia or petechiae Neurologic: pupils equal and round, CN II-XII normal, other (weak lower e xtremities) Psychiatric: mood appropriate, affect normal, other (mild cognitive impairment) CBC and BMP: 11/12/21 09:37 11/12/21 09:37 ABG, PT/INR, D-dimer: ABG ABG pH 7.572 (7.320-7.450) H 11/06/21 13:27 POC ABG pCO2 28.9 mmHg (32.0-48.0) L 11/06/21 13:27 ABG pCO2 29.9 mm Hg 11/01/21 04:00 POC ABG pO2 80.4 mmHg (83-108) L 11/06/21 13:27 ABG pO2 82.5 mm Hg (80.0-90.0) 11/01/21 04:00 POC ABG HCO3 26.0 11/06/21 13:27 ABG O2 Saturation 96.8 (0-100) 11/06/21 13:27 PT/INR, D-dimer PT 15.6 Sec. (12.2-14.9) H 10/31/21 02:36 INR 1.12 (0.87-1.13) 10/31/21 02:36 D-Dimer 867.25 ng/mlDDU (0-234) H 11/07/21 04:57 Abnormal lab findings: Abnormal Labs 10/31/21 10/31/21 10/31/21 02:36 02:36 02:36 WBC 11.4 H Hgb Hct MCH 26 L MCHC 29 L RDW 15.3 H Plt Count Lymph % (Auto) Lymph # (Auto) Seg Neutrophils % 81.5 H Seg Neuts % (Manual) Lymphocytes % (Manual) Nucleated RBC % Seg Neutrophils # 9.3 H Seg Neutrophils # Man Lymphocytes # (Manual) PT 15.6 H APTT 43.1 H D-Dimer 1951.30 H ABG pH POC ABG pCO2 POC ABG pO2 ABG pO2 ABG HCO3 ABG O2 Saturation ABG Base Excess ABG Hemoglobin ABG Oxyhemoglobin ABG Sodium ABG Potassium ABG Chloride ABG Glucose Carboxyhemoglobin Sodium 155 H Potassium Chloride 110.3 H Carbon Dioxide 15 L BUN 46 H Creatinine 2.7 H Glucose 120 H POC Glucose Lactic Acid Magnesium Ferritin AST 492 H ALT 319 H Alkaline Phosphatase 153 H Ammonia Lactate Dehydrogenase Troponin T 0.065 H C-Reactive Protein NT-Pro-B Natriuret Pep 2381 H Albumin 3.0 L LDL Cholesterol Direct 20 L HDL Cholesterol 13 L Arterial Blood Glucose Coronavirus (PCR) 10/31/21 10/31/21 10/31/21 02:36 02:36 02:36 WBC Hgb Hct MCH MCHC RDW Plt Count Lymph % (Auto) Lymph # (Auto) Seg Neutrophils % Seg Neuts % (Manual) Lymphocytes % (Manual) Nucleated RBC % Seg Neutrophils # Seg Neutrophils # Man Lymphocytes # (Manual) PT APTT D-Dimer ABG pH POC ABG pCO2 POC ABG pO2 ABG pO2 ABG HCO3 ABG O2 Saturation ABG Base Excess ABG Hemoglobin ABG Oxyhemoglobin ABG Sodium ABG Potassium ABG Chloride ABG Glucose Carboxyhemoglobin Sodium Potassium Chloride Carbon Dioxide BUN Creatinine Glucose POC Glucose Lactic Acid 11.80 H* Magnesium Ferritin 64157.0 H AST ALT Alkaline Phosphatase Ammonia Lactate Dehydrogenase 923 H Troponin T C-Reactive Protein 7.80 H NT-Pro-B Natriuret Pep Albumin LDL Cholesterol Direct HDL Cholesterol Arterial Blood Glucose Coronavirus (PCR) 10/31/21 10/31/21 10/31/21 04:01 04:54 06:04 WBC Hgb Hct MCH MCHC RDW Plt Count Lymph % (Auto) Lymph # (Auto) Seg Neutrophils % Seg Neuts % (Manual) Lymphocytes % (Manual) Nucleated RBC % Seg Neutrophils # Seg Neutrophils # Man Lymphocytes # (Manual) PT APTT D-Dimer ABG pH 7.318 L POC ABG pCO2 POC ABG pO2 ABG pO2 229.1 H ABG HCO3 17.4 L ABG O2 Saturation 99.3 H ABG Base Excess -7.8 L ABG Hemoglobin 13.2 L ABG Oxyhemoglobin ABG Sodium ABG Potassium ABG Chloride ABG Glucose Carboxyhemoglobin Sodium Potassium Chloride Carbon Dioxide BUN Creatinine Glucose POC Glucose Lactic Acid 5.50 H* Magnesium Ferritin AST ALT Alkaline Phosphatase Ammonia 21.0 L Lactate Dehydrogenase Troponin T C-Reactive Protein NT-Pro-B Natriuret Pep Albumin LDL Cholesterol Direct HDL Cholesterol Arterial Blood Glucose Coronavirus (PCR) 10/31/21 10/31/21 10/31/21 09:30 10:44 16:42 WBC Hgb Hct MCH MCHC RDW Plt Count Lymph % (Auto) Lymph # (Auto) Seg Neutrophils % Seg Neuts % (Manual) Lymphocytes % (Manual) Nucleated RBC % Seg Neutrophils # Seg Neutrophils # Man Lymphocytes # (Manual) PT APTT D-Dimer ABG pH POC ABG pCO2 POC ABG pO2 ABG pO2 ABG HCO3 ABG O2 Saturation ABG Base Excess ABG Hemoglobin ABG Oxyhemoglobin ABG Sodium ABG Potassium ABG Chloride ABG Glucose Carboxyhemoglobin Sodium Potassium Chloride Carbon Dioxide BUN Creatinine Glucose POC Glucose Lactic Acid 3.40 H* 2.80 H* Magnesium Ferritin AST ALT Alkaline Phosphatase Ammonia Lactate Dehydrogenase Troponin T C-Reactive Protein NT-Pro-B Natriuret Pep Albumin LDL Cholesterol Direct HDL Cholesterol Arterial Blood Glucose Coronavirus (PCR) Positive A 10/31/21 11/01/21 11/01/21 16:42 03:38 03:38 WBC 15.6 H Hgb 11.3 L Hct MCH MCHC 31 L RDW 15.3 H Plt Count Lymph % (Auto) Lymph # (Auto) Seg Neutrophils % Seg Neuts % (Manual) 73.0 H Lymphocytes % (Manual) 9.0 L Nucleated RBC % 1.0 H Seg Neutrophils # Seg Neutrophils # Man 11.4 H Lymphocytes # (Manual) PT APTT D-Dimer ABG pH POC ABG pCO2 POC ABG pO2 ABG pO2 ABG HCO3 ABG O2 Saturation ABG Base Excess ABG Hemoglobin ABG Oxyhemoglobin ABG Sodium ABG Potassium ABG Chloride ABG Glucose Carboxyhemoglobin Sodium 158 H Potassium Chloride 122.1 H Carbon Dioxide BUN 40 H Creatinine Glucose 101 H POC Glucose Lactic Acid Magnesium 2.40 H Ferritin AST ALT Alkaline Phosphatase Ammonia Lactate Dehydrogenase Troponin T C-Reactive Protein NT-Pro-B Natriuret Pep Albumin LDL Cholesterol Direct HDL Cholesterol Arterial Blood Glucose Coronavirus (PCR) 11/01/21 11/02/21 11/02/21 04:00 03:22 03:22 WBC 11.9 H Hgb 11.6 L Hct MCH 27 L MCHC 31 L RDW 15.3 H Plt Count Lymph % (Auto) Lymph # (Auto) Seg Neutrophils % Seg Neuts % (Manual) Lymphocytes % (Manual) Nucleated RBC % Seg Neutrophils # Seg Neutrophils # Man Lymphocytes # (Manual) PT APTT D-Dimer ABG pH 7.468 H POC ABG pCO2 POC ABG pO2 ABG pO2 ABG HCO3 ABG O2 Saturation ABG Base Excess ABG Hemoglobin 11.3 L ABG Oxyhemoglobin ABG Sodium ABG Potassium ABG Chloride ABG Glucose Carboxyhemoglobin Sodium 159 H Potassium Chloride 123.3 H Carbon Dioxide BUN 35 H Creatinine Glucose POC Glucose Lactic Acid Magnesium Ferritin AST 394 H ALT 282 H Alkaline Phosphatase 173 H Ammonia Lactate Dehydrogenase Troponin T C-Reactive Protein NT-Pro-B Natriuret Pep Albumin 2.9 L LDL Cholesterol Direct HDL Cholesterol Arterial Blood Glucose Coronavirus (PCR) 11/02/21 11/02/21 11/03/21 03:22 03:58 03:47 WBC Hgb Hct MCH MCHC RDW Plt Count Lymph % (Auto) Lymph # (Auto) Seg Neutrophils % Seg Neuts % (Manual) Lymphocytes % (Manual) Nucleated RBC % Seg Neutrophils # Seg Neutrophils # Man Lymphocytes # (Manual) PT APTT D-Dimer ABG pH 7.523 H 7.467 H POC ABG pCO2 26.0 L 29.8 L POC ABG pO2 69.3 L 77.2 L ABG pO2 ABG HCO3 ABG O2 Saturation ABG Base Excess ABG Hemoglobin 11.7 L 11.4 L ABG Oxyhemoglobin 93.5 L ABG Sodium 161.6 H 158.6 H ABG Potassium ABG Chloride 123.0 H 122.0 H ABG Glucose 100 H 226 H Carboxyhemoglobin 0.3 L 0.2 L Sodium 160 H Potassium Chloride 126.4 H Carbon Dioxide BUN 36 H Creatinine Glucose POC Glucose Lactic Acid Magnesium 3.00 H Ferritin AST ALT Alkaline Phosphatase Ammonia Lactate Dehydrogenase Troponin T C-Reactive Protein NT-Pro-B Natriuret Pep Albumin LDL Cholesterol Direct HDL Cholesterol Arterial Blood Glucose 100 H 226 H Coronavirus (PCR) 11/03/21 11/03/21 11/03/21 04:32 04:32 04:32 WBC 13.6 H Hgb 11.2 L Hct MCH MCHC 31 L RDW 15.4 H Plt Count Lymph % (Auto) Lymph # (Auto) Seg Neutrophils % Seg Neuts % (Manual) 96.0 H Lymphocytes % (Manual) 4.0 L Nucleated RBC % Seg Neutrophils # Seg Neutrophils # Man 13.1 H Lymphocytes # (Manual) 0.5 L PT APTT D-Dimer ABG pH POC ABG pCO2 POC ABG pO2 ABG pO2 ABG HCO3 ABG O2 Saturation ABG Base Excess ABG Hemoglobin ABG Oxyhemoglobin ABG Sodium ABG Potassium ABG Chloride ABG Glucose Carboxyhemoglobin Sodium 154 H Potassium Chloride 120.7 H Carbon Dioxide 21 L BUN 30 H Creatinine Glucose 216 H POC Glucose Lactic Acid Magnesium 2.70 H Ferritin AST 258 H ALT 241 H Alkaline Phosphatase 178 H Ammonia Lactate Dehydrogenase Troponin T C-Reactive Protein NT-Pro-B Natriuret Pep Albumin 2.7 L LDL Cholesterol Direct HDL Cholesterol Arterial Blood Glucose Coronavirus (PCR) 11/04/21 11/04/21 11/04/21 04:48 04:48 05:04 WBC Hgb 10.5 L Hct 33.1 L MCH MCHC RDW Plt Count Lymph % (Auto) 9.7 L Lymph # (Auto) 1.0 L Seg Neutrophils % 87.1 H Seg Neuts % (Manual) Lymphocytes % (Manual) Nucleated RBC % Seg Neutrophils # 9.1 H Seg Neutrophils # Man Lymphocytes # (Manual) PT APTT D-Dimer ABG pH 7.531 H POC ABG pCO2 24.8 L POC ABG pO2 60.5 L ABG pO2 ABG HCO3 ABG O2 Saturation ABG Base Excess ABG Hemoglobin 11.5 L ABG Oxyhemoglobin 91.3 L ABG Sodium 154.1 H ABG Potassium ABG Chloride 118.0 H ABG Glucose 117 H Carboxyhemoglobin 0.3 L Sodium 157 H Potassium Chloride 122.0 H Carbon Dioxide 19 L BUN 21 H Creatinine 0.7 L Glucose 114 H POC Glucose Lactic Acid Magnesium Ferritin AST 366 H ALT 268 H Alkaline Phosphatase 177 H Ammonia Lactate Dehydrogenase Troponin T C-Reactive Protein NT-Pro-B Natriuret Pep Albumin 2.7 L LDL Cholesterol Direct HDL Cholesterol Arterial Blood Glucose 117 H Coronavirus (PCR) 11/04/21 11/04/21 11/04/21 11:59 17:53 18:30 WBC Hgb Hct MCH MCHC RDW Plt Count Lymph % (Auto) Lymph # (Auto) Seg Neutrophils % Seg Neuts % (Manual) Lymphocytes % (Manual) Nucleated RBC % Seg Neutrophils # Seg Neutrophils # Man Lymphocytes # (Manual) PT APTT D-Dimer ABG pH 7.508 H POC ABG pCO2 27.1 L POC ABG pO2 67.1 L ABG pO2 ABG HCO3 ABG O2 Saturation ABG Base Excess ABG Hemoglobin 11.9 L ABG Oxyhemoglobin 93.3 L ABG Sodium 147.4 H ABG Potassium ABG Chloride 113.0 H ABG Glucose 183 H Carboxyhemoglobin 0.2 L Sodium Potassium Chloride Carbon Dioxide BUN Creatinine Glucose POC Glucose 108 H 123 H Lactic Acid Magnesium Ferritin AST ALT Alkaline Phosphatase Ammonia Lactate Dehydrogenase Troponin T C-Reactive Protein NT-Pro-B Natriuret Pep Albumin LDL Cholesterol Direct HDL Cholesterol Arterial Blood Glucose 183 H Coronavirus (PCR) 11/04/21 11/05/21 11/05/21 21:24 06:03 06:03 WBC Hgb Hct MCH MCHC RDW Plt Count Lymph % (Auto) Lymph # (Auto) Seg Neutrophils % Seg Neuts % (Manual) Lymphocytes % (Manual) Nucleated RBC % Seg Neutrophils # Seg Neutrophils # Man Lymphocytes # (Manual) PT APTT D-Dimer 824.75 H ABG pH POC ABG pCO2 POC ABG pO2 ABG pO2 ABG HCO3 ABG O2 Saturation ABG Base Excess ABG Hemoglobin ABG Oxyhemoglobin ABG Sodium ABG Potassium ABG Chloride ABG Glucose Carboxyhemoglobin Sodium Potassium Chloride Carbon Dioxide BUN Creatinine Glucose POC Glucose 190 H Lactic Acid Magnesium Ferritin 2000.0 H AST ALT Alkaline Phosphatase Ammonia Lactate Dehydrogenase Troponin T C-Reactive Protein NT-Pro-B Natriuret Pep Albumin LDL Cholesterol Direct HDL Cholesterol Arterial Blood Glucose Coronavirus (PCR) 11/05/21 11/05/21 11/05/21 06:03 06:03 08:15 WBC 11.3 H Hgb 11.2 L Hct MCH MCHC 31 L RDW 15.4 H Plt Count Lymph % (Auto) Lymph # (Auto) Seg Neutrophils % Seg Neuts % (Manual) Lymphocytes % (Manual) Nucleated RBC % Seg Neutrophils # Seg Neutrophils # Man Lymphocytes # (Manual) PT APTT D-Dimer ABG pH POC ABG pCO2 POC ABG pO2 ABG pO2 ABG HCO3 ABG O2 Saturation ABG Base Excess ABG Hemoglobin ABG Oxyhemoglobin ABG Sodium ABG Potassium ABG Chloride ABG Glucose Carboxyhemoglobin Sodium Potassium Chloride 107.3 H Carbon Dioxide BUN Creatinine 0.6 L Glucose 192 H POC Glucose 171 H Lactic Acid Magnesium Ferritin AST 158 H ALT 233 H Alkaline Phosphatase 179 H Ammonia Lactate Dehydrogenase 401 H Troponin T C-Reactive Protein 6.50 H NT-Pro-B Natriuret Pep Albumin 2.7 L LDL Cholesterol Direct HDL Cholesterol Arterial Blood Glucose Coronavirus (PCR) 11/05/21 11/05/21 11/05/21 11:36 12:10 16:41 WBC Hgb Hct MCH MCHC RDW Plt Count Lymph % (Auto) Lymph # (Auto) Seg Neutrophils % Seg Neuts % (Manual) Lymphocytes % (Manual) Nucleated RBC % Seg Neutrophils # Seg Neutrophils # Man Lymphocytes # (Manual) PT APTT D-Dimer ABG pH 7.456 H POC ABG pCO2 POC ABG pO2 80.4 L 69.1 L ABG pO2 ABG HCO3 ABG O2 Saturation ABG Base Excess ABG Hemoglobin 11.0 L 11.4 L ABG Oxyhemoglobin 93.1 L ABG Sodium ABG Potassium ABG Chloride ABG Glucose 165 H 232 H Carboxyhemoglobin 0.3 L 0.3 L Sodium Potassium Chloride Carbon Dioxide BUN Creatinine Glucose POC Glucose 162 H Lactic Acid Magnesium Ferritin AST ALT Alkaline Phosphatase Ammonia Lactate Dehydrogenase Troponin T C-Reactive Protein NT-Pro-B Natriuret Pep Albumin LDL Cholesterol Direct HDL Cholesterol Arterial Blood Glucose 165 H 232 H Coronavirus (PCR) 11/05/21 11/05/21 11/06/21 16:53 23:33 05:05 WBC Hgb Hct MCH MCHC RDW Plt Count Lymph % (Auto) Lymph # (Auto) Seg Neutrophils % Seg Neuts % (Manual) Lymphocytes % (Manual) Nucleated RBC % Seg Neutrophils # Seg Neutrophils # Man Lymphocytes # (Manual) PT APTT D-Dimer ABG pH POC ABG pCO2 POC ABG pO2 ABG pO2 ABG HCO3 ABG O2 Saturation ABG Base Excess ABG Hemoglobin ABG Oxyhemoglobin ABG Sodium ABG Potassium ABG Chloride ABG Glucose Carboxyhemoglobin Sodium Potassium 3.3 L Chloride Carbon Dioxide BUN Creatinine 0.5 L Glucose 125 H POC Glucose 190 H 144 H Lactic Acid Magnesium Ferritin AST ALT Alkaline Phosphatase Ammonia Lactate Dehydrogenase Troponin T C-Reactive Protein NT-Pro-B Natriuret Pep Albumin LDL Cholesterol Direct HDL Cholesterol Arterial Blood Glucose Coronavirus (PCR) 11/06/21 11/06/21 11/06/21 05:05 11:11 13:27 WBC 13.6 H Hgb 11.1 L Hct 35.3 L MCH MCHC RDW Plt Count Lymph % (Auto) Lymph # (Auto) Seg Neutrophils % Seg Neuts % (Manual) Lymphocytes % (Manual) Nucleated RBC % Seg Neutrophils # Seg Neutrophils # Man Lymphocytes # (Manual) PT APTT D-Dimer ABG pH 7.572 H POC ABG pCO2 28.9 L POC ABG pO2 80.4 L ABG pO2 ABG HCO3 ABG O2 Saturation ABG Base Excess ABG Hemoglobin ABG Oxyhemoglobin ABG Sodium ABG Potassium 3.1 L ABG Chloride ABG Glucose 181 H Carboxyhemoglobin 0.1 L Sodium Potassium Chloride Carbon Dioxide BUN Creatinine Glucose POC Glucose 166 H Lactic Acid Magnesium Ferritin AST ALT Alkaline Phosphatase Ammonia Lactate Dehydrogenase Troponin T C-Reactive Protein NT-Pro-B Natriuret Pep Albumin LDL Cholesterol Direct HDL Cholesterol Arterial Blood Glucose 181 H Coronavirus (PCR) 11/06/21 11/06/21 11/07/21 16:14 23:55 04:57 WBC Hgb Hct MCH MCHC RDW Plt Count Lymph % (Auto) Lymph # (Auto) Seg Neutrophils % Seg Neuts % (Manual) Lymphocytes % (Manual) Nucleated RBC % Seg Neutrophils # Seg Neutrophils # Man Lymphocytes # (Manual) PT APTT D-Dimer 867.25 H ABG pH POC ABG pCO2 POC ABG pO2 ABG pO2 ABG HCO3 ABG O2 Saturation ABG Base Excess ABG Hemoglobin ABG Oxyhemoglobin ABG Sodium ABG Potassium ABG Chloride ABG Glucose Carboxyhemoglobin Sodium Potassium Chloride Carbon Dioxide BUN Creatinine Glucose POC Glucose 172 H 130 H Lactic Acid Magnesium Ferritin AST ALT Alkaline Phosphatase Ammonia Lactate Dehydrogenase Troponin T C-Reactive Protein NT-Pro-B Natriuret Pep Albumin LDL Cholesterol Direct HDL Cholesterol Arterial Blood Glucose Coronavirus (PCR) 11/07/21 11/07/21 11/07/21 04:57 04:57 04:57 WBC 16.6 H Hgb 11.5 L Hct MCH 27 L MCHC 31 L RDW Plt Count 442 H Lymph % (Auto) Lymph # (Auto) Seg Neutrophils % Seg Neuts % (Manual) Lymphocytes % (Manual) Nucleated RBC % Seg Neutrophils # Seg Neutrophils # Man Lymphocytes # (Manual) PT APTT D-Dimer ABG pH POC ABG pCO2 POC ABG pO2 ABG pO2 ABG HCO3 ABG O2 Saturation ABG Base Excess ABG Hemoglobin ABG Oxyhemoglobin ABG Sodium ABG Potassium ABG Chloride ABG Glucose Carboxyhemoglobin Sodium Potassium 3.4 L Chloride Carbon Dioxide BUN Creatinine 0.5 L Glucose 115 H POC Glucose Lactic Acid Magnesium Ferritin > 2000.0 H AST 143 H ALT 246 H Alkaline Phosphatase 181 H Ammonia Lactate Dehydrogenase 370 H Troponin T C-Reactive Protein 9.10 H NT-Pro-B Natriuret Pep Albumin 2.8 L LDL Cholesterol Direct HDL Cholesterol Arterial Blood Glucose Coronavirus (PCR) 11/07/21 11/08/21 11/08/21 11:54 12:01 16:57 WBC Hgb Hct MCH MCHC RDW Plt Count Lymph % (Auto) Lymph # (Auto) Seg Neutrophils % Seg Neuts % (Manual) Lymphocytes % (Manual) Nucleated RBC % Seg Neutrophils # Seg Neutrophils # Man Lymphocytes # (Manual) PT APTT D-Dimer ABG pH POC ABG pCO2 POC ABG pO2 ABG pO2 ABG HCO3 ABG O2 Saturation ABG Base Excess ABG Hemoglobin ABG Oxyhemoglobin ABG Sodium ABG Potassium ABG Chloride ABG Glucose Carboxyhemoglobin Sodium Potassium Chloride Carbon Dioxide BUN Creatinine Glucose POC Glucose 177 H 183 H 204 H Lactic Acid Magnesium Ferritin AST ALT Alkaline Phosphatase Ammonia Lactate Dehydrogenase Troponin T C-Reactive Protein NT-Pro-B Natriuret Pep Albumin LDL Cholesterol Direct HDL Cholesterol Arterial Blood Glucose Coronavirus (PCR) 11/09/21 11/09/21 11/09/21 06:00 10:38 15:48 WBC Hgb Hct MCH MCHC RDW Plt Count Lymph % (Auto) Lymph # (Auto) Seg Neutrophils % Seg Neuts % (Manual) Lymphocytes % (Manual) Nucleated RBC % Seg Neutrophils # Seg Neutrophils # Man Lymphocytes # (Manual) PT APTT D-Dimer ABG pH POC ABG pCO2 POC ABG pO2 ABG pO2 ABG HCO3 ABG O2 Saturation ABG Base Excess ABG Hemoglobin ABG Oxyhemoglobin ABG Sodium ABG Potassium ABG Chloride ABG Glucose Carboxyhemoglobin Sodium Potassium Chloride Carbon Dioxide BUN Creatinine Glucose POC Glucose 157 H 141 H 205 H Lactic Acid Magnesium Ferritin AST ALT Alkaline Phosphatase Ammonia Lactate Dehydrogenase Troponin T C-Reactive Protein NT-Pro-B Natriuret Pep Albumin LDL Cholesterol Direct HDL Cholesterol Arterial Blood Glucose Coronavirus (PCR) 11/10/21 11/10/21 11/10/21 00:52 05:12 11:58 WBC Hgb Hct MCH MCHC RDW Plt Count Lymph % (Auto) Lymph # (Auto) Seg Neutrophils % Seg Neuts % (Manual) Lymphocytes % (Manual) Nucleated RBC % Seg Neutrophils # Seg Neutrophils # Man Lymphocytes # (Manual) PT APTT D-Dimer ABG pH POC ABG pCO2 POC ABG pO2 ABG pO2 ABG HCO3 ABG O2 Saturation ABG Base Excess ABG Hemoglobin ABG Oxyhemoglobin ABG Sodium ABG Potassium ABG Chloride ABG Glucose Carboxyhemoglobin Sodium Potassium Chloride Carbon Dioxide BUN Creatinine Glucose POC Glucose 114 H 118 H 161 H Lactic Acid Magnesium Ferritin AST ALT Alkaline Phosphatase Ammonia Lactate Dehydrogenase Troponin T C-Reactive Protein NT-Pro-B Natriuret Pep Albumin LDL Cholesterol Direct HDL Cholesterol Arterial Blood Glucose Coronavirus (PCR) 11/10/21 11/10/21 11/11/21 15:54 23:31 06:06 WBC Hgb Hct MCH MCHC RDW Plt Count Lymph % (Auto) Lymph # (Auto) Seg Neutrophils % Seg Neuts % (Manual) Lymphocytes % (Manual) Nucleated RBC % Seg Neutrophils # Seg Neutrophils # Man Lymphocytes # (Manual) PT APTT D-Dimer ABG pH POC ABG pCO2 POC ABG pO2 ABG pO2 ABG HCO3 ABG O2 Saturation ABG Base Excess ABG Hemoglobin ABG Oxyhemoglobin ABG Sodium ABG Potassium ABG Chloride ABG Glucose Carboxyhemoglobin Sodium Potassium Chloride Carbon Dioxide BUN Creatinine Glucose POC Glucose 199 H 131 H 131 H Lactic Acid Magnesium Ferritin AST ALT Alkaline Phosphatase Ammonia Lactate Dehydrogenase Troponin T C-Reactive Protein NT-Pro-B Natriuret Pep Albumin LDL Cholesterol Direct HDL Cholesterol Arterial Blood Glucose Coronavirus (PCR) 11/11/21 11/11/21 11/12/21 11:42 17:15 05:00 WBC Hgb Hct MCH MCHC RDW Plt Count Lymph % (Auto) Lymph # (Auto) Seg Neutrophils % Seg Neuts % (Manual) Lymphocytes % (Manual) Nucleated RBC % Seg Neutrophils # Seg Neutrophils # Man Lymphocytes # (Manual) PT APTT D-Dimer ABG pH POC ABG pCO2 POC ABG pO2 ABG pO2 ABG HCO3 ABG O2 Saturation ABG Base Excess ABG Hemoglobin ABG Oxyhemoglobin ABG Sodium ABG Potassium ABG Chloride ABG Glucose Carboxyhemoglobin Sodium Potassium Chloride Carbon Dioxide BUN Creatinine Glucose POC Glucose 160 H 144 H 117 H Lactic Acid Magnesium Ferritin AST ALT Alkaline Phosphatase Ammonia Lactate Dehydrogenase Troponin T C-Reactive Protein NT-Pro-B Natriuret Pep Albumin LDL Cholesterol Direct HDL Cholesterol Arterial Blood Glucose Coronavirus (PCR) 11/12/21 11/12/21 11/12/21 09:37 09:37 12:54 WBC 15.4 H Hgb 11.0 L Hct 34.5 L MCH 27 L MCHC RDW Plt Count 456 H Lymph % (Auto) 9.9 L Lymph # (Auto) Seg Neutrophils % 84.6 H Seg Neuts % (Manual) Lymphocytes % (Manual) Nucleated RBC % Seg Neutrophils # 13.1 H Seg Neutrophils # Man Lymphocytes # (Manual) PT APTT D-Dimer ABG pH POC ABG pCO2 POC ABG pO2 ABG pO2 ABG HCO3 ABG O2 Saturation ABG Base Excess ABG Hemoglobin ABG Oxyhemoglobin ABG Sodium ABG Potassium ABG Chloride ABG Glucose Carboxyhemoglobin Sodium Potassium 3.4 L Chloride Carbon Dioxide BUN Creatinine 0.5 L Glucose 127 H POC Glucose 143 H Lactic Acid Magnesium Ferritin AST 58 H ALT 119 H Alkaline Phosphatase 168 H Ammonia Lactate Dehydrogenase Troponin T C-Reactive Protein NT-Pro-B Natriuret Pep Albumin 2.5 L LDL Cholesterol Direct HDL Cholesterol Arterial Blood Glucose Coronavirus (PCR) 11/12/21 11/12/21 11/13/21 19:43 21:32 06:34 WBC Hgb Hct MCH MCHC RDW Plt Count Lymph % (Auto) Lymph # (Auto) Seg Neutrophils % Seg Neuts % (Manual) Lymphocytes % (Manual) Nucleated RBC % Seg Neutrophils # Seg Neutrophils # Man Lymphocytes # (Manual) PT APTT D-Dimer ABG pH POC ABG pCO2 POC ABG pO2 ABG pO2 ABG HCO3 ABG O2 Saturation ABG Base Excess ABG Hemoglobin ABG Oxyhemoglobin ABG Sodium ABG Potassium ABG Chloride ABG Glucose Carboxyhemoglobin Sodium Potassium Chloride Carbon Dioxide BUN Creatinine Glucose POC Glucose 125 H 131 H 112 H Lactic Acid Magnesium Ferritin AST ALT Alkaline Phosphatase Ammonia Lactate Dehydrogenase Troponin T C-Reactive Protein NT-Pro-B Natriuret Pep Albumin LDL Cholesterol Direct HDL Cholesterol Arterial Blood Glucose Coronavirus (PCR) 11/13/21 11/13/21 11/13/21 12:45 16:16 22:13 WBC Hgb Hct MCH MCHC RDW Plt Count Lymph % (Auto) Lymph # (Auto) Seg Neutrophils % Seg Neuts % (Manual) Lymphocytes % (Manual) Nucleated RBC % Seg Neutrophils # Seg Neutrophils # Man Lymphocytes # (Manual) PT APTT D-Dimer ABG pH POC ABG pCO2 POC ABG pO2 ABG pO2 ABG HCO3 ABG O2 Saturation ABG Base Excess ABG Hemoglobin ABG Oxyhemoglobin ABG Sodium ABG Potassium ABG Chloride ABG Glucose Carboxyhemoglobin Sodium Potassium Chloride Carbon Dioxide BUN Creatinine Glucose POC Glucose 108 H 114 H 117 H Lactic Acid Magnesium Ferritin AST ALT Alkaline Phosphatase Ammonia Lactate Dehydrogenase Troponin T C-Reactive Protein NT-Pro-B Natriuret Pep Albumin LDL Cholesterol Direct HDL Cholesterol Arterial Blood Glucose Coronavirus (PCR) Allied health notes reviewed: nursing
--- NOTE | 2021-11-14 08:57 | Progress Note ---
Assessment and Plan Brief history: 61-year-old male patient with significant past medical history of stroke chronic hypoxia status post tracheostomy PEG tube on PEG feeds, positive for COVID-19 pneumonia superimposed by bacterial pneumonia completed steroids, remdesivir, antibiotics Patient is requiring 10 L of oxygen via tracheostomy wean as tolerated and discharged to [facility] in stable brief history and daily hospital course Assessment and plan: --COVID pneumonia: with possible superimposed bacterial PNA, completed abx, remdesivir. on steroids for total 10 days. --Acute on chronic respiratory failure: Requiring ventilatory support now on tracheostomy T-piece Patient is requiring 10 L of oxygen via trach --Sepsis (POA), with possible superimposed bacterial pneumonia COVID-19 pneumonia, Lactic acidosis Patient meets criteria given the tachycardia, tachypnea and diagnosis of pneumonia -Infectious disease consulted, appreciate recommendations -Contact/droplet precautions Completed 5 days of Rocephin and Zithromax - sepsis 10/31 tracheal aspirate with Klebsiella pneumonia Leukocytosis; trending down closely monitor Partly due to steroids -10/31 blood culture x2 no growth to date -Anticoagulation per hospital protocol -Trend COVID-19 inflammatory markers -Monitor WBC and temperature curve --History of chronic hypoxia/ trach in place,; Continue tracheostomy care, titrate oxygen saturation to more than 90% --Past history of CVA; with residual weakness Continue supportive care, PT and OT if needed --Acute kidney injury ; vasomotor nephropathy , present on admission Now resolved , closely monitor renal function, avoid nephrotoxin --Transaminitis ; right upper quadrant ultrasound , no acute abnormality Contracted gallbladder , closely monitor and supportive care --Stage II decubitus ulcers ; bilateral buttock and sacrum Offloading, supportive care, wound care if needed --DVT prophylaxis; subcu Lovenox Full CODE STATUS We will closely monitor the patient and adjust the management as needed Plan of care reviewed with the patient's nurse Consultants and recommendations noted and appreciated Daily hospital course 11/09/2021; continue current management, discharge back to [facility] when medically stable DC planning per case management 11/10/2021; continue current management, tracheostomy care, patient is more alert and awake DC planning per case management back to [facility] when medically stable and cleared by all the consultants 11/11/2021; patient will be transfer back to [facility] when medically stable . 11/12/2021; patient is requiring 10 L of oxygen via trach, wean as tolerated Discharge to [facility] when medically stable 11/13/21; patient remains on 10 L oxygen via trach, otherwise clinically stable. Pending placement to [facility] Disposition wean as tolerated and transferred to [facility] stable Subjective Date of service: 11/13/21 Principal diagnosis: AHRF; Pneumonia; COVID-19; MARCELINO; Leukocytosis; Lactic acidosis; Sepsis Interval history: Patient seen and examined at the bedside Patient's chart and medications reviewed Patient remains on 10 L of oxygen via trach Discussed plan of care with RN and case management Objective - Exam Narrative Exam: General appearance: Present: mild distress, cachectic, other ( tracheostomy on T-piece) - EENT Eyes: Present: PERRL, EOM intact ENT: other (Tracheostomy on T-piece) - Neck Neck: Present: supple, normal ROM - Respiratory Respiratory effort: normal Respiratory: bilateral: diminished, rhonchi, negative: rales, wheezing - Cardiovascular Rhythm: regular Heart Sounds: Present: S1 & S2 - Extremities Extremities: no ischemia, No edema - Abdominal General gastrointestinal: soft, non-tender, non-distended, normal bowel sounds - Integumentary Integumentary: Present: clear, warm - Psychiatric Psychiatric: appropriate mood/affect, other (Minimally communicative) - Neurologic Neurologic: moves all extremities - Constitutional Vitals: Vital Signs - 12hr 11/13/21 11/13/21 11/14/21 22:00 22:15 05:07 Temperature 98.5 F Pulse Rate 86 Respiratory 20 Rate Blood Pressure 125/76 O2 Sat by Pulse 95 96 Oximetry O2 Sat by Pulse 96 Oximetry [ Assessment] 11/14/21 05:08 Temperature 98.6 F Pulse Rate 91 H Respiratory 20 Rate Blood Pressure 114/82 O2 Sat by Pulse 97 Oximetry O2 Sat by Pulse Oximetry [ Assessment] - Labs CBC & Chem 7: 11/12/21 09:37 11/12/21 09:37 Labs: Abnormal lab results 11/13/21 11/13/21 11/13/21 Range/Units 12:45 16:16 22:13 POC Glucose 108 H 114 H 117 H (70-105) mg/dL HEART Score - HEART Score Troponin: Troponin T < 0.010 ng/mL (0.00-0.029) 10/31/21 16:42
[2021-11-14] MEDS: SENNOSIDES/DOCUSATE SODIUM 8.6/50 MG TAB FEEDTUBE SCH ×2 (09:00→21:45)
[2021-11-14] MEDS: ENOXAPARIN 40 MG/0.4 ML INJ SUB-Q SCH (09:00)
[2021-11-14] MEDS: FAMOTIDINE 20 MG TAB FEEDTUBE SCH ×2 (09:00→21:44)
[2021-11-14] MEDS: SCOPOLAMINE TRANSDERMAL PATCH 72 HR TD SCH (09:01)
== END 2021-11-14 23:55 | DRG 870 ==
LOC: ED 01:56 → CC1 06:03 → 3A 11-07 18:27
PROVIDERS: ADMIT Internal Medicine Geriatric Medicine; ATTEND Internal Medicine
PROC: 5A1955Z Respiratory Ventilation, Greater than 96 Consecutive Hours (ICD-10-PCS; principal; 2021-10-31)
PROC: 4A033R1 Measurement of Arterial Saturation, Peripheral, Percutaneous Approach (ICD-10-PCS; 2021-10-31)
PROC: XW033E5 Introduction of Remdesivir Anti-infective into Peripheral Vein, Percutaneous Approach, New Technology Group 5 (ICD-10-PCS; 2021-11-01)
DX: A41.89 Other specified sepsis (principal); U07.1 COVID-19; J12.82 Pneumonia due to coronavirus disease 2019; J96.21 Acute and chronic respiratory failure with hypoxia; N17.0 Acute kidney failure with tubular necrosis; E87.2 Acidosis; J44.1 Chronic obstructive pulmonary disease with (acute) exacerbation; E87.0 Hyperosmolality and hypernatremia; E87.1 Hypo-osmolality and hyponatremia; R74.01 Elevation of levels of liver transaminase levels; R74.8 Abnormal levels of other serum enzymes; L89.152 Pressure ulcer of sacral region, stage 2; Z93.0 Tracheostomy status; R62.7 Adult failure to thrive; R13.12 Dysphagia, oropharyngeal phase; Z86.73 Personal history of transient ischemic attack (TIA), and cerebral infarction without residual deficits
CPT/HCPCS: 36415; 36600; 71045; 76705; 76770; 80048; 80053; 80061; 82140; 82728; 82803; 82805; 82962; 83615; 83735; 83880; 84100; 84145; 84484; 85007; 85025; 85027; 85379; 85610; 85730; 86140; 87040; 87070; 87076; 87186; 87205; 93005; 93306; 93970; 94002; 94003; 94640; 94760; G0378; J3490; Q0162; Q9967; J0330; J0456; J0696; J1100; J1650; J1815; J2270; J2405; J3010; J7030; J7050; J7070; U0003